=== PATIENT | male | born 1950 | race Caucasian/White ===

== ENCOUNTER 2022-07-02 04:36 | Inpatient (IN) | payer BC, MEDICARE ==
--- NOTE | 2022-07-02 04:51 | ED ---
General Adult HPI <Case Mathur - Last Filed: 07/02/22 06:41> <Jalen Rust - Last Filed: 07/02/22 16:05> - General Stated complaint: Shortness of Breath Time Seen by Provider: 07/02/22 04:38 - History of Present Illness Initial comments: Dictation was produced using [email or web address] dictation software. please excuse any grammatical, word or spelling errors. Chief Complaint: 71-year-old male presents emergency department for shortness of breath History of Present Illness: Is 71-year-old male has multiple comorbidities. Patient has not seen a physician and several years due to patient not wanting to see a doctor. He finally came today because he was complaining of shortness of breath. asked him if he wanted to go to the hospital he finally said yes. Patient is a poor historian. He is not able to provide detailed history of present illness. HPI obtained from EMS states that the house he was living is very disheveled. Appears that patient does not have a good social situation at home. 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 Patient was stated his name. He is able to not know when asked if he has any pain. EMS suspects that patient was found down at home. Unable to obtain secondary to mental status. PHYSICAL EXAM: General Impression: Alert and oriented x1/4, lethargic HEENT: Normocephalic atraumatic, extra-ocular movements intact, pupils equal and reactive to light bilaterally, dry mucous membranes Cardiovascular: Heart regular rate and rhythm Chest: no retractions, no tachypnea Abdomen: abdomen soft, non-tender, non-distended, no organomegaly Musculoskeletal: Pulses present and equal in all extremities, no peripheral edema Motor: no focal deficits noted Neurological: CN II-XII grossly intact, no focal motor or sensory deficits noted Skin: Pressure sores to the bilateral knees Psych: Normal affect and mood ED course: 71-year-old male presents emergency department for shortness of breath. EMS describes a poor social living situation. It is unclear what joaquin epps's baseline mental status is. it is unclear when patient was last normal. Nursing notes and chart review was performed My EKG interpretation: Ventricular rate 137, sinus tachycardia, MO interval of 85, QRS 84, QTC 41. No MO prolongation, no QTC prolongation, no ST or T-wave changes noted. EKG compared to febrile 06/08/2015 showing no changes. Overall, this EKG is unremarkable Patient care signed over to Dr. Rust at 7 AM (Case Mathur) - Related Data Home Medications Medication Instructions Recorded Confirmed No Known Home Medications 07/02/22 07/02/22 Allergies Allergy/AdvReac Type Severity Reaction Status Date / Time No Known Allergies Allergy Verified 07/02/22 10:54 Review of Systems ROS Other: All systems not noted in ROS Statement are negative. <Case Mathur - Last Filed: 07/02/22 06:41> ROS Other: All systems not noted in ROS Statement are negative. <Jalen Rust - Last Filed: 07/02/22 16:05> ROS Statement: Those systems with pertinent positive or pertinent negative responses have been documented in the HPI. Past Medical History Past Medical History: Diabetes Mellitus, Hyperlipidemia Additional Past Medical History / Comment(s): WORK ACCIDENT LEFT INDEX FINGER AMPUTATED History of Any Multi-Drug Resistant Organisms: None Reported Past Surgical History: No Surgical Hx Reported Past Anesthesia/Blood Transfusion Reactions: No Reported Reaction Past Psychological History: No Psychological Hx Reported Past Alcohol Use History: Occasional Past Drug Use History: None Reported - Past Family History Mother Family Medical History: No Reported History <Case Mathur - Last Filed: 07/02/22 06:41> Course Vital Signs 07/02/22 07/02/22 07/02/22 05:12 08:13 10:17 Temperature 98.9 F Pulse Rate 74 134 H 133 H Respiratory 15 18 24 Rate Blood Pressure 136/73 136/75 132/82 O2 Sat by Pulse 99 97 96 Oximetry 07/02/22 07/02/22 07/02/22 11:22 14:15 15:18 Temperature Pulse Rate 132 H 137 H 113 H Respiratory 28 H 21 13 Rate Blood Pressure 136/73 102/59 110/67 O2 Sat by Pulse 96 97 98 Oximetry Medical Decision Making - Lab Data Result diagrams: 07/02/22 06:02 <Case Mathur - Last Filed: 07/02/22 06:41> - Lab Data Result diagrams: 07/02/22 14:47 07/02/22 12:32 <Jalen Rust - Last Filed: 07/02/22 16:05> - Medical Decision Making Patient is a 71-year-old male that was signed out to me pending further workup. He originally presents with shortness of breath. Has not been seen by a physician in many years. Has a history of uncontrolled diabetes. Unknown compliance with medications. Per family, they have been attempting to get him to the hospital for multiple weeks but he refuses. Over the last week or so he has been more short of breath. Has normally just been sitting watching TV which is his baseline. His exercises "ambulating to the mailbox and back." However he has not moved from the couch recently. Was covered in his own urine. 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 Does have a prior history of stroke with some residual right-sided deficits. Presents for further evaluation at this time. Workup initially was remarkable for sinus tachycardia, dehydration, and leukocytosis of 16.8, elevated d-dimer of 20, a high anion gap metabolic acidosis, AK eye, hyperglycemia, lactic acidosis. Patient elevated troponin of 0.287. Acetone and VBG were still pending. Flu, Covid, RSV negative. Urinalysis is still pending. CT brain had been obtained as well as C-spine, and were interpreted by myself as showing no acute intracranial hemorrhage or mass effect. No midline shift. Cervical spine shows no acute fracture or subluxation. Chest x-ray as interpreted by myself shows diffuse right lung edema versus infiltrates. Radiology was concerned for possible underlying mass. Recommended CT. Pelvis x-ray as interpreted by myself shows no acute traumatic process. Patient was administered a 1 L fluid bolus. He was started on Zosyn and vancomycin by the prior physician as well to cover for sepsis. He met criteria at 7 AM. Fluids will be administered judiciously as he is hypernatremic. We will obtain bilateral lower extremity venous duplexes. Cannot obtain a CT with contrast and it therefore we will obtain CT chest and pelvis without contrast. I did order a VQ scan. We'll likely start the patient on empiric heparin at this time to cover for possible clot, as VQ scan would not be done immediately. I did discuss with the patient's who was in agreement this plan. Patient was also in agreement with this plan. Patient is tachycardic at this time and appears extremity dehydrated which I will continue fluids. Vital signs otherwise within acceptable limits. We will obtain an additional IV. CT chest, abdomen, pelvis without contrast was obtained and revealed a right- sided pleural effusion as well as findings suggestive of a mass in the right hilar region. Radiology concurs with this finding. I did discuss the case with the ICU team, who will evaluate the patient. Con sult was placed. Consult to cardiology was also placed. Echo will be obtained as well. I spoke with the admitting physician, Dr. Jean was in agreement this plan. I did speak with the at bedside and updated her. We discussed at this time CODE STATUS for the patient. She states that the patient previously stated he wishes to be no code. No CPR, no intubation. They're in agreement with other therapies, and may be in agreement with possible central line or pressors use but like to discuss it prior if he does require. They were in agreement this plan. I spoke with Dr. Fajardo at bedside reevaluated the patient was in agreement with accepting the patient ICU. We'll continue DVT prophylaxis heparin at this time. We'll continue treating the DKA at this time. He was in agreement with the plan. VQ scan returned, however was a comfort kit study as they did not obtain ventilation imaging, however did show some perfusion deficits in the right lung. I did convey this with the ICU team, we'll continue management as is for now. (Jalen Rust) - Lab Data Lab Results 07/02/22 07/02/22 07/02/22 Range/Units 05:55 06:02 06:02 WBC 16.8 H (3.8-10.6) k/uL RBC 4.78 (4.30-5.90) m/uL Hgb 15.8 (13.0-17.5) gm/dL Hct 50.1 (39.0-53.0) % MCV 104.8 H (80.0-100.0) fL MCH 33.0 (25.0-35.0) pg MCHC 31.5 (31.0-37.0) g/dL RDW 12.6 (11.5-15.5) % Plt Count 345 (150-450) k/uL MPV 8.6 Neutrophils % 90 % Lymphocytes % 5 % Monocytes % 4 % Eosinophils % 0 % Basophils % 0 % Neutrophils # 15.1 H (1.3-7.7) k/uL Lymphocytes # 0.8 L (1.0-4.8) k/uL Monocytes # 0.7 (0-1.0) k/uL Eosinophils # 0.0 (0-0.7) k/uL Basophils # 0.1 (0-0.2) k/uL Hypochromasia Marked Macrocytosis Slight PT (9.0-12.0) sec INR (<1.2) APTT (22.0-30.0) sec D-Dimer (<0.60) mg/L FEU VBG pH (7.31-7.41) VBG pCO2 (37-51) mmHg VBG HCO3 (24-28) mmol/L Sodium 159 H (137-145) mmol/L Potassium 4.9 (3.5-5.1) mmol/L Chloride 119 H (98-107) mmol/L Carbon Dioxide 6 L* (22-30) mmol/L Anion Gap 34 mmol/L BUN 46 H (9-20) mg/dL Creatinine 1.84 H (0.66-1.25) mg/dL Est GFR (CKD-EPI)AfAm 41 (>60 ml/min/1.73 sqM) Est GFR (CKD-EPI)NonAf 36 (>60 ml/min/1.73 sqM) Glucose 567 H* (74-99) mg/dL POC Glucose (mg/dL) 495 H (70-110) mg/dL POC Glu Bone Density Technician ID Mack Escudero Lactic Ac Sepsis Rflx Plasma Lactic Acid Alfonzo (0.7-2.0) mmol/L Calcium 9.7 (8.4-10.2) mg/dL Magnesium 2.8 H (1.6-2.3) mg/dL Total Bilirubin 0.8 (0.2-1.3) mg/dL AST 16 L (17-59) U/L ALT 16 (4-49) U/L Alkaline Phosphatase 145 H (38-126) U/L Ammonia (<30) umol/L Creatine Kinase 91 (55-170) U/L Troponin I (0.000-0.034) ng/mL NT-Pro-B Natriuret Pep pg/mL Total Protein 9.0 H (6.3-8.2) g/dL Albumin 3.8 (3.5-5.0) g/dL TSH 0.821 (0.465-4.680) mIU/L Urine Color Urine Appearance (Clear) Urine pH (5.0-8.0) Ur Specific Spring (1.001-1.035) Urine Protein (Negative) Urine Glucose (UA) (Negative) Urine Ketones (Negative) Urine Blood (Negative) Urine Nitrite (Negative) Urine Bilirubin (Negative) Urine Urobilinogen (<2.0) mg/dL Ur Leukocyte Esterase (Negative) Urine RBC (0-5) /hpf Urine WBC (0-5) /hpf Ur Squamous Epith Cells (0-4) /hpf Urine Mucus (None) /hpf Acetone, Qual (Negative) Influenza Type A (PCR) (Not Detectd) Influenza Type B (PCR) (Not Detectd) RSV (PCR) (Not Detectd) SARS-CoV-2 (PCR) (Not Detectd) 07/02/22 07/02/22 07/02/22 Range/Units 06:02 06:02 06:02 WBC (3.8-10.6) k/uL RBC (4.30-5.90) m/uL Hgb (13.0-17.5) gm/dL Hct (39.0-53.0) % MCV (80.0-100.0) fL MCH (25.0-35.0) pg MCHC (31.0-37.0) g/dL RDW (11.5-15.5) % Plt Count (150-450) k/uL MPV Neutrophils % % Lymphocytes % % Monocytes % % Eosinophils % % Basophils % % Neutrophils # (1.3-7.7) k/uL Lymphocytes # (1.0-4.8) k/uL Monocytes # (0-1.0) k/uL Eosinophils # (0-0.7) k/uL Basophils # (0-0.2) k/uL Hypochromasia Macrocytosis PT 12.9 H (9.0-12.0) sec INR 1.3 H (<1.2) APTT 23.4 (22.0-30.0) sec D-Dimer 20.08 H (<0.60) mg/L FEU VBG pH (7.31-7.41) VBG pCO2 (37-51) mmHg VBG HCO3 (24-28) mmol/L Sodium (137-145) mmol/L Potassium (3.5-5.1) mmol/L Chloride (98-107) mmol/L Carbon Dioxide (22-30) mmol/L Anion Gap mmol/L BUN (9-20) mg/dL Creatinine (0.66-1.25) mg/dL Est GFR (CKD-EPI)AfAm (>60 ml/min/1.73 sqM) Est GFR (CKD-EPI)NonAf (>60 ml/min/1.73 sqM) Glucose (74-99) mg/dL POC Glucose (mg/dL) (70-110) mg/dL POC Glu Bone Density Technician ID Lactic Ac Sepsis Rflx Plasma Lactic Acid Alfonzo 3.8 H* (0.7-2.0) mmol/L Calcium (8.4-10.2) mg/dL Magnesium (1.6-2.3) mg/dL Total Bilirubin (0.2-1.3) mg/dL AST (17-59) U/L ALT (4-49) U/L Alkaline Phosphatase (38-126) U/L Ammonia 13 (<30) umol/L Creatine Kinase (55-170) U/L Troponin I (0.000-0.034) ng/mL NT-Pro-B Natriuret Pep 2660 pg/mL Total Protein (6.3-8.2) g/dL Albumin (3.5-5.0) g/dL TSH (0.465-4.680) mIU/L Urine Color Urine Appearance (Clear) Urine pH (5.0-8.0) Ur Specific Spring (1.001-1.035) Urine Protein (Negative) Urine Glucose (UA) (Negative) Urine Ketones (Negative) Urine Blood (Negative) Urine Nitrite (Negative) Urine Bilirubin (Negative) Urine Urobilinogen (<2.0) mg/dL Ur Leukocyte Esterase (Negative) Urine RBC (0-5) /hpf Urine WBC (0-5) /hpf Ur Squamous Epith Cells (0-4) /hpf Urine Mucus (None) /hpf Acetone, Qual (Negative) Influenza Type A (PCR) (Not Detectd) Influenza Type B (PCR) (Not Detectd) RSV (PCR) (Not Detectd) SARS-CoV-2 (PCR) (Not Detectd) 07/02/22 07/02/22 07/02/22 Range/Units 06:02 06:48 07:03 WBC (3.8-10.6) k/uL RBC (4.30-5.90) m/uL Hgb (13.0-17.5) gm/dL Hct (39.0-53.0) % MCV (80.0-100.0) fL MCH (25.0-35.0) pg MCHC (31.0-37.0) g/dL RDW (11.5-15.5) % Plt Count (150-450) k/uL MPV Neutrophils % % Lymphocytes % % Monocytes % % Eosinophils % % Basophils % % Neutrophils # (1.3-7.7) k/uL Lymphocytes # (1.0-4.8) k/uL Monocytes # (0-1.0) k/uL Eosinophils # (0-0.7) k/uL Basophils # (0-0.2) k/uL Hypochromasia Macrocytosis PT (9.0-12.0) sec INR (<1.2) APTT (22.0-30.0) sec D-Dimer (<0.60) mg/L FEU VBG pH (7.31-7.41) VBG pCO2 (37-51) mmHg VBG HCO3 (24-28) mmol/L Sodium (137-145) mmol/L Potassium (3.5-5.1) mmol/L Chloride (98-107) mmol/L Carbon Dioxide (22-30) mmol/L Anion Gap mmol/L BUN (9-20) mg/dL Creatinine (0.66-1.25) mg/dL Est GFR (CKD-EPI)AfAm (>60 ml/min/1.73 sqM) Est GFR (CKD-EPI)NonAf (>60 ml/min/1.73 sqM) Glucose (74-99) mg/dL POC Glucose (mg/dL) (70-110) mg/dL POC Glu Bone Density Technician ID Lactic Ac Sepsis Rflx Y Plasma Lactic Acid Alfonzo (0.7-2.0) mmol/L Calcium (8.4-10.2) mg/dL Magnesium (1.6-2.3) mg/dL Total Bilirubin (0.2-1.3) mg/dL AST (17-59) U/L ALT (4-49) U/L Alkaline Phosphatase (38-126) U/L Ammonia (<30) umol/L Creatine Kinase (55-170) U/L Troponin I 0.287 H* (0.000-0.034) ng/mL NT-Pro-B Natriuret Pep pg/mL Total Protein (6.3-8.2) g/dL Albumin (3.5-5.0) g/dL TSH (0.465-4.680) mIU/L Urine Color Urine Appearance (Clear) Urine pH (5.0-8.0) Ur Specific Spring (1.001-1.035) Urine Protein (Negative) Urine Glucose (UA) (Negative) Urine Ketones (Negative) Urine Blood (Negative) Urine Nitrite (Negative) Urine Bilirubin (Negative) Urine Urobilinogen (<2.0) mg/dL Ur Leukocyte Esterase (Negative) Urine RBC (0-5) /hpf Urine WBC (0-5) /hpf Ur Squamous Epith Cells (0-4) /hpf Urine Mucus (None) /hpf Acetone, Qual (Negative) Influenza Type A (PCR) Not Detected (Not Detectd) Influenza Type B (PCR) Not Detected (Not Detectd) RSV (PCR) Not Detected (Not Detectd) SARS-CoV-2 (PCR) Not Detected (Not Detectd) 07/02/22 07/02/22 07/02/22 Range/Units 08:31 08:31 08:31 WBC (3.8-10.6) k/uL RBC (4.30-5.90) m/uL Hgb (13.0-17.5) gm/dL Hct (39.0-53.0) % MCV (80.0-100.0) fL MCH (25.0-35.0) pg MCHC (31.0-37.0) g/dL RDW (11.5-15.5) % Plt Count (150-450) k/uL MPV Neutrophils % % Lymphocytes % % Monocytes % % Eosinophils % % Basophils % % Neutrophils # (1.3-7.7) k/uL Lymphocytes # (1.0-4.8) k/uL Monocytes # (0-1.0) k/uL Eosinophils # (0-0.7) k/uL Basophils # (0-0.2) k/uL Hypochromasia Macrocytosis PT (9.0-12.0) sec INR (<1.2) APTT (22.0-30.0) sec D-Dimer (<0.60) mg/L FEU VBG pH 7.24 L (7.31-7.41) VBG pCO2 20 L (37-51) mmHg VBG HCO3 8 L* (24-28) mmol/L Sodium (137-145) mmol/L Potassium (3.5-5.1) mmol/L Chloride (98-107) mmol/L Carbon Dioxide (22-30) mmol/L Anion Gap mmol/L BUN (9-20) mg/dL Creatinine (0.66-1.25) mg/dL Est GFR (CKD-EPI)AfAm (>60 ml/min/1.73 sqM) Est GFR (CKD-EPI)NonAf (>60 ml/min/1.73 sqM) Glucose (74-99) mg/dL POC Glucose (mg/dL) (70-110) mg/dL POC Glu Bone Density Technician ID Lactic Ac Sepsis Rflx Plasma Lactic Acid Alfonzo (0.7-2.0) mmol/L Calcium (8.4-10.2) mg/dL Magnesium (1.6-2.3) mg/dL Total Bilirubin (0.2-1.3) mg/dL AST (17-59) U/L ALT (4-49) U/L Alkaline Phosphatase (38-126) U/L Ammonia (<30) umol/L Creatine Kinase (55-170) U/L Troponin I (0.000-0.034) ng/mL NT-Pro-B Natriuret Pep pg/mL Total Protein (6.3-8.2) g/dL Albumin (3.5-5.0) g/dL TSH (0.465-4.680) mIU/L Urine Color Yellow Urine Appearance Clear (Clear) Urine pH 5.5 (5.0-8.0) Ur Specific Spring 1.028 (1.001-1.035) Urine Protein 1+ H (Negative) Urine Glucose (UA) 4+ H (Negative) Urine Ketones 4+ H (Negative) Urine Blood Moderate H (Negative) Urine Nitrite Negative (Negative) Urine Bilirubin 1+ H (Negative) Urine Urobilinogen <2.0 (<2.0) mg/dL Ur Leukocyte Esterase Negative (Negative) Urine RBC 39 H (0-5) /hpf Urine WBC 2 (0-5) /hpf Ur Squamous Epith Cells <1 (0-4) /hpf Urine Mucus Rare H (None) /hpf Acetone, Qual Positive (Negative) Influenza Type A (PCR) (Not Detectd) Influenza Type B (PCR) (Not Detectd) RSV (PCR) (Not Detectd) SARS-CoV-2 (PCR) (Not Detectd) 07/02/22 Range/Units 10:11 WBC (3.8-10.6) k/uL RBC (4.30-5.90) m/uL Hgb (13.0-17.5) gm/dL Hct (39.0-53.0) % MCV (80.0-100.0) fL MCH (25.0-35.0) pg MCHC (31.0-37.0) g/dL RDW (11.5-15.5) % Plt Count (150-450) k/uL MPV Neutrophils % % Lymphocytes % % Monocytes % % Eosinophils % % Basophils % % Neutrophils # (1.3-7.7) k/uL Lymphocytes # (1.0-4.8) k/uL Monocytes # (0-1.0) k/uL Eosinophils # (0-0.7) k/uL Basophils # (0-0.2) k/uL Hypochromasia Macrocytosis PT (9.0-12.0) sec INR (<1.2) APTT (22.0-30.0) sec D-Dimer (<0.60) mg/L FEU VBG pH (7.31-7.41) VBG pCO2 (37-51) mmHg VBG HCO3 (24-28) mmol/L Sodium (137-145) mmol/L Potassium (3.5-5.1) mmol/L Chloride (98-107) mmol/L Carbon Dioxide (22-30) mmol/L Anion Gap mmol/L BUN (9-20) mg/dL Creatinine (0.66-1.25) mg/dL Est GFR (CKD-EPI)AfAm (>60 ml/min/1.73 sqM) Est GFR (CKD-EPI)NonAf (>60 ml/min/1.73 sqM) Glucose (74-99) mg/dL POC Glucose (mg/dL) 412 H (70-110) mg/dL POC Glu Bone Density Technician ID OrwellLinden Ac Sepsis Rflx Plasma Lactic Acid Alfonzo (0.7-2.0) mmol/L Calcium (8.4-10.2) mg/dL Magnesium (1.6-2.3) mg/dL Total Bilirubin (0.2-1.3) mg/dL AST (17-59) U/L ALT (4-49) U/L Alkaline Phosphatase (38-126) U/L Ammonia (<30) umol/L Creatine Kinase (55-170) U/L Troponin I (0.000-0.034) ng/mL NT-Pro-B Natriuret Pep pg/mL Total Protein (6.3-8.2) g/dL Albumin (3.5-5.0) g/dL TSH (0.465-4.680) mIU/L Urine Color Urine Appearance (Clear) Urine pH (5.0-8.0) Ur Specific Spring (1.001-1.035) Urine Protein (Negative) Urine Glucose (UA) (Negative) Urine Ketones (Negative) Urine Blood (Negative) Urine Nitrite (Negative) Urine Bilirubin (Negative) Urine Urobilinogen (<2.0) mg/dL Ur Leukocyte Esterase (Negative) Urine RBC (0-5) /hpf Urine WBC (0-5) /hpf Ur Squamous Epith Cells (0-4) /hpf Urine Mucus (None) /hpf Acetone, Qual (Negative) Influenza Type A (PCR) (Not Detectd) Influenza Type B (PCR) (Not Detectd) RSV (PCR) (Not Detectd) SARS-CoV-2 (PCR) (Not Detectd) Critical Care Time Critical Care Time: Yes Total Critical Care Time: 35 <Jalen Rust - Last Filed: 07/02/22 16:05> Critical Care Time: Upon my evaluation, this patient had a high probability of imminent or life- threatening deterioration due to DKA, sepsis, hypernatremia, which required my direct attention, intervention, and personal management. I have personally provided 35 minutes of critical care time exclusive of time spent on separately billable procedures. Time includes review of laboratory data, radiology results, discussion with consultants, and monitoring for potential decompensation. Interventions were performed as documented in my note. (Jalen Rust) Disposition <Case Mathur - Last Filed: 07/02/22 06:41> Time of Disposition: 08:45 <Jalen Rust - Last Filed: 07/02/22 16:05> Clinical Impression: Elevated troponin, DKA (diabetic ketoacidosis), AMS (altered mental status), Hypernatremia, Elevated d-dimer, Debility, Dehydration, Sepsis Disposition: ADMITTED IP TO THIS [facility] Condition: Serious
[2022-07-02 05:56] LABS: Glucose,Whole Blood 495 mg/dL (70-110)
[2022-07-02] MEDS ORDERED: SODIUM CHLORIDE 0.9% 1,000 ML IV STA ×2 (06:01→07:19)
[2022-07-02 06:14] LABS: Basophils # (A) 0.1 k/uL (0-0.2); Basophils % (A) 0 %; Eosinophils % (A) 0 %; HCT 50.1 % (39.0-53.0); HGB 15.8 gm/dL (13.0-17.5); Hypochromasia Marked; Lymphocytes # (A) 0.8 k/uL (1.0-4.8); Lymphocytes % (A) 5 %; MCHC 31.5 g/dL (31.0-37.0); MCV 104.8 fL (80.0-100.0); Macrocytosis Slight; Mean Platelet Volume 8.6; Monocytes # (A) 0.7 k/uL (0-1.0); Monocytes % (A) 4 %; Neutrophils # (A) 15.1 k/uL (1.3-7.7); Neutrophils % (A) 90 %; Platelet Count 345 k/uL (150-450); RBC 4.78 m/uL (4.30-5.90); RDW 12.6 % (11.5-15.5); WBC 16.8 k/uL (3.8-10.6)
[2022-07-02 06:26] LABS: Albumin 3.8 g/dL (3.5-5.0); Calcium 9.7 mg/dL (8.4-10.2); Magnesium 2.8 mg/dL (1.6-2.3); Potassium 4.9 mmol/L (3.5-5.1); Total Bilirubin 0.8 mg/dL (0.2-1.3)
[2022-07-02 06:38] LABS: INR 1.3 (<1.2); Partial Thromboplastin Time 23.4 sec (22.0-30.0); Prothrombin Time 12.9 sec (9.0-12.0)
[2022-07-02] MEDS ORDERED: PIPERACILLIN-TAZOBACTAM 3.375 GM in SODIUM CHLORIDE 0.9% 100 ML IVPB STA (06:49)
--- NOTE | 2022-07-02 06:52 | XR ---
EXAMINATION TYPE: XR chest 1V portable DATE OF EXAM: 07/02/2022 COMPARISON: Chest x-ray August 31, 2014 HISTORY: Shortness of breath. TECHNIQUE: Single frontal supine view of the chest is obtained. FINDINGS: Diffuse right lung opacity current study. Right hilar fullness is noted. Background chroni c parenchymal change. Low lung volumes redemonstrated. The cardiac silhouette size is stable and wit hin normal limits. The osseous structures are intact. IMPRESSION: New diffuse right lung edema and/or infiltrates. Right hilar fullness possible underlyin g mass and/or adenopathy. Consider CT follow-up.
--- NOTE | 2022-07-02 06:53 | XR ---
EXAMINATION TYPE: XR pelvis AP view DATE OF EXAM: 07/02/2022 CLINICAL HISTORY: Pain. TECHNIQUE: A single AP view of the pelvis is obtained. COMPARISON: None. FINDINGS: There is no acute fracture/dislocation evident in the pelvis. The hip joints appear symme tric and unremarkable. Some narrowing and sclerosis of the bilateral sacroiliac joints is seen. Pubi c symphysis is intact. A few scattered tiny pelvic phleboliths are noted. IMPRESSION: As above.
--- NOTE | 2022-07-02 06:56 | CT ---
EXAMINATION TYPE: CT brain cspine wo con DATE OF EXAM: 07/02/2022 COMPARISON: CT brain September 01, 2014 HISTORY: Fall injury with headache and neck pain. CT DLP: 1394.9 mGycm. Automated Exposure Control for Dose Reduction was Utilized. TECHNIQUE: CT scan of the head and cervical spine are performed without contrast. FINDINGS: There is no acute intracranial hemorrhage or midline shift identified. There is mild to m oderate ventricular and sulcal prominence. There is mild low attenuation in the periventricular white matter. There is old infarct or focal encephalomalacia involving the left frontal lobe more prominen t from prior. The calvarium is intact. The globes are intact and the visualized sinuses are clear. Cervical spine is visualized in its entirety from C1 through upper thoracic levels and demonstrates s light levoconvex scoliotic curvature centered upper thoracic spine without evidence of acute fracture or dislocation. Prevertebral soft tissue appears within normal limits. The C1-C2 articulation is w ithin normal limits on the coronal images. Vertebral body heights and disc space heights are maintai dhiraj. Spinal canal is preserved. Review of axial images shows normal-appearing thyroid gland. There is no apical pneumothorax noted. There is partial visualization of at least small right pleural effusio n. IMPRESSION: 1. There is no acute fracture or dislocation evident in the cervical spine. 2. No acute intracranial hemorrhage or midline shift is seen.
[2022-07-02 07:03] LABS: Lactic Acid, Venous 3.8 mmol/L (0.7-2.0)
[2022-07-02] MEDS ORDERED: VANCOMYCIN IV PER PHARMACY 1 EACH MISC MISCELLANE PRN (07:07)
[2022-07-02] MEDS ORDERED: VANCOMYCIN 1,750 MG in SODIUM CHLORIDE 0.9% 500 ML 500 ML IVPB STA (07:11)
[2022-07-02] MEDS ORDERED: SODIUM CHLORIDE 0.9% 500 ML 500 ML IV STA (07:31)
[2022-07-02 08:52] LABS: VBG PH 7.24 (7.31-7.41)
[2022-07-02] MEDS ORDERED: Potassium Replacement Protocol 1 EACH MISC MISCELLANE PRN (09:01)
[2022-07-02] MEDS ORDERED: INSULIN REGULAR BOLUS (FROM DRIP BAG) IV ONE (09:01)
[2022-07-02] MEDS ORDERED: Magnesium Replacement Protocol 1 EACH MISC MISCELLANE PRN (09:01)
[2022-07-02 09:02] LABS: Appearance,Urine Clear (Clear); Bilirubin,Urine 1+ (Negative); Blood,Urine Moderate (Negative); Color,Urine Yellow; Glucose,Urine (UA) 4+ (Negative); Leukocyte Esterase,Urine Negative (Negative); Mucus,Urine Rare /hpf; Nitrite,Urine Negative (Negative); PH, Urine 5.5 (5.0-8.0); Protein,Urine 1+ (Negative); RBC,Urine 39 /hpf (0-5); Specific Gravity,Urine 1.028 (1.001-1.035); Squamous Epithelial Cell,Urine <1 /hpf (0-4); Urobilinogen,Urine <2.0 mg/dL (<2.0); WBC,Urine 2 /hpf (0-5)
--- NOTE | 2022-07-02 09:18 | CT ---
EXAMINATION TYPE: CT ChestAbdPelvis wo con DATE OF EXAM: 07/02/2022 COMPARISON: NONE HISTORY: Sepsis, shortness of breath CT DLP: 1025.8 mGycm. Automated Exposure Control for Dose Reduction was Utilized. TECHNIQUE: CT scan of the thorax, abdomen and pelvis is performed without IV contrast. FINDINGS: LUNGS: There is small right pleural effusion. There is associated compressive atelectasis. There is m ild bibasilar linear scarring and/or atelectasis. Respiratory motion artifact is noted limiting evalu ation for subcentimeter nodules. Right hilar masslike consolidation more suspicious posterior infrahi lar region or axial image 33 is noted. Left lung is clear. MEDIASTINUM: There are calcified subcarinal lymph nodes. Prominent but subcentimeter paratracheal and right tracheobronchial and AP window lymph nodes are seen. No cardiomegaly or pericardial effusion is seen. Coronary artery calcification is present which is noted marker for underlying coronary art ny disease. OTHER: Small degree of right-sided gynecomastia axial image 32 is noted. LIVER/GB: Gallbladder is distended margins without surrounding fluid or fat stranding. PANCREAS: Moderate to severe fat replaced atrophy. SPLEEN: Occasional calcification scattered throughout the spleen consistent with product of old granu lomatous disease. ADRENALS: No significant abnormality is seen. KIDNEYS: No renal stones or hydronephrosis seen bilaterally. There is 2.3 cm exophytic thin-walled cy st anteriorly upper pole left kidney. The Juarez catheter decompresses bladder. BOWEL: No suspicious small or large bowel dilatation. GENITAL ORGANS: No gross abnormality seen. LYMPH NODES: No greater than 1cm abdominal or pelvic lymph nodes are appreciated. OSSEOUS STRUCTURES: [id number] multilevel spurring in the thoracolumbar spine. Facet arthropath y lower lumbar spine. Probable old fracture deformity left proximal humerus. OTHER: [id number] calcified plaque of the aorta extends into branch vessels. IMPRESSION: 1. Suboptimal study with respiratory motion compromise. Small right pleural effusion or fluid collec tion with associated compressive atelectasis. Right hilar consolidation slightly more masslike elementary librarian ior infrahilar region. Follow-up advised to rule out underlying mass or neoplasm. No well-formed flui d collection or abscess.
[2022-07-02 09:22] LABS: Ketones,Urine 4+ (Negative)
[2022-07-02] MEDS ORDERED: ACETAMINOPHEN TAB 325 MG TAB PO PRN (10:07)
[2022-07-02] MEDS ORDERED: NALOXONE 0.4 MG/ML 1 ML VIAL IV PRN (10:07)
[2022-07-02] MEDS ORDERED: ASPIRIN 81 MG PO STA (10:09)
--- NOTE | 2022-07-02 10:11 | US ---
EXAMINATION TYPE: US venous doppler duplex LE DATE OF EXAM: 07/02/2022 9:43 AM COMPARISON: NONE CLINICAL HISTORY: elevated dimer, concern for PE. Elevated d dimer. Bilateral leg swelling. SIDE PERFORMED: Bilateral TECHNIQUE: The lower extremity deep venous system is examined utilizing real time linear array sonog hakan with graded compression, doppler sonography and color-flow sonography. VESSELS IMAGED: Common Femoral Vein Deep Femoral Vein Greater Saphenous Vein * Femoral Vein Popliteal Vein Small Saphenous Vein * Proximal Calf Veins (* superficial vessels) Right Leg: Negative for DVT Left Leg: Vessels imagined wnl Popliteal Vein area is not well visualized. Grayscale, color doppler, spectral doppler imaging performed of the deep veins of the bilateral lower extremities. There is normal flow, compressibility, vascular waveforms. IMPRESSION: Suboptimal study without convincing evidence of acute DVT in either lower extremity.
[2022-07-02 10:12] LABS: Glucose,Whole Blood 412 mg/dL (70-110)
[2022-07-02] MEDS: INSULIN REGULAR 100 UNIT in SODIUM CHLORIDE 0.9% 100 ML IV SCH ×2 (10:14→21:03)
[2022-07-02] MEDS: SODIUM CHLORIDE 0.9% 1,000 ML IV SCH ×3 (10:21→21:04)
[2022-07-02 11:20] LABS: Glucose,Whole Blood 266 mg/dL (70-110)
[2022-07-02 12:36] LABS: Glucose,Whole Blood 158 mg/dL (70-110)
--- NOTE | 2022-07-02 12:43 | NM ---
EXAMINATION TYPE: NM pul perfusion DATE OF EXAM: 07/02/2022 COMPARISON: 07/02/2022 chest x-ray and CT chest HISTORY: Elevated d-dimer Following administration of 5.3 mCi Tc 99m MAA. Images obtained post injection. FINDINGS: Ventilation images are not submitted and therefore assessment for probability for pulmonary embolism is nondiagnostic. There is a large peripheral wedge-shaped defect involving the right mid and upper lung. There is a co rresponding CT and chest x-ray abnormality.. IMPRESSION: Large perfusion defect right upper lobe. In the appropriate clinical setting pulmonary embolism in th e differential diagnosis.
[2022-07-02 13:20] LABS: Phosphorus 3.4 mg/dL (2.5-4.5); Potassium 3.5 mmol/L (3.5-5.1)
[2022-07-02 13:48] LABS: Glucose,Whole Blood 81 mg/dL (70-110)
--- NOTE | 2022-07-02 14:09 | P.CRDCN ---
History of Present Illness Consult date: 07/02/22 History of present illness: History of Present Illness: The patient is a 71-year-old male who presented to the emergency room after the insistence of his because of progressive fatigue, lack of energy and shortness of breath. In the emergency room he was noted to have diabetic ketoacidosis and mild elevation of the troponin. The history is obtained from the . 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 He has stopped taking all his medications. He is to smoke up to one year ago. He is limited in his physical activity. His left ventricle systolic function in 2015 was normal. He has no prior history of myocardial infarction or heart failure. His duplex scan of the lower extremities was unremarkable but his ventilation/perfusion scan raised the possibility of pulmonary embolism on the right side. His renal function are abnormal on presentation. His baseline is not available. The patient is awake, answering a few questions. In the emergency room he was noted to be in atrial fibrillation with rapid ventricle response of unknown duration. He does not consume alcohol or significant amount of caffeine. Medications: None Review of Systems: Respiratory: He has dyspnea on exertion but no formally diagnosed COPD GI: No nausea or vomiting . No history of peptic ulcer disease. No recent GI bleed. : No hematuria or dysuria. Nervous System: He has a prior history of stroke Physical Examination: 71-year-old male, alert answering a few questions,Blood pressure 136/70, Heart rate 132 Head: Normocephalic. Eyes: Sclerae nonicteric. Neck: Good carotid upstroke, no bruit, no jugular venous distention. Lungs: Decrease air exchange Heart: Irregular rate and rhythm, S1-S2, no S3, no rub. Systolic ejection murmur. Abdomen: Soft nontender, positive bowel sounds no organomegaly. Extremities: No edema, decrease distal pulses. Chronic discoloration Labs: Blood 16.8, D-DIMER 20, ACETONE POSITIVE, SODIUM 159. BICARB 6, BUN 46, CREATININE 1.84. GLUCOSE 567. TROPONIN 0.287. EKG: Atrial fibrillation with rapid ventricle response and nonspecific ST-T wave changes Impression: 1. Diabetic ketoacidosis 2. Renal failure probably acute 3. Troponin elevation representing type II event secondary to the DKA 4. Atrial fibrillation of unknown duration, patient was in sinus mechanism in 2014 5. Abnormal ventilation perfusion scan 6. History of stroke 7. Occluded left carotid internal artery 8. Prior history of smoking Plan: 1. Obtain an echocardiogram with Doppler 2. Start heparin 3. Add beta aleisha 4. Follow renal functions 5. Depending on the results of the testing further recommendations will be made. Prognosis is guarded. Thank you for this consult we will follow with amanda morin. Past Medical History Past Medical History: Diabetes Mellitus, Hyperlipidemia Additional Past Medical History / Comment(s): WORK ACCIDENT LEFT INDEX FINGER AMPUTATED History of Any Multi-Drug Resistant Organisms: None Reported Past Surgical History: No Surgical Hx Reported Past Anesthesia/Blood Transfusion Reactions: No Reported Reaction Past Psychological History: No Psychological Hx Reported Past Alcohol Use History: Occasional Past Drug Use History: None Reported - Past Family History Mother Family Medical History: No Reported History Medications and Allergies Home Medications Medication Instructions Recorded Confirmed Type No Known Home Medications 07/02/22 07/02/22 History Allergies Allergy/AdvReac Type Severity Reaction Status Date / Time No Known Allergies Allergy Verified 07/02/22 10:54 Physical Exam Vitals: Vital Signs Temp Pulse Resp BP Pulse Ox 07/02/22 11:22 132 H 28 H 136/73 96 07/02/22 10:17 133 H 24 132/82 96 07/02/22 08:13 134 H 18 136/75 97 07/02/22 05:12 98.9 F 74 15 136/73 99 Intake and Output 07/01/22 07/02/22 07/02/22 22:59 06:59 14:59 Output Total 600 Balance -600 Output: Urine 600 Uretheral (Juarez) 600 Other: Weight 117.934 kg Results 07/02/22 06:02 07/02/22 12:32 Cardiac Enzymes 07/02/22 07/02/22 Range/Units 06:02 06:02 AST 16 L (17-59) U/L Troponin I 0.287 H* (0.000-0.034) ng/mL Coagulation 07/02/22 Range/Units 06:02 PT 12.9 H (9.0-12.0) sec APTT 23.4 (22.0-30.0) sec CBC 07/02/22 Range/Units 06:02 WBC 16.8 H (3.8-10.6) k/uL RBC 4.78 (4.30-5.90) m/uL Hgb 15.8 (13.0-17.5) gm/dL Hct 50.1 (39.0-53.0) % Plt Count 345 (150-450) k/uL Comprehensive Metabolic Panel 07/02/22 07/02/22 Range/Units 06:02 12:32 Sodium 159 H 167 H* (137-145) mmol/L Potassium 4.9 3.5 (3.5-5.1) mmol/L Chloride 119 H 135 H* (98-107) mmol/L Carbon Dioxide 6 L* 10 L (22-30) mmol/L BUN 46 H 43 H (9-20) mg/dL Creatinine 1.84 H 1.40 H (0.66-1.25) mg/dL Glucose 567 H* 151 H (74-99) mg/dL Calcium 9.7 (8.4-10.2) mg/dL AST 16 L (17-59) U/L ALT 16 (4-49) U/L Alkaline Phosphatase 145 H (38-126) U/L Total Protein 9.0 H (6.3-8.2) g/dL Albumin 3.8 (3.5-5.0) g/dL Current Medications Generic Name Dose Route Start Last Admin Trade Name Freq PRN Reason Stop Dose Admin Acetaminophen 650 mg 07/02/22 10:07 Acetaminophen Tab 325 Mg Tab PO Q6HR PRN Mild Pain or Fever > 100.5 Heparin Sodium (Porcine) 0 unit 07/02/22 13:40 Heparin Sodium 1,000 Un/Ml (10ml Vl) IV PER PROTOCOL PRN Low PTT Protocol Insulin Human Regular 100 unit 101 mls @ 11.911 mls/hr 07/02/22 09:15 07/02/22 10:14 / Sodium Chloride IV 0.1 units/kg/hr .Q8H29M TOSIN 11.911 mls/hr Administration Protocol 0.1 UNITS/KG/HR Sodium Chloride 1,000 mls @ 200 mls/hr 07/02/22 09:15 07/02/22 10:21 Saline 0.9% IV 200 mls/hr .Q5H TOSIN Administration Piperacillin Sod/Tazobactam 100 mls @ 25 mls/hr 07/02/22 14:00 Sod 3.375 gm/ Sodium Chloride IVPB Q8H TOSIN Protocol Heparin Sodium/Sodium Chloride 250 mls @ 10 mls/hr 07/02/22 13:45 25,000 unit/ Sodium Chloride IV .Q24H [facility] Protocol 8.479 UNITS/KG/HR Metoprolol Tartrate 25 mg 07/02/22 14:00 Metoprolol Tartrate 25 Mg Tab PO BID [facility] Miscellaneous Information 1 each 07/02/22 09:01 Magnesium Replacement Protocol 1 Each Misc MISCELLANE DAILY PRN Per Protocol Protocol Miscellaneous Information 1 each 07/02/22 09:01 Potassium Replacement Protocol 1 Each Misc MISCELLANE DAILY PRN Per Protocol Naloxone HCl 0.2 mg 07/02/22 10:07 Naloxone 0.4 Mg/Ml 1 Ml Vial IV Q2M PRN Opioid Reversal Intake and Output 07/01/22 07/02/22 07/02/22 22:59 06:59 14:59 Output Total 600 Balance -600 Output: Urine 600 Uretheral (Juarez) 600 Other: Weight 117.934 kg 07/02/22 06:02 07/02/22 12:32
[2022-07-02] MEDS: D5-0.45% NACL WITH KCL 20MEQ/L 1,000 ML IV SCH ×2 (14:30→23:49)
[2022-07-02] MEDS: HEPARIN SOD,PORK IN 0.45% NACL 25,000 UNIT in 0.45% NACL 1 250ML.BAG IV SCH (14:43)
[2022-07-02 15:20] LABS: Basophils # (A) 0.1 k/uL (0-0.2); Basophils % (A) 1 %; Eosinophils % (A) 0 %; HCT 44.5 % (39.0-53.0); HGB 14.1 gm/dL (13.0-17.5); Hypochromasia Marked; Lymphocytes # (A) 1.5 k/uL (1.0-4.8); Lymphocytes % (A) 8 %; MCH 33.3 pg (25.0-35.0); MCHC 31.6 g/dL (31.0-37.0); MCV 105.1 fL (80.0-100.0); Macrocytosis Slight; Mean Platelet Volume 8.8; Monocytes # (A) 0.8 k/uL (0-1.0); Monocytes % (A) 4 %; Neutrophils # (A) 15.9 k/uL (1.3-7.7); Neutrophils % (A) 86 %; Platelet Count 246 k/uL (150-450); RBC 4.23 m/uL (4.30-5.90); RDW 13.1 % (11.5-15.5); WBC 18.6 k/uL (3.8-10.6)
[2022-07-02 15:20] LABS: Glucose,Whole Blood 131 mg/dL (70-110)
--- NOTE | 2022-07-02 15:51 | P.CNPUL ---
History of Present Illness Consult date: 07/02/22 Chief complaint: weakness History of present illness: 71-year-old male patient, diabetic, who has not seen a physician for many years and he has stopped taking his medication and he seems to have given up f from life, comes into the emergency department because of progressive weakness, lethargy, lack of energy and worsening shortness of breath. The patient is a very poor historian. is at the bedside. The patient is known to have diab etes, and history of atrial fibrillation and history of stroke with occlusion or complete occlusion of the left carotid artery and previous history of smoking. The patient has not been taking his diabetic medications at all. He also has history of peripheral vascular disease. The patient came into the emergency room initial blood work showed diabetic ketoacidosis. He had positive ketones. He had anion gap metabolic acidosis. Initial blood work showed a white cell count of 18.6 with a hemoglobin of 14, also, the patient had a sodium of 156, potassium of 4.9, chloride is 119, serum bicarb was at 6, BUN is at 46 with a creatinine of 1.8, glucose was 567, lactic acid level was at 3.8, urinalysis was positive for protein and glucose and ketones. Serum acetone was positive. ProBNP level was 2660, TSH was 0.8, troponin was 0.287 and 0.329 respectively. LFTs were normal. Chest x-ray showed a right-sided pleural effusion. CAT scan of the chest confirmed the presence of a small right-sided pleural effusion. Right lower lobe atelectatic changes were also present. No evidence of any masses. This was a noncontrast CAT scan. The patient was given IV Zosyn. The patient was also given a VQ scan based on an elevated d-dimer of 20 and the patient was found to have a large perfusion defect in the right upper lobe. Doppler of the lower extremity was suboptimal and there was no convincing evidence of DVT. For now, the patient was given IV fluids and he has received a total of 3 L of normal saline. Subsequently, the patient was started on normal saline and transitioned to D5 half-normal saline based on the DKA protocol. He is on IV Zosyn as an empiric antibiotic coverage. Insulin drip is running at 11 units an hour. Electrodes are being monitored. He gradually waking up and is becoming more communicative. No focal neurological deficits. Denies having any chest pain. The EKG showing sinus tachycardia. No acute ischemic changes. There are some Q waves on the septal leads. Review of Systems ROS unobtainable: due to mental status 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, internal carotid artery) Additional Past Medical History / Comment(s): WORK ACCIDENT LEFT INDEX FINGER AMPUTATED History of Any Multi-Drug Resistant Organisms: None Reported Past Surgical History: No Surgical Hx Reported Past Anesthesia/Blood Transfusion Reactions: No Reported Reaction Past Psychological History: No Psychological Hx Reported Smoking Status: Former smoker Past Alcohol Use History: Occasional Past Drug Use History: None Reported - Past Family History Mother Family Medical History: No Reported History Medications and Allergies Home Medications Medication Instructions Recorded Confirmed Type No Known Home Medications 07/02/22 07/02/22 History Allergies Allergy/AdvReac Type Severity Reaction Status Date / Time No Known Allergies Allergy Verified 07/02/22 10:54 Physical Exam Vitals: Vital Signs Temp Pulse Resp BP Pulse Ox 07/02/22 15:18 113 H 13 110/67 98 07/02/22 14:15 137 H 21 102/59 97 07/02/22 11:22 132 H 28 H 136/73 96 07/02/22 10:17 133 H 24 132/82 96 07/02/22 08:13 134 H 18 136/75 97 07/02/22 05:12 98.9 F 74 15 136/73 99 Intake and Output 07/02/22 07/02/22 07/02/22 06:59 14:59 22:59 Intake Total 35.429 Output Total 600 Balance -564.571 Intake: Intake, IV Titration 35.429 Amount Insulin Regular 100 unit 35.429 In Sodium Chloride 0.9% 100 ml @ 0.1 UNITS/KG/HR 11.911 mls/hr IV .Q8H29M [facility] Rx#:[id number] Output: Urine 600 Uretheral (Juarez) 600 Other: Weight 117.934 kg Gen. appearance, the patient is not agitated, lethargic, somewhat obtunded him a follow simple commands and the patient is currently on 2 L nasal cannula. He is tachypneic secondary to his underlying metabolic acidosis. Head exam was generally normal. There was no scleral icterus or corneal arcus. Mucous membranes were moist. Neck was supple and without jugular venous distension, thyromegaly, or carotid bruits. Carotids were easily palpable bilaterally. There was no adenopathy. Lungs were clear to auscultation and percussion, and with normal diaphragmatic excursion. No wheezes or rales were noted. Breath sounds are diminished in the right lung base and there is also some bullous to percussion. Heart sounds are tachycardic,Cardiac exam revealed the PMI to be normally situated and sized. The rhythm was regular and no extrasystoles were noted during several minutes of auscultation. The first and second heart sounds were normal and physiologic splitting of the second heart sound was noted. There were no murmurs, rubs, clicks, or gallops. Abdominal exam revealed normal bowel sounds. The abdomen was soft, non-tender, and without masses, organomegaly, or appreciable enlargement of the abdominal ao rta. Extremities revealed diminished pulses bilaterally and areas of superficial wounds that are dry related to previous fall. No cyanosis or clubbing. Examination of the skin revealed no evidence of significant rashes, suspicious appearing nevi or other concerning lesions. Positive dry wounds of various sizes Neurologically, the patient is lethargic, moving all 4 extremities without limitation. Pupils are equal and reactive to light. Results - Laboratory Findings CBC and BMP: 07/02/22 14:47 07/02/22 12:32 PT/INR, D-dimer PT 12.9 sec (9.0-12.0) H 07/02/22 06:02 INR 1.3 (<1.2) H 07/02/22 06:02 D-Dimer 20.08 mg/L FEU (<0.60) H 07/02/22 06:02 Abnormal lab findings: Abnormal Labs 07/02/22 07/02/22 07/02/22 05:55 06:02 06:02 WBC 16.8 H RBC MCV 104.8 H Neutrophils # 15.1 H Lymphocytes # 0.8 L PT INR D-Dimer VBG pH VBG pCO2 VBG HCO3 Sodium 159 H Chloride 119 H Carbon Dioxide 6 L* BUN 46 H Creatinine 1.84 H Glucose 567 H* POC Glucose (mg/dL) 495 H Plasma Lactic Acid Alfonzo Magnesium 2.8 H AST 16 L Alkaline Phosphatase 145 H Troponin I Total Protein 9.0 H Urine Protein Urine Glucose (UA) Urine Ketones Urine Blood Urine Bilirubin Urine RBC Urine Mucus 07/02/22 07/02/22 07/02/22 06:02 06:02 06:02 WBC RBC MCV Neutrophils # Lymphocytes # PT 12.9 H INR 1.3 H D-Dimer 20.08 H VBG pH VBG pCO2 VBG HCO3 Sodium Chloride Carbon Dioxide BUN Creatinine Glucose POC Glucose (mg/dL) Plasma Lactic Acid Alfonzo 3.8 H* Magnesium AST Alkaline Phosphatase Troponin I 0.287 H* Total Protein Urine Protein Urine Glucose (UA) Urine Ketones Urine Blood Urine Bilirubin Urine RBC Urine Mucus 07/02/22 07/02/22 07/02/22 08:31 08:31 10:11 WBC RBC MCV Neutrophils # Lymphocytes # PT INR D-Dimer VBG pH 7.24 L VBG pCO2 20 L VBG HCO3 8 L* Sodium Chloride Carbon Dioxide BUN Creatinine Glucose POC Glucose (mg/dL) 412 H Plasma Lactic Acid Alfonzo Magnesium AST Alkaline Phosphatase Troponin I Total Protein Urine Protein 1+ H Urine Glucose (UA) 4+ H Urine Ketones 4+ H Urine Blood Moderate H Urine Bilirubin 1+ H Urine RBC 39 H Urine Mucus Rare H 07/02/22 07/02/22 07/02/22 11:17 12:25 12:32 WBC RBC MCV Neutrophils # Lymphocytes # PT INR D-Dimer VBG pH VBG pCO2 VBG HCO3 Sodium 167 H* Chloride 135 H* Carbon Dioxide 10 L BUN 43 H Creatinine 1.40 H Glucose 151 H POC Glucose (mg/dL) 266 H 158 H Plasma Lactic Acid Alfonzo Magnesium AST Alkaline Phosphatase Troponin I Total Protein Urine Protein Urine Glucose (UA) Urine Ketones Urine Blood Urine Bilirubin Urine RBC Urine Mucus 07/02/22 07/02/22 07/02/22 12:32 14:47 14:47 WBC 18.6 H RBC 4.23 L MCV 105.1 H Neutrophils # 15.9 H Lymphocytes # PT INR D-Dimer VBG pH VBG pCO2 VBG HCO3 Sodium Chloride Carbon Dioxide BUN Creatinine Glucose POC Glucose (mg/dL) Plasma Lactic Acid Alfonzo Magnesium AST Alkaline Phosphatase Troponin I 0.271 H* 0.329 H* Total Protein Urine Protein Urine Glucose (UA) Urine Ketones Urine Blood Urine Bilirubin Urine RBC Urine Mucus 07/02/22 15:15 WBC RBC MCV Neutrophils # Lymphocytes # PT INR D-Dimer VBG pH VBG pCO2 VBG HCO3 Sodium Chloride Carbon Dioxide BUN Creatinine Glucose POC Glucose (mg/dL) 131 H Plasma Lactic Acid Alfonzo Magnesium AST Alkaline Phosphatase Troponin I Total Protein Urine Protein Urine Glucose (UA) Urine Ketones Urine Blood Urine Bilirubin Urine RBC Urine Mucus - Diagnostic Findings Chest x-ray: image reviewed CT scan - chest: image reviewed Assessment and Plan Plan: Acute diabetic ketoacidosis in a patient with type 2 diabetes mellitus and the patient has not taken any of his diabetic medication for many years. Patient presented with anion gap metabolic acidosis and positive acetones consistent with diabetic ketoacidosis. Acute hyperglycemia secondary to above Acute hypernatremia, likely hypovolemic in nature Acute kidney injury Small right-sided pleural effusion Possible right lung consolidation versus atelectasis. High probability VQ scan with an elevated d-dimer and negative Doppler of lower extremity. Clinically, pulmonary embolism is felt to be less likely. 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 Diabetes mellitus 2 Previous history of active fibrillation and current cardiac rhythm is sinus Septal Q waves indicative of a previous anterior wall myocardial infarction Hyperlipidemia Peripheral vascular disease History of smoking Plan Continue treatment recently Undergone the patient is currently on D5 half-normal saline and insulin drip Monitor electrolytes and anion gap Monitor blood sugar control Cover this patient with IV Zosyn as an empiric antibiotic coverage and constipation for aspiration IV heparin CT angiogram of the chest once the patient's creatinine normalizes Aspiration precautions Keep nothing by mouth for now Monitor electrolytes May need an echocardiogram We'll continue to follow Admit this patient to the intensive care unit
[2022-07-02 15:55] LABS: Glucose,Whole Blood 140 mg/dL (70-110)
[2022-07-02] MEDS ORDERED: HEPARIN SODIUM,PORCINE/PF 5,000 UNIT/0.5 ML SYRINGE SQ SCH (16:00)
[2022-07-02 16:08] LABS: Phosphorus 3.3 mg/dL (2.5-4.5); Potassium 4.2 mmol/L (3.5-5.1)
[2022-07-02 17:42] LABS: Glucose,Whole Blood 194 mg/dL (70-110)
[2022-07-02 18:11] LABS: Glucose,Whole Blood 224 mg/dL (70-110)
[2022-07-02 20:38] LABS: Glucose,Whole Blood 159 mg/dL (70-110)
[2022-07-02] MEDS: METOPROLOL TARTRATE 25 MG TAB PO SCH ×2 (21:01→22:40)
[2022-07-02] MEDS: PIPERACILLIN-TAZOBACTAM 3.375 GM in SODIUM CHLORIDE 0.9% 100 ML IVPB SCH ×2 (21:02→22:40)
[2022-07-02] MEDS: SODIUM CHLORIDE 0.45% 1,000 ML IV SCH (21:04)
--- NOTE | 2022-07-02 21:10 | P.HPIM ---
History of Present Illness H&P Date: 07/02/22 Chief Complaint: Decreased responsiveness This is a 71-year-old patient, has not follows Dr. Walden for years. Per the EMS report. When they arrived they found the patient getting only a Urine soaked underwear. Bed is also soaked for dry urine and that is under the mattress. Patient stated that he has not been getting out of bed for last 2 days. Has not been eating. He has not seen a doctor since 2014 when he had a stroke and is noncompliant with his medications. She is the imaging services director. Patient finally is agreed to go to the hospital. She also felt that patient's breathing is also change in the last 3 days. 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 She is able to converse with him. She is normally alert to place person and time but currently she is less responsive. No trauma. He does not feel like eating. In the ER found to have a blood glucose in the 500s. Positive for serum acetone. Patient himself is unable to give much of history. Attempted to speak some words. Does move his limbs. Lethargic. On insulin drip. Also on heparin drip. Review of systems: Patient cannot tell Past medical history to include: Diabetes, stroke, hyperlipidemia, left index finger amputated. Social history: Former smoker. Alcohol occasionally. Lives his . Family history: Patient cannot tell Physical examination: VITAL SIGNS: 98.9, 134, 24, 132 bradycardia 2, 97% on room air GENERAL: BMI 39.5, laying in bed, lethargic. EYES: Pupils equal. Conjunctiva normal. HEENT: [External appearance of nose and ears normal, oral cavity dry mucous membranes NECK: JVD not raised; masses not palpable. HEART: First and second heart sounds are normal; no edema. LUNGS: Respiratory rate increased; decreased but so. ABDOMEN: Soft, nontender, liver spleen not palpable, no masses palpable. PSYCH: [Patient is able to answer questions l. MUSCULOSKELETAL:No Clubbing/cyanosis;muscles-grossly intact NEUROLOGICAL: [Cranial nerves grossly intact; no facial asymmetry, moving all 4 limbs LYMPHATICS: No lymph nodes palpable in the axilla and neck INVESTIGATIONS, reviewed in the clinical context: White count 16.8 hemoglobin 15.8 platelets 345 sodium 159 chloride 119 bicarbonate 6 BUN 46 creatinine 1.84 blood glucose 567 lactic acid 3.8 Troponin I 0.287 proBNP 2660 Serum acetone: Positive Influenza type A/diabetes/RSV/COVID-19: Not detected EKG tracing personally reviewed by me-sinus tachycardia. Nonspecific T-wave changes. Rate 137 Chest x-ray film personally reviewed by [id number] infiltrate CT brain C-spine: Unremarkable Chest abdomen pelvis without contrast: Gallbladder is distended margins, moderate to severe factor placed atrophic pancreas spleen occasional calcifications scattered throughout. Right hilar consolidation slightly more masslike posterior inferolateral region. Venous Doppler: Negative for DVT VQ scan: Large perfusion defect right upper lobe. Assessment and plan: -Acute diabetic ketoacidosis in a patient has not been taking his medications. IV fluids. Insulin drip. -Severe hypernatremia, with hyperchloremia from free water deficit from poor oral intake Change IV fluids to half saline 1 50 mL an hour -Possible right lung consolidation/pneumonia suspect gram-negative organism IV Zosyn -Elevated d-dimer, which last consolidation process on the right lung with the perfusion defect of VQ scan. VQ scan at this point is still questionable. -Troponin I likely type II hemodynamic mismatch Telemetry. Consult cardiology. 2-D echo -Acute metabolic encephalopathy/delirium, multifactorial -Diabetes mellitus type 2, chronically noncompliant Follow Accu-Cheks -DO NOT RESUSCITATE IV fluids. IV heparin. Telemetry. Half saline 1 50 mL an hour. No family at the bedside. Consultation to pulmonary and cardiology. 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, internal carotid artery) Additional Past Medical History / Comment(s): WORK ACCIDENT LEFT INDEX FINGER AMPUTATED History of Any Multi-Drug Resistant Organisms: None Reported Past Surgical History: No Surgical Hx Reported Past Anesthesia/Blood Transfusion Reactions: No Reported Reaction Past Psychological History: No Psychological Hx Reported Smoking Status: Former smoker Past Alcohol Use History: Occasional Past Drug Use History: None Reported - Past Family History Mother Family Medical History: No Reported History Medications and Allergies Home Medications Medication Instructions Recorded Confirmed Type No Known Home Medications 07/02/22 07/02/22 History Allergies Allergy/AdvReac Type Severity Reaction Status Date / Time No Known Allergies Allergy Verified 07/02/22 10:54 Physical Exam Vitals: Vital Signs Temp Pulse Resp BP Pulse Ox 07/02/22 20:39 98.2 F 129 H 21 138/75 94 L 07/02/22 19:11 126 H 24 123/66 98 07/02/22 16:56 137 H 28 H 118/66 98 07/02/22 15:18 113 H 13 110/67 98 07/02/22 14:15 137 H 21 102/59 97 07/02/22 11:22 132 H 28 H 136/73 96 07/02/22 10:17 133 H 24 132/82 96 07/02/22 08:13 134 H 18 136/75 97 07/02/22 05:12 98.9 F 74 15 136/73 99 Intake and Output 07/02/22 07/02/22 07/02/22 06:59 14:59 22:59 Intake Total 35.429 17.354 Output Total 600 750 Balance -564.571 -732.646 Intake: Intake, IV Titration 35.429 17.354 Amount Insulin Regular 100 unit 35.429 17.354 In Sodium Chloride 0.9% 100 ml @ 0.1 UNITS/KG/HR 11.911 mls/hr IV .[id number] [facility] Rx#:[id number] Output: Urine 600 750 Uretheral (Juarez) 600 Other: Weight 117.934 kg Results CBC & Chem 7: 07/02/22 14:47 07/02/22 14:47 Labs: Abnormal Lab Results - Last 24 Hours (Table) 07/02/22 07/02/22 07/02/22 Range/Units 05:55 06:02 06:02 WBC 16.8 H (3.8-10.6) k/uL RBC (4.30-5.90) m/uL MCV 104.8 H (80.0-100.0) fL Neutrophils # 15.1 H (1.3-7.7) k/uL Lymphocytes # 0.8 L (1.0-4.8) k/uL PT (9.0-12.0) sec INR (<1.2) D-Dimer (<0.60) mg/L FEU VBG pH (7.31-7.41) VBG pCO2 (37-51) mmHg VBG HCO3 (24-28) mmol/L Sodium 159 H (137-145) mmol/L Chloride 119 H (98-107) mmol/L Carbon Dioxide 6 L* (22-30) mmol/L BUN 46 H (9-20) mg/dL Creatinine 1.84 H (0.66-1.25) mg/dL Glucose 567 H* (74-99) mg/dL POC Glucose (mg/dL) 495 H (70-110) mg/dL Plasma Lactic Acid Alfonzo (0.7-2.0) mmol/L Magnesium 2.8 H (1.6-2.3) mg/dL AST 16 L (17-59) U/L Alkaline Phosphatase 145 H (38-126) U/L Troponin I (0.000-0.034) ng/mL Total Protein 9.0 H (6.3-8.2) g/dL Urine Protein (Negative) Urine Glucose (UA) (Negative) Urine Ketones (Negative) Urine Blood (Negative) Urine Bilirubin (Negative) Urine RBC (0-5) /hpf Urine Mucus (None) /hpf 07/02/22 07/02/22 07/02/22 Range/Units 06:02 06:02 06:02 WBC (3.8-10.6) k/uL RBC (4.30-5.90) m/uL MCV (80.0-100.0) fL Neutrophils # (1.3-7.7) k/uL Lymphocytes # (1.0-4.8) k/uL PT 12.9 H (9.0-12.0) sec INR 1.3 H (<1.2) D-Dimer 20.08 H (<0.60) mg/L FEU VBG pH (7.31-7.41) VBG pCO2 (37-51) mmHg VBG HCO3 (24-28) mmol/L Sodium (137-145) mmol/L Chloride (98-107) mmol/L Carbon Dioxide (22-30) mmol/L BUN (9-20) mg/dL Creatinine (0.66-1.25) mg/dL Glucose (74-99) mg/dL POC Glucose (mg/dL) (70-110) mg/dL Plasma Lactic Acid Alfonzo 3.8 H* (0.7-2.0) mmol/L Magnesium (1.6-2.3) mg/dL AST (17-59) U/L Alkaline Phosphatase (38-126) U/L Troponin I 0.287 H* (0.000-0.034) ng/mL Total Protein (6.3-8.2) g/dL Urine Protein (Negative) Urine Glucose (UA) (Negative) Urine Ketones (Negative) Urine Blood (Negative) Urine Bilirubin (Negative) Urine RBC (0-5) /hpf Urine Mucus (None) /hpf 07/02/22 07/02/22 07/02/22 Range/Units 08:31 08:31 10:11 WBC (3.8-10.6) k/uL RBC (4.30-5.90) m/uL MCV (80.0-100.0) fL Neutrophils # (1.3-7.7) k/uL Lymphocytes # (1.0-4.8) k/uL PT (9.0-12.0) sec INR (<1.2) D-Dimer (<0.60) mg/L FEU VBG pH 7.24 L (7.31-7.41) VBG pCO2 20 L (37-51) mmHg VBG HCO3 8 L* (24-28) mmol/L Sodium (137-145) mmol/L Chloride (98-107) mmol/L Carbon Dioxide (22-30) mmol/L BUN (9-20) mg/dL Creatinine (0.66-1.25) mg/dL Glucose (74-99) mg/dL POC Glucose (mg/dL) 412 H (70-110) mg/dL Plasma Lactic Acid Alfonzo (0.7-2.0) mmol/L Magnesium (1.6-2.3) mg/dL AST (17-59) U/L Alkaline Phosphatase (38-126) U/L Troponin I (0.000-0.034) ng/mL Total Protein (6.3-8.2) g/dL Urine Protein 1+ H (Negative) Urine Glucose (UA) 4+ H (Negative) Urine Ketones 4+ H (Negative) Urine Blood Moderate H (Negative) Urine Bilirubin 1+ H (Negative) Urine RBC 39 H (0-5) /hpf Urine Mucus Rare H (None) /hpf 07/02/22 07/02/22 07/02/22 Range/Units 11:17 12:25 12:32 WBC (3.8-10.6) k/uL RBC (4.30-5.90) m/uL MCV (80.0-100.0) fL Neutrophils # (1.3-7.7) k/uL Lymphocytes # (1.0-4.8) k/uL PT (9.0-12.0) sec INR (<1.2) D-Dimer (<0.60) mg/L FEU VBG pH (7.31-7.41) VBG pCO2 (37-51) mmHg VBG HCO3 (24-28) mmol/L Sodium 167 H* (137-145) mmol/L Chloride 135 H* (98-107) mmol/L Carbon Dioxide 10 L (22-30) mmol/L BUN 43 H (9-20) mg/dL Creatinine 1.40 H (0.66-1.25) mg/dL Glucose 151 H (74-99) mg/dL POC Glucose (mg/dL) 266 H 158 H (70-110) mg/dL Plasma Lactic Acid Alfonzo (0.7-2.0) mmol/L Magnesium (1.6-2.3) mg/dL AST (17-59) U/L Alkaline Phosphatase (38-126) U/L Troponin I (0.000-0.034) ng/mL Total Protein (6.3-8.2) g/dL Urine Protein (Negative) Urine Glucose (UA) (Negative) Urine Ketones (Negative) Urine Blood (Negative) Urine Bilirubin (Negative) Urine RBC (0-5) /hpf Urine Mucus (None) /hpf 07/02/22 07/02/22 07/02/22 Range/Units 12:32 14:47 14:47 WBC (3.8-10.6) k/uL RBC (4.30-5.90) m/uL MCV (80.0-100.0) fL Neutrophils # (1.3-7.7) k/uL Lymphocytes # (1.0-4.8) k/uL PT (9.0-12.0) sec INR (<1.2) D-Dimer (<0.60) mg/L FEU VBG pH (7.31-7.41) VBG pCO2 (37-51) mmHg VBG HCO3 (24-28) mmol/L Sodium 171 H* (137-145) mmol/L Chloride 140 H* (98-107) mmol/L Carbon Dioxide 13 L (22-30) mmol/L BUN 44 H (9-20) mg/dL Creatinine (0.66-1.25) mg/dL Glucose (74-99) mg/dL POC Glucose (mg/dL) (70-110) mg/dL Plasma Lactic Acid Alfonzo (0.7-2.0) mmol/L Magnesium (1.6-2.3) mg/dL AST (17-59) U/L Alkaline Phosphatase (38-126) U/L Troponin I 0.271 H* 0.329 H* (0.000-0.034) ng/mL Total Protein (6.3-8.2) g/dL Urine Protein (Negative) Urine Glucose (UA) (Negative) Urine Ketones (Negative) Urine Blood (Negative) Urine Bilirubin (Negative) Urine RBC (0-5) /hpf Urine Mucus (None) /hpf 07/02/22 07/02/22 07/02/22 Range/Units 14:47 15:15 15:43 WBC 18.6 H (3.8-10.6) k/uL RBC 4.23 L (4.30-5.90) m/uL MCV 105.1 H (80.0-100.0) fL Neutrophils # 15.9 H (1.3-7.7) k/uL Lymphocytes # (1.0-4.8) k/uL PT (9.0-12.0) sec INR (<1.2) D-Dimer (<0.60) mg/L FEU VBG pH (7.31-7.41) VBG pCO2 (37-51) mmHg VBG HCO3 (24-28) mmol/L Sodium (137-145) mmol/L Chloride (98-107) mmol/L Carbon Dioxide (22-30) mmol/L BUN (9-20) mg/dL Creatinine (0.66-1.25) mg/dL Glucose (74-99) mg/dL POC Glucose (mg/dL) 131 H (70-110) mg/dL Plasma Lactic Acid Alfonzo 3.8 H* (0.7-2.0) mmol/L Magnesium (1.6-2.3) mg/dL AST (17-59) U/L Alkaline Phosphatase (38-126) U/L Troponin I (0.000-0.034) ng/mL Total Protein (6.3-8.2) g/dL Urine Protein (Negative) Urine Glucose (UA) (Negative) Urine Ketones (Negative) Urine Blood (Negative) Urine Bilirubin (Negative) Urine RBC (0-5) /hpf Urine Mucus (None) /hpf 07/02/22 07/02/22 07/02/22 Range/Units 15:50 17:41 18:10 WBC (3.8-10.6) k/uL RBC (4.30-5.90) m/uL MCV (80.0-100.0) fL Neutrophils # (1.3-7.7) k/uL Lymphocytes # (1.0-4.8) k/uL PT (9.0-12.0) sec INR (<1.2) D-Dimer (<0.60) mg/L FEU VBG pH (7.31-7.41) VBG pCO2 (37-51) mmHg VBG HCO3 (24-28) mmol/L Sodium (137-145) mmol/L Chloride (98-107) mmol/L Carbon Dioxide (22-30) mmol/L BUN (9-20) mg/dL Creatinine (0.66-1.25) mg/dL Glucose (74-99) mg/dL POC Glucose (mg/dL) 140 H 194 H 224 H (70-110) mg/dL Plasma Lactic Acid Alfonzo (0.7-2.0) mmol/L Magnesium (1.6-2.3) mg/dL AST (17-59) U/L Alkaline Phosphatase (38-126) U/L Troponin I (0.000-0.034) ng/mL Total Protein (6.3-8.2) g/dL Urine Protein (Negative) Urine Glucose (UA) (Negative) Urine Ketones (Negative) Urine Blood (Negative) Urine Bilirubin (Negative) Urine RBC (0-5) /hpf Urine Mucus (None) /hpf 07/02/22 07/02/22 Range/Units 18:24 20:36 WBC (3.8-10.6) k/uL RBC (4.30-5.90) m/uL MCV (80.0-100.0) fL Neutrophils # (1.3-7.7) k/uL Lymphocytes # (1.0-4.8) k/uL PT (9.0-12.0) sec INR (<1.2) D-Dimer (<0.60) mg/L FEU VBG pH (7.31-7.41) VBG pCO2 (37-51) mmHg VBG HCO3 (24-28) mmol/L Sodium (137-145) mmol/L Chloride (98-107) mmol/L Carbon Dioxide (22-30) mmol/L BUN (9-20) mg/dL Creatinine (0.66-1.25) mg/dL Glucose (74-99) mg/dL POC Glucose (mg/dL) 159 H (70-110) mg/dL Plasma Lactic Acid Alfonzo 2.1 H* (0.7-2.0) mmol/L Magnesium (1.6-2.3) mg/dL AST (17-59) U/L Alkaline Phosphatase (38-126) U/L Troponin I (0.000-0.034) ng/mL Total Protein (6.3-8.2) g/dL Urine Protein (Negative) Urine Glucose (UA) (Negative) Urine Ketones (Negative) Urine Blood (Negative) Urine Bilirubin (Negative) Urine RBC (0-5) /hpf Urine Mucus (None) /hpf
[2022-07-02 22:31] LABS: Glucose,Whole Blood 118 mg/dL (70-110)
[2022-07-02 23:07] LABS: Glucose,Whole Blood 129 mg/dL (70-110)
[2022-07-02] MEDS: HEPARIN SODIUM 1,000 UN/ML (10ML VL) IV PRN (23:30)
[2022-07-03 00:04] LABS: Glucose,Whole Blood 123 mg/dL (70-110)
[2022-07-03 01:11] LABS: Glucose,Whole Blood 199 mg/dL (70-110)
[2022-07-03 02:05] LABS: Glucose,Whole Blood 220 mg/dL (70-110)
[2022-07-03] MEDS: SODIUM CHLORIDE 0.45% 1,000 ML IV SCH (02:40)
[2022-07-03 03:05] LABS: Glucose,Whole Blood 215 mg/dL (70-110)
[2022-07-03 03:34] LABS: Basophils % (A) 0 %; Eosinophils # (A) 0.1 k/uL (0-0.7); Eosinophils % (A) 1 %; HCT 41.8 % (39.0-53.0); HGB 13.6 gm/dL (13.0-17.5); Hypochromasia Moderate; Lymphocytes # (A) 1.3 k/uL (1.0-4.8); Lymphocytes % (A) 9 %; MCH 33.3 pg (25.0-35.0); MCHC 32.6 g/dL (31.0-37.0); MCV 102.1 fL (80.0-100.0); Macrocytosis Slight; Mean Platelet Volume 8.4; Monocytes # (A) 0.7 k/uL (0-1.0); Monocytes % (A) 5 %; Neutrophils # (A) 11.5 k/uL (1.3-7.7); Neutrophils % (A) 84 %; Platelet Count 238 k/uL (150-450); RDW 12.9 % (11.5-15.5); WBC 13.6 k/uL (3.8-10.6)
[2022-07-03 04:02] LABS: Glucose,Whole Blood 271 mg/dL (70-110)
[2022-07-03 04:06] LABS: Albumin 2.4 g/dL (3.5-5.0); Calcium 8.1 mg/dL (8.4-10.2); Magnesium 2.4 mg/dL (1.6-2.3); Phosphorus 2.3 mg/dL (2.5-4.5); Potassium 3.9 mmol/L (3.5-5.1); Total Bilirubin 0.4 mg/dL (0.2-1.3); Total Protein 6.3 g/dL (6.3-8.2)
[2022-07-03] MEDS ORDERED: POTASSIUM BICARBONATE/CIT AC 20 MEQ TABLET.EFF NG-TUBE SCH (05:00)
[2022-07-03 05:15] LABS: Glucose,Whole Blood 281 mg/dL (70-110)
[2022-07-03] MEDS ORDERED: VANCOMYCIN IV PER PHARMACY 1 EACH MISC MISCELLANE PRN (05:26)
[2022-07-03] MEDS ORDERED: Phosphorus Replacement Protoco 1 EACH MISC MISCELLANE PRN (05:46)
[2022-07-03] MEDS ORDERED: SODIUM PHOSPHATE 10 MMOL in SODIUM CHLORIDE 0.9% 250 ML IVPB SCH (06:00)
[2022-07-03] MEDS ORDERED: VANCOMYCIN 1,500 MG in SODIUM CHLORIDE 0.9% 500 ML 500 ML IVPB SCH ×2 (06:00→10:00)
[2022-07-03] MEDS: D5-0.45% NACL WITH KCL 20MEQ/L 1,000 ML IV SCH (06:03)
[2022-07-03 06:09] LABS: Glucose,Whole Blood 271 mg/dL (70-110)
[2022-07-03] MEDS: PIPERACILLIN-TAZOBACTAM 3.375 GM in SODIUM CHLORIDE 0.9% 100 ML IVPB SCH ×3 (06:42→22:18)
[2022-07-03 06:44] LABS: Basophils # (A) 0.1 k/uL (0-0.2); Basophils % (A) 1 %; Eosinophils % (A) 0 %; HCT 41.1 % (39.0-53.0); Hypochromasia Marked; Lymphocytes # (A) 1.2 k/uL (1.0-4.8); Lymphocytes % (A) 10 %; MCH 32.9 pg (25.0-35.0); MCHC 31.6 g/dL (31.0-37.0); MCV 104.1 fL (80.0-100.0); Macrocytosis Slight; Mean Platelet Volume 8.7; Monocytes # (A) 0.4 k/uL (0-1.0); Monocytes % (A) 3 %; Neutrophils # (A) 10.2 k/uL (1.3-7.7); Neutrophils % (A) 85 %; Platelet Count 211 k/uL (150-450); RBC 3.95 m/uL (4.30-5.90); RDW 13.2 % (11.5-15.5); WBC 11.9 k/uL (3.8-10.6)
[2022-07-03 07:00] LABS: Glucose,Whole Blood 208 mg/dL (70-110)
[2022-07-03 07:21] LABS: INR 1.3 (<1.2); Prothrombin Time 13.3 sec (9.0-12.0)
--- NOTE | 2022-07-03 07:26 | ED ---
Medical Decision Making - Lab Data Result diagrams: 07/03/22 06:11 07/03/22 03:15 Lab Results 07/02/22 07/02/22 07/02/22 Range/Units 05:55 06:02 06:02 WBC 16.8 H (3.8-10.6) k/uL RBC 4.78 (4.30-5.90) m/uL Hgb 15.8 (13.0-17.5) gm/dL Hct 50.1 (39.0-53.0) % MCV 104.8 H (80.0-100.0) fL MCH 33.0 (25.0-35.0) pg MCHC 31.5 (31.0-37.0) g/dL RDW 12.6 (11.5-15.5) % Plt Count 345 (150-450) k/uL MPV 8.6 Neutrophils % 90 % Lymphocytes % 5 % Monocytes % 4 % Eosinophils % 0 % Basophils % 0 % Neutrophils # 15.1 H (1.3-7.7) k/uL Lymphocytes # 0.8 L (1.0-4.8) k/uL Monocytes # 0.7 (0-1.0) k/uL Eosinophils # 0.0 (0-0.7) k/uL Basophils # 0.1 (0-0.2) k/uL Hypochromasia Marked Macrocytosis Slight PT (9.0-12.0) sec INR (<1.2) APTT (22.0-30.0) sec D-Dimer (<0.60) mg/L FEU VBG pH (7.31-7.41) VBG pCO2 (37-51) mmHg VBG HCO3 (24-28) mmol/L Sodium 159 H (137-145) mmol/L Potassium 4.9 (3.5-5.1) mmol/L Chloride 119 H (98-107) mmol/L Carbon Dioxide 6 L* (22-30) mmol/L Anion Gap 34 mmol/L BUN 46 H (9-20) mg/dL Creatinine 1.84 H (0.66-1.25) mg/dL Est GFR (CKD-EPI)AfAm 41 (>60 ml/min/1.73 sqM) Est GFR (CKD-EPI)NonAf 36 (>60 ml/min/1.73 sqM) Glucose 567 H* (74-99) mg/dL POC Glucose (mg/dL) 495 H (70-110) mg/dL POC [employer] Team Leader ID Mack Escudero Lactic Ac Sepsis Rflx Plasma Lactic Acid Alfonzo (0.7-2.0) mmol/L Calcium 9.7 (8.4-10.2) mg/dL Magnesium 2.8 H (1.6-2.3) mg/dL Total Bilirubin 0.8 (0.2-1.3) mg/dL AST 16 L (17-59) U/L ALT 16 (4-49) U/L Alkaline Phosphatase 145 H (38-126) U/L Ammonia (<30) umol/L Creatine Kinase 91 (55-170) U/L Troponin I (0.000-0.034) ng/mL NT-Pro-B Natriuret Pep pg/mL Total Protein 9.0 H (6.3-8.2) g/dL Albumin 3.8 (3.5-5.0) g/dL TSH 0.821 (0.465-4.680) mIU/L Urine Color Urine Appearance (Clear) Urine pH (5.0-8.0) Ur Specific [place] (1.001-1.035) Urine Protein (Negative) Urine Glucose (UA) (Negative) Urine Ketones (Negative) Urine Blood (Negative) Urine Nitrite (Negative) Urine Bilirubin (Negative) Urine Urobilinogen (<2.0) mg/dL Ur Leukocyte Esterase (Negative) Urine RBC (0-5) /hpf Urine WBC (0-5) /hpf Ur Squamous Epith Cells (0-4) /hpf Urine Mucus (None) /hpf Acetone, Qual (Negative) Influenza Type A (PCR) (Not Detectd) Influenza Type B (PCR) (Not Detectd) RSV (PCR) (Not Detectd) SARS-CoV-2 (PCR) (Not Detectd) 07/02/22 07/02/22 07/02/22 Range/Units 06:02 06:02 06:02 WBC (3.8-10.6) k/uL RBC (4.30-5.90) m/uL Hgb (13.0-17.5) gm/dL Hct (39.0-53.0) % MCV (80.0-100.0) fL MCH (25.0-35.0) pg MCHC (31.0-37.0) g/dL RDW (11.5-15.5) % Plt Count (150-450) k/uL MPV Neutrophils % % Lymphocytes % % Monocytes % % Eosinophils % % Basophils % % Neutrophils # (1.3-7.7) k/uL Lymphocytes # (1.0-4.8) k/uL Monocytes # (0-1.0) k/uL Eosinophils # (0-0.7) k/uL Basophils # (0-0.2) k/uL Hypochromasia Macrocytosis PT 12.9 H (9.0-12.0) sec INR 1.3 H (<1.2) APTT 23.4 (22.0-30.0) sec D-Dimer 20.08 H (<0.60) mg/L FEU VBG pH (7.31-7.41) VBG pCO2 (37-51) mmHg VBG HCO3 (24-28) mmol/L Sodium (137-145) mmol/L Potassium (3.5-5.1) mmol/L Chloride (98-107) mmol/L Carbon Dioxide (22-30) mmol/L Anion Gap mmol/L BUN (9-20) mg/dL Creatinine (0.66-1.25) mg/dL Est GFR (CKD-EPI)AfAm (>60 ml/min/1.73 sqM) Est GFR (CKD-EPI)NonAf (>60 ml/min/1.73 sqM) Glucose (74-99) mg/dL POC Glucose (mg/dL) (70-110) mg/dL POC Glu [employer] Team Leader ID Lactic Ac Sepsis Rflx Plasma Lactic Acid Alfonzo 3.8 H* (0.7-2.0) mmol/L Calcium (8.4-10.2) mg/dL Magnesium (1.6-2.3) mg/dL Total Bilirubin (0.2-1.3) mg/dL AST (17-59) U/L ALT (4-49) U/L Alkaline Phosphatase (38-126) U/L Ammonia 13 (<30) umol/L Creatine Kinase (55-170) U/L Troponin I (0.000-0.034) ng/mL NT-Pro-B Natriuret Pep 2660 pg/mL Total Protein (6.3-8.2) g/dL Albumin (3.5-5.0) g/dL TSH (0.465-4.680) mIU/L Urine Color Urine Appearance (Clear) Urine pH (5.0-8.0) Ur Specific [place] (1.001-1.035) Urine Protein (Negative) Urine Glucose (UA) (Negative) Urine Ketones (Negative) Urine Blood (Negative) Urine Nitrite (Negative) Urine Bilirubin (Negative) Urine Urobilinogen (<2.0) mg/dL Ur Leukocyte Esterase (Negative) Urine RBC (0-5) /hpf Urine WBC (0-5) /hpf Ur Squamous Epith Cells (0-4) /hpf Urine Mucus (None) /hpf Acetone, Qual (Negative) Influenza Type A (PCR) (Not Detectd) Influenza Type B (PCR) (Not Detectd) RSV (PCR) (Not Detectd) SARS-CoV-2 (PCR) (Not Detectd) 07/02/22 07/02/22 07/02/22 Range/Units 06:02 06:48 07:03 WBC (3.8-10.6) k/uL RBC (4.30-5.90) m/uL Hgb (13.0-17.5) gm/dL Hct (39.0-53.0) % MCV (80.0-100.0) fL MCH (25.0-35.0) pg MCHC (31.0-37.0) g/dL RDW (11.5-15.5) % Plt Count (150-450) k/uL MPV Neutrophils % % Lymphocytes % % Monocytes % % Eosinophils % % Basophils % % Neutrophils # (1.3-7.7) k/uL Lymphocytes # (1.0-4.8) k/uL Monocytes # (0-1.0) k/uL Eosinophils # (0-0.7) k/uL Basophils # (0-0.2) k/uL Hypochromasia Macrocytosis PT (9.0-12.0) sec INR (<1.2) APTT (22.0-30.0) sec D-Dimer (<0.60) mg/L FEU VBG pH (7.31-7.41) VBG pCO2 (37-51) mmHg VBG HCO3 (24-28) mmol/L Sodium (137-145) mmol/L Potassium (3.5-5.1) mmol/L Chloride (98-107) mmol/L Carbon Dioxide (22-30) mmol/L Anion Gap mmol/L BUN (9-20) mg/dL Creatinine (0.66-1.25) mg/dL Est GFR (CKD-EPI)AfAm (>60 ml/min/1.73 sqM) Est GFR (CKD-EPI)NonAf (>60 ml/min/1.73 sqM) Glucose (74-99) mg/dL POC Glucose (mg/dL) (70-110) mg/dL POC Glu [employer] Team Leader ID Lactic Ac Sepsis Rflx Y Plasma Lactic Acid [place]fonzo (0.7-2.0) mmol/L Calcium (8.4-10.2) mg/dL Magnesium (1.6-2.3) mg/dL Total Bilirubin (0.2-1.3) mg/dL AST (17-59) U/L ALT (4-49) U/L Alkaline Phosphatase (38-126) U/L Ammonia (<30) umol/L Creatine Kinase (55-170) U/L Troponin I 0.287 H* (0.000-0.034) ng/mL NT-Pro-B Natriuret Pep pg/mL Total Protein (6.3-8.2) g/dL Albumin (3.5-5.0) g/dL TSH (0.465-4.680) mIU/L Urine Color Urine Appearance (Clear) Urine pH (5.0-8.0) Ur Specific [place] (1.001-1.035) Urine Protein (Negative) Urine Glucose (UA) (Negative) Urine Ketones (Negative) Urine Blood (Negative) Urine Nitrite (Negative) Urine Bilirubin (Negative) Urine Urobilinogen (<2.0) mg/dL Ur Leukocyte Esterase (Negative) Urine RBC (0-5) /hpf Urine WBC (0-5) /hpf Ur Squamous Epith Cells (0-4) /hpf Urine Mucus (None) /hpf Acetone, Qual (Negative) Influenza Type A (PCR) Not Detected (Not Detectd) Influenza Type B (PCR) Not Detected (Not Detectd) RSV (PCR) Not Detected (Not Detectd) SARS-CoV-2 (PCR) Not Detected (Not Detectd) 07/02/22 07/02/22 07/02/22 Range/Units 08:31 08:31 08:31 WBC (3.8-10.6) k/uL RBC (4.30-5.90) m/uL Hgb (13.0-17.5) gm/dL Hct (39.0-53.0) % MCV (80.0-100.0) fL MCH (25.0-35.0) pg MCHC (31.0-37.0) g/dL RDW (11.5-15.5) % Plt Count (150-450) k/uL MPV Neutrophils % % Lymphocytes % % Monocytes % % Eosinophils % % Basophils % % Neutrophils # (1.3-7.7) k/uL Lymphocytes # (1.0-4.8) k/uL Monocytes # (0-1.0) k/uL Eosinophils # (0-0.7) k/uL Basophils # (0-0.2) k/uL Hypochromasia Macrocytosis PT (9.0-12.0) sec INR (<1.2) APTT (22.0-30.0) sec D-Dimer (<0.60) mg/L FEU VBG pH 7.24 L (7.31-7.41) VBG pCO2 20 L (37-51) mmHg VBG HCO3 8 L* (24-28) mmol/L Sodium (137-145) mmol/L Potassium (3.5-5.1) mmol/L Chloride (98-107) mmol/L Carbon Dioxide (22-30) mmol/L Anion Gap mmol/L BUN (9-20) mg/dL Creatinine (0.66-1.25) mg/dL Est GFR (CKD-EPI)AfAm (>60 ml/min/1.73 sqM) Est GFR (CKD-EPI)NonAf (>60 ml/min/1.73 sqM) Glucose (74-99) mg/dL POC Glucose (mg/dL) (70-110) mg/dL POC Glu [employer] Team Leader ID Lactic Ac Sepsis Rflx Plasma Lactic Acid [place] (0.7-2.0) mmol/L Calcium (8.4-10.2) mg/dL Magnesium (1.6-2.3) mg/dL Total Bilirubin (0.2-1.3) mg/dL AST (17-59) U/L ALT (4-49) U/L Alkaline Phosphatase (38-126) U/L Ammonia (<30) umol/L Creatine Kinase (55-170) U/L Troponin I (0.000-0.034) ng/mL NT-Pro-B Natriuret Pep pg/mL Total Protein (6.3-8.2) g/dL Albumin (3.5-5.0) g/dL TSH (0.465-4.680) mIU/L Urine Color Yellow Urine Appearance Clear (Clear) Urine pH 5.5 (5.0-8.0) Ur Specific [place] 1.028 (1.001-1.035) Urine Protein 1+ H (Negative) Urine Glucose (UA) 4+ H (Negative) Urine Ketones 4+ H (Negative) Urine Blood Moderate H (Negative) Urine Nitrite Negative (Negative) Urine Bilirubin 1+ H (Negative) Urine Urobilinogen <2.0 (<2.0) mg/dL Ur Leukocyte Esterase Negative (Negative) Urine RBC 39 H (0-5) /hpf Urine WBC 2 (0-5) /hpf Ur Squamous Epith Cells <1 (0-4) /hpf Urine Mucus Rare H (None) /hpf Acetone, Qual Positive (Negative) Influenza Type A (PCR) (Not Detectd) Influenza Type B (PCR) (Not Detectd) RSV (PCR) (Not Detectd) SARS-CoV-2 (PCR) (Not Detectd) 07/02/22 Range/Units 10:11 WBC (3.8-10.6) k/uL RBC (4.30-5.90) m/uL Hgb (13.0-17.5) gm/dL Hct (39.0-53.0) % MCV (80.0-100.0) fL MCH (25.0-35.0) pg MCHC (31.0-37.0) g/dL RDW (11.5-15.5) % Plt Count (150-450) k/uL MPV Neutrophils % % Lymphocytes % % Monocytes % % Eosinophils % % Basophils % % Neutrophils # (1.3-7.7) k/uL Lymphocytes # (1.0-4.8) k/uL Monocytes # (0-1.0) k/uL Eosinophils # (0-0.7) k/uL Basophils # (0-0.2) k/uL Hypochromasia Macrocytosis PT (9.0-12.0) sec INR (<1.2) APTT (22.0-30.0) sec D-Dimer (<0.60) mg/L FEU VBG pH (7.31-7.41) VBG pCO2 (37-51) mmHg VBG HCO3 (24-28) mmol/L Sodium (137-145) mmol/L Potassium (3.5-5.1) mmol/L Chloride (98-107) mmol/L Carbon Dioxide (22-30) mmol/L Anion Gap mmol/L BUN (9-20) mg/dL Creatinine (0.66-1.25) mg/dL Est GFR (CKD-EPI)AfAm (>60 ml/min/1.73 sqM) Est GFR (CKD-EPI)NonAf (>60 ml/min/1.73 sqM) Glucose (74-99) mg/dL POC Glucose (mg/dL) 412 H (70-110) mg/dL POC Glu [employer] Team Leader ID [place] Lactic Ac Sepsis Rflx Plasma Lactic Acid [place] (0.7-2.0) mmol/L Calcium (8.4-10.2) mg/dL Magnesium (1.6-2.3) mg/dL Total Bilirubin (0.2-1.3) mg/dL AST (17-59) U/L ALT (4-49) U/L Alkaline Phosphatase (38-126) U/L Ammonia (<30) umol/L Creatine Kinase (55-170) U/L Troponin I (0.000-0.034) ng/mL NT-Pro-B Natriuret Pep pg/mL Total Protein (6.3-8.2) g/dL Albumin (3.5-5.0) g/dL TSH (0.465-4.680) mIU/L Urine Color Urine Appearance (Clear) Urine pH (5.0-8.0) Ur Specific [place] (1.001-1.035) Urine Protein (Negative) Urine Glucose (UA) (Negative) Urine Ketones (Negative) Urine Blood (Negative) Urine Nitrite (Negative) Urine Bilirubin (Negative) Urine Urobilinogen (<2.0) mg/dL Ur Leukocyte Esterase (Negative) Urine RBC (0-5) /hpf Urine WBC (0-5) /hpf Ur Squamous Epith Cells (0-4) /hpf Urine Mucus (None) /hpf Acetone, Qual (Negative) Influenza Type A (PCR) (Not Detectd) Influenza Type B (PCR) (Not Detectd) RSV (PCR) (Not Detectd) SARS-CoV-2 (PCR) (Not Detectd) Disposition Clinical Impression: Elevated troponin, DKA (diabetic ketoacidosis), AMS (altered mental status), Hypernatremia, Elevated d-dimer, Debility, Dehydration, Sepsis Disposition: ADMITTED IP TO THIS HOSP Condition: Serious Procedures - [place] Protocol (Time Out) Nurse: Saul Reynaga - Restraint - Face to Face Restraint Occurrence 1 Patient's Immediate Situation: Endangers self safety Patient's Immediate Situation - Comment: pulling at IV/lines and oxygen. Not verbally redirectable Patient's Reaction to the Intervention: Appropriate Patient's Medical & Behavioral Condition: Awake, Alert, Confused Need to Continue or Terminate Restraint or Seclusion: Continue Face to Face Eval of Restraint Date: 07/02/22 Face to Face Eval of Restraint Time: 09:05 - Sepsis Sepsis Focused Exam #1 Time Sepsis Criteria Met: 07:00 (on 07/02/22) Sepsis Focused Exam Date: 07/02/22 Sepsis Focused Exam Time: 09:30 Sepsis Focused Exam Complete: Yes Vital Signs & RN Notes Reviewed: Yes Capillary Refill: < 2 Seconds: Fingers, Toes Peripheral Pulses: Normal: Radial (R), Radial (L) Skin Color: Normal for Patient Respiratory Exam: normal lung sounds Cardiovascular Exam: tachycardia
[2022-07-03 07:27] LABS: Albumin 2.4 g/dL (3.5-5.0); Calcium 7.7 mg/dL (8.4-10.2); Total Bilirubin 0.6 mg/dL (0.2-1.3); Total Protein 6.4 g/dL (6.3-8.2)
[2022-07-03 07:34] LABS: Magnesium 2.2 mg/dL (1.6-2.3); Phosphorus 1.8 mg/dL (2.5-4.5)
--- NOTE | 2022-07-03 07:38 | P.PN ---
Subjective Progress Note Date: 07/03/22 71-year-old male patient, diabetic, who has not seen a physician for many years and he has stopped taking his medication and he seems to have given up f from life, comes into the emergency department because of progressive weakness, lethargy, lack of energy and worsening shortness of breath. The patient is a very poor historian. is at the bedside. The patient is known to have diabetes, and history of atrial fibrillation and history of stroke with occlusion or complete occlusion of the left carotid artery and previous history of smoking. The patient has not been taking his diabetic medications at all. He also has history of peripheral vascular disease. The patient came into the emergency room initial blood work showed diabetic ketoacidosis. He had positive ketones. He had anion gap metabolic acidosis. Initial blood work showed a white cell count of 18.6 with a hemoglobin of 14, also, the patient had a sodium of 156, potassium of 4.9, chloride is 119, serum bicarb was at 6, BUN is at 46 with a creatinine of 1.8, glucose was 567, lactic acid level was at 3.8, urinalysis was positive for protein and glucose and ketones. Serum acetone was positive. ProBNP level was 2660, TSH was 0.8, troponin was 0.287 and 0.329 respectively. LFTs were normal. Chest x-ray showed a right-sided pleural effusion. CAT scan of the chest confirmed the presence of a small right-sided pleural effusion. Right lower lobe atelectatic changes were also present. No evidence of any masses. This was a noncontrast CAT scan. The patient was given IV Zosyn. The patient was also given a VQ scan based on an elevated d-dimer of 20 and the patient was found to have a large perfusion defect in the right upper lobe. Doppler of the lower extremity was suboptimal and there was no convincing evidence of DVT. For now, the patient was given IV fluids and he has received a total of 3 L of normal saline. Subsequently, the patient was started on normal saline and transitioned to D5 half-normal saline based on the DKA protocol. He is on IV Zosyn as an empiric antibiotic coverage. Insulin drip is running at 11 units an hour. Electrodes are being monitored. He gradually waking up and is becoming more communicative. No focal neurological deficits. Denies having any chest pain. The EKG showing sinus tachycardia. No acute ischemic changes. There are some Q waves on the septal leads. On today's evaluation of 07/03/2022, the patient is still lethargic and obtunded. He is currently in intensive care unit. His sodium level remains elevated. Serum bicarb is up to 19 and anion gap has essentially closed. Most recent sodium level is up to 164. Chloride level is 136. Creatinine is improved and is currently down to 1 with a BUN of 39. Lactic acid level is down to 2.4. The patient is on D5 half-normal saline at the rate of 150 mL an hour. Insulin drip is running at 40 units an hour. I'm going to switch his IV fluids to D5 water and keep the insulin drip for now. He remains on IV heparin. His cardiac rhythm is a atrial fibrillation and a cardiology opted to Maintain IV heparin for now. He does have a right-sided pleural effusion. There is no clear convincing evidence of poor embolism. This will be worked up at the later stage with a CT angiogram. Doppler of the lower extremities were negative. Chest x-ray from today is still pending. Objective - Vital Signs Vital signs: Vital Signs Temp 97.7 F 07/03/22 04:00 Pulse 115 H 07/03/22 07:00 Resp 20 07/03/22 07:00 BP 122/56 07/03/22 07:00 Pulse Ox 97 07/03/22 07:00 FiO2 Intake & Output 07/02/22 07/03/22 07/03/22 18:59 06:59 18:59 Intake Total 35.429 1918.723 104.694 Output Total 600 1450 Balance -564.571 468.723 104.694 Weight 117.934 kg 82.7 kg Intake: IV 1800 D5-0.45% NaCl with KCl 1650 20Meq/l 1,000 ml @ 150 mls/hr IV .Q6H40M TOSIN Rx# :[id number] Piperacillin-Tazobactam 3 150 .375 gm In Sodium Chloride 0.9% 100 ml @ 25 mls/hr IVPB Q8H TOSIN Rx#: [id number] Intake, IV Titration 35.429 118.723 104.694 Amount Heparin Sod,Pork in 0.45% 87 104.694 NaCl 25,000 unit In 0.45 % NaCl 1 250ml.bag @ 8. 479 UNITS/KG/HR 10 mls/hr IV .Q24H TOSIN Rx#: [id number] Insulin Regular 100 unit 35.429 31.723 In Sodium Chloride 0.9% 100 ml @ 0.1 UNITS/KG/HR 11.911 mls/hr IV .Q8H29M TOSIN Rx#:[id number] Output: Urine 600 1450 Uretheral (Juarez) 600 Other: Voiding Method Indwelling Catheter - Exam Gen. appearance, the patient is not agitated, lethargic, somewhat obtunded him a follow simple commands and the patient is currently on 2 L nasal cannula. He is tachypneic secondary to his underlying metabolic acidosis. Head exam was generally normal. There was no scleral icterus or corneal arcus. Mucous membranes were moist. Neck was supple and without jugular venous distension, thyromegaly, or carotid bruits. Carotids were easily palpable bilaterally. There was no adenopathy. Lungs were clear to auscultation and percussion, and with normal diaphragmatic excursion. No wheezes or rales were noted. Breath sounds are diminished in the right lung base and there is also some bullous to percussion. Heart sounds are tachycardic,Cardiac exam revealed the PMI to be normally situated and sized. The rhythm was regular and no extrasystoles were noted during several minutes of auscultation. The first and second heart sounds were normal and physiologic splitting of the second heart sound was noted. There were no murmurs, rubs, clicks, or gallops. Abdominal exam revealed normal bowel sounds. The abdomen was soft, non-tender, and without masses, organomegaly, or appreciable enlargement of the abdominal aorta. Extremities revealed diminished pulses bilaterally and areas of superficial wounds that are dry related to previous fall. No cyanosis or clubbing. Examination of the skin revealed no evidence of significant rashes, suspicious appearing nevi or other concerning lesions. Positive dry wounds of various sizes Neurologically, the patient is lethargic, moving all 4 extremities without limitation. Pupils are equal and reactive to light. - Labs CBC & Chem 7: 07/03/22 06:11 07/03/22 06:11 Labs: Abnormal Lab Results - Last 24 Hours (Table) 07/02/22 07/02/22 07/02/22 Range/Units 06:02 08:31 08:31 WBC (3.8-10.6) k/uL RBC (4.30-5.90) m/uL MCV (80.0-100.0) fL Neutrophils # (1.3-7.7) k/uL PT (9.0-12.0) sec INR (<1.2) APTT (22.0-30.0) sec VBG pH 7.24 L (7.31-7.41) VBG pCO2 20 L (37-51) mmHg VBG HCO3 8 L* (24-28) mmol/L Sodium (137-145) mmol/L Chloride (98-107) mmol/L Carbon Dioxide (22-30) mmol/L BUN (9-20) mg/dL Creatinine (0.66-1.25) mg/dL Glucose (74-99) mg/dL POC Glucose (mg/dL) (70-110) mg/dL Plasma Lactic Acid Alfonzo (0.7-2.0) mmol/L Calcium (8.4-10.2) mg/dL Phosphorus (2.5-4.5) mg/dL Magnesium (1.6-2.3) mg/dL Troponin I 0.287 H* (0.000-0.034) ng/mL Albumin (3.5-5.0) g/dL Procalcitonin (0.02-0.09) ng/mL Urine Protein 1+ H (Negative) Urine Glucose (UA) 4+ H (Negative) Urine Ketones 4+ H (Negative) Urine Blood Moderate H (Negative) Urine Bilirubin 1+ H (Negative) Urine RBC 39 H (0-5) /hpf Urine Mucus Rare H (None) /hpf 07/02/22 07/02/22 07/02/22 Range/Units 10:11 11:17 12:25 WBC (3.8-10.6) k/uL RBC (4.30-5.90) m/uL MCV (80.0-100.0) fL Neutrophils # (1.3-7.7) k/uL PT (9.0-12.0) sec INR (<1.2) APTT (22.0-30.0) sec VBG pH (7.31-7.41) VBG pCO2 (37-51) mmHg VBG HCO3 (24-28) mmol/L Sodium (137-145) mmol/L Chloride (98-107) mmol/L Carbon Dioxide (22-30) mmol/L BUN (9-20) mg/dL Creatinine (0.66-1.25) mg/dL Glucose (74-99) mg/dL POC Glucose (mg/dL) 412 H 266 H 158 H (70-110) mg/dL Plasma Lactic Acid Alfonzo (0.7-2.0) mmol/L Calcium (8.4-10.2) mg/dL Phosphorus (2.5-4.5) mg/dL Magnesium (1.6-2.3) mg/dL Troponin I (0.000-0.034) ng/mL Albumin (3.5-5.0) g/dL Procalcitonin (0.02-0.09) ng/mL Urine Protein (Negative) Urine Glucose (UA) (Negative) Urine Ketones (Negative) Urine Blood (Negative) Urine Bilirubin (Negative) Urine RBC (0-5) /hpf Urine Mucus (None) /hpf 07/02/22 07/02/22 07/02/22 Range/Units 12:32 12:32 14:47 WBC (3.8-10.6) k/uL RBC (4.30-5.90) m/uL MCV (80.0-100.0) fL Neutrophils # (1.3-7.7) k/uL PT (9.0-12.0) sec INR (<1.2) APTT (22.0-30.0) sec VBG pH (7.31-7.41) VBG pCO2 (37-51) mmHg VBG HCO3 (24-28) mmol/L Sodium 167 H* 171 H* (137-145) mmol/L Chloride 135 H* 140 H* (98-107) mmol/L Carbon Dioxide 10 L 13 L (22-30) mmol/L BUN 43 H 44 H (9-20) mg/dL Creatinine 1.40 H (0.66-1.25) mg/dL Glucose 151 H (74-99) mg/dL POC Glucose (mg/dL) (70-110) mg/dL Plasma Lactic Acid Alfonzo (0.7-2.0) mmol/L Calcium (8.4-10.2) mg/dL Phosphorus (2.5-4.5) mg/dL Magnesium (1.6-2.3) mg/dL Troponin I 0.271 H* (0.000-0.034) ng/mL Albumin (3.5-5.0) g/dL Procalcitonin (0.02-0.09) ng/mL Urine Protein (Negative) Urine Glucose (UA) (Negative) Urine Ketones (Negative) Urine Blood (Negative) Urine Bilirubin (Negative) Urine RBC (0-5) /hpf Urine Mucus (None) /hpf 07/02/22 07/02/22 07/02/22 Range/Units 14:47 14:47 14:59 WBC 18.6 H (3.8-10.6) k/uL RBC 4.23 L (4.30-5.90) m/uL MCV 105.1 H (80.0-100.0) fL Neutrophils # 15.9 H (1.3-7.7) k/uL PT (9.0-12.0) sec INR (<1.2) APTT (22.0-30.0) sec VBG pH (7.31-7.41) VBG pCO2 (37-51) mmHg VBG HCO3 (24-28) mmol/L Sodium (137-145) mmol/L Chloride (98-107) mmol/L Carbon Dioxide (22-30) mmol/L BUN (9-20) mg/dL Creatinine (0.66-1.25) mg/dL Glucose (74-99) mg/dL POC Glucose (mg/dL) (70-110) mg/dL Plasma Lactic Acid Alfonzo (0.7-2.0) mmol/L Calcium (8.4-10.2) mg/dL Phosphorus (2.5-4.5) mg/dL Magnesium (1.6-2.3) mg/dL Troponin I 0.329 H* (0.000-0.034) ng/mL Albumin (3.5-5.0) g/dL Procalcitonin 0.34 H (0.02-0.09) ng/mL Urine Protein (Negative) Urine Glucose (UA) (Negative) Urine Ketones (Negative) Urine Blood (Negative) Urine Bilirubin (Negative) Urine RBC (0-5) /hpf Urine Mucus (None) /hpf 07/02/22 07/02/22 07/02/22 Range/Units 15:15 15:43 15:50 WBC (3.8-10.6) k/uL RBC (4.30-5.90) m/uL MCV (80.0-100.0) fL Neutrophils # (1.3-7.7) k/uL PT (9.0-12.0) sec INR (<1.2) APTT (22.0-30.0) sec VBG pH (7.31-7.41) VBG pCO2 (37-51) mmHg VBG HCO3 (24-28) mmol/L Sodium (137-145) mmol/L Chloride (98-107) mmol/L Carbon Dioxide (22-30) mmol/L BUN (9-20) mg/dL Creatinine (0.66-1.25) mg/dL Glucose (74-99) mg/dL POC Glucose (mg/dL) 131 H 140 H (70-110) mg/dL Plasma Lactic Acid Alfonzo 3.8 H* (0.7-2.0) mmol/L Calcium (8.4-10.2) mg/dL Phosphorus (2.5-4.5) mg/dL Magnesium (1.6-2.3) mg/dL Troponin I (0.000-0.034) ng/mL Albumin (3.5-5.0) g/dL Procalcitonin (0.02-0.09) ng/mL Urine Protein (Negative) Urine Glucose (UA) (Negative) Urine Ketones (Negative) Urine Blood (Negative) Urine Bilirubin (Negative) Urine RBC (0-5) /hpf Urine Mucus (None) /hpf 07/02/22 07/02/22 07/02/22 Range/Units 17:41 18:10 18:24 WBC (3.8-10.6) k/uL RBC (4.30-5.90) m/uL MCV (80.0-100.0) fL Neutrophils # (1.3-7.7) k/uL PT (9.0-12.0) sec INR (<1.2) APTT (22.0-30.0) sec VBG pH (7.31-7.41) VBG pCO2 (37-51) mmHg VBG HCO3 (24-28) mmol/L Sodium (137-145) mmol/L Chloride (98-107) mmol/L Carbon Dioxide (22-30) mmol/L BUN (9-20) mg/dL Creatinine (0.66-1.25) mg/dL Glucose (74-99) mg/dL POC Glucose (mg/dL) 194 H 224 H (70-110) mg/dL Plasma Lactic Acid Alfonzo 2.1 H* (0.7-2.0) mmol/L Calcium (8.4-10.2) mg/dL Phosphorus (2.5-4.5) mg/dL Magnesium (1.6-2.3) mg/dL Troponin I (0.000-0.034) ng/mL Albumin (3.5-5.0) g/dL Procalcitonin (0.02-0.09) ng/mL Urine Protein (Negative) Urine Glucose (UA) (Negative) Urine Ketones (Negative) Urine Blood (Negative) Urine Bilirubin (Negative) Urine RBC (0-5) /hpf Urine Mucus (None) /hpf 07/02/22 07/02/22 07/02/22 Range/Units 20:36 22:13 22:29 WBC (3.8-10.6) k/uL RBC (4.30-5.90) m/uL MCV (80.0-100.0) fL Neutrophils # (1.3-7.7) k/uL PT (9.0-12.0) sec INR (<1.2) APTT (22.0-30.0) sec VBG pH (7.31-7.41) VBG pCO2 (37-51) mmHg VBG HCO3 (24-28) mmol/L Sodium (137-145) mmol/L Chloride (98-107) mmol/L Carbon Dioxide (22-30) mmol/L BUN (9-20) mg/dL Creatinine (0.66-1.25) mg/dL Glucose (74-99) mg/dL POC Glucose (mg/dL) 159 H 118 H (70-110) mg/dL Plasma Lactic Acid Alfonzo 2.5 H* (0.7-2.0) mmol/L Calcium (8.4-10.2) mg/dL Phosphorus (2.5-4.5) mg/dL Magnesium (1.6-2.3) mg/dL Troponin I (0.000-0.034) ng/mL Albumin (3.5-5.0) g/dL Procalcitonin (0.02-0.09) ng/mL Urine Protein (Negative) Urine Glucose (UA) (Negative) Urine Ketones (Negative) Urine Blood (Negative) Urine Bilirubin (Negative) Urine RBC (0-5) /hpf Urine Mucus (None) /hpf 07/02/22 07/03/22 07/03/22 Range/Units 23:06 00:02 01:09 WBC (3.8-10.6) k/uL RBC (4.30-5.90) m/uL MCV (80.0-100.0) fL Neutrophils # (1.3-7.7) k/uL PT (9.0-12.0) sec INR (<1.2) APTT (22.0-30.0) sec VBG pH (7.31-7.41) VBG pCO2 (37-51) mmHg VBG HCO3 (24-28) mmol/L Sodium (137-145) mmol/L Chloride (98-107) mmol/L Carbon Dioxide (22-30) mmol/L BUN (9-20) mg/dL Creatinine (0.66-1.25) mg/dL Glucose (74-99) mg/dL POC Glucose (mg/dL) 129 H 123 H 199 H (70-110) mg/dL Plasma Lactic Acid Alfonzo (0.7-2.0) mmol/L Calcium (8.4-10.2) mg/dL Phosphorus (2.5-4.5) mg/dL Magnesium (1.6-2.3) mg/dL Troponin I (0.000-0.034) ng/mL Albumin (3.5-5.0) g/dL Procalcitonin (0.02-0.09) ng/mL Urine Protein (Negative) Urine Glucose (UA) (Negative) Urine Ketones (Negative) Urine Blood (Negative) Urine Bilirubin (Negative) Urine RBC (0-5) /hpf Urine Mucus (None) /hpf 07/03/22 07/03/22 07/03/22 Range/Units 02:03 03:04 03:15 WBC (3.8-10.6) k/uL RBC (4.30-5.90) m/uL MCV (80.0-100.0) fL Neutrophils # (1.3-7.7) k/uL PT (9.0-12.0) sec INR (<1.2) APTT (22.0-30.0) sec VBG pH (7.31-7.41) VBG pCO2 (37-51) mmHg VBG HCO3 (24-28) mmol/L Sodium 164 H* (137-145) mmol/L Chloride 136 H* (98-107) mmol/L Carbon Dioxide 19 L (22-30) mmol/L BUN 39 H (9-20) mg/dL Creatinine (0.66-1.25) mg/dL Glucose 244 H (74-99) mg/dL POC Glucose (mg/dL) 220 H 215 H (70-110) mg/dL Plasma Lactic Acid Alfonzo (0.7-2.0) mmol/L Calcium 8.1 L (8.4-10.2) mg/dL Phosphorus 2.3 L (2.5-4.5) mg/dL Magnesium 2.4 H (1.6-2.3) mg/dL Troponin I (0.000-0.034) ng/mL Albumin 2.4 L (3.5-5.0) g/dL Procalcitonin (0.02-0.09) ng/mL Urine Protein (Negative) Urine Glucose (UA) (Negative) Urine Ketones (Negative) Urine Blood (Negative) Urine Bilirubin (Negative) Urine RBC (0-5) /hpf Urine Mucus (None) /hpf 07/03/22 07/03/22 07/03/22 Range/Units 03:23 03:23 04:01 WBC 13.6 H (3.8-10.6) k/uL RBC 4.10 L (4.30-5.90) m/uL MCV 102.1 H (80.0-100.0) fL Neutrophils # 11.5 H (1.3-7.7) k/uL PT (9.0-12.0) sec INR (<1.2) APTT 65.3 H (22.0-30.0) sec VBG pH (7.31-7.41) VBG pCO2 (37-51) mmHg VBG HCO3 (24-28) mmol/L Sodium (137-145) mmol/L Chloride (98-107) mmol/L Carbon Dioxide (22-30) mmol/L BUN (9-20) mg/dL Creatinine (0.66-1.25) mg/dL Glucose (74-99) mg/dL POC Glucose (mg/dL) 271 H (70-110) mg/dL Plasma Lactic Acid Alfonzo (0.7-2.0) mmol/L Calcium (8.4-10.2) mg/dL Phosphorus (2.5-4.5) mg/dL Magnesium (1.6-2.3) mg/dL Troponin I (0.000-0.034) ng/mL Albumin (3.5-5.0) g/dL Procalcitonin (0.02-0.09) ng/mL Urine Protein (Negative) Urine Glucose (UA) (Negative) Urine Ketones (Negative) Urine Blood (Negative) Urine Bilirubin (Negative) Urine RBC (0-5) /hpf Urine Mucus (None) /hpf 07/03/22 07/03/22 07/03/22 Range/Units 05:12 06:07 06:11 WBC 11.9 H (3.8-10.6) k/uL RBC 3.95 L (4.30-5.90) m/uL MCV 104.1 H (80.0-100.0) fL Neutrophils # 10.2 H (1.3-7.7) k/uL PT (9.0-12.0) sec INR (<1.2) APTT (22.0-30.0) sec VBG pH (7.31-7.41) VBG pCO2 (37-51) mmHg VBG HCO3 (24-28) mmol/L Sodium (137-145) mmol/L Chloride (98-107) mmol/L Carbon Dioxide (22-30) mmol/L BUN (9-20) mg/dL Creatinine (0.66-1.25) mg/dL Glucose (74-99) mg/dL POC Glucose (mg/dL) 281 H 271 H (70-110) mg/dL Plasma Lactic Acid Alfonzo (0.7-2.0) mmol/L Calcium (8.4-10.2) mg/dL Phosphorus (2.5-4.5) mg/dL Magnesium (1.6-2.3) mg/dL Troponin I (0.000-0.034) ng/mL Albumin (3.5-5.0) g/dL Procalcitonin (0.02-0.09) ng/mL Urine Protein (Negative) Urine Glucose (UA) (Negative) Urine Ketones (Negative) Urine Blood (Negative) Urine Bilirubin (Negative) Urine RBC (0-5) /hpf Urine Mucus (None) /hpf 07/03/22 07/03/22 07/03/22 Range/Units 06:11 06:11 06:58 WBC (3.8-10.6) k/uL RBC (4.30-5.90) m/uL MCV (80.0-100.0) fL Neutrophils # (1.3-7.7) k/uL PT 13.3 H (9.0-12.0) sec INR 1.3 H (<1.2) APTT (22.0-30.0) sec VBG pH (7.31-7.41) VBG pCO2 (37-51) mmHg VBG HCO3 (24-28) mmol/L Sodium (137-145) mmol/L Chloride (98-107) mmol/L Carbon Dioxide (22-30) mmol/L BUN (9-20) mg/dL Creatinine (0.66-1.25) mg/dL Glucose (74-99) mg/dL POC Glucose (mg/dL) 208 H (70-110) mg/dL Plasma Lactic Acid Alfonzo 2.4 H* (0.7-2.0) mmol/L Calcium (8.4-10.2) mg/dL Phosphorus (2.5-4.5) mg/dL Magnesium (1.6-2.3) mg/dL Troponin I (0.000-0.034) ng/mL Albumin (3.5-5.0) g/dL Procalcitonin (0.02-0.09) ng/mL Urine Protein (Negative) Urine Glucose (UA) (Negative) Urine Ketones (Negative) Urine Blood (Negative) Urine Bilirubin (Negative) Urine RBC (0-5) /hpf Urine Mucus (None) /hpf Microbiology - Last 24 Hours (Table) 07/02/22 08:31 Blood Culture - Final Blood 07/02/22 08:31 Blood Culture - Final Blood Assessment and Plan Plan: Acute diabetic ketoacidosis in a patient with type 2 diabetes mellitus and the patient has not taken any of his diabetic medication for many years. Patient presented with anion gap metabolic acidosis and positive acetones consistent with diabetic ketoacidosis. The patient remains on insulin drip. The gap is closed and a serum bicarb is up to 19 Acute hyperglycemia secondary to above, blood sugars under better control Acute hypernatremia, likely hypovolemic in nature, sodium level remains elevated and the patient has hyperchloremic hypernatremia Acute kidney injury, improved Small right-sided pleural effusion, awaiting a follow-up chest x-ray from today Atrial fibrillation with a controlled rate currently on IV heparin Possible right lung consolidation versus atelectasis. High probability VQ scan with an elevated d-dimer and negative Doppler of lower extremity. Clinically, pulmonary embolism is felt to be less likely. 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 Diabetes mellitus 2 Previous history of active fibrillation and current cardiac rhythm is sinus Septal Q waves indicative of a previous anterior wall myocardial infarction Hyperlipidemia Peripheral vascular disease History of smoking Plan Change this patient to D5 water at the rate of 150 mL an hour Monitor mental status Keep nothing by mouth Insulin drip for blood sugar control and use distended ICU protocol Continue IV heparin Continue IV Zosyn CT angiogram probably within next 24-48 hours. If there is sizable effusion, we will going to drain the effusion on the right and later on to a CT angiogram. Keep the patient ICU We'll follow
[2022-07-03 08:00] LABS: Glucose,Whole Blood 138 mg/dL (70-110)
[2022-07-03] MEDS ORDERED: VANCOMYCIN 1,750 MG in SODIUM CHLORIDE 0.9% 500 ML 500 ML IVPB SCH (08:00)
--- NOTE | 2022-07-03 08:11 | XR ---
EXAMINATION TYPE: XR chest 1V portable DATE OF EXAM: 07/03/2022 COMPARISON: 07/02/2022 INDICATION: Pleural effusion TECHNIQUE: Single frontal view of the chest is obtained. FINDINGS: The heart size is normal. The pulmonary vasculature is normal. Mild increased lung markings at the right lung greater in the right lower lung field. Finding is nons pecific. Correlate for pneumonia and atelectasis. Small right pleural effusion may be present. IMPRESSION: 1. Slight improvement of a right lung infiltrate. Correlate for atelectasis and pneumonia. Follow-up is recommended. 2. Suggestion of a small right pleural effusion
--- NOTE | 2022-07-03 08:31 | P.PN ---
Subjective Progress Note Date: 07/03/22 PROGRESS NOTE The patient is a 71-year-old male who presented to the emergency room after the insistence of his because of progressive fatigue, lack of energy and shortness of breath. In the emergency room he was noted to have diabetic ketoacidosis and mild elevation of the troponin. The history is obtained from the . 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 He has stopped taking all his medications. He is to smoke up to one year ago. He is limited in his physical activity. His left ventricle systolic function in 2014 was normal. He has no prior history of myocardial infarction or heart failure. His duplex scan of the lower extremities was unremarkable but his ventilation/perfusion scan raised the possibility of pulmonary embolism on the right side. His renal function are abnormal on presentation. His baseline is not available. The patient is awake, answering a few questions. In the emergency room he was noted to be in atrial fibrillation with rapid ventricle response of unknown duration. He does not consume alcohol or significant amount of caffeine. July 03: The patient is awake but not answering questions. He remains lethargic and obtunded. He continues to be in atrial fibrillation with controlled ventricular response, he is on IV heparin. His blood pressure is stable. His urinary output has been good. His blood sugar is better and his renal function had normalized. His chest x-ray shows right-sided pleural effusion. The patient has an abnormal ventilation/perfusion scan and further evaluation will be needed. Medications: IV heparin, metoprolol 25 mg twice a day PHYSICAL EXAMINATION: Blood pressure 122/56 heart rate 102 LUNGS: Clear to auscultation anteriorly HEART: Irregular rate and rhythm, S1, S2. No S3. systolic ejection murmur ABDOMEN: Soft, nontender, no organomegaly EXTREMETIES: No edema LAB: Sodium 162, bicarb 16, BUN 76, creatinine 1.0. Hemoglobin 13 IMPRESSION: 1. Diabetic ketoacidosis, improving 2. Atrial fibrillation, of unknown duration 3. History of stroke 4. Possible lung mass with pleural effusion 5. History of occluded left carotid artery 6. History of chronic tobacco use 7. Acute renal injury, resolved 8. Troponin elevation secondary to type II myocardial infarction PLAN: 1. Obtain an echocardiogram with Doppler 2. Increase beta aleisha 3. Probable CT scan of the chest tomorrow 4. Depending on the plan regarding the pleural effusion change to oral anticoagulation Objective - Vital Signs Vital signs: Vital Signs Temp 97.7 F 07/03/22 04:00 Pulse 115 H 07/03/22 07:00 Resp 20 07/03/22 07:00 BP 122/56 07/03/22 07:00 Pulse Ox 97 07/03/22 07:00 FiO2 Intake & Output 07/02/22 07/03/22 07/03/22 18:59 06:59 18:59 Intake Total 35.429 1918.723 104.694 Output Total 600 1450 Balance -564.571 468.723 104.694 Weight 117.934 kg 82.7 kg Intake: IV 1800 D5-0.45% NaCl with KCl 1650 20Meq/l 1,000 ml @ 150 mls/hr IV .Q6H40M [facility] Rx# :[id number] Piperacillin-Tazobactam 3 150 .375 gm In Sodium Chloride 0.9% 100 ml @ 25 mls/hr IVPB Q8H [facility] Rx#: [id number] Intake, IV Titration 35.429 118.723 104.694 Amount Heparin Sod,Pork in 0.45% 87 104.694 NaCl 25,000 unit In 0.45 % NaCl 1 250ml.bag @ 8. 479 UNITS/KG/HR 10 mls/hr IV .Q24H [facility] Rx#: [id number] Insulin Regular 100 unit 35.429 31.723 In Sodium Chloride 0.9% 100 ml @ 0.1 UNITS/KG/HR 11.911 mls/hr IV .Q8H29M [facility] Rx#:[id number] Output: Urine 600 1450 Uretheral (Juarez) 600 Other: Voiding Method Indwelling Catheter - Labs CBC & Chem 7: 07/03/22 06:11 07/03/22 06:11 Labs: Abnormal Lab Results - Last 24 Hours (Table) 07/02/22 07/02/22 07/02/22 Range/Units 06:02 08:31 08:31 WBC (3.8-10.6) k/uL RBC (4.30-5.90) m/uL MCV (80.0-100.0) fL Neutrophils # (1.3-7.7) k/uL PT (9.0-12.0) sec INR (<1.2) APTT (22.0-30.0) sec VBG pH 7.24 L (7.31-7.41) VBG pCO2 20 L (37-51) mmHg VBG HCO3 8 L* (24-28) mmol/L Sodium (137-145) mmol/L Chloride (98-107) mmol/L Carbon Dioxide (22-30) mmol/L BUN (9-20) mg/dL Creatinine (0.66-1.25) mg/dL Glucose (74-99) mg/dL POC Glucose (mg/dL) (70-110) mg/dL Plasma Lactic Acid Alfonzo (0.7-2.0) mmol/L Calcium (8.4-10.2) mg/dL Phosphorus (2.5-4.5) mg/dL Magnesium (1.6-2.3) mg/dL Troponin I 0.287 H* (0.000-0.034) ng/mL Albumin (3.5-5.0) g/dL Procalcitonin (0.02-0.09) ng/mL Urine Protein 1+ H (Negative) Urine Glucose (UA) 4+ H (Negative) Urine Ketones 4+ H (Negative) Urine Blood Moderate H (Negative) Urine Bilirubin 1+ H (Negative) Urine RBC 39 H (0-5) /hpf Urine Mucus Rare H (None) /hpf 07/02/22 07/02/22 07/02/22 Range/Units 10:11 11:17 12:25 WBC (3.8-10.6) k/uL RBC (4.30-5.90) m/uL MCV (80.0-100.0) fL Neutrophils # (1.3-7.7) k/uL PT (9.0-12.0) sec INR (<1.2) APTT (22.0-30.0) sec VBG pH (7.31-7.41) VBG pCO2 (37-51) mmHg VBG HCO3 (24-28) mmol/L Sodium (137-145) mmol/L Chloride (98-107) mmol/L Carbon Dioxide (22-30) mmol/L BUN (9-20) mg/dL Creatinine (0.66-1.25) mg/dL Glucose (74-99) mg/dL POC Glucose (mg/dL) 412 H 266 H 158 H (70-110) mg/dL Plasma Lactic Acid Alfonzo (0.7-2.0) mmol/L Calcium (8.4-10.2) mg/dL Phosphorus (2.5-4.5) mg/dL Magnesium (1.6-2.3) mg/dL Troponin I (0.000-0.034) ng/mL Albumin (3.5-5.0) g/dL Procalcitonin (0.02-0.09) ng/mL Urine Protein (Negative) Urine Glucose (UA) (Negative) Urine Ketones (Negative) Urine Blood (Negative) Urine Bilirubin (Negative) Urine RBC (0-5) /hpf Urine Mucus (None) /hpf 07/02/22 07/02/22 07/02/22 Range/Units 12:32 12:32 14:47 WBC (3.8-10.6) k/uL RBC (4.30-5.90) m/uL MCV (80.0-100.0) fL Neutrophils # (1.3-7.7) k/uL PT (9.0-12.0) sec INR (<1.2) APTT (22.0-30.0) sec VBG pH (7.31-7.41) VBG pCO2 (37-51) mmHg VBG HCO3 (24-28) mmol/L Sodium 167 H* 171 H* (137-145) mmol/L Chloride 135 H* 140 H* (98-107) mmol/L Carbon Dioxide 10 L 13 L (22-30) mmol/L BUN 43 H 44 H (9-20) mg/dL Creatinine 1.40 H (0.66-1.25) mg/dL Glucose 151 H (74-99) mg/dL POC Glucose (mg/dL) (70-110) mg/dL Plasma Lactic Acid Alfonzo (0.7-2.0) mmol/L Calcium (8.4-10.2) mg/dL Phosphorus (2.5-4.5) mg/dL Magnesium (1.6-2.3) mg/dL Troponin I 0.271 H* (0.000-0.034) ng/mL Albumin (3.5-5.0) g/dL Procalcitonin (0.02-0.09) ng/mL Urine Protein (Negative) Urine Glucose (UA) (Negative) Urine Ketones (Negative) Urine Blood (Negative) Urine Bilirubin (Negative) Urine RBC (0-5) /hpf Urine Mucus (None) /hpf 07/02/22 07/02/22 07/02/22 Range/Units 14:47 14:47 14:59 WBC 18.6 H (3.8-10.6) k/uL RBC 4.23 L (4.30-5.90) m/uL MCV 105.1 H (80.0-100.0) fL Neutrophils # 15.9 H (1.3-7.7) k/uL PT (9.0-12.0) sec INR (<1.2) APTT (22.0-30.0) sec VBG pH (7.31-7.41) VBG pCO2 (37-51) mmHg VBG HCO3 (24-28) mmol/L Sodium (137-145) mmol/L Chloride (98-107) mmol/L Carbon Dioxide (22-30) mmol/L BUN (9-20) mg/dL Creatinine (0.66-1.25) mg/dL Glucose (74-99) mg/dL POC Glucose (mg/dL) (70-110) mg/dL Plasma Lactic Acid Alfonzo (0.7-2.0) mmol/L Calcium (8.4-10.2) mg/dL Phosphorus (2.5-4.5) mg/dL Magnesium (1.6-2.3) mg/dL Troponin I 0.329 H* (0.000-0.034) ng/mL Albumin (3.5-5.0) g/dL Procalcitonin 0.34 H (0.02-0.09) ng/mL Urine Protein (Negative) Urine Glucose (UA) (Negative) Urine Ketones (Negative) Urine Blood (Negative) Urine Bilirubin (Negative) Urine RBC (0-5) /hpf Urine Mucus (None) /hpf 07/02/22 07/02/22 07/02/22 Range/Units 15:15 15:43 15:50 WBC (3.8-10.6) k/uL RBC (4.30-5.90) m/uL MCV (80.0-100.0) fL Neutrophils # (1.3-7.7) k/uL PT (9.0-12.0) sec INR (<1.2) APTT (22.0-30.0) sec VBG pH (7.31-7.41) VBG pCO2 (37-51) mmHg VBG HCO3 (24-28) mmol/L Sodium (137-145) mmol/L Chloride (98-107) mmol/L Carbon Dioxide (22-30) mmol/L BUN (9-20) mg/dL Creatinine (0.66-1.25) mg/dL Glucose (74-99) mg/dL POC Glucose (mg/dL) 131 H 140 H (70-110) mg/dL Plasma Lactic Acid Alfonzo 3.8 H* (0.7-2.0) mmol/L Calcium (8.4-10.2) mg/dL Phosphorus (2.5-4.5) mg/dL Magnesium (1.6-2.3) mg/dL Troponin I (0.000-0.034) ng/mL Albumin (3.5-5.0) g/dL Procalcitonin (0.02-0.09) ng/mL Urine Protein (Negative) Urine Glucose (UA) (Negative) Urine Ketones (Negative) Urine Blood (Negative) Urine Bilirubin (Negative) Urine RBC (0-5) /hpf Urine Mucus (None) /hpf 07/02/22 07/02/22 07/02/22 Range/Units 17:41 18:10 18:24 WBC (3.8-10.6) k/uL RBC (4.30-5.90) m/uL MCV (80.0-100.0) fL Neutrophils # (1.3-7.7) k/uL PT (9.0-12.0) sec INR (<1.2) APTT (22.0-30.0) sec VBG pH (7.31-7.41) VBG pCO2 (37-51) mmHg VBG HCO3 (24-28) mmol/L Sodium (137-145) mmol/L Chloride (98-107) mmol/L Carbon Dioxide (22-30) mmol/L BUN (9-20) mg/dL Creatinine (0.66-1.25) mg/dL Glucose (74-99) mg/dL POC Glucose (mg/dL) 194 H 224 H (70-110) mg/dL Plasma Lactic Acid Alfonzo 2.1 H* (0.7-2.0) mmol/L Calcium (8.4-10.2) mg/dL Phosphorus (2.5-4.5) mg/dL Magnesium (1.6-2.3) mg/dL Troponin I (0.000-0.034) ng/mL Albumin (3.5-5.0) g/dL Procalcitonin (0.02-0.09) ng/mL Urine Protein (Negative) Urine Glucose (UA) (Negative) Urine Ketones (Negative) Urine Blood (Negative) Urine Bilirubin (Negative) Urine RBC (0-5) /hpf Urine Mucus (None) /hpf 07/02/22 07/02/22 07/02/22 Range/Units 20:36 22:13 22:29 WBC (3.8-10.6) k/uL RBC (4.30-5.90) m/uL MCV (80.0-100.0) fL Neutrophils # (1.3-7.7) k/uL PT (9.0-12.0) sec INR (<1.2) APTT (22.0-30.0) sec VBG pH (7.31-7.41) VBG pCO2 (37-51) mmHg VBG HCO3 (24-28) mmol/L Sodium (137-145) mmol/L Chloride (98-107) mmol/L Carbon Dioxide (22-30) mmol/L BUN (9-20) mg/dL Creatinine (0.66-1.25) mg/dL Glucose (74-99) mg/dL POC Glucose (mg/dL) 159 H 118 H (70-110) mg/dL Plasma Lactic Acid Alfonzo 2.5 H* (0.7-2.0) mmol/L Calcium (8.4-10.2) mg/dL Phosphorus (2.5-4.5) mg/dL Magnesium (1.6-2.3) mg/dL Troponin I (0.000-0.034) ng/mL Albumin (3.5-5.0) g/dL Procalcitonin (0.02-0.09) ng/mL Urine Protein (Negative) Urine Glucose (UA) (Negative) Urine Ketones (Negative) Urine Blood (Negative) Urine Bilirubin (Negative) Urine RBC (0-5) /hpf Urine Mucus (None) /hpf 07/02/22 07/03/22 07/03/22 Range/Units 23:06 00:02 01:09 WBC (3.8-10.6) k/uL RBC (4.30-5.90) m/uL MCV (80.0-100.0) fL Neutrophils # (1.3-7.7) k/uL PT (9.0-12.0) sec INR (<1.2) APTT (22.0-30.0) sec VBG pH (7.31-7.41) VBG pCO2 (37-51) mmHg VBG HCO3 (24-28) mmol/L Sodium (137-145) mmol/L Chloride (98-107) mmol/L Carbon Dioxide (22-30) mmol/L BUN (9-20) mg/dL Creatinine (0.66-1.25) mg/dL Glucose (74-99) mg/dL POC Glucose (mg/dL) 129 H 123 H 199 H (70-110) mg/dL Plasma Lactic Acid Alfonzo (0.7-2.0) mmol/L Calcium (8.4-10.2) mg/dL Phosphorus (2.5-4.5) mg/dL Magnesium (1.6-2.3) mg/dL Troponin I (0.000-0.034) ng/mL Albumin (3.5-5.0) g/dL Procalcitonin (0.02-0.09) ng/mL Urine Protein (Negative) Urine Glucose (UA) (Negative) Urine Ketones (Negative) Urine Blood (Negative) Urine Bilirubin (Negative) Urine RBC (0-5) /hpf Urine Mucus (None) /hpf 07/03/22 07/03/22 07/03/22 Range/Units 02:03 03:04 03:15 WBC (3.8-10.6) k/uL RBC (4.30-5.90) m/uL MCV (80.0-100.0) fL Neutrophils # (1.3-7.7) k/uL PT (9.0-12.0) sec INR (<1.2) APTT (22.0-30.0) sec VBG pH (7.31-7.41) VBG pCO2 (37-51) mmHg VBG HCO3 (24-28) mmol/L Sodium 164 H* (137-145) mmol/L Chloride 136 H* (98-107) mmol/L Carbon Dioxide 19 L (22-30) mmol/L BUN 39 H (9-20) mg/dL Creatinine (0.66-1.25) mg/dL Glucose 244 H (74-99) mg/dL POC Glucose (mg/dL) 220 H 215 H (70-110) mg/dL Plasma Lactic Acid Alfonzo (0.7-2.0) mmol/L Calcium 8.1 L (8.4-10.2) mg/dL Phosphorus 2.3 L (2.5-4.5) mg/dL Magnesium 2.4 H (1.6-2.3) mg/dL Troponin I (0.000-0.034) ng/mL Albumin 2.4 L (3.5-5.0) g/dL Procalcitonin (0.02-0.09) ng/mL Urine Protein (Negative) Urine Glucose (UA) (Negative) Urine Ketones (Negative) Urine Blood (Negative) Urine Bilirubin (Negative) Urine RBC (0-5) /hpf Urine Mucus (None) /hpf 07/03/22 07/03/22 07/03/22 Range/Units 03:23 03:23 04:01 WBC 13.6 H (3.8-10.6) k/uL RBC 4.10 L (4.30-5.90) m/uL MCV 102.1 H (80.0-100.0) fL Neutrophils # 11.5 H (1.3-7.7) k/uL PT (9.0-12.0) sec INR (<1.2) APTT 65.3 H (22.0-30.0) sec VBG pH (7.31-7.41) VBG pCO2 (37-51) mmHg VBG HCO3 (24-28) mmol/L Sodium (137-145) mmol/L Chloride (98-107) mmol/L Carbon Dioxide (22-30) mmol/L BUN (9-20) mg/dL Creatinine (0.66-1.25) mg/dL Glucose (74-99) mg/dL POC Glucose (mg/dL) 271 H (70-110) mg/dL Plasma Lactic Acid Alfonzo (0.7-2.0) mmol/L Calcium (8.4-10.2) mg/dL Phosphorus (2.5-4.5) mg/dL Magnesium (1.6-2.3) mg/dL Troponin I (0.000-0.034) ng/mL Albumin (3.5-5.0) g/dL Procalcitonin (0.02-0.09) ng/mL Urine Protein (Negative) Urine Glucose (UA) (Negative) Urine Ketones (Negative) Urine Blood (Negative) Urine Bilirubin (Negative) Urine RBC (0-5) /hpf Urine Mucus (None) /hpf 07/03/22 07/03/22 07/03/22 Range/Units 05:12 06:07 06:11 WBC 11.9 H (3.8-10.6) k/uL RBC 3.95 L (4.30-5.90) m/uL MCV 104.1 H (80.0-100.0) fL Neutrophils # 10.2 H (1.3-7.7) k/uL PT (9.0-12.0) sec INR (<1.2) APTT (22.0-30.0) sec VBG pH (7.31-7.41) VBG pCO2 (37-51) mmHg VBG HCO3 (24-28) mmol/L Sodium (137-145) mmol/L Chloride (98-107) mmol/L Carbon Dioxide (22-30) mmol/L BUN (9-20) mg/dL Creatinine (0.66-1.25) mg/dL Glucose (74-99) mg/dL POC Glucose (mg/dL) 281 H 271 H (70-110) mg/dL Plasma Lactic Acid Alfonzo (0.7-2.0) mmol/L Calcium (8.4-10.2) mg/dL Phosphorus (2.5-4.5) mg/dL Magnesium (1.6-2.3) mg/dL Troponin I (0.000-0.034) ng/mL Albumin (3.5-5.0) g/dL Procalcitonin (0.02-0.09) ng/mL Urine Protein (Negative) Urine Glucose (UA) (Negative) Urine Ketones (Negative) Urine Blood (Negative) Urine Bilirubin (Negative) Urine RBC (0-5) /hpf Urine Mucus (None) /hpf 07/03/22 07/03/22 07/03/22 Range/Units 06:11 06:11 06:11 WBC (3.8-10.6) k/uL RBC (4.30-5.90) m/uL MCV (80.0-100.0) fL Neutrophils # (1.3-7.7) k/uL PT 13.3 H (9.0-12.0) sec INR 1.3 H (<1.2) APTT (22.0-30.0) sec VBG pH (7.31-7.41) VBG pCO2 (37-51) mmHg VBG HCO3 (24-28) mmol/L Sodium 162 H* (137-145) mmol/L Chloride 136 H* (98-107) mmol/L Carbon Dioxide 16 L (22-30) mmol/L BUN 36 H (9-20) mg/dL Creatinine (0.66-1.25) mg/dL Glucose 261 H (74-99) mg/dL POC Glucose (mg/dL) (70-110) mg/dL Plasma Lactic Acid Alfonzo 2.4 H* (0.7-2.0) mmol/L Calcium 7.7 L (8.4-10.2) mg/dL Phosphorus 1.8 L (2.5-4.5) mg/dL Magnesium (1.6-2.3) mg/dL Troponin I (0.000-0.034) ng/mL Albumin 2.4 L (3.5-5.0) g/dL Procalcitonin (0.02-0.09) ng/mL Urine Protein (Negative) Urine Glucose (UA) (Negative) Urine Ketones (Negative) Urine Blood (Negative) Urine Bilirubin (Negative) Urine RBC (0-5) /hpf Urine Mucus (None) /hpf 07/03/22 07/03/22 Range/Units 06:58 08:00 WBC (3.8-10.6) k/uL RBC (4.30-5.90) m/uL MCV (80.0-100.0) fL Neutrophils # (1.3-7.7) k/uL PT (9.0-12.0) sec INR (<1.2) APTT (22.0-30.0) sec VBG pH (7.31-7.41) VBG pCO2 (37-51) mmHg VBG HCO3 (24-28) mmol/L Sodium (137-145) mmol/L Chloride (98-107) mmol/L Carbon Dioxide (22-30) mmol/L BUN (9-20) mg/dL Creatinine (0.66-1.25) mg/dL Glucose (74-99) mg/dL POC Glucose (mg/dL) 208 H 138 H (70-110) mg/dL Plasma Lactic Acid Alfonzo (0.7-2.0) mmol/L Calcium (8.4-10.2) mg/dL Phosphorus (2.5-4.5) mg/dL Magnesium (1.6-2.3) mg/dL Troponin I (0.000-0.034) ng/mL Albumin (3.5-5.0) g/dL Procalcitonin (0.02-0.09) ng/mL Urine Protein (Negative) Urine Glucose (UA) (Negative) Urine Ketones (Negative) Urine Blood (Negative) Urine Bilirubin (Negative) Urine RBC (0-5) /hpf Urine Mucus (None) /hpf Microbiology - Last 24 Hours (Table) 07/02/22 08:31 Blood Culture - Final Blood 07/02/22 08:31 Blood Culture - Final Blood
[2022-07-03] MEDS: DEXTROSE 5% IN WATER 1,000 ML IV SCH ×3 (08:57→20:05)
[2022-07-03] MEDS: METOPROLOL TARTRATE 25 MG TAB PO SCH ×2 (08:57→20:00)
[2022-07-03 09:11] LABS: Glucose,Whole Blood 132 mg/dL (70-110)
[2022-07-03 10:52] LABS: Glucose,Whole Blood 206 mg/dL (70-110)
[2022-07-03] MEDS: HEPARIN SOD,PORK IN 0.45% NACL 25,000 UNIT in 0.45% NACL 1 250ML.BAG IV SCH (11:12)
[2022-07-03 11:30] LABS: Glucose,Whole Blood 261 mg/dL (70-110)
--- NOTE | 2022-07-03 11:46 | CA ---
Transthoracic Echo Report Name: Antoni Moise Age: 71 Gender: M : 1950 Exam Date: 07/03/2022 09:04 Exam Location: [place] [facility] Ht (in): 68 Wt (lb): 182 Ordering Physician: Nikolai Stevens MD [id number]) Attending/Referring Phys: Senior Benefits Analyst Jackie Fortune RDCS Procedure CPT: Indications: afib Cardiac Hx: Technical Quality: Technically difficult study Contrast 1: Lumason Total Dose (mL): 5 Contrast 2: Total Dose (mL): MEASUREMENTS (Male / Female) Normal Values 2D ECHO LV Diastolic Diameter PLAX 3.9 cm 4.2 - 5.9 / 3.9 - 5.3 cm LV Systolic Diameter PLAX 3.6 cm IVS Diastolic Thickness 1.1 cm 0.6 - 1.0 / 0.6 - 0.9 cm LVPW Diastolic Thickness 1.1 cm 0.6 - 1.0 / 0.6 - 0.9 cm LV Relative Wall Thickness 0.6 RV Internal Dim ED PLAX 2.1 cm LA Volume 43.6 cm??? 18 - 58 / 22 - 52 cm??? M-MODE Aortic Root Diameter MM 3.0 cm LA Systolic Diameter MM 3.6 cm LA Ao Ratio MM 1.2 AV Cusp Separation MM 1.8 cm DOPPLER AV Peak Velocity 149.2 cm/s AV Peak Gradient 8.9 mmHg LVOT Peak Velocity 102.7 cm/s LVOT Peak Gradient 4.2 mmHg TR Peak Velocity 320.2 cm/s TR Peak Gradient 41.0 mmHg Right Ventricular Systolic Press 45.1 mmHg FINDINGS Left Ventricle Mildly increased left ventricular wall thickness. Moderately reduced global left ventricular systolic function. Left ventricular ejection fraction is estimated at 25-30 %. Right Ventricle Normal right ventricular size and function. Right Atrium Right atrium not well visualized. Left Atrium Normal left atrial size. Mitral Valve Mitral valve not well visualized. No mitral stenosis. No mitral regurgitation. Aortic Valve Aortic valve not well visualized. No aortic valve stenosis or regurgitation. Tricuspid Valve Structurally normal tricuspid valve. Mild tricuspid regurgitation. Pulmonic Valve Trace pulmonic regurgitation. Pericardium No pericardial effusion. Aorta Normal size aortic root and proximal ascending aorta. CONCLUSIONS Severe LV systolic dysfunction Mild tricuspid regurgitation Previewed by: Dr. Brock Jimenez MD (Electronically Signed) Final Date: 03 July 2022 11:45
[2022-07-03 11:56] LABS: Glucose,Whole Blood 280 mg/dL (70-110)
[2022-07-03 13:02] LABS: HCT 39.5 % (39.0-53.0); HGB 12.3 gm/dL (13.0-17.5); Hypochromasia Marked; MCH 32.5 pg (25.0-35.0); MCHC 31.1 g/dL (31.0-37.0); MCV 104.4 fL (80.0-100.0); Macrocytosis Slight; Platelet Count 218 k/uL (150-450); RBC 3.78 m/uL (4.30-5.90); RDW 13.2 % (11.5-15.5); WBC 11.5 k/uL (3.8-10.6)
[2022-07-03 13:10] LABS: Glucose,Whole Blood 185 mg/dL (70-110)
[2022-07-03 13:18] LABS: Calcium 7.5 mg/dL (8.4-10.2); Potassium 3.5 mmol/L (3.5-5.1)
[2022-07-03] MEDS: INSULIN REGULAR 100 UNIT in SODIUM CHLORIDE 0.9% 100 ML IV SCH ×2 (14:12→22:15)
--- NOTE | 2022-07-03 14:12 | CDI ---
Documentation Clarification Form Date: 07/03/2022 02:00:51 PM From: Jerrica Drew CCS, CCDS Admit Date: 07/02/2022 11:00:00 AM Patient Name: Antoni Moise Visit Number: [id number] Discharge Date: ATTENTION: The Clinical Documentation Specialists (CDI) and [facility] Coding Staff appreciate your assistance in clarifying documentation. Please respond to the clarification below the line at the bottom and electronically sign. The CDI & [facility] Coding staff will review the response and follow-up if needed. Please note: Queries are made part of the Legal Health Record. If you have any questions, please contact the author of this message via ITS. Dr. Shilo Jean: Sepsis is documented in the 07/02 ED Note but not documented in subsequent documentation. Additional clarification is requested. History/Risk Factors per the 07/02 H/P: DM II, chronically noncompliant, CVA with right side deficits, Hyperlipidemia, former smoker. Clinical Indicators: Presented to the ED on 07/02 via EMS from home with SOB. Per EMS, the patient may have been found own at home. Lethargic. Pressure sores bilateral knees. Admit with Elevated troponin, DKA, Altered mental status, Hypernatremia, Elevated D Dimer, Debility, Dehydration and Sepsis. 07/02 VS: T 98.9, P 74 - 134; R 15 - 28; BP 136/73, PO 99 RA - 96 5Lnc, BMI: 27.7 07/02 LAB: WBC 16.8, Neutrophils 15.1, Lymphocytes 0.8; PT 12.9, INR 1.3, D Dimer 20.08; Na 159, Chl 119, CO2 6.1, BUN 46, Creatinine 1.84, Glucose 567, Lactic Acid 3.8, 3.8, 2.1, 2.5; Mag 2.8, AST 16, Alk Phos 145, Troponin 0.287, 0.329; Total Protein 9.0, Procalcitonin 0.34. VBG: pH 7.24, pCO2 20, HCO3 8 07/02 CXR: New diffuse right lung edema and/or infiltrates. Treatment 07/02: Admit to ICU, Telemetry, Blood Glucose monitoring, Heparin drip, Restraints, Juarez Cath, Occult Blood culture, IV Zosyn 100 mls @ 200 mls/hr x1, IV Vancomycin 500 mls @ 167 mls/hr x1, IV Na Chl 1,000 mls @ 999 mls/hr q1 & q31M, IV Insulin, IV Kcl 1,000 mls @ 150 mls/hr q6H. Please clarify if Sepsis is a valid diagnosis? [ ] Yes, Sepsis is present as evidence by (additional clinical support): [ ] No, Sepsis is ruled out [ ] Other (please specify diagnosis) [ ] Unable to determine (Template Last Revised: September 2020) Sepsis, POA. Can be to Pneumonia along with elevated white count, elevated heart rate, procalcitonin. MTDD
[2022-07-03 14:17] LABS: Glucose,Whole Blood 133 mg/dL (70-110)
[2022-07-03] MEDS: HEPARIN SODIUM 1,000 UN/ML (10ML VL) IV PRN (14:29)
--- NOTE | 2022-07-03 14:49 | P.PN ---
Progress Note - Text Progress Note Date: 07/03/22 This is a 71-year-old patient, has not follows Dr. Walden for years. Per the EMS report. When they arrived they found the patient getting only a Urine soaked underwear. Bed is also soaked for dry urine and that is under the mattress. Patient stated that he has not been getting out of bed for last 2 days. Has not been eating. He has not seen a doctor since 2014 when he had a stroke and is noncompliant with his medications. She is the manager math. Patient finally is agreed to go to the hospital. She also felt that patient's breathing is also change in the last 3 days. 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 She is able to converse with him. She is normally alert to place person and time but currently she is less responsive. No trauma. He does not feel like eating. In the ER found to have a blood glucose in the 500s. Positive for serum acetone. Patient himself is unable to give much of history. Attempted to speak some words. Does move his limbs. Lethargic. On insulin drip. Also on heparin drip. Admitted with acute diabetic ketoacidosis/severe hypernatremia/acute metabolic encephalopathy/delirium/pneumonia/. Started on IV heparin, IV fluids, IV Zosyn, insulin drip. 07/03/2022: ICU: Encephalopathic. Delirious. Moves it about sometimes. Does open eyes. Not really answering questions. On D5W IV fluids, IV heparin, insulin drip, IV Zosyn,. Blood cultures positive for what appears to be Staphylococcus epidermidis. Was started on vancomycin earlier. A. fib rate controlled Active Medications Acetaminophen (Acetaminophen Tab 325 Mg Tab) 650 mg PO Q6HR PRN PRN Reason: Mild Pain or Fever > 100.5 Heparin Sodium (Porcine) (Heparin Sodium 1,000 Un/Ml (10ml Vl)) 0 unit IV PER PROTOCOL PRN; Protocol PRN Reason: Low PTT Last Admin: 07/03/22 14:29 Dose: 2,075 unit Insulin Human Regular 100 unit (/ Sodium Chloride) 101 mls @ 11.911 mls/hr IV .Q8H29M [facility]; Protocol Last Admin: 07/03/22 14:12 Dose: 0.03 units/kg/hr, 3.5 mls/hr Piperacillin Sod/Tazobactam (Sod 3.375 gm/ Sodium Chloride) 100 mls @ 25 mls/hr IVPB Q8H [facility]; Protocol Last Admin: 07/03/22 14:30 Dose: 25 mls/hr Heparin Sodium/Sodium Chloride (25,000 unit/ Sodium Chloride) 250 mls @ 10 mls/hr IV .Q24H [facility]IN; Protocol Last Titration: 07/03/22 14:19 Dose: 11.5 units/kg/hr, 13.562 mls/hr Dextrose/Water (Dextrose 5%-Water Iv Soln) 1,000 mls @ 150 mls/hr IV .Q6H40M [facility] Last Admin: 07/03/22 08:57 Dose: 150 mls/hr Vancomycin HCl 1,250 mg/ (Sodium Chloride) 250 mls @ 125 mls/hr IVPB Q12H [facility] Potassium Chloride 10 meq/ IV (Solution) 100 mls @ 100 mls/hr IVPB Q1HR [facility]; Protocol Stop: 07/03/22 18:59 Metoprolol Tartrate (Metoprolol Tartrate 25 Mg Tab) 25 mg PO BID [facility] Last Admin: 07/03/22 08:57 Dose: 25 mg Miscellaneous Information (Magnesium Replacement Protocol 1 Each Misc) 1 each MISCELLANE DAILY PRN; Protocol PRN Reason: Per Protocol Miscellaneous Information (Potassium Replacement Protocol 1 Each Misc) 1 each MISCELLANE DAILY PRN PRN Reason: Per Protocol Miscellaneous Information (Phosphorus Replacement Protoco 1 Each Misc) 1 each MISCELLANE DAILY PRN; Protocol PRN Reason: Per Protocol Naloxone HCl (Naloxone 0.4 Mg/Ml 1 Ml Vial) 0.2 mg IV Q2M PRN PRN Reason: Opioid Reversal Past medical history to include: Diabetes, stroke, hyperlipidemia, left index finger amputated. Social history: Former smoker. Alcohol occasionally. Lives his . Family history: Patient cannot tell Physical examination: VITAL SIGNS: 93, 105, 15, 122/61, 98% on 4 L GENERAL: laying in bed, lethargic. Occasionally opening eyes EYES: Pupils equal. Conjunctiva normal. HEENT: [External appearance of nose and ears normal, oral cavity dry mucous membranes NECK: JVD not raised; masses not palpable. HEART: Irregular heart beat; no edema. LUNGS: Respiratory rate increased; decreased breath sounds ABDOMEN: Soft, nontender, liver spleen not palpable, no masses palpable. PSYCH: Lethargic does open eyes MUSCULOSKELETAL:No Clubbing/cyanosis;muscles-grossly intact NEUROLOGICAL: [Cranial nerves grossly intact; no facial asymmetry, moving all 4 limbs INVESTIGATIONS, reviewed in the clinical context: 2-D echocardiogram: EF 25-30%. 07/03/2022: WBC 11.5 hemoglobin 12.3 sodium 162 chloride 133 BUN 35 creatinine 1.13 lactic acid 2.6 White count 16.8 hemoglobin 15.8 platelets 345 sodium 159 chloride 119 bicarbonate 6 BUN 46 creatinine 1.84 blood glucose 567 lactic acid 3.8 Troponin I 0.287 proBNP 2660 Serum acetone: Positive Influenza type A/diabetes/RSV/COVID-19: Not detected EKG tracing personally reviewed by me-sinus tachycardia. Nonspecific T-wave changes. Rate 137 Chest x-ray film personally reviewed by [id number] infiltrate CT brain C-spine: Unremarkable Chest abdomen pelvis without contrast: Gallbladder is distended margins, moderate to severe factor placed atrophic pancreas spleen occasional calcifications scattered throughout. Right hilar consolidation slightly more masslike posterior inferolateral region. Venous Doppler: Negative for DVT VQ scan: Large perfusion defect right upper lobe. Assessment and plan: -Acute diabetic ketoacidosis in a patient has not been taking his medications. IV fluids. Insulin drip. -Acute kidney injury likely ATN multifactorial Follow renal function -Persistent atrial fibrillation, rate controlled IV heparin -Severe hypernatremia, with hyperchloremia from free water deficit from poor oral intake: Slow to respond D5W 150 mL an hour -Possible right lung consolidation/pneumonia suspect gram-negative organism IV Zosyn -Cardiomyopathy EF 25-30% Follow with cardiology -Elevated d-dimer, which last consolidation process on the right lung with the perfusion defect of VQ scan. VQ scan at this point is still questionable. Doubt PE -IV heparin monitoring Follow PTT -Troponin I likely type II hemodynamic mismatch Telemetry. -Acute metabolic encephalopathy/delirium, multifactorial: Not improving -Diabetes mellitus type 2, chronically noncompliant Follow Accu-Cheks -DO NOT RESUSCITATE D5W. IV heparin. D5 1 50 mL an hour. Still lethargic. Blood cultures positive likely contaminant. Currently in vancomycin. Continue current treatment plan.
[2022-07-03] MEDS: POTASSIUM CHLORIDE 10 MEQ in WATER FOR INJECTION 1 100ML.BAG IVPB SCH ×4 (14:53→18:34)
[2022-07-03 15:13] LABS: Glucose,Whole Blood 68 mg/dL (70-110)
[2022-07-03 16:13] LABS: Calcium 7.8 mg/dL (8.4-10.2)
[2022-07-03 16:17] LABS: Glucose,Whole Blood 94 mg/dL (70-110)
[2022-07-03 17:17] LABS: Glucose,Whole Blood 129 mg/dL (70-110)
[2022-07-03 18:08] LABS: Glucose,Whole Blood 198 mg/dL (70-110)
[2022-07-03] MEDS ORDERED: DEXTROSE 50% SYRINGE 50 ML IVP PRN ×2 (18:28)
[2022-07-03 19:00] LABS: Glucose,Whole Blood 229 mg/dL (70-110)
[2022-07-03 19:51] LABS: Glucose,Whole Blood 226 mg/dL (70-110)
[2022-07-03] MEDS: INSULIN ASPART (NovoLOG) 100 UNIT/ML VIAL SQ SCH (20:00)
[2022-07-03 20:59] LABS: Glucose,Whole Blood 209 mg/dL (70-110)
[2022-07-03 21:08] LABS: Calcium 7.5 mg/dL (8.4-10.2); Potassium 3.6 mmol/L (3.5-5.1)
[2022-07-03] MEDS ORDERED: VANCOMYCIN 1,250 MG in SODIUM CHLORIDE 0.9% 250 ML IVPB SCH (22:00)
[2022-07-04] MEDS ORDERED: POTASSIUM BICARBONATE/CIT AC 20 MEQ TABLET.EFF NG-TUBE SCH
[2022-07-04] MEDS: HEPARIN SODIUM 1,000 UN/ML (10ML VL) IV PRN (01:19)
[2022-07-04 01:54] LABS: Calcium 7.5 mg/dL (8.4-10.2); Potassium 4.1 mmol/L (3.5-5.1)
[2022-07-04 02:12] LABS: Glucose,Whole Blood 241 mg/dL (70-110)
[2022-07-04] MEDS: INSULIN ASPART (NovoLOG) 100 UNIT/ML VIAL SQ SCH ×6 (02:13→21:00)
[2022-07-04] MEDS: HEPARIN SOD,PORK IN 0.45% NACL 25,000 UNIT in 0.45% NACL 1 250ML.BAG IV SCH ×2 (04:01→19:13)
[2022-07-04] MEDS: DEXTROSE 5% IN WATER 1,000 ML IV SCH ×4 (04:14→23:19)
[2022-07-04] MEDS: PIPERACILLIN-TAZOBACTAM 3.375 GM in SODIUM CHLORIDE 0.9% 100 ML IVPB SCH ×3 (05:22→21:15)
[2022-07-04 06:54] LABS: Glucose,Whole Blood 258 mg/dL (70-110)
[2022-07-04 07:31] LABS: Albumin 2.2 g/dL (3.5-5.0); Calcium 7.2 mg/dL (8.4-10.2); Total Bilirubin 0.7 mg/dL (0.2-1.3); Total Protein 5.8 g/dL (6.3-8.2)
[2022-07-04 07:39] LABS: Phosphorus 1.8 mg/dL (2.5-4.5)
[2022-07-04 08:37] LABS: Basophils # (A) 0.1 k/uL (0-0.2); Basophils % (A) 1 %; Eosinophils # (A) 0.1 k/uL (0-0.7); Eosinophils % (A) 1 %; HCT 39.3 % (39.0-53.0); Hypochromasia Slight; Lymphocytes # (A) 1.3 k/uL (1.0-4.8); Lymphocytes % (A) 12 %; MCH 33.2 pg (25.0-35.0); MCV 100.7 fL (80.0-100.0); Mean Platelet Volume 9.9; Monocytes # (A) 0.4 k/uL (0-1.0); Monocytes % (A) 3 %; Neutrophils # (A) 9.1 k/uL (1.3-7.7); Neutrophils % (A) 83 %; Platelet Count 148 k/uL (150-450); RDW 13.4 % (11.5-15.5); WBC 10.9 k/uL (3.8-10.6)
[2022-07-04 08:49] LABS: Glucose,Whole Blood 254 mg/dL (70-110)
--- NOTE | 2022-07-04 08:52 | P.PN ---
Subjective Progress Note Date: 07/04/22 PROGRESS NOTE The patient is a 71-year-old male who presented to the emergency room after the insistence of his because of progressive fatigue, lack of energy and shortness of breath. In the emergency room he was noted to have diabetic ketoacidosis and mild elevation of the troponin. The history is obtained from the . 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 He has stopped taking all his medications. He is to smoke up to one year ago. He is limited in his physical activity. His left ventricle systolic function in 2014 was normal. He has no prior history of myocardial infarction or heart failure. His duplex scan of the lower extremities was unremarkable but his ventilation/perfusion scan raised the possibility of pulmonary embolism on the right side. His renal function are abnormal on presentation. His baseline is not available. The patient is awake, answering a few questions. In the emergency room he was noted to be in atrial fibrillation with rapid ventricle response of unknown duration. He does not consume alcohol or significant amount of caffeine. July 03: The patient is awake but not answering questions. He remains lethargic and obtunded. He continues to be in atrial fibrillation with controlled ventricular response, he is on IV heparin. His blood pressure is stable. His urinary output has been good. His blood sugar is better and his renal function had normalized. His chest x-ray shows right-sided pleural effusion. The patient has an abnormal ventilation/perfusion scan and further evaluation will be needed. July 04: He appears to be more awake and alert today. He continues to be in atrial f ibrillation with controlled ventricular response. He is tolerating by mouth. There is no evidence of ventricular ectopic activity. His urinary output is stable. There is no evidence of ventricular ectopic activity. His echocardiogram showed a severely impaired left ventricle systolic function with no significant valvular disease and mild pulmonary hypertension. His acidosis resolved and his blood sugar is under better control. Medications: IV heparin, metoprolol 25 mg twice a day, insulin PHYSICAL EXAMINATION: Blood pressure 116/60 heart rate 89, somnolent, opening his eyes to verbal st imulation. LUNGS: Clear to auscultation anteriorly HEART: Irregular rate and rhythm, S1, S2. No S3. systolic ejection murmur ABDOMEN: Soft, nontender, no organomegaly EXTREMETIES: No edema LAB: Sodium 148, bicarb 19, BUN 28, creatinine 0.99. Hemoglobin 13 IMPRESSION: 1. Diabetic ketoacidosis, resolved 2. Atrial fibrillation, of unknown duration 3. History of stroke 4. Possible lung mass with pleural effusion 5. History of occluded left carotid artery 6. History of chronic tobacco use 7. Acute renal injury, resolved 8. Troponin elevation secondary to type II myocardial infarction 9. Cardiomyopathy of unknown duration or etiology PLAN: 1. Add ENE inhibitor 2. Change to oral anticoagulation if no plan for thoracentesis by pulmonary service 3. Adjust beta aleisha as tolerated 4. Depending on his progress further recommendations will be made Objective - Vital Signs Vital signs: Vital Signs Temp 99.4 F 07/04/22 04:00 Pulse 87 07/04/22 07:00 Resp 25 H 07/04/22 07:00 BP 99/57 07/04/22 07:00 Pulse Ox 98 07/04/22 07:00 FiO2 Intake & Output 07/03/22 07/04/22 07/04/22 18:59 06:59 18:59 Intake Total 3115.776 2004.504 300 Output Total 500 490 70 Balance 2615.776 1514.504 230 Weight 88 kg Intake: IV 2900 1800 300 D5-0.45% NaCl with KCl 150 20Meq/l 1,000 ml @ 150 mls/hr IV .Q6H40M [facility] Rx# :[id number] Dextrose 5% in Water 1, 1500 1800 300 000 ml @ 150 mls/hr IV . Q6H40M [facility] Rx#:[id number] Piperacillin-Tazobactam 3 200 .375 gm In Sodium Chloride 0.9% 100 ml @ 25 mls/hr IVPB Q8H [facility] Rx#: [id number] Potassium Chloride 10 meq 300 In Water For Injection 1 100ml.bag @ 100 mls/hr IVPB Q1HR [facility] Rx#: [id number] Sodium Phosphate 10 mmol 250 In Sodium Chloride 0.9% 250 ml @ 125 mls/hr IVPB Q2H [facility] Rx#:[id number] Vancomycin 1,500 mg In 500 Sodium Chloride 0.9% 500 ml 500 ml @ 167 mls/hr IVPB Q16H [facility] Rx#: [id number] Intake, IV Titration 215.776 204.504 Amount Heparin Sod,Pork in 0.45% 184.810 192.129 NaCl 25,000 unit In 0.45 % NaCl 1 250ml.bag @ 8. 479 UNITS/KG/HR 10 mls/hr IV .Q24H [facility] Rx#: [id number] Insulin Regular 100 unit 30.966 12.375 In Sodium Chloride 0.9% 100 ml @ 0.1 UNITS/KG/HR 11.911 mls/hr IV .Q8H29M [facility]OS[facility] Rx#:[id number] Output: Urine 500 490 70 Other: Voiding Method Indwelling Catheter Indwelling Catheter - Labs CBC & Chem 7: 07/04/22 05:35 07/04/22 05:35 Labs: Abnormal Lab Results - Last 24 Hours (Table) 07/03/22 07/03/22 07/03/22 Range/Units 09:09 10:50 11:28 WBC (3.8-10.6) k/uL RBC (4.30-5.90) m/uL Hgb (13.0-17.5) gm/dL MCV (80.0-100.0) fL Plt Count (150-450) k/uL Neutrophils # (1.3-7.7) k/uL APTT (22.0-30.0) sec Sodium (137-145) mmol/L Chloride (98-107) mmol/L Carbon Dioxide (22-30) mmol/L BUN (9-20) mg/dL Glucose (74-99) mg/dL POC Glucose (mg/dL) 132 H 206 H 261 H (70-110) mg/dL Plasma Lactic Acid Alfonzo (0.7-2.0) mmol/L Calcium (8.4-10.2) mg/dL Phosphorus (2.5-4.5) mg/dL Total Protein (6.3-8.2) g/dL Albumin (3.5-5.0) g/dL 07/03/22 07/03/22 07/03/22 Range/Units 11:54 12:41 12:41 WBC 11.5 H (3.8-10.6) k/uL RBC 3.78 L (4.30-5.90) m/uL Hgb 12.3 L (13.0-17.5) gm/dL MCV 104.4 H (80.0-100.0) fL Plt Count (150-450) k/uL Neutrophils # (1.3-7.7) k/uL APTT 36.4 H (22.0-30.0) sec Sodium (137-145) mmol/L Chloride (98-107) mmol/L Carbon Dioxide (22-30) mmol/L BUN (9-20) mg/dL Glucose (74-99) mg/dL POC Glucose (mg/dL) 280 H (70-110) mg/dL Plasma Lactic Acid Alfonzo (0.7-2.0) mmol/L Calcium (8.4-10.2) mg/dL Phosphorus (2.5-4.5) mg/dL Total Protein (6.3-8.2) g/dL Albumin (3.5-5.0) g/dL 07/03/22 07/03/22 07/03/22 Range/Units 12:41 12:41 13:09 WBC (3.8-10.6) k/uL RBC (4.30-5.90) m/uL Hgb (13.0-17.5) gm/dL MCV (80.0-100.0) fL Plt Count (150-450) k/uL Neutrophils # (1.3-7.7) k/uL APTT (22.0-30.0) sec Sodium 162 H* (137-145) mmol/L Chloride 133 H* (98-107) mmol/L Carbon Dioxide 18 L (22-30) mmol/L BUN 35 H (9-20) mg/dL Glucose 211 H (74-99) mg/dL POC Glucose (mg/dL) 185 H (70-110) mg/dL Plasma Lactic Acid Alfonzo 2.6 H* (0.7-2.0) mmol/L Calcium 7.5 L (8.4-10.2) mg/dL Phosphorus (2.5-4.5) mg/dL Total Protein (6.3-8.2) g/dL Albumin (3.5-5.0) g/dL 07/03/22 07/03/22 07/03/22 Range/Units 14:14 15:12 15:29 WBC (3.8-10.6) k/uL RBC (4.30-5.90) m/uL Hgb (13.0-17.5) gm/dL MCV (80.0-100.0) fL Plt Count (150-450) k/uL Neutrophils # (1.3-7.7) k/uL APTT (22.0-30.0) sec Sodium 161 H* (137-145) mmol/L Chloride 135 H* (98-107) mmol/L Carbon Dioxide 16 L (22-30) mmol/L BUN 33 H (9-20) mg/dL Glucose 64 L (74-99) mg/dL POC Glucose (mg/dL) 133 H 68 L (70-110) mg/dL Plasma Lactic Acid Alfonzo (0.7-2.0) mmol/L Calcium 7.8 L (8.4-10.2) mg/dL Phosphorus (2.5-4.5) mg/dL Total Protein (6.3-8.2) g/dL Albumin (3.5-5.0) g/dL 07/03/22 07/03/22 07/03/22 Range/Units 15:29 17:16 18:07 WBC (3.8-10.6) k/uL RBC (4.30-5.90) m/uL Hgb (13.0-17.5) gm/dL MCV (80.0-100.0) fL Plt Count (150-450) k/uL Neutrophils # (1.3-7.7) k/uL APTT (22.0-30.0) sec Sodium (137-145) mmol/L Chloride (98-107) mmol/L Carbon Dioxide (22-30) mmol/L BUN (9-20) mg/dL Glucose (74-99) mg/dL POC Glucose (mg/dL) 129 H 198 H (70-110) mg/dL Plasma Lactic Acid Alfonzo 3.0 H* (0.7-2.0) mmol/L Calcium (8.4-10.2) mg/dL Phosphorus (2.5-4.5) mg/dL Total Protein (6.3-8.2) g/dL Albumin (3.5-5.0) g/dL 07/03/22 07/03/22 07/03/22 Range/Units 18:58 19:49 20:10 WBC (3.8-10.6) k/uL RBC (4.30-5.90) m/uL Hgb (13.0-17.5) gm/dL MCV (80.0-100.0) fL Plt Count (150-450) k/uL Neutrophils # (1.3-7.7) k/uL APTT (22.0-30.0) sec Sodium 156 H (137-145) mmol/L Chloride 130 H (98-107) mmol/L Carbon Dioxide 17 L (22-30) mmol/L BUN 31 H (9-20) mg/dL Glucose 222 H (74-99) mg/dL POC Glucose (mg/dL) 229 H 226 H (70-110) mg/dL Plasma Lactic Acid Alfonzo (0.7-2.0) mmol/L Calcium 7.5 L (8.4-10.2) mg/dL Phosphorus (2.5-4.5) mg/dL Total Protein (6.3-8.2) g/dL Albumin (3.5-5.0) g/dL 07/03/22 07/04/22 07/04/22 Range/Units 20:57 00:50 00:50 WBC (3.8-10.6) k/uL RBC (4.30-5.90) m/uL Hgb (13.0-17.5) gm/dL MCV (80.0-100.0) fL Plt Count (150-450) k/uL Neutrophils # (1.3-7.7) k/uL APTT 41.8 H (22.0-30.0) sec Sodium 153 H (137-145) mmol/L Chloride 126 H (98-107) mmol/L Carbon Dioxide 18 L (22-30) mmol/L BUN 30 H (9-20) mg/dL Glucose 182 H (74-99) mg/dL POC Glucose (mg/dL) 209 H (70-110) mg/dL Plasma Lactic Acid Alfonzo (0.7-2.0) mmol/L Calcium 7.5 L (8.4-10.2) mg/dL Phosphorus (2.5-4.5) mg/dL Total Protein (6.3-8.2) g/dL Albumin (3.5-5.0) g/dL 07/04/22 07/04/22 07/04/22 Range/Units 02:10 05:35 05:35 WBC (3.8-10.6) k/uL RBC (4.30-5.90) m/uL Hgb (13.0-17.5) gm/dL MCV (80.0-100.0) fL Plt Count (150-450) k/uL Neutrophils # (1.3-7.7) k/uL APTT 62.4 H (22.0-30.0) sec Sodium 148 H (137-145) mmol/L Chloride 124 H (98-107) mmol/L Carbon Dioxide 19 L (22-30) mmol/L BUN 28 H (9-20) mg/dL Glucose 239 H (74-99) mg/dL POC Glucose (mg/dL) 241 H (70-110) mg/dL Plasma Lactic Acid Alfonzo (0.7-2.0) mmol/L Calcium 7.2 L (8.4-10.2) mg/dL Phosphorus 1.8 L (2.5-4.5) mg/dL Total Protein 5.8 L (6.3-8.2) g/dL Albumin 2.2 L (3.5-5.0) g/dL 07/04/22 07/04/22 Range/Units 05:35 06:53 WBC 10.9 H (3.8-10.6) k/uL RBC 3.90 L (4.30-5.90) m/uL Hgb (13.0-17.5) gm/dL MCV 100.7 H (80.0-100.0) fL Plt Count 148 L (150-450) k/uL Neutrophils # 9.1 H (1.3-7.7) k/uL APTT (22.0-30.0) sec Sodium (137-145) mmol/L Chloride (98-107) mmol/L Carbon Dioxide (22-30) mmol/L BUN (9-20) mg/dL Glucose (74-99) mg/dL POC Glucose (mg/dL) 258 H (70-110) mg/dL Plasma Lactic Acid Alfonzo (0.7-2.0) mmol/L Calcium (8.4-10.2) mg/dL Phosphorus (2.5-4.5) mg/dL Total Protein (6.3-8.2) g/dL Albumin (3.5-5.0) g/dL Microbiology - Last 24 Hours (Table) 12/14/22 08:31 Blood Culture Gram Stain - Preliminary Blood Blood Culture - Preliminary Staphylococcus epidermidis 07/02/22 08:31 Blood Culture Gram Stain - Preliminary Blood 07/02/22 08:31 Blood Culture - Final Blood
[2022-07-04] MEDS: INSULIN DETEMIR (LEVEMIR) 100 UNIT/ML SYR SQ SCH (08:56)
[2022-07-04] MEDS: METOPROLOL TARTRATE 25 MG TAB PO SCH ×2 (09:26→21:00)
[2022-07-04 12:16] LABS: Glucose,Whole Blood 76 mg/dL (70-110)
--- NOTE | 2022-07-04 13:07 | P.PN ---
Subjective Progress Note Date: 07/04/22 71-year-old male patient, diabetic, who has not seen a physician for many years and he has stopped taking his medication and he seems to have given up f from life, comes into the emergency department because of progressive weakness, lethargy, lack of energy and worsening shortness of breath. The patient is a very poor historian. is at the bedside. The patient is known to have diabetes, and history of atrial fibrillation and history of stroke with occlusion or complete occlusion of the left carotid artery and previous history of smoking. The patient has not been taking his diabetic medications at all. He also has history of peripheral vascular disease. The patient came into the emergency room initial blood work showed diabetic ketoacidosis. He had positive ketones. He had anion gap metabolic acidosis. Initial blood work showed a white cell count of 18.6 with a hemoglobin of 14, also, the patient had a sodium of 156, potassium of 4.9, chloride is 119, serum bicarb was at 6, BUN is at 46 with a creatinine of 1.8, glucose was 567, lactic acid level was at 3.8, urinalysis was positive for protein and glucose and ketones. Serum acetone was positive. ProBNP level was 2660, TSH was 0.8, troponin was 0.287 and 0.329 respectively. LFTs were normal. Chest x-ray showed a right-sided pleural effusion. CAT scan of the chest confirmed the presence of a small right-sided pleural effusion. Right lower lobe atelectatic changes were also present. No evidence of any masses. This was a noncontrast CAT scan. The patient was given IV Zosyn. The patient was also given a VQ scan based on an elevated d-dimer of 20 and the patient was found to have a large perfusion defect in the right upper lobe. Doppler of the lower extremity was suboptimal and there was no convincing evidence of DVT. For now, the patient was given IV fluids and he has received a total of 3 L of normal saline. Subsequently, the patient was started on normal saline and transitioned to D5 half-normal saline based on the DKA protocol. He is on IV Zosyn as an empiric antibiotic coverage. Insulin drip is running at 11 units an hour. Electrodes are being monitored. He gradually waking up and is becoming more communicative. No focal neurological deficits. Denies having any chest pain. The EKG showing sinus tachycardia. No acute ischemic changes. There are some Q waves on the septal leads. On today's evaluation of 07/03/2022, the patient is still lethargic and obtunded. He is currently in intensive care unit. His sodium level remains elevated. Serum bicarb is up to 19 and anion gap has essentially closed. Most recent sodium level is up to 164. Chloride level is 136. Creatinine is improved and is currently down to 1 with a BUN of 39. Lactic acid level is down to 2.4. The patient is on D5 half-normal saline at the rate of 150 mL an hour. Insulin drip is running at 40 units an hour. I'm going to switch his IV fluids to D5 water and keep the insulin drip for now. He remains on IV heparin. His cardiac rhythm is a atrial fibrillation and a cardiology opted to Maintain IV heparin for now. He does have a right-sided pleural effusion. There is no clear convincing evidence of poor embolism. This will be worked up at the later stage with a CT angiogram. Doppler of the lower extremities were negative. Chest x-ray from today is still pending. On 07/04/2022, I'm seeing the patient for a follow-up. The patient seems to be slightly more awake compared to yesterday. The patient had a massive water deficit and the patient remains on D5 water which is running at a rate of 1 50 mL an hour. He cc more interactive. He is lethargic. However when stimulated, he would answer questions. He was getting upset easily and he does not seem to be cooperative. He is aware that she is in the hospital. He isn't a very poor health condition. His troponins were abnormal. He was given an echocardiogram and the patient was found to have an ejection fraction of 25% consistent with systolic heart failure. The chronicity of his CHF is not known. The patient was also found to have a right-sided pleural effusion and some atelectatic changes in the right lung. We are contemplating to do a thoracentesis of the later stage. Although, this pleural fluid could be related to CHF. Meanwhile, the patient remains on D5 water. The patient has improvement in his electroly carmencita. Anion gap metabolic acidosis is recovered. Serum bicarb is up to 19. BUN is at 28 with a creatinine of 0.9. Sodium is at 148 with a chloride level of 124. The WBC count is at 10.8 with a hemoglobin of 12. The patient remains on IV heparin regarding his underlying chronic a chair fibrillation. His swallow evaluation is to be done today. His mucous membranes in his oral condition is improved with hydration. He was started on Levemir insulin by the medical team 20 units daily along with that he is receiving a sliding scale coverage. Objective - Vital Signs Vital signs: Vital Signs Temp 99.4 F 07/04/22 04:00 Pulse 87 07/04/22 07:00 Resp 25 H 07/04/22 07:00 BP 99/57 07/04/22 07:00 Pulse Ox 98 07/04/22 07:00 FiO2 Intake & Output 07/03/22 07/04/22 07/04/22 18:59 06:59 18:59 Intake Total 3115.776 2004.504 300 Output Total 500 490 70 Balance 2615.776 1514.504 230 Weight 88 kg 88 kg Intake: IV 2900 1800 300 D5-0.45% NaCl with KCl 150 20Meq/l 1,000 ml @ 150 mls/hr IV .Q6H40M [facility] Rx# :[id number] Dextrose 5% in Water 1, 1500 1800 300 000 ml @ 150 mls/hr IV . Q6H40M [facility] Rx#:[id number] Piperacillin-Tazobactam 3 200 .375 gm In Sodium Chloride 0.9% 100 ml @ 25 mls/hr IVPB Q8H [facility] Rx#: [id number] Potassium Chloride 10 meq 300 In Water For Injection 1 100ml.bag @ 100 mls/hr IVPB Q1HR [facility] Rx#: [id number] Sodium Phosphate 10 mmol 250 In Sodium Chloride 0.9% 250 ml @ 125 mls/hr IVPB Q2H [facility] Rx#:[id number] Vancomycin 1,500 mg In 500 Sodium Chloride 0.9% 500 ml 500 ml @ 167 mls/hr IVPB Q16H [facility] Rx#: [id number] Intake, IV Titration 215.776 204.504 Amount Heparin Sod,Pork in 0.45% 184.810 192.129 NaCl 25,000 unit In 0.45 % NaCl 1 250ml.bag @ 8. 479 UNITS/KG/HR 10 mls/hr IV .Q24H [facility] Rx#: [id number] Insulin Regular 100 unit 30.966 12.375 In Sodium Chloride 0.9% 100 ml @ 0.1 UNITS/KG/HR 11.911 mls/hr IV .Q8H29M [facility] Rx#:[id number] Output: Urine 500 490 70 Other: Voiding Method Indwelling Catheter Indwelling Catheter - Exam Gen. appearance, the patient is not agitated, lethargic, somewhat obtunded him a follow simple commands and the patient is currently on 2 L nasal cannula. He is tachypneic secondary to his underlying metabolic acidosis. Head exam was generally normal. There was no scleral icterus or corneal arcus. Mucous membranes were moist. Neck was supple and without jugular venous distension, thyromegaly, or carotid bruits. Carotids were easily palpable bilaterally. There was no adenopathy. Lungs were clear to auscultation and percussion, and with normal diaphragmatic excursion. No wheezes or rales were noted. Breath sounds are diminished in the right lung base and there is also some bullous to percussion. Heart sounds are tachycardic,Cardiac exam revealed the PMI to be normally situa kaylie and sized. The rhythm was regular and no extrasystoles were noted during several minutes of auscultation. The first and second heart sounds were normal and physiologic splitting of the second heart sound was noted. There were no murmurs, rubs, clicks, or gallops. Abdominal exam revealed normal bowel sounds. The abdomen was soft, non-tender, and without masses, organomegaly, or appreciable enlargement of the abdominal aorta. Extremities revealed diminished pulses bilaterally and areas of superficial wounds that are dry related to previous fall. No cyanosis or clubbing. Examination of the skin revealed no evidence of significant rashes, suspicious appearing nevi or other concerning lesions. Positive dry wounds of various sizes Neurologically, the patient is lethargic, moving all 4 extremities without limitation. Pupils are equal and reactive to light. - Labs CBC & Chem 7: 07/04/22 05:35 07/04/22 05:35 Labs: Abnormal Lab Results - Last 24 Hours (Table) 07/03/22 07/03/22 07/03/22 Range/Units 12:41 12:41 12:41 WBC (3.8-10.6) k/uL RBC (4.30-5.90) m/uL MCV (80.0-100.0) fL Plt Count (150-450) k/uL Neutrophils # (1.3-7.7) k/uL APTT 36.4 H (22.0-30.0) sec Sodium 162 H* (137-145) mmol/L Chloride 133 H* (98-107) mmol/L Carbon Dioxide 18 L (22-30) mmol/L BUN 35 H (9-20) mg/dL Glucose 211 H (74-99) mg/dL POC Glucose (mg/dL) (70-110) mg/dL Plasma Lactic Acid Alfonzo 2.6 H* (0.7-2.0) mmol/L Calcium 7.5 L (8.4-10.2) mg/dL Phosphorus (2.5-4.5) mg/dL Total Protein (6.3-8.2) g/dL Albumin (3.5-5.0) g/dL 07/03/22 07/03/22 07/03/22 Range/Units 13:09 14:14 15:12 WBC (3.8-10.6) k/uL RBC (4.30-5.90) m/uL MCV (80.0-100.0) fL Plt Count (150-450) k/uL Neutrophils # (1.3-7.7) k/uL APTT (22.0-30.0) sec Sodium (137-145) mmol/L Chloride (98-107) mmol/L Carbon Dioxide (22-30) mmol/L BUN (9-20) mg/dL Glucose (74-99) mg/dL POC Glucose (mg/dL) 185 H 133 H 68 L (70-110) mg/dL Plasma Lactic Acid Alfonzo (0.7-2.0) mmol/L Calcium (8.4-10.2) mg/dL Phosphorus (2.5-4.5) mg/dL Total Protein (6.3-8.2) g/dL Albumin (3.5-5.0) g/dL 07/03/22 07/03/22 07/03/22 Range/Units 15:29 15:29 17:16 WBC (3.8-10.6) k/uL RBC (4.30-5.90) m/uL MCV (80.0-100.0) fL Plt Count (150-450) k/uL Neutrophils # (1.3-7.7) k/uL APTT (22.0-30.0) sec Sodium 161 H* (137-145) mmol/L Chloride 135 H* (98-107) mmol/L Carbon Dioxide 16 L (22-30) mmol/L BUN 33 H (9-20) mg/dL Glucose 64 L (74-99) mg/dL POC Glucose (mg/dL) 129 H (70-110) mg/dL Plasma Lactic Acid Alfonzo 3.0 H* (0.7-2.0) mmol/L Calcium 7.8 L (8.4-10.2) mg/dL Phosphorus (2.5-4.5) mg/dL Total Protein (6.3-8.2) g/dL Albumin (3.5-5.0) g/dL 07/03/22 07/03/22 07/03/22 Range/Units 18:07 18:58 19:49 WBC (3.8-10.6) k/uL RBC (4.30-5.90) m/uL MCV (80.0-100.0) fL Plt Count (150-450) k/uL Neutrophils # (1.3-7.7) k/uL APTT (22.0-30.0) sec Sodium (137-145) mmol/L Chloride (98-107) mmol/L Carbon Dioxide (22-30) mmol/L BUN (9-20) mg/dL Glucose (74-99) mg/dL POC Glucose (mg/dL) 198 H 229 H 226 H (70-110) mg/dL Plasma Lactic Acid Alfonzo (0.7-2.0) mmol/L Calcium (8.4-10.2) mg/dL Phosphorus (2.5-4.5) mg/dL Total Protein (6.3-8.2) g/dL Albumin (3.5-5.0) g/dL 07/03/22 07/03/22 07/04/22 Range/Units 20:10 20:57 00:50 WBC (3.8-10.6) k/uL RBC (4.30-5.90) m/uL MCV (80.0-100.0) fL Plt Count (150-450) k/uL Neutrophils # (1.3-7.7) k/uL APTT 41.8 H (22.0-30.0) sec Sodium 156 H (137-145) mmol/L Chloride 130 H (98-107) mmol/L Carbon Dioxide 17 L (22-30) mmol/L BUN 31 H (9-20) mg/dL Glucose 222 H (74-99) mg/dL POC Glucose (mg/dL) 209 H (70-110) mg/dL Plasma Lactic Acid Alfonzo (0.7-2.0) mmol/L Calcium 7.5 L (8.4-10.2) mg/dL Phosphorus (2.5-4.5) mg/dL Total Protein (6.3-8.2) g/dL Albumin (3.5-5.0) g/dL 07/04/22 07/04/22 07/04/22 Range/Units 00:50 02:10 05:35 WBC (3.8-10.6) k/uL RBC (4.30-5.90) m/uL MCV (80.0-100.0) fL Plt Count (150-450) k/uL Neutrophils # (1.3-7.7) k/uL APTT (22.0-30.0) sec Sodium 153 H 148 H (137-145) mmol/L Chloride 126 H 124 H (98-107) mmol/L Carbon Dioxide 18 L 19 L (22-30) mmol/L BUN 30 H 28 H (9-20) mg/dL Glucose 182 H 239 H (74-99) mg/dL POC Glucose (mg/dL) 241 H (70-110) mg/dL Plasma Lactic Acid Alfonzo (0.7-2.0) mmol/L Calcium 7.5 L 7.2 L (8.4-10.2) mg/dL Phosphorus 1.8 L (2.5-4.5) mg/dL Total Protein 5.8 L (6.3-8.2) g/dL Albumin 2.2 L (3.5-5.0) g/dL 07/04/22 07/04/22 07/04/22 Range/Units 05:35 05:35 06:53 WBC 10.9 H (3.8-10.6) k/uL RBC 3.90 L (4.30-5.90) m/uL MCV 100.7 H (80.0-100.0) fL Plt Count 148 L (150-450) k/uL Neutrophils # 9.1 H (1.3-7.7) k/uL APTT 62.4 H (22.0-30.0) sec Sodium (137-145) mmol/L Chloride (98-107) mmol/L Carbon Dioxide (22-30) mmol/L BUN (9-20) mg/dL Glucose (74-99) mg/dL POC Glucose (mg/dL) 258 H (70-110) mg/dL Plasma Lactic Acid Alfonzo (0.7-2.0) mmol/L Calcium (8.4-10.2) mg/dL Phosphorus (2.5-4.5) mg/dL Total Protein (6.3-8.2) g/dL Albumin (3.5-5.0) g/dL 07/04/22 Range/Units 08:48 WBC (3.8-10.6) k/uL RBC (4.30-5.90) m/uL MCV (80.0-100.0) fL Plt Count (150-450) k/uL Neutrophils # (1.3-7.7) k/uL APTT (22.0-30.0) sec Sodium (137-145) mmol/L Chloride (98-107) mmol/L Carbon Dioxide (22-30) mmol/L BUN (9-20) mg/dL Glucose (74-99) mg/dL POC Glucose (mg/dL) 254 H (70-110) mg/dL Plasma Lactic Acid Alfonzo (0.7-2.0) mmol/L Calcium (8.4-10.2) mg/dL Phosphorus (2.5-4.5) mg/dL Total Protein (6.3-8.2) g/dL Albumin (3.5-5.0) g/dL Microbiology - Last 24 Hours (Table) 07/02/22 08:31 Blood Culture Gram Stain - Preliminary Blood Blood Culture - Preliminary Staphylococcus epidermidis 07/02/22 08:31 Blood Culture Gram Stain - Preliminary Blood Assessment and Plan Plan: Acute diabetic ketoacidosis in a patient with type 2 diabetes mellitus, improved and the patient had closure of his anion gap and the blood sugars under better control Severe dehydration with hypernatremia, hyperchloremic and the patient's free water deficit is being corrected. Acute hyperglycemia secondary to above, blood sugars under better control, currently on Levemir insulin and a slight scale coverage Acute hypernatremia, likely hypovolemic in nature, sodium level remains elevated and the patient has hyperchloremic hypernatremia, improving Acute kidney injury, improved Severe cardiomyopathy with an ejection fraction of 25% Small right-sided pleural effusion, awaiting a follow-up chest x-ray from today, likely related to CHF Atrial fibrillation with a controlled rate currently on IV heparin, rate is controlled Possible right lung consolidation versus atelectasis. High probability VQ scan with an elevated d-dimer and negative Doppler of lower extremity. Clinically, pulmonary embolism is felt to be less likely. 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 Diabetes mellitus 2 Previous history of active fibrillation and current cardiac rhythm is sinus Septal Q waves indicative of a previous anterior wall myocardial infarction Hyperlipidemia Peripheral vascular disease History of smoking Plan Change this patient to D5 water at the rate of 150 mL an hour Monitor electrolytes Continue Levemir insulin Anion gap is closed Monitor mental status, in general his mental status is improving and has not completely normalized Keep nothing by mouth, pending his swallow evaluation Continue IV heparin Continue IV Zosyn CT angiogram probably within next 24-48 hours. If there is sizable effusion, we will going to drain the effusion on the right and later on to a CT angiogram. Keep the patient ICU We'll follow
--- NOTE | 2022-07-04 13:50 | P.PN ---
Progress Note - Text Progress Note Date: 07/04/22 This is a 71-year-old patient, has not follows Dr. Walden for years. Per the EMS report. When they arrived they found the patient getting only a Urine soaked underwear. Bed is also soaked for dry urine and that is under the mattress. Patient stated that he has not been getting out of bed for last 2 days. Has not been eating. He has not seen a doctor since 2014 when he had a stroke and is noncompliant with his medications. She is the train station agent. Patient finally is agreed to go to the hospital. She also felt that patient's breathing is also change in the last 3 days. 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 She is able to converse with him. She is normally alert to place person and time but currently she is less responsive. No trauma. He does not feel like eating. In the ER found to have a blood glucose in the 500s. Positive for serum acetone. Patient himself is unable to give much of history. Attempted to speak some words. Does move his limbs. Lethargic. On insulin drip. Also on heparin drip. Admitted with acute diabetic ketoacidosis/severe hypernatremia/acute metabolic encephalopathy/delirium/pneumonia/. Started on IV heparin, IV fluids, IV Zosyn, insulin drip. 07/03/2022: ICU: Encephalopathic. Delirious. Moves it about sometimes. Does open eyes. Not really answering questions. On D5W IV fluids, IV heparin, insulin drip, IV Zosyn,. Blood cultures positive for what appears to be Staphylococcus epidermidis. Was started on vancomycin earlier. A. fib rate controlled. 07/04/2022: ICU. With more awake today.. Taken off insulin drip this morning. Started on Levemir 20 units. at the bedside. IV Zosyn. D5 W. Remains in A. fib, rate controlled. Patient is out of DKA. Active Medications Acetaminophen (Acetaminophen Tab 325 Mg Tab) 650 mg PO Q6HR PRN PRN Reason: Mild Pain or Fever > 100.5 Dextrose/Water (Dextrose 50% Syringe 50 Ml) 25 ml IVP PER PROTOCOL PRN; Protocol PRN Reason: Hypoglycemia Dextrose/Water (Dextrose 50% Syringe 50 Ml) 50 ml IVP PER PROTOCOL PRN; Protocol PRN Reason: Hypoglycemia Heparin Sodium (Porcine) (Heparin Sodium 1,000 Un/Ml (10ml Vl)) 0 unit IV PER PROTOCOL PRN; Protocol PRN Reason: Low PTT Last Admin: 07/04/22 01:19 Dose: 2,068 unit Piperacillin Sod/Tazobactam (Sod 3.375 gm/ Sodium Chloride) 100 mls @ 25 mls/hr IVPB Q8H [facility]; Protocol Last Admin: 07/04/22 05:22 Dose: 25 mls/hr Heparin Sodium/Sodium Chloride (25,000 unit/ Sodium Chloride) 250 mls @ 10 mls/hr IV .Q24H [facility]; Protocol Last Admin: 07/04/22 04:01 Dose: 13.5 units/kg/hr, 15.921 mls/hr Dextrose/Water (Dextrose 5%-Water Iv Soln) 1,000 mls @ 150 mls/hr IV .Q6H40M [facility] Last Admin: 07/04/22 04:14 Dose: 150 mls/hr Insulin Aspart (Insulin Aspart (Novolog) 100 Unit/Ml Vial) 0 unit SQ [id number] [facility]; Protocol Last Admin: 07/04/22 08:56 Dose: 9 unit Insulin Detemir (Insulin Detemir (Levemir) 100 Unit/Ml Syr) 20 unit SQ DAILY@0700 [facility] Last Admin: 07/04/22 08:56 Dose: Not Given Lisinopril (Lisinopril 2.5 Mg Tab) 2.5 mg PO BID [facility] Last Admin: 07/04/22 09:26 Dose: 2.5 mg Metoprolol Tartrate (Metoprolol Tartrate 25 Mg Tab) 25 mg PO BID [facility] Last Admin: 07/04/22 09:26 Dose: 25 mg Miscellaneous Information (Magnesium Replacement Protocol 1 Each Misc) 1 each MISCELLANE DAILY PRN; Protocol PRN Reason: Per Protocol Miscellaneous Information (Potassium Replacement Protocol 1 Each Misc) 1 each MISCELLANE DAILY PRN PRN Reason: Per Protocol Miscellaneous Information (Phosphorus Replacement Protoco 1 Each Misc) 1 each MISCELLANE DAILY PRN; Protocol PRN Reason: Per Protocol Naloxone HCl (Naloxone 0.4 Mg/Ml 1 Ml Vial) 0.2 mg IV Q2M PRN PRN Reason: Opioid Reversal Past medical history to include: Diabetes, stroke, hyperlipidemia, left index finger amputated. Social history: Former smoker. Alcohol occasionally. Lives his . Family history: Patient cannot tell Physical examination: VITAL SIGNS: 99.4, 96, 23, 127/87, 97% on 4 L GENERAL: laying in bed, tired. A bit more awake. EYES: Pupils equal. Conjunctiva normal. HEENT: [External appearance of nose and ears normal, oral cavity dry mucous membranes NECK: JVD not raised; masses not palpable. HEART: Irregular heart beat; no edema. LUNGS: Respiratory rate increased; decreased breath sounds ABDOMEN: Soft, nontender, liver spleen not palpable, no masses palpable. PSYCH: Bit more awake today. Currently not also questions MUSCULOSKELETAL:No Clubbing/cyanosis;muscles-grossly intact NEUROLOGICAL: [Cranial nerves grossly intact; no facial asymmetry, moving all 4 limbs INVESTIGATIONS, reviewed in the clinical context: 07/04/2022: White count 10.9 hemoglobin 13 platelets 148 sodium 148 chloride 124 BUN 28 creatinine 0.99 2-D echocardiogram: EF 25-30%. 07/03/2022: WBC 11.5 hemoglobin 12.3 sodium 162 chloride 133 BUN 35 creatinine 1.13 lactic acid 2.6 White count 16.8 hemoglobin 15.8 platelets 345 sodium 159 chloride 119 bicarbonate 6 BUN 46 creatinine 1.84 blood glucose 567 lactic acid 3.8 Troponin I 0.287 proBNP 2660 Serum acetone: Positive Influenza type A/diabetes/RSV/COVID-19: Not detected EKG tracing personally reviewed by me-sinus tachycardia. Nonspecific T-wave changes. Rate 137 Chest x-ray film personally reviewed by [id number] infiltrate CT brain C-spine: Unremarkable Chest abdomen pelvis without contrast: Gallbladder is distended margins, moderate to severe factor placed atrophic pancreas spleen occasional calcifications scattered throughout. Right hilar consolidation slightly more masslike posterior inferolateral region. Venous Doppler: Negative for DVT VQ scan: Large perfusion defect right upper lobe. Assessment and plan: -Acute diabetic ketoacidosis in a patient has not been taking his medications.: Resolved -Acute kidney injury likely ATN multifactorial: Better F -Persistent atrial fibrillation, rate controlled IV heparin -Severe hypernatremia, with hyperchloremia from free water deficit from poor oral intake: Better D5W 150 mL an hour -Possible right lung consolidation/pneumonia suspect gram-negative organism IV Zosyn -Cardiomyopathy EF 25-30% Follow with cardiology -Elevated d-dimer, which last consolidation process on the right lung with the perfusion defect of VQ scan. VQ scan at this point is still questionable. Doubt PE -IV heparin monitoring Follow PTT -Troponin I likely type II hemodynamic mismatch Telemetry. -Acute metabolic encephalopathy/delirium, multifactorial: Slow improvement -Diabetes mellitus type 2, chronically noncompliant Started Levemir 20 units today. -DO NOT RESUSCITATE D5W drip. IV heparin. IV Zosyn. Bit more awake. Zestril added.
[2022-07-04 14:04] LABS: Glucose,Whole Blood 115 mg/dL (70-110)
[2022-07-04 15:08] LABS: Glucose,Whole Blood 122 mg/dL (70-110)
[2022-07-04 16:45] LABS: Glucose,Whole Blood 137 mg/dL (70-110)
[2022-07-04 20:51] LABS: Glucose,Whole Blood 194 mg/dL (70-110)
[2022-07-05 02:13] LABS: Glucose,Whole Blood 208 mg/dL (70-110)
[2022-07-05] MEDS: INSULIN ASPART (NovoLOG) 100 UNIT/ML VIAL SQ SCH ×5 (02:17→20:06)
[2022-07-05] MEDS: DEXTROSE 5% IN WATER 1,000 ML IV SCH ×2 (05:38→14:44)
[2022-07-05] MEDS: PIPERACILLIN-TAZOBACTAM 3.375 GM in SODIUM CHLORIDE 0.9% 100 ML IVPB SCH ×3 (05:38→21:31)
[2022-07-05 06:38] LABS: HCT 33.6 % (39.0-53.0); HGB 11.3 gm/dL (13.0-17.5); Hypochromasia Slight; MCH 33.7 pg (25.0-35.0); MCHC 33.6 g/dL (31.0-37.0); MCV 100.5 fL (80.0-100.0); Mean Platelet Volume 8.4; Platelet Count 153 k/uL (150-450); RBC 3.34 m/uL (4.30-5.90); RDW 12.8 % (11.5-15.5); WBC 9.5 k/uL (3.8-10.6)
[2022-07-05 06:38] LABS: Glucose,Whole Blood 201 mg/dL (70-110)
[2022-07-05] MEDS: INSULIN DETEMIR (LEVEMIR) 100 UNIT/ML SYR SQ SCH (06:40)
[2022-07-05 06:52] LABS: African American GFR (CKD) >90 (>60 ml/min/1.73 sqM); Anion Gap 6 mmol/L; Blood Urea Nitrogen 17 mg/dL (9-20); Calcium 6.9 mg/dL (8.4-10.2); Carbon Dioxide 18 mmol/L (22-30); Chloride 116 mmol/L (98-107); Glucose 187 mg/dL (74-99); Non-African American GFR(CKD) 87 (>60 ml/min/1.73 sqM); Potassium 3.2 mmol/L (3.5-5.1); Sodium 140 mmol/L (137-145)
[2022-07-05] MEDS: POTASSIUM CHLORIDE 10 MEQ in WATER FOR INJECTION 1 100ML.BAG IVPB SCH ×4 (07:15→13:00)
--- NOTE | 2022-07-05 08:04 | XR ---
EXAMINATION TYPE: XR chest 1V portable DATE OF EXAM: 07/05/2022 5:52 AM COMPARISON: Chest radiograph from two days prior. TECHNIQUE: XR chest 1V portable Frontal view of the chest. CLINICAL INDICATION:Male, 71 years old with history of Shortness of breath; FINDINGS: Lungs/Pleura: Similar multifocal right airspace opacities. No evidence of pneumothorax or pleural eff usion. Pulmonary vascularity: Unremarkable. Heart/mediastinum: Cardiomediastinal silhouette is unremarkable. Musculoskeletal: No acute osseous pathology. IMPRESSION: Similar multifocal right airspace opacities.
[2022-07-05] MEDS: METOPROLOL TARTRATE 25 MG TAB PO SCH ×2 (08:50→20:06)
[2022-07-05] MEDS: HEPARIN SOD,PORK IN 0.45% NACL 25,000 UNIT in 0.45% NACL 1 250ML.BAG IV SCH (08:52)
--- NOTE | 2022-07-05 09:43 | P.PN ---
Subjective Progress Note Date: 07/05/22 PROGRESS NOTE The patient is a 71-year-old male who presented to the emergency room after the insistence of his because of progressive fatigue, lack of energy and shortness of breath. In the emergency room he was noted to have diabetic ketoacidosis and mild elevation of the troponin. The history is obtained from the . 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 He has stopped taking all his medications. He is to smoke up to one year ago. He is limited in his physical activity. His left ventricle systolic function in 2014 was normal. He has no prior history of myocardial infarction or heart failure. His duplex scan of the lower extremities was unremarkable but his ventilation/perfusion scan raised the possibility of pulmonary embolism on the right side. His renal function are abnormal on presentation. His baseline is not available. The patient is awake, answering a few questions. In the emergency room he was noted to be in atrial fibrillation with rapid ventricle response of unknown duration. He does not consume alcohol or significant amount of caffeine. July 03: The patient is awake but not answering questions. He remains lethargic and obtunded. He continues to be in atrial fibrillation with controlled ventricular response, he is on IV heparin. His blood pressure is stable. His urinary output has been good. His blood sugar is better and his renal function had normalized. His chest x-ray shows right-sided pleural effusion. The patient has an abnormal ventilation/perfusion scan and further evaluation will be needed. July 04: He appears to be more awake and alert today. He continues to be in atrial f ibrillation with controlled ventricular response. He is tolerating by mouth. There is no evidence of ventricular ectopic activity. His urinary output is stable. There is no evidence of ventricular ectopic activity. His echocardiogram showed a severely impaired left ventricle systolic function with no significant valvular disease and mild pulmonary hypertension. His acidosis resolved and his blood sugar is under better control. July 05: The patient is more awake and alert today. He continues to be in atrial fibrillation with controlled ventricular response. His blood pressure is on the low side. He has no nausea or vomiting. He continues to be on IV heparin pending the decision regarding thoracentesis. He has no evidence of ventricular ectopic activity. His urinary output is stable. Medications: IV heparin, metoprolol 25 mg twice a day, insulin, lisinopril 2.5 milligrams twice a day PHYSICAL EXAMINATION: Blood pressure 90-100 heart rate 89, more awake and oriented LUNGS: Clear to auscultation anteriorly HEART: Irregular rate and rhythm, S1, S2. No S3. systolic ejection murmur ABDOMEN: Soft, nontender, no organomegaly EXTREMETIES: No edema LAB: Sodium 140, bicarb 18, BUN 17, creatinine 0.84 IMPRESSION: 1. Diabetic ketoacidosis, resolved 2. Atrial fibrillation, of unknown duration 3. History of stroke 4. Possible lung mass with pleural effusion 5. History of occluded left carotid artery 6. History of chronic tobacco use 7. Acute renal injury, resolved 8. Troponin elevation secondary to type II myocardial infarction 9. Cardiomyopathy of unknown duration or etiology PLAN: 1. Add Aldactone and ENE inhibitor 2. Continue IV heparin until the decision is made regarding thoracentesis then change to oral 3. Increase activity and physical therapy 4. Follow renal functions Objective - Vital Signs Vital signs: Vital Signs Temp 98.2 F 07/05/22 08:00 Pulse 85 07/05/22 09:00 Resp 20 07/05/22 09:00 BP 97/52 07/05/22 09:00 Pulse Ox 93 L 07/05/22 09:00 FiO2 97 07/04/22 20:00 Intake & Output 07/04/22 07/05/22 07/05/22 18:59 06:59 18:59 Intake Total 1800 2141.999 767.322 Output Total 455 1000 475 Balance 1345 1141.999 292.322 Weight 88 kg 88.9 kg Intake: IV 1800 1900 550 Dextrose 5% in Water 1, 1800 1800 450 000 ml @ 150 mls/hr IV . Q6H40M [facility] Rx#:[id number] Piperacillin-Tazobactam 3 100 100 .375 gm In Sodium Chloride 0.9% 100 ml @ 25 mls/hr IVPB Q8H [facility] Rx#: [id number] Intake, IV Titration 241.999 217.322 Amount Heparin Sod,Pork in 0.45% 241.999 217.322 NaCl 25,000 unit In 0.45 % NaCl 1 250ml.bag @ 8. 479 UNITS/KG/HR 10 mls/hr IV .Q24H [facility] Rx#: [id number] Output: Urine 455 1000 475 Other: Voiding Method Indwelling Catheter Indwelling Catheter Indwelling Catheter # Bowel Movements 1 - Labs CBC & Chem 7: 07/05/22 05:42 07/05/22 05:42 Labs: Abnormal Lab Results - Last 24 Hours (Table) 07/04/22 07/04/22 07/04/22 Range/Units 13:52 15:06 16:43 RBC (4.30-5.90) m/uL Hgb (13.0-17.5) gm/dL Hct (39.0-53.0) % MCV (80.0-100.0) fL APTT (22.0-30.0) sec Potassium (3.5-5.1) mmol/L Chloride (98-107) mmol/L Carbon Dioxide (22-30) mmol/L Glucose (74-99) mg/dL POC Glucose (mg/dL) 115 H 122 H 137 H (70-110) mg/dL Calcium (8.4-10.2) mg/dL 07/04/22 07/05/22 07/05/22 Range/Units 20:49 02:11 05:42 RBC (4.30-5.90) m/uL Hgb (13.0-17.5) gm/dL Hct (39.0-53.0) % MCV (80.0-100.0) fL APTT (22.0-30.0) sec Potassium 3.2 L (3.5-5.1) mmol/L Chloride 116 H (98-107) mmol/L Carbon Dioxide 18 L (22-30) mmol/L Glucose 187 H (74-99) mg/dL POC Glucose (mg/dL) 194 H 208 H (70-110) mg/dL Calcium 6.9 L (8.4-10.2) mg/dL 07/05/22 07/05/22 07/05/22 Range/Units 05:42 05:42 06:36 RBC 3.34 L (4.30-5.90) m/uL Hgb 11.3 L (13.0-17.5) gm/dL Hct 33.6 L (39.0-53.0) % MCV 100.5 H (80.0-100.0) fL APTT 58.7 H (22.0-30.0) sec Potassium (3.5-5.1) mmol/L Chloride (98-107) mmol/L Carbon Dioxide (22-30) mmol/L Glucose (74-99) mg/dL POC Glucose (mg/dL) 201 H (70-110) mg/dL Calcium (8.4-10.2) mg/dL Microbiology - Last 24 Hours (Table) 07/02/22 08:31 Blood Culture Gram Stain - Final Blood Blood Culture - Final Coagulase Negative Staph 07/02/22 08:31 Blood Culture Gram Stain - Final Blood Blood Culture - Final Staphylococcus epidermidis Coagulase Negative Staph
[2022-07-05 11:20] LABS: Glucose,Whole Blood 196 mg/dL (70-110)
--- NOTE | 2022-07-05 15:30 | XR ---
EXAMINATION TYPE: XR chest 1V portable DATE OF EXAM: 07/05/2022 3:09 PM COMPARISON: Chest radiographs from same date TECHNIQUE: XR chest 1V portable Portable AP radiograph of the chest. CLINICAL INDICATION:Male, 71 years old with history of post thoracentesis, r/o pneumothorax; FINDINGS: Lungs/Pleura: Improved aeration of the right lung compared to immediate prior. Blunting of the right costophrenic angle with trace right pleural effusion. The left lung is basically clear. Pulmonary vascularity: Unremarkable. Heart/mediastinum: Cardiomediastinal silhouette is prominent in size. Musculoskeletal: No acute osseous pathology. IMPRESSION: 1. Decrease in right pleural effusion with persistent airspace opacities throughout the right lung. No pneumothorax. 2. Improved aeration from immediate prior which may be secondary to phase of inspiration. Suspected small right pleural effusion.
--- NOTE | 2022-07-05 16:51 | P.PN ---
Subjective Progress Note Date: 07/05/22 71-year-old male patient, diabetic, who has not seen a physician for many years and he has stopped taking his medication and he seems to have given up f from life, comes into the emergency department because of progressive weakness, lethargy, lack of energy and worsening shortness of breath. The patient is a very poor historian. is at the bedside. The patient is known to have diabetes, and history of atrial fibrillation and history of stroke with occlusion or complete occlusion of the left carotid artery and previous history of smoking. The patient has not been taking his diabetic medications at all. He also has history of peripheral vascular disease. The patient came into the emergency room initial blood work showed diabetic ketoacidosis. He had positive ketones. He had anion gap metabolic acidosis. Initial blood work showed a white cell count of 18.6 with a hemoglobin of 14, also, the patient had a sodium of 156, potassium of 4.9, chloride is 119, serum bicarb was at 6, BUN is at 46 with a creatinine of 1.8, glucose was 567, lactic acid level was at 3.8, urinalysis was positive for protein and glucose and ketones. Serum acetone was positive. ProBNP level was 2660, TSH was 0.8, troponin was 0.287 and 0.329 respectively. LFTs were normal. Chest x-ray showed a right-sided pleural effusion. CAT scan of the chest confirmed the presence of a small right-sided pleural effusion. Right lower lobe atelectatic changes were also present. No evidence of any masses. This was a noncontrast CAT scan. The patient was given IV Zosyn. The patient was also given a VQ scan based on an elevated d-dimer of 20 and the patient was found to have a large perfusion defect in the right upper lobe. Doppler of the lower extremity was suboptimal and there was no convincing evidence of DVT. For now, the patient was given IV fluids and he has received a total of 3 L of normal saline. Subsequently, the patient was started on normal saline and transitioned to D5 half-normal saline based on the DKA protocol. He is on IV Zosyn as an empiric antibiotic coverage. Insulin drip is running at 11 units an hour. Electrodes are being monitored. He gradually waking up and is becoming more communicative. No focal neurological deficits. Denies having any chest pain. The EKG showing sinus tachycardia. No acute ischemic changes. There are some Q waves on the septal leads. On today's evaluation of 07/03/2022, the patient is still lethargic and obtunded. He is currently in intensive care unit. His sodium level remains elevated. Serum bicarb is up to 19 and anion gap has essentially closed. Most recent sodium level is up to 164. Chloride level is 136. Creatinine is improved and is currently down to 1 with a BUN of 39. Lactic acid level is down to 2.4. The patient is on D5 half-normal saline at the rate of 150 mL an hour. Insulin drip is running at 40 units an hour. I'm going to switch his IV fluids to D5 water and keep the insulin drip for now. He remains on IV heparin. His cardiac rhythm is a atrial fibrillation and a cardiology opted to Maintain IV heparin for now. He does have a right-sided pleural effusion. There is no clear convincing evidence of poor embolism. This will be worked up at the later stage with a CT angiogram. Doppler of the lower extremities were negative. Chest x-ray from today is still pending. On 07/04/2022, I'm seeing the patient for a follow-up. The patient seems to be slightly more awake compared to yesterday. The patient had a massive water deficit and the patient remains on D5 water which is running at a rate of 1 50 mL an hour. He cc more interactive. He is lethargic. However when stimulated, he would answer questions. He was getting upset easily and he does not seem to be cooperative. He is aware that she is in the hospital. He isn't a very poor health condition. His troponins were abnormal. He was given an echocardiogram and the patient was found to have an ejection fraction of 25% consistent with systolic heart failure. The chronicity of his CHF is not known. The patient was also found to have a right-sided pleural effusion and some atelectatic changes in the right lung. We are contemplating to do a thoracentesis of the later stage. Although, this pleural fluid could be related to CHF. Meanwhile, the patient remains on D5 water. The patient has improvement in his electroly carmencita. Anion gap metabolic acidosis is recovered. Serum bicarb is up to 19. BUN is at 28 with a creatinine of 0.9. Sodium is at 148 with a chloride level of 124. The WBC count is at 10.8 with a hemoglobin of 12. The patient remains on IV heparin regarding his underlying chronic a chair fibrillation. His swallow evaluation is to be done today. His mucous membranes in his oral condition is improved with hydration. He was started on Levemir insulin by the medical team 20 units daily along with that he is receiving a sliding scale coverage. 07/05/2022, the patient is much more awake. The patient remains on D5 water.The patient has developed improvement electrolytes. Sodium level is down to 140 and the patient's serum bicarbonate of 18 with a BUN of 17 and a creatinine of 0.8. The white cell count of 9.5 with a hemoglobin of 11.3. Remains on IV heparin. Cardiac rhythm is atrial fibrillation. Propofol level is at 0.25. Remains on IV Zosyn. Chest x-ray shows consolidation possibly right-sided pleural effusion. Attempted a bedside thoracentesis. Minimal amount of fluid came from the right lung. I'm going to order a CAT scan of the chest for this patient for tomorrow. He has no specific complaints. He remains on Levemir insulin. He is also on a sliding scale coverage. IV fluids are in the form of D5 water at the rate of 150 mL an hour and this was introduced down to 50 mL. Objective - Vital Signs Vital signs: Vital Signs Temp 98.2 F 07/05/22 08:00 Pulse 85 07/05/22 09:00 Resp 20 07/05/22 09:00 BP 97/52 07/05/22 09:00 Pulse Ox 93 L 07/05/22 09:00 FiO2 97 07/04/22 20:00 Intake & Output 07/04/22 07/05/22 07/05/22 18:59 06:59 18:59 Intake Total 1800 2141.999 825.964 Output Total 455 1000 475 Balance 1345 1141.999 350.964 Weight 88 kg 88.9 kg Intake: IV 1800 1900 550 Dextrose 5% in Water 1, 1800 1800 450 000 ml @ 150 mls/hr IV . Q6H40M [facility] Rx#:[id number] Piperacillin-Tazobactam 3 100 100 .375 gm In Sodium Chloride 0.9% 100 ml @ 25 mls/hr IVPB Q8H [facility] Rx#: [id number] Intake, IV Titration 241.999 275.964 Amount Heparin Sod,Pork in 0.45% 241.999 275.964 NaCl 25,000 unit In 0.45 % NaCl 1 250ml.bag @ 8. 479 UNITS/KG/HR 10 mls/hr IV .Q24H [facility] Rx#: [id number] Output: Urine 455 1000 475 Other: Voiding Method Indwelling Catheter Indwelling Catheter Indwelling Catheter # Bowel Movements 1 - Exam Gen. appearance, the patient is in general debilitated, much more awake and communicative on today's evaluation. Head exam was generally normal. There was no scleral icterus or corneal arcus. Mucous membranes were moist. Neck was supple and without jugular venous distension, thyromegaly, or carotid bruits. Carotids were easily palpable bilaterally. There was no adenopathy. Lungs were clear to auscultation and percussion, and with normal diaphragmatic excursion. No wheezes or rales were noted. Breath sounds are diminished in the right lung base and there is also some bullous to percussion. Heart sounds are tachycardic,Cardiac exam revealed the PMI to be normally situated and sized. The rhythm was regular and no extrasystoles were noted during several minutes of auscultation. The first and second heart sounds were normal and physiologic splitting of the second heart sound was noted. There were no murmurs, rubs, clicks, or gallops. Abdominal exam revealed normal bowel sounds. The abdomen was soft, non-tender, and without masses, organomegaly, or appreciable enlargement of the abdominal aorta. Extremities revealed diminished pulses bilaterally and areas of superficial wounds that are dry related to previous fall. No cyanosis or clubbing. Examination of the skin revealed no evidence of significant rashes, suspicious appearing nevi or other concerning lesions. Positive dry wounds of various sizes Neurologically, the patient profoundly weak, alert and oriented times two, communicating. - Labs CBC & Chem 7: 07/05/22 05:42 07/05/22 05:42 Labs: Abnormal Lab Results - Last 24 Hours (Table) 07/04/22 07/05/22 07/05/22 Range/Units 20:49 02:11 05:42 RBC (4.30-5.90) m/uL Hgb (13.0-17.5) gm/dL Hct (39.0-53.0) % MCV (80.0-100.0) fL APTT (22.0-30.0) sec Potassium (3.5-5.1) mmol/L Chloride (98-107) mmol/L Carbon Dioxide (22-30) mmol/L Glucose (74-99) mg/dL POC Glucose (mg/dL) 194 H 208 H (70-110) mg/dL Calcium (8.4-10.2) mg/dL Procalcitonin 0.25 H (0.02-0.09) ng/mL 07/05/22 07/05/22 07/05/22 Range/Units 05:42 05:42 05:42 RBC 3.34 L (4.30-5.90) m/uL Hgb 11.3 L (13.0-17.5) gm/dL Hct 33.6 L (39.0-53.0) % MCV 100.5 H (80.0-100.0) fL APTT 58.7 H (22.0-30.0) sec Potassium 3.2 L (3.5-5.1) mmol/L Chloride 116 H (98-107) mmol/L Carbon Dioxide 18 L (22-30) mmol/L Glucose 187 H (74-99) mg/dL POC Glucose (mg/dL) (70-110) mg/dL Calcium 6.9 L (8.4-10.2) mg/dL Procalcitonin (0.02-0.09) ng/mL 07/05/22 07/05/22 Range/Units 06:36 11:19 RBC (4.30-5.90) m/uL Hgb (13.0-17.5) gm/dL Hct (39.0-53.0) % MCV (80.0-100.0) fL APTT (22.0-30.0) sec Potassium (3.5-5.1) mmol/L Chloride (98-107) mmol/L Carbon Dioxide (22-30) mmol/L Glucose (74-99) mg/dL POC Glucose (mg/dL) 201 H 196 H (70-110) mg/dL Calcium (8.4-10.2) mg/dL Procalcitonin (0.02-0.09) ng/mL Microbiology - Last 24 Hours (Table) 07/02/22 08:31 Blood Culture Gram Stain - Final Blood Blood Culture - Final Coagulase Negative Staph 07/02/22 08:31 Blood Culture Gram Stain - Final Blood Blood Culture - Final Staphylococcus epidermidis Coagulase Negative Staph Assessment and Plan Plan: Acute diabetic ketoacidosis in a patient with type 2 diabetes mellitus, improved and the patient had closure of his anion gap and the blood sugars under better control, currently on long-acting Levemir insulin Severe dehydration with hypernatremia, hyperchloremic and the patient's free water deficit is was corrected Acute hyperglycemia secondary to above, blood sugars under better control, currently on Levemir insulin and a slight scale coverage Acute hypernatremia, likely hypovolemic in nature, sodium level remains elevated and the patient has hyperchloremic hypernatremia, improving Acute kidney injury, improved Severe cardiomyopathy with an ejection fraction of 25% Small right-sided pleural effusion, awaiting a follow-up chest x-ray from today, likely related to CHF Atrial fibrillation with a controlled rate currently on IV heparin, rate is controlled Possible right lung consolidation versus atelectasis. High probability VQ scan with an elevated d-dimer and negative Doppler of lower extremity. Clinically, pulmonary embolism is felt to be less likely. 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 Diabetes mellitus 2 Previous history of active fibrillation and current cardiac rhythm is sinus Septal Q waves indicative of a previous anterior wall myocardial infarction Hyperlipidemia Peripheral vascular disease History of smoking Plan Change this patient to D5 water at the rate of 50 mL an hour Monitor electrolytes Continue Levemir insulin Anion gap is closed Monitor mental status, in general his mental status is improving and has not completely normalized proceed with a CAT scan of the chest with contrast in a.m. perform a swallow evaluation Attempted the bedside thoracentesis a minimum OF fluid came out from the patient's lungs on the right side Continue IV heparin Continue IV Zosyn Keep the patient ICU We'll follow
[2022-07-05 16:56] LABS: Glucose,Whole Blood 153 mg/dL (70-110)
[2022-07-05] MEDS: ATORVASTATIN 40 MG TAB PO SCH (17:20)
[2022-07-05] MEDS: SPIRONOLACTONE 25 MG TAB PO SCH (17:20)
[2022-07-05 18:42] LABS: Magnesium 1.7 mg/dL (1.6-2.3); Potassium 4.8 mmol/L (3.5-5.1)
--- NOTE | 2022-07-05 19:59 | P.PN ---
Subjective From records This is a 71-year-old patient, has not follows Dr. Walden for years. Per the EMS report. When they arrived they found the patient getting only a Urine soaked underwear. Bed is also soaked for dry urine and that is under the mattress. Patient stated that he has not been getting out of bed for last 2 days. Has not been eating. He has not seen a doctor since 2014 when he had a stroke and is noncompliant with his medications. She is the casework manager. Patient finally is agreed to go to the hospital. She also felt that patient's breathing is also change in the last 3 days. 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 She is able to converse with him. She is normally alert to place person and time but currently she is less responsive. No trauma. He does not feel like eating. In the ER found to have a blood glucose in the 500s. Positive for serum acetone. Patient himself is unable to give much of history. Attempted to speak some words. Does move his limbs. Lethargic. On insulin drip. Also on heparin drip. Admitted with acute diabetic ketoacidosis/severe hypernatremia/acute metabolic encephalopathy/delirium/pneumonia/. Started on IV heparin, IV fluids, IV Zosyn, insulin drip. 07/03/2022: ICU: Encephalopathic. Delirious. Moves it about sometimes. Does open eyes. Not really answering questions. On D5W IV fluids, IV heparin, insulin drip, IV Zosyn,. Blood cultures positive for what appears to be Staphylococcus epidermidis. Was started on vancomycin earlier. A. fib rate controlled. 07/04/2022: ICU. With more awake today.. Taken off insulin drip this morning. Started on Levemir 20 units. at the bedside. IV Zosyn. D5 W. Remains in A. fib, rate controlled. Patient is out of DKA. 07/05/2022 this is a pleasant 71 years old female who was initially admitted with diabetic ketoacidosis found to have possible pneumonia with atrial fibrillation. Also showing severe cardiomyopathy with ejection fraction 25%, hypernatremia with fluid deficit. Patient with no chest pain or dyspnea Patient has been monitored closely in the ICU with pulmonary/critical care team and cardiology following her closely Vitas looks stable, she is saturating 95% and 2 L, blood pressure 96/41, she is tachypneic 26 Showing high pro calcitonin and 0.25 and chest x-ray showing opacity throughout her life flank with right pleural effusion and atelectasis. She has severe cardiomyopathy with ejection fraction of 25-30%. Ultrasound of the leg is negative, VQ scan shows some probability for PE and patient also already on IV heparin for cardiac disease. CT of the abdomen and pelvis and chest showing right hilar masslike opacity with distended gallbladder CT of the brain and neck is negative for acute process. Objective - Vital Signs Vital signs: Vital Signs Temp 98.2 F 07/05/22 08:00 Pulse 85 07/05/22 09:00 Resp 20 07/05/22 09:00 BP 97/52 07/05/22 09:00 Pulse Ox 93 L 07/05/22 09:00 FiO2 97 07/04/22 20:00 Intake & Output 07/04/22 07/05/22 07/05/22 18:59 06:59 18:59 Intake Total 1800 2141.999 767.322 Output Total 455 1000 475 Balance 1345 1141.999 292.322 Weight 88 kg 88.9 kg Intake: IV 1800 1900 550 Dextrose 5% in Water 1, 1800 1800 450 000 ml @ 150 mls/hr IV . Q6H40M [facility] Rx#:[id number] Piperacillin-Tazobactam 3 100 100 .375 gm In Sodium Chloride 0.9% 100 ml @ 25 mls/hr IVPB Q8H [facility] Rx#: [id number] Intake, IV Titration 241.999 217.322 Amount Heparin Sod,Pork in 0.45% 241.999 217.322 NaCl 25,000 unit In 0.45 % NaCl 1 250ml.bag @ 8. 479 UNITS/KG/HR 10 mls/hr IV .Q24H [facility] Rx#: [id number] Output: Urine 455 1000 475 Other: Voiding Method Indwelling Catheter Indwelling Catheter Indwelling Catheter # Bowel Movements 1 - Exam GENERAL: The patient is alert and oriented x3, not in any acute distress. Well developed, well nourished. HEENT: Pupils are round and equally reacting to light. EOMI. No scleral icterus. No conjunctival pallor. Normocephalic, atraumatic. No pharyngeal erythema. No thyromegaly. CARDIOVASCULAR: S1 and S2 present. No murmurs, rubs, or gallops. PULMONARY: Chest is clear to auscultation, no wheezing or crackles. ABDOMEN: Soft, nontender, nondistended, normoactive bowel sounds. No palpable organomegaly. MUSCULOSKELETAL: No joint swelling or deformity. EXTREMITIES: No cyanosis, clubbing, or pedal edema. NEUROLOGICAL: Gross neurological examination did not reveal any focal deficits. SKIN: No rashes. no petechiae. - Labs CBC & Chem 7: 07/05/22 05:42 07/05/22 18:01 Labs: Abnormal Lab Results - Last 24 Hours (Table) 07/04/22 07/04/22 07/04/22 Range/Units 13:52 15:06 16:43 RBC (4.30-5.90) m/uL Hgb (13.0-17.5) gm/dL Hct (39.0-53.0) % MCV (80.0-100.0) fL APTT (22.0-30.0) sec Potassium (3.5-5.1) mmol/L Chloride (98-107) mmol/L Carbon Dioxide (22-30) mmol/L Glucose (74-99) mg/dL POC Glucose (mg/dL) 115 H 122 H 137 H (70-110) mg/dL Calcium (8.4-10.2) mg/dL 07/04/22 07/05/22 07/05/22 Range/Units 20:49 02:11 05:42 RBC (4.30-5.90) m/uL Hgb (13.0-17.5) gm/dL Hct (39.0-53.0) % MCV (80.0-100.0) fL APTT (22.0-30.0) sec Potassium 3.2 L (3.5-5.1) mmol/L Chloride 116 H (98-107) mmol/L Carbon Dioxide 18 L (22-30) mmol/L Glucose 187 H (74-99) mg/dL POC Glucose (mg/dL) 194 H 208 H (70-110) mg/dL Calcium 6.9 L (8.4-10.2) mg/dL 07/05/22 07/05/22 07/05/22 Range/Units 05:42 05:42 06:36 RBC 3.34 L (4.30-5.90) m/uL Hgb 11.3 L (13.0-17.5) gm/dL Hct 33.6 L (39.0-53.0) % MCV 100.5 H (80.0-100.0) fL APTT 58.7 H (22.0-30.0) sec Potassium (3.5-5.1) mmol/L Chloride (98-107) mmol/L Carbon Dioxide (22-30) mmol/L Glucose (74-99) mg/dL POC Glucose (mg/dL) 201 H (70-110) mg/dL Calcium (8.4-10.2) mg/dL Microbiology - Last 24 Hours (Table) 07/02/22 08:31 Blood Culture Gram Stain - Final Blood Blood Culture - Final Coagulase Negative Staph 07/02/22 08:31 Blood Culture Gram Stain - Final Blood Blood Culture - Final Staphylococcus epidermidis Coagulase Negative Staph Assessment and Plan Assessment: Right lung atelectasis versus consolidation with Right hilar masslike consolidation Severe cardiomyopathy with ejection fraction 25% new Onset atrial fibrillation on IV heparin Elevated troponin, most likely demand/supply mismatch Hypernatremia Positive blood culture with coagulase-negative staph and staph epidermidis, most likely contamination and patient is asymptomatic regarding this Plan: Opinion with IV heparin, anticoagulation Continue D5W Continue Zosyn Monitor hemoglobin Several consultants on the case including critical care team and cardiology consult Labs and medication were reviewed.. Continue same treatment. Continue with symptomatic treatment. Resume home medication. Monitor lytes and vitals. DVT and GI prophylaxis. Further recommendations as per clinical course of the patient DVT prophylaxis: heparin GI Prophylaxis: Protonix PT/OT: Pending Prognosis is guarded
[2022-07-05 20:00] LABS: Glucose,Whole Blood 155 mg/dL (70-110)
[2022-07-06 01:21] LABS: Magnesium 1.8 mg/dL (1.6-2.3); Potassium 3.3 mmol/L (3.5-5.1)
[2022-07-06] MEDS: POTASSIUM CHLORIDE 10 MEQ in WATER FOR INJECTION 1 100ML.BAG IVPB SCH ×10 (01:34→23:22)
[2022-07-06 01:37] LABS: Glucose,Whole Blood 108 mg/dL (70-110)
[2022-07-06] MEDS: INSULIN ASPART (NovoLOG) 100 UNIT/ML VIAL SQ SCH ×5 (02:04→20:15)
[2022-07-06] MEDS: PIPERACILLIN-TAZOBACTAM 3.375 GM in SODIUM CHLORIDE 0.9% 100 ML IVPB SCH ×3 (06:17→22:02)
[2022-07-06 06:36] LABS: Glucose,Whole Blood 149 mg/dL (70-110)
--- NOTE | 2022-07-06 07:13 | XR ---
EXAMINATION TYPE: XR chest 1V portable DATE OF EXAM: 07/06/2022 5:52 AM COMPARISON: Chest radiograph from one day prior. TECHNIQUE: XR chest 1V portable Portable AP radiograph of the chest. CLINICAL INDICATION:Male, 71 years old with history of Shortness of breath; FINDINGS: Lungs/Pleura: Similar right multifocal airspace opacities. No evidence of pneumothorax or pleural eff usion. Pulmonary vascularity: Unremarkable. Heart/mediastinum: Cardiomediastinal silhouette is unremarkable. Musculoskeletal: No acute osseous pathology. IMPRESSION: Similar right multifocal airspace opacities.
[2022-07-06 07:35] LABS: HCT 35.9 % (39.0-53.0); HGB 11.9 gm/dL (13.0-17.5); Hypochromasia Slight; MCHC 33.1 g/dL (31.0-37.0); MCV 99.7 fL (80.0-100.0); Mean Platelet Volume 8.7; Platelet Count 143 k/uL (150-450); RDW 13.2 % (11.5-15.5); WBC 10.4 k/uL (3.8-10.6)
[2022-07-06 07:49] LABS: African American GFR (CKD) >90 (>60 ml/min/1.73 sqM); Anion Gap 5 mmol/L; Blood Urea Nitrogen 12 mg/dL (9-20); Calcium 7.1 mg/dL (8.4-10.2); Carbon Dioxide 18 mmol/L (22-30); Chloride 116 mmol/L (98-107); Glucose 148 mg/dL (74-99); Non-African American GFR(CKD) 86 (>60 ml/min/1.73 sqM); Potassium 3.7 mmol/L (3.5-5.1); Sodium 139 mmol/L (137-145)
--- NOTE | 2022-07-06 07:52 | US ---
EXAMINATION TYPE: US chest DATE OF EXAM: 07/06/2022 COMPARISON: NONE CLINICAL HISTORY: Taj right side for possible thoracentesis. TECHNIQUE: Targeted ultrasound of the posterior lower right hemithorax EXAM MEASUREMENTS: Right Pleural Effusion pocket size: 3.9 cm Right skin surface to fluid distance: 7.5 cm [place] shaped loculated fluid pocket on right side marked for possible thoracentesis outside the de pt. Pulmonologists are able to review the images in the patient?s EMR. IMPRESSIONS: Loculated pleural effusion.
[2022-07-06] MEDS: ATORVASTATIN 40 MG TAB PO SCH (08:47)
[2022-07-06] MEDS: SPIRONOLACTONE 25 MG TAB PO SCH (08:47)
[2022-07-06] MEDS: HEPARIN SOD,PORK IN 0.45% NACL 25,000 UNIT in 0.45% NACL 1 250ML.BAG IV SCH (08:48)
[2022-07-06] MEDS: DEXTROSE 5% IN WATER 1,000 ML IV SCH (09:25)
[2022-07-06] MEDS: MAGNESIUM SULFATE-D5W PMX 1 GM in DEXTROSE/WATER 1 100ML.BAG IVPB SCH ×2 (09:27→11:00)
[2022-07-06] MEDS: METOPROLOL TARTRATE 25 MG TAB PO SCH ×2 (09:27→20:15)
--- NOTE | 2022-07-06 09:40 | P.PN ---
Subjective Progress Note Date: 07/06/22 PROGRESS NOTE The patient is a 71-year-old male who presented to the emergency room after the insistence of his because of progressive fatigue, lack of energy and shortness of breath. In the emergency room he was noted to have diabetic ketoacidosis and mild elevation of the troponin. The history is obtained from the . 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 He has stopped taking all his medications. He is to smoke up to one year ago. He is limited in his physical activity. His left ventricle systolic function in 2014 was normal. He has no prior history of myocardial infarction or heart failure. His duplex scan of the lower extremities was unremarkable but his ventilation/perfusion scan raised the possibility of pulmonary embolism on the right side. His renal function are abnormal on presentation. His baseline is not available. The patient is awake, answering a few questions. In the emergency room he was noted to be in atrial fibrillation with rapid ventricle response of unknown duration. He does not consume alcohol or significant amount of caffeine. July 03: The patient is awake but not answering questions. He remains lethargic and obtunded. He continues to be in atrial fibrillation with controlled ventricular response, he is on IV heparin. His blood pressure is stable. His urinary output has been good. His blood sugar is better and his renal function had normalized. His chest x-ray shows right-sided pleural effusion. The patient has an abnormal ventilation/perfusion scan and further evaluation will be needed. July 04: He appears to be more awake and alert today. He continues to be in atrial f ibrillation with controlled ventricular response. He is tolerating by mouth. There is no evidence of ventricular ectopic activity. His urinary output is stable. There is no evidence of ventricular ectopic activity. His echocardiogram showed a severely impaired left ventricle systolic function with no significant valvular disease and mild pulmonary hypertension. His acidosis resolved and his blood sugar is under better control. July 05: The patient is more awake and alert today. He continues to be in atrial fibrillation with controlled ventricular response. His blood pressure is on the low side. He has no nausea or vomiting. He continues to be on IV heparin pending the decision regarding thoracentesis. He has no evidence of ventricular ectopic activity. His urinary output is stable. July 06: He is feeling well today, he denies any chest discomfort, dizziness or palpita tions. He continues to be in atrial fibrillation with controlled ventricular response. He's scheduled to undergo ultrasound of the chest. His urinary output has been stable. He has no nausea or vomiting. He had an episode of pause during the night. His blood pressure has been on the lower side. Medications: IV heparin, metoprolol 25 mg twice a day, insulin, lisinopril 2.5 milligrams twice a day, Aldactone 25 mg daily PHYSICAL EXAMINATION: Blood pressure 127/60 heart rate 90, LUNGS: Clear to auscultation anteriorly with decreased breath sounds at the base posteriorly HEART: Irregular rate and rhythm, S1, S2. No S3. systolic ejection murmur ABDOMEN: Soft, nontender, no organomegaly EXTREMETIES: No edema LAB: Sodium 139, bicarb 18, BUN 12, creatinine 0.86 IMPRESSION: 1. Diabetic ketoacidosis, resolved 2. Atrial fibrillation, of unknown duration, on IV heparin pending possible tho racentesis 3. History of stroke 4. Possible lung mass with pleural effusion 5. History of occluded left carotid artery 6. History of chronic tobacco use 7. Acute renal injury, resolved 8. Troponin elevation secondary to type II myocardial infarction 9. Cardiomyopathy of unknown duration or etiology PLAN: 1. Decrease lisinopril because of hypotension 2. Continue IV heparin until the decision is made regarding thoracentesis then change to oral 3. Increase activity and physical therapy 4. Follow renal functions Objective - Vital Signs Vital signs: Vital Signs Temp 97.9 F 07/06/22 08:00 Pulse 95 07/06/22 09:00 Resp 26 H 07/06/22 09:00 BP 127/58 07/06/22 09:00 Pulse Ox 94 L 07/06/22 09:05 FiO2 97 07/04/22 20:00 Intake & Output 07/05/22 07/06/22 07/06/22 18:59 06:59 18:59 Intake Total 5400.967 0788.358 225 Output Total 2500 620 240 Balance -774.036 756.358 -15 Weight 89.2 kg Intake: IV 1150 725 225 Dextrose 5% in Water 1, 800 600 150 000 ml @ 50 mls/hr IV . Q20H [facility] Rx#:[id number] Piperacillin-Tazobactam 3 350 125 75 .375 gm In Sodium Chloride 0.9% 100 ml @ 25 mls/hr IVPB Q8H [facility] Rx#: [id number] Intake, IV Titration 575.964 591.358 Amount Heparin Sod,Pork in 0.45% 275.964 191.358 NaCl 25,000 unit In 0.45 % NaCl 1 250ml.bag @ 8. 479 UNITS/KG/HR 10 mls/hr IV .Q24H [facility] Rx#: [id number] Potassium Chloride 10 meq 300 In Water For Injection 1 100ml.bag @ 100 mls/hr IVPB Q1HR [facility] Rx#: [id number] Potassium Chloride 10 meq 400 In Water For Injection 1 100ml.bag @ 100 mls/hr IVPB Q1HR [facility] Rx#: [id number] Oral 60 Output: Urine 2500 620 240 Other: Voiding Method Indwelling Catheter Indwelling Catheter Indwelling Catheter # Bowel Movements 1 - Labs CBC & Chem 7: 07/06/22 07:01 07/06/22 07:01 Labs: Abnormal Lab Results - Last 24 Hours (Table) 07/05/22 07/05/22 07/05/22 Range/Units 05:42 11:19 16:54 RBC (4.30-5.90) m/uL Hgb (13.0-17.5) gm/dL Hct (39.0-53.0) % Plt Count (150-450) k/uL APTT (22.0-30.0) sec Potassium (3.5-5.1) mmol/L Chloride (98-107) mmol/L Carbon Dioxide (22-30) mmol/L Glucose (74-99) mg/dL POC Glucose (mg/dL) 196 H 153 H (70-110) mg/dL Calcium (8.4-10.2) mg/dL Procalcitonin 0.25 H (0.02-0.09) ng/mL 07/05/22 07/06/22 07/06/22 Range/Units 19:59 00:47 00:57 RBC (4.30-5.90) m/uL Hgb (13.0-17.5) gm/dL Hct (39.0-53.0) % Plt Count (150-450) k/uL APTT 44.4 H (22.0-30.0) sec Potassium 3.3 L (3.5-5.1) mmol/L Chloride (98-107) mmol/L Carbon Dioxide (22-30) mmol/L Glucose (74-99) mg/dL POC Glucose (mg/dL) 155 H (70-110) mg/dL Calcium (8.4-10.2) mg/dL Procalcitonin (0.02-0.09) ng/mL 07/06/22 07/06/22 07/06/22 Range/Units 06:34 07:01 07:01 RBC 3.60 L (4.30-5.90) m/uL Hgb 11.9 L (13.0-17.5) gm/dL Hct 35.9 L (39.0-53.0) % Plt Count 143 L (150-450) k/uL APTT (22.0-30.0) sec Potassium (3.5-5.1) mmol/L Chloride 116 H (98-107) mmol/L Carbon Dioxide 18 L (22-30) mmol/L Glucose 148 H (74-99) mg/dL POC Glucose (mg/dL) 149 H (70-110) mg/dL Calcium 7.1 L (8.4-10.2) mg/dL Procalcitonin (0.02-0.09) ng/mL 07/06/22 Range/Units 07:01 RBC (4.30-5.90) m/uL Hgb (13.0-17.5) gm/dL Hct (39.0-53.0) % Plt Count (150-450) k/uL APTT 54.5 H (22.0-30.0) sec Potassium (3.5-5.1) mmol/L Chloride (98-107) mmol/L Carbon Dioxide (22-30) mmol/L Glucose (74-99) mg/dL POC Glucose (mg/dL) (70-110) mg/dL Calcium (8.4-10.2) mg/dL Procalcitonin (0.02-0.09) ng/mL
[2022-07-06] MEDS: INSULIN DETEMIR (LEVEMIR) 100 UNIT/ML SYR SQ SCH (10:00)
[2022-07-06 11:19] LABS: Glucose,Whole Blood 236 mg/dL (70-110)
--- NOTE | 2022-07-06 12:45 | CT ---
EXAMINATION TYPE: CT angio chest CT DLP: 862 mGycm, Automated exposure control for dose reduction was used. DATE OF EXAM: 07/06/2022 11:58 AM COMPARISON: 07/02/2022 CLINICAL INDICATION:Male, 71 years old with history of PE, loculated effusion; pe TECHNIQUE/CONTRAST: CTA scan of the thorax is performed with IV Contrast, patient injected with 80 mL of Isovue 370, pulm onary embolism protocol. MIP images are created and reviewed. FINDINGS: Pulmonary Artery: Filling defect within the left pulmonary artery extending into left upper lobe pulm onary vasculature. Additional filling defects are seen in the left lower lobe lobar and segmental bra nches. No evidence of right-sided pulmonary embolus. The pulmonary artery is of normal size. Lungs/Pleura: Moderate right pleural effusion with associated atelectasis. No evidence of airspace co nsolidation. Motion limits evaluation of lung parenchyma. Airway: Large airways are patent. Heart: Heart is within normal limits for size.. Vasculature: No evidence of aortic aneurysm. Mediastinum: Enlarged mediastinal lymph nodes right low paratracheal lymph node measuring up to 14 mm in short axis subcarinal partially calcified lymph node. AP window lymph node measuring up to 15 mm. Musculoskeletal: No acute osseous abnormalities Soft Tissues: Unremarkable. Lower neck: Right supraclavicular lymph node measuring up to 9 mm in short axis series 401 image 12 Upper Abdomen: Left renal cyst. Decompressed gallbladder. Fatty atrophy of the pancreas. Findings communicated to Dr. Isabel Fajardo on 07/06/2022 12:[address] Miguel Garduno. IMPRESSION: 1. Left pulmonary artery and left upper and lower lobe lobar and subsegmental acute pulmonary embolu s. No evidence of right heart strain. 2. Moderate right pleural effusion associated atelectasis. 3. Mediastinal lymphadenopathy right supraclavicular which is indeterminate but suspicious for under lying malignancy. Consider PET/CT.
--- NOTE | 2022-07-06 13:28 | P.PN ---
Subjective Progress Note Date: 07/06/22 71-year-old male patient, diabetic, who has not seen a physician for many years and he has stopped taking his medication and he seems to have given up f from life, comes into the emergency department because of progressive weakness, lethargy, lack of energy and worsening shortness of breath. The patient is a very poor historian. is at the bedside. The patient is known to have diabetes, and history of atrial fibrillation and history of stroke with occlusion or complete occlusion of the left carotid artery and previous history of smoking. The patient has not been taking his diabetic medications at all. He also has history of peripheral vascular disease. The patient came into the emergency room initial blood work showed diabetic ketoacidosis. He had positive ketones. He had anion gap metabolic acidosis. Initial blood work showed a white cell count of 18.6 with a hemoglobin of 14, also, the patient had a sodium of 156, potassium of 4.9, chloride is 119, serum bicarb was at 6, BUN is at 46 with a creatinine of 1.8, glucose was 567, lactic acid level was at 3.8, urinalysis was positive for protein and glucose and ketones. Serum acetone was positive. ProBNP level was 2660, TSH was 0.8, troponin was 0.287 and 0.329 respectively. LFTs were normal. Chest x-ray showed a right-sided pleural effusion. CAT scan of the chest confirmed the presence of a small right-sided pleural effusion. Right lower lobe atelectatic changes were also present. No evidence of any masses. This was a noncontrast CAT scan. The patient was given IV Zosyn. The patient was also given a VQ scan based on an elevated d-dimer of 20 and the patient was found to have a large perfusion defect in the right upper lobe. Doppler of the lower extremity was suboptimal and there was no convincing evidence of DVT. For now, the patient was given IV fluids and he has received a total of 3 L of normal saline. Subsequently, the patient was started on normal saline and transitioned to D5 half-normal saline based on the DKA protocol. He is on IV Zosyn as an empiric antibiotic coverage. Insulin drip is running at 11 units an hour. Electrodes are being monitored. He gradually waking up and is becoming more communicative. No focal neurological deficits. Denies having any chest pain. The EKG showing sinus tachycardia. No acute ischemic changes. There are some Q waves on the septal leads. On today's evaluation of 07/03/2022, the patient is still lethargic and obtunded. He is currently in intensive care unit. His sodium level remains elevated. Serum bicarb is up to 19 and anion gap has essentially closed. Most recent sodium level is up to 164. Chloride level is 136. Creatinine is improved and is currently down to 1 with a BUN of 39. Lactic acid level is down to 2.4. The patient is on D5 half-normal saline at the rate of 150 mL an hour. Insulin drip is running at 40 units an hour. I'm going to switch his IV fluids to D5 water and keep the insulin drip for now. He remains on IV heparin. His cardiac rhythm is a atrial fibrillation and a cardiology opted to Maintain IV heparin for now. He does have a right-sided pleural effusion. There is no clear convincing evidence of poor embolism. This will be worked up at the later stage with a CT angiogram. Doppler of the lower extremities were negative. Chest x-ray from today is still pending. On 07/04/2022, I'm seeing the patient for a follow-up. The patient seems to be slightly more awake compared to yesterday. The patient had a massive water deficit and the patient remains on D5 water which is running at a rate of 1 50 mL an hour. He cc more interactive. He is lethargic. However when stimulated, he would answer questions. He was getting upset easily and he does not seem to be cooperative. He is aware that she is in the hospital. He isn't a very poor health condition. His troponins were abnormal. He was given an echocardiogram and the patient was found to have an ejection fraction of 25% consistent with systolic heart failure. The chronicity of his CHF is not known. The patient was also found to have a right-sided pleural effusion and some atelectatic changes in the right lung. We are contemplating to do a thoracentesis of the later stage. Although, this pleural fluid could be related to CHF. Meanwhile, the patient remains on D5 water. The patient has improvement in his electroly carmencita. Anion gap metabolic acidosis is recovered. Serum bicarb is up to 19. BUN is at 28 with a creatinine of 0.9. Sodium is at 148 with a chloride level of 124. The WBC count is at 10.8 with a hemoglobin of 12. The patient remains on IV heparin regarding his underlying chronic a chair fibrillation. His swallow evaluation is to be done today. His mucous membranes in his oral condition is improved with hydration. He was started on Levemir insulin by the medical team 20 units daily along with that he is receiving a sliding scale coverage. 07/05/2022, the patient is much more awake. The patient remains on D5 water.The patient has developed improvement electrolytes. Sodium level is down to 140 and the patient's serum bicarbonate of 18 with a BUN of 17 and a creatinine of 0.8. The white cell count of 9.5 with a hemoglobin of 11.3. Remains on IV heparin. Cardiac rhythm is atrial fibrillation. Propofol level is at 0.25. Remains on IV Zosyn. Chest x-ray shows consolidation possibly right-sided pleural effusion. Attempted a bedside thoracentesis. Minimal amount of fluid came from the right lung. I'm going to order a CAT scan of the chest for this patient for tomorrow. He has no specific complaints. He remains on Levemir insulin. He is also on a sliding scale coverage. IV fluids are in the form of D5 water at the rate of 150 mL an hour and this was introduced down to 50 mL. On today's evaluation of 07/06/2022, the patient is on room air oxygen. The patient is communicating and the patient is alert. I attempted a thoracentesis on this patient and I failed to evacuate any significant pleural fluid from today right. The ultrasound the chest showed a small right-sided pocket in the order of 3 cm. Based on that, I ordered a CAT scan of the chest today to i nvestigate the situation further. There may be a concern for malignancy in this patient. Otherwise, the patient is doing well. Blood sugars have been fluctuating. The patient had a episode of hypoglycemia and I recommended switching and dropping his dose of Levemir. On today's blood work, his sodium is at 139, bicarb is at 18 with a BUN of 12 and a creatinine of 0.8. The lites echoes at 10.4 with a hemoglobin of 11.9. The patient's stool for C. diff has been negative. Occult stool for about has been positive. No signs of any respiratory distress. Remains on IV Zosyn. Objective - Vital Signs Vital signs: Vital Signs Temp 98.0 F 07/06/22 12:00 Pulse 82 07/06/22 12:00 Resp 23 07/06/22 12:00 BP 96/46 07/06/22 12:00 Pulse Ox 97 07/06/22 12:00 FiO2 97 07/04/22 20:00 Intake & Output 07/05/22 07/06/22 07/06/22 18:59 06:59 18:59 Intake Total 1347.240 5591.358 775 Output Total 2500 620 385 Balance -774.036 756.358 390 Weight 89.2 kg Intake: IV 1150 725 775 Dextrose 5% in Water 1, 800 600 300 000 ml @ 50 mls/hr IV . Q20H TOSIN Rx#:[id number] Magnesium Sulfate-D5w Pmx 200 1 gm In Dextrose/Water 1 100ml.bag @ 100 mls/hr IVPB Q1H TOSIN Rx#: [id number] Piperacillin-Tazobactam 3 350 125 75 .375 gm In Sodium Chloride 0.9% 100 ml @ 25 mls/hr IVPB Q8H TOSIN Rx#: [id number] Potassium Chloride 10 meq 200 In Water For Injection 1 100ml.bag @ 100 mls/hr IVPB Q1H TOSIN Rx#: [id number] Intake, IV Titration 575.964 591.358 Amount Heparin Sod,Pork in 0.45% 275.964 191.358 NaCl 25,000 unit In 0.45 % NaCl 1 250ml.bag @ 8. 479 UNITS/KG/HR 10 mls/hr IV .Q24H TOSIN Rx#: [id number] Potassium Chloride 10 meq 300 In Water For Injection 1 100ml.bag @ 100 mls/hr IVPB Q1HR TOSIN Rx#: [id number] Potassium Chloride 10 meq 400 In Water For Injection 1 100ml.bag @ 100 mls/hr IVPB Q1HR TOSIN Rx#: [id number] Oral 60 Output: Urine 2500 620 385 Other: Voiding Method Indwelling Catheter Indwelling Catheter Indwelling Catheter # Bowel Movements 1 1 - Exam Gen. appearance, the patient is in general debilitated, much more awake and communicative on today's evaluation. Head exam was generally normal. There was no scleral icterus or corneal arcus. Mucous membranes were moist. Neck was supple and without jugular venous distension, thyromegaly, or carotid bruits. Carotids were easily palpable bilaterally. There was no adenopathy. Lungs were clear to auscultation and percussion, and with normal diaphragmatic excursion. No wheezes or rales were noted. Breath sounds are diminished in the right lung base and there is also some bullous to percussion. Heart sounds are tachycardic,Cardiac exam revealed the PMI to be normally situated and sized. The rhythm was regular and no extrasystoles were noted during several minutes of auscultation. The first and second heart sounds were normal and physiologic splitting of the second heart sound was noted. There were no murmurs, rubs, clicks, or gallops. Abdominal exam revealed normal bowel sounds. The abdomen was soft, non-tender, and without masses, organomegaly, or appreciable enlargement of the abdominal ao rta. Extremities revealed diminished pulses bilaterally and areas of superficial wounds that are dry related to previous fall. No cyanosis or clubbing. Examination of the skin revealed no evidence of significant rashes, suspicious appearing nevi or other concerning lesions. Positive dry wounds of various sizes Neurologically, the patient profoundly weak, alert and oriented times two, communicating. - Labs CBC & Chem 7: 07/06/22 07:01 07/06/22 07:01 Labs: Abnormal Lab Results - Last 24 Hours (Table) 07/05/22 07/05/22 07/06/22 Range/Units 16:54 19:59 00:47 RBC (4.30-5.90) m/uL Hgb (13.0-17.5) gm/dL Hct (39.0-53.0) % Plt Count (150-450) k/uL APTT (22.0-30.0) sec Potassium 3.3 L (3.5-5.1) mmol/L Chloride (98-107) mmol/L Carbon Dioxide (22-30) mmol/L Glucose (74-99) mg/dL POC Glucose (mg/dL) 153 H 155 H (70-110) mg/dL Calcium (8.4-10.2) mg/dL 07/06/22 07/06/22 07/06/22 Range/Units 00:57 06:34 07:01 RBC 3.60 L (4.30-5.90) m/uL Hgb 11.9 L (13.0-17.5) gm/dL Hct 35.9 L (39.0-53.0) % Plt Count 143 L (150-450) k/uL APTT 44.4 H (22.0-30.0) sec Potassium (3.5-5.1) mmol/L Chloride (98-107) mmol/L Carbon Dioxide (22-30) mmol/L Glucose (74-99) mg/dL POC Glucose (mg/dL) 149 H (70-110) mg/dL Calcium (8.4-10.2) mg/dL 07/06/22 07/06/22 07/06/22 Range/Units 07:01 07:01 11:17 RBC (4.30-5.90) m/uL Hgb (13.0-17.5) gm/dL Hct (39.0-53.0) % Plt Count (150-450) k/uL APTT 54.5 H (22.0-30.0) sec Potassium (3.5-5.1) mmol/L Chloride 116 H (98-107) mmol/L Carbon Dioxide 18 L (22-30) mmol/L Glucose 148 H (74-99) mg/dL POC Glucose (mg/dL) 236 H (70-110) mg/dL Calcium 7.1 L (8.4-10.2) mg/dL Assessment and Plan Plan: Acute diabetic ketoacidosis in a patient with type 2 diabetes mellitus, improved and the patient had closure of his anion gap and the blood sugars under better control, currently on long-acting Levemir insulin Severe dehydration with hypernatremia, hyperchloremic and the patient's free water deficit is was corrected Acute hyperglycemia secondary to above, blood sugars under better control, currently on Levemir insulin and a slight scale coverage Acute hypernatremia, likely hypovolemic in nature, sodium level remains elevated and the patient has hyperchloremic hypernatremia, improving Acute kidney injury, improved Severe cardiomyopathy with an ejection fraction of 25% Small right-sided pleural effusion, awaiting a follow-up chest x-ray from today, likely related to CHF, attempted thoracentesis, failed to evacuate the pleural effusion. CAT scan of the chest is to follow Atrial fibrillation with a controlled rate currently on IV heparin, rate is controlled Possible right lung consolidation versus atelectasis. High probability VQ scan with an elevated d-dimer and negative Doppler of lower extremity. Clinically, pulmonary embolism is felt to be less likely. 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 Diabetes mellitus 2 Previous history of active fibrillation and current cardiac rhythm is sinus Septal Q waves indicative of a previous anterior wall myocardial infarction Hyperlipidemia Peripheral vascular disease History of smoking Plan Change this patient to D5 water at the rate of 50 mL an hour Monitor electrolytes Continue Levemir insulin, drop the dose down to 10 units a day Anion gap is closed Monitor mental status, in general his mental status is improving and has not completely normalized CAT scan of the chest with contrast and would prefer to do a CT angiogram 9 and there was also a concern for pulmonary embolism. Is also consent for malignancy and right-sided pleural effusion. Based on the results of the CAT scan, we'll make further recommendations. perform a swallow evaluation Attempted the bedside thoracentesis a minimum OF fluid came out from the patient's lungs on the right side, sizable pleural effusion is present on the CAT scan, we will proceed with another attempt with thoracentesis. Possibilities of malignancy versus loculated right-sided pleural effusion/parapneumonic/postextubation. Keep IV heparin for now and the CAT scan of the chest Continue IV Zosyn Keep the patient ICU We'll follow
[2022-07-06] MEDS: LOPERAMIDE 2 MG CAP PO PRN (13:36)
[2022-07-06 15:05] LABS: Magnesium 2.4 mg/dL (1.6-2.3); Potassium 3.6 mmol/L (3.5-5.1)
[2022-07-06] MEDS ORDERED: Potassium Replacement Protocol 1 EACH MISC MISCELLANE PRN (15:29)
[2022-07-06 16:32] LABS: Glucose,Whole Blood 225 mg/dL (70-110)
--- NOTE | 2022-07-06 19:17 | P.PN ---
Subjective From records This is a 71-year-old patient, has not follows Dr. Walden for years. Per the EMS report. When they arrived they found the patient getting only a Urine soaked underwear. Bed is also soaked for dry urine and that is under the mattress. Patient stated that he has not been getting out of bed for last 2 days. Has not been eating. He has not seen a doctor since 2014 when he had a stroke and is noncompliant with his medications. She is the rental boats caretaker. Patient finally is agreed to go to the hospital. She also felt that patient's breathing is also change in the last 3 days. 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 She is able to converse with him. She is normally alert to place person and time but currently she is less responsive. No trauma. He does not feel like eating. In the ER found to have a blood glucose in the 500s. Positive for serum acetone. Patient himself is unable to give much of history. Attempted to speak some words. Does move his limbs. Lethargic. On insulin drip. Also on heparin drip. Admitted with acute diabetic ketoacidosis/severe hypernatremia/acute metabolic encephalopathy/delirium/pneumonia/. Started on IV heparin, IV fluids, IV Zosyn, insulin drip. 07/03/2022: ICU: Encephalopathic. Delirious. Moves it about sometimes. Does open eyes. Not really answering questions. On D5W IV fluids, IV heparin, insulin drip, IV Zosyn,. Blood cultures positive for what appears to be Staphylococcus epidermidis. Was started on vancomycin earlier. A. fib rate controlled. 07/04/2022: ICU. With more awake today.. Taken off insulin drip this morning. Started on Levemir 20 units. at the bedside. IV Zosyn. D5 W. Remains in A. fib, rate controlled. Patient is out of DKA. 07/05/2022 this is a pleasant 71 years old female who was initially admitted with diabetic ketoacidosis found to have possible pneumonia with atrial fibrillation. Also showing severe cardiomyopathy with ejection fraction 25%, hypernatremia with fluid deficit. Patient with no chest pain or dyspnea Patient has been monitored closely in the ICU with pulmonary/critical care team and cardiology following her closely Vitas looks stable, she is saturating 95% and 2 L, blood pressure 96/41, she is tachypneic 26 Showing high pro calcitonin and 0.25 and chest x-ray showing opacity throughout her life flank with right pleural effusion and atelectasis. She has severe cardiomyopathy with ejection fraction of 25-30%. Ultrasound of the leg is negative, VQ scan shows some probability for PE and patient also already on IV heparin for cardiac disease. CT of the abdomen and pelvis and chest showing right hilar masslike opacity with distended gallbladder CT of the brain and neck is negative for acute process. 07/06/2022 pt remains in the icu requring close monitoring , today patient felt thoracocentesis, therefore CAT scan of the chest is ordered with IV contrast showing left-sided pulmonary embolism, multiple with moderate right pleural effusion and mediastinal lymphadenopathy suspicious for cancer. Also patient with some evidence of hypoglycemia and hypotension. For lower the dose of Levemir 20 units down to 10 units and lisinopril down to 2.5 mg. patient is still on heparin drip and Zosyn and D5W at 50 mL per hour Objective - Vital Signs Vital signs: Vital Signs Temp 97.9 F 07/06/22 08:00 Pulse 80 07/06/22 10:00 Resp 27 H 07/06/22 10:00 BP 106/56 07/06/22 10:00 Pulse Ox 94 L 07/06/22 10:00 FiO2 97 07/04/22 20:00 Intake & Output 07/05/22 07/06/22 07/06/22 18:59 06:59 18:59 Intake Total 7896.710 8153.358 275 Output Total 2500 620 290 Balance -774.036 756.358 -15 Weight 89.2 kg Intake: IV 1150 725 275 Dextrose 5% in Water 1, 800 600 200 000 ml @ 50 mls/hr IV . Q20H TOSIN Rx#:[id number] Piperacillin-Tazobactam 3 350 125 75 .375 gm In Sodium Chloride 0.9% 100 ml @ 25 mls/hr IVPB Q8H TOSIN Rx#: [id number] Intake, IV Titration 575.964 591.358 Amount Heparin Sod,Pork in 0.45% 275.964 191.358 NaCl 25,000 unit In 0.45 % NaCl 1 250ml.bag @ 8. 479 UNITS/KG/HR 10 mls/hr IV .Q24H TOSIN Rx#: [id number] Potassium Chloride 10 meq 300 In Water For Injection 1 100ml.bag @ 100 mls/hr IVPB Q1HR TOSIN Rx#: [id number] Potassium Chloride 10 meq 400 In Water For Injection 1 100ml.bag @ 100 mls/hr IVPB Q1HR TOSIN Rx#: [id number] Oral 60 Output: Urine 2500 620 290 Other: Voiding Method Indwelling Catheter Indwelling Catheter Indwelling Catheter # Bowel Movements 1 1 - Exam GENERAL: The patient is alert and oriented x3, not in any acute distress. Well developed, well nourished. HEENT: Pupils are round and equally reacting to light. EOMI. No scleral icterus. No conjunctival pallor. Normocephalic, atraumatic. No pharyngeal erythema. No thyromegaly. CARDIOVASCULAR: S1 and S2 present. No murmurs, rubs, or gallops. PULMONARY: Chest is clear to auscultation, no wheezing or crackles. ABDOMEN: Soft, nontender, nondistended, normoactive bowel sounds. No palpable organomegaly. MUSCULOSKELETAL: No joint swelling or deformity. EXTREMITIES: No cyanosis, clubbing, or pedal edema. NEUROLOGICAL: Gross neurological examination did not reveal any focal deficits. SKIN: No rashes. no petechiae. - Labs CBC & Chem 7: 07/06/22 07:01 07/06/22 14:03 Labs: Abnormal Lab Results - Last 24 Hours (Table) 07/05/22 07/05/22 07/05/22 Range/Units 05:42 11:19 16:54 RBC (4.30-5.90) m/uL Hgb (13.0-17.5) gm/dL Hct (39.0-53.0) % Plt Count (150-450) k/uL APTT (22.0-30.0) sec Potassium (3.5-5.1) mmol/L Chloride (98-107) mmol/L Carbon Dioxide (22-30) mmol/L Glucose (74-99) mg/dL POC Glucose (mg/dL) 196 H 153 H (70-110) mg/dL Calcium (8.4-10.2) mg/dL Procalcitonin 0.25 H (0.02-0.09) ng/mL 07/05/22 07/06/22 07/06/22 Range/Units 19:59 00:47 00:57 RBC (4.30-5.90) m/uL Hgb (13.0-17.5) gm/dL Hct (39.0-53.0) % Plt Count (150-450) k/uL APTT 44.4 H (22.0-30.0) sec Potassium 3.3 L (3.5-5.1) mmol/L Chloride (98-107) mmol/L Carbon Dioxide (22-30) mmol/L Glucose (74-99) mg/dL POC Glucose (mg/dL) 155 H (70-110) mg/dL Calcium (8.4-10.2) mg/dL Procalcitonin (0.02-0.09) ng/mL 07/06/22 07/06/22 07/06/22 Range/Units 06:34 07:01 07:01 RBC 3.60 L (4.30-5.90) m/uL Hgb 11.9 L (13.0-17.5) gm/dL Hct 35.9 L (39.0-53.0) % Plt Count 143 L (150-450) k/uL APTT (22.0-30.0) sec Potassium (3.5-5.1) mmol/L Chloride 116 H (98-107) mmol/L Carbon Dioxide 18 L (22-30) mmol/L Glucose 148 H (74-99) mg/dL POC Glucose (mg/dL) 149 H (70-110) mg/dL Calcium 7.1 L (8.4-10.2) mg/dL Procalcitonin (0.02-0.09) ng/mL 07/06/22 Range/Units 07:01 RBC (4.30-5.90) m/uL Hgb (13.0-17.5) gm/dL Hct (39.0-53.0) % Plt Count (150-450) k/uL APTT 54.5 H (22.0-30.0) sec Potassium (3.5-5.1) mmol/L Chloride (98-107) mmol/L Carbon Dioxide (22-30) mmol/L Glucose (74-99) mg/dL POC Glucose (mg/dL) (70-110) mg/dL Calcium (8.4-10.2) mg/dL Procalcitonin (0.02-0.09) ng/mL Assessment and Plan Assessment: Right lung atelectasis versus consolidation with Right hilar mass-like consolidation Severe cardiomyopathy with ejection fraction 25% new Onset atrial fibrillation on IV heparin mediastinal lymphadenopathy rule out malignancy Moderate right pleural effusion Elevated troponin, most likely demand/supply mismatch Hypernatremia Positive blood culture with coagulase-negative staph and staph epidermidis, most likely contamination and patient is asymptomatic regarding this left sideFrom pulmonary emboli Plan: continue with IV heparin, anticoagulation Continue D5W Continue Zosyn Monitor hemoglobin Several consultants on the case including critical care team and cardiology consult Labs and medication were reviewed.. Continue same treatment. Continue with symptomatic treatment. Resume home medication. Monitor lytes and vitals. DVT and GI prophylaxis. Further recommendations as per clinical course of the patient DVT prophylaxis: heparin GI Prophylaxis: Protonix PT/OT: Pending Prognosis is guarded
[2022-07-06 20:09] LABS: Glucose,Whole Blood 212 mg/dL (70-110)
[2022-07-07] MEDS: HEPARIN SOD,PORK IN 0.45% NACL 25,000 UNIT in 0.45% NACL 1 250ML.BAG IV SCH ×2 (01:00→13:37)
[2022-07-07 01:49] LABS: Glucose,Whole Blood 226 mg/dL (70-110)
[2022-07-07] MEDS: INSULIN ASPART (NovoLOG) 100 UNIT/ML VIAL SQ SCH ×5 (01:51→21:13)
[2022-07-07 03:55] LABS: Basophils % (A) 0 %; Eosinophils # (A) 0.1 k/uL (0-0.7); Eosinophils % (A) 1 %; HCT 31.8 % (39.0-53.0); HGB 10.8 gm/dL (13.0-17.5); Lymphocytes # (A) 0.9 k/uL (1.0-4.8); Lymphocytes % (A) 9 %; MCH 33.1 pg (25.0-35.0); MCHC 33.9 g/dL (31.0-37.0); MCV 97.8 fL (80.0-100.0); Mean Platelet Volume 8.5; Monocytes # (A) 0.6 k/uL (0-1.0); Monocytes % (A) 6 %; Neutrophils # (A) 8.1 k/uL (1.3-7.7); Neutrophils % (A) 83 %; Platelet Count 144 k/uL (150-450); RBC 3.26 m/uL (4.30-5.90); RDW 12.8 % (11.5-15.5); WBC 9.8 k/uL (3.8-10.6)
[2022-07-07 04:12] LABS: African American GFR (CKD) >90 (>60 ml/min/1.73 sqM); Anion Gap 6 mmol/L; Blood Urea Nitrogen 9 mg/dL (9-20); Calcium 7.1 mg/dL (8.4-10.2); Carbon Dioxide 18 mmol/L (22-30); Chloride 113 mmol/L (98-107); Glucose 189 mg/dL (74-99); Non-African American GFR(CKD) 86 (>60 ml/min/1.73 sqM); Potassium 3.9 mmol/L (3.5-5.1); Sodium 137 mmol/L (137-145)
[2022-07-07] MEDS: POTASSIUM CHLORIDE 10 MEQ in WATER FOR INJECTION 1 100ML.BAG IVPB SCH ×2 (04:35→05:35)
[2022-07-07] MEDS: DEXTROSE 5% IN WATER 1,000 ML IV SCH ×2 (04:36→17:59)
[2022-07-07] MEDS: PIPERACILLIN-TAZOBACTAM 3.375 GM in SODIUM CHLORIDE 0.9% 100 ML IVPB SCH ×3 (05:26→21:13)
[2022-07-07 06:43] LABS: Glucose,Whole Blood 205 mg/dL (70-110)
[2022-07-07] MEDS: INSULIN DETEMIR (LEVEMIR) 100 UNIT/ML SYR SQ SCH (06:44)
--- NOTE | 2022-07-07 08:45 | P.PN ---
Subjective PROGRESS NOTE The patient is a 71-year-old male who presented to the emergency room after the insistence of his because of progressive fatigue, lack of energy and shortness of breath. In the emergency room he was noted to have diabetic ketoac idosis and mild elevation of the troponin. The history is obtained from the . 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 He has stopped taking all his medications. He is to smoke up to one year ago. He is limited in his physical activity. His left ventricle systolic function in 2014 was normal. He has no prior history of myocardial infarction or heart failure. His duplex scan of the lower extremities was unremarkable but his ventilation/perfusion scan raised the possibility of pulmonary embolism on the right side. His renal function are abnormal on presentation. His baseline is not available. The patient is awake, answering a few questions. In the emergency room he was noted to be in atrial fibrillation with rapid ventricle response of unknown duration. He does not consume alcohol or significant amount of caffeine. July 03: The patient is awake but not answering questions. He remains lethargic and obtunded. He continues to be in atrial fibrillation with controlled ventricular response, he is on IV heparin. His blood pressure is stable. His urinary output has been good. His blood sugar is better and his renal function had normalized. His chest x-ray shows right-sided pleural effusion. The patient has an abnormal ventilation/perfusion scan and further evaluation will be needed. July 04: He appears to be more awake and alert today. He continues to be in atrial fibrillation with controlled ventricular response. He is tolerating by mouth. There is no evidence of ventricular ectopic activity. His urinary output is stable. There is no evidence of ventricular ectopic activity. His echocardiogram showed a severely impaired left ventricle systolic function with no significant valvular disease and mild pulmonary hypertension. His acidosis resolved and his blood sugar is under better control. July 05: The patient is more awake and alert today. He continues to be in atrial fibrillation with controlled ventricular response. His blood pressure is on the low side. He has no nausea or vomiting. He continues to be on IV heparin pending the decision regarding thoracentesis. He has no evidence of ventricular ectopic activity. His urinary output is stable. July 06: He is feeling well today, he denies any chest discomfort, dizziness or palpitations. He continues to be in atrial fibrillation with controlled ventricular response. He's scheduled to undergo ultrasound of the chest. His urinary output has been stable. He has no nausea or vomiting. He had an episode of pause during the night. His blood pressure has been on the lower side. 07/07 Patient seen and examined. Patient somewhat confused and cannot recall events of when he came in. Denies any chest pain or pressure. Lisinopril was started this morning at 2.5 however blood pressures somewhat soft and has not been given yet. Remains on heparin drip. PHYSICAL EXAMINATION: Vitals reviewed LUNGS: Clear to auscultation anteriorly with decreased breath sounds at the base posteriorly HEART: Irregular rate and rhythm, S1, S2. No S3. systolic ejection murmur ABDOMEN: Soft, nontender, no organomegaly EXTREMETIES: No edema IMPRESSION: 1. Diabetic ketoacidosis, resolved 2. Atrial fibrillation, of unknown duration, on IV heparin pending possible thoracentesis 3. History of stroke 4. Possible lung mass with pleural effusion 5. History of occluded left carotid artery 6. History of chronic tobacco use 7. Acute renal injury, resolved 8. Troponin elevation secondary to type II myocardial infarction 9. Cardiomyopathy of unknown duration or etiology 10. Noncompliance 11. PE PLAN: 1. Heart failure regimen as able. Montitor response of Lisinopril 2.5mg daily. 2. Continue IV heparin until the decision is made regarding thoracentesis then change to oral, DVT/PE dosing 3. Increase activity and physical therapy 4. Follow renal functions Objective - Vital Signs Vital signs: Vital Signs Temp 99.1 F 07/07/22 08:00 Pulse 83 07/07/22 08:00 Resp 18 07/07/22 08:00 BP 107/54 07/07/22 08:00 Pulse Ox 93 L 07/07/22 08:00 FiO2 97 07/04/22 20:00 Intake & Output 07/06/22 07/07/22 07/07/22 18:59 06:59 18:59 Intake Total 1291 1020 Output Total 560 1050 300 Balance 731 -30 -300 Weight 88.5 kg Intake: IV 975 550 Dextrose 5% in Water 1, 400 450 000 ml @ 50 mls/hr IV . Q20H TOSIN Rx#:[id number] Magnesium Sulfate-D5w Pmx 200 1 gm In Dextrose/Water 1 100ml.bag @ 100 mls/hr IVPB Q1H TOSIN Rx#: [id number] Piperacillin-Tazobactam 3 175 100 .375 gm In Sodium Chloride 0.9% 100 ml @ 25 mls/hr IVPB Q8H TOSIN Rx#: [id number] Potassium Chloride 10 meq 200 In Water For Injection 1 100ml.bag @ 100 mls/hr IVPB Q1H TOSIN Rx#: [id number] Intake, IV Titration 450 Amount Heparin Sod,Pork in 0.45% 250 NaCl 25,000 unit In 0.45 % NaCl 1 250ml.bag @ 8. 479 UNITS/KG/HR 10 mls/hr IV .Q24H TOSIN Rx#: [id number] Potassium Chloride 10 meq 200 In Water For Injection 1 100ml.bag @ 100 mls/hr IVPB Q1H TOSIN Rx#: [id number] Oral 316 20 Output: Urine 560 1050 300 Other: Voiding Method Indwelling Catheter Indwelling Catheter # Bowel Movements 1 - Labs CBC & Chem 7: 07/07/22 03:06 07/07/22 03:06 Labs: Abnormal Lab Results - Last 24 Hours (Table) 07/06/22 07/06/22 07/06/22 Range/Units 11:17 14:03 16:31 RBC (4.30-5.90) m/uL Hgb (13.0-17.5) gm/dL Hct (39.0-53.0) % Plt Count (150-450) k/uL Neutrophils # (1.3-7.7) k/uL Lymphocytes # (1.0-4.8) k/uL APTT (22.0-30.0) sec Chloride (98-107) mmol/L Carbon Dioxide (22-30) mmol/L Glucose (74-99) mg/dL POC Glucose (mg/dL) 236 H 225 H (70-110) mg/dL Calcium (8.4-10.2) mg/dL Magnesium 2.4 H (1.6-2.3) mg/dL 07/06/22 07/07/22 07/07/22 Range/Units 20:07 01:46 03:06 RBC (4.30-5.90) m/uL Hgb (13.0-17.5) gm/dL Hct (39.0-53.0) % Plt Count (150-450) k/uL Neutrophils # (1.3-7.7) k/uL Lymphocytes # (1.0-4.8) k/uL APTT (22.0-30.0) sec Chloride 113 H (98-107) mmol/L Carbon Dioxide 18 L (22-30) mmol/L Glucose 189 H (74-99) mg/dL POC Glucose (mg/dL) 212 H 226 H (70-110) mg/dL Calcium 7.1 L (8.4-10.2) mg/dL Magnesium (1.6-2.3) mg/dL 07/07/22 07/07/22 07/07/22 Range/Units 03:06 06:40 07:10 RBC 3.26 L (4.30-5.90) m/uL Hgb 10.8 L (13.0-17.5) gm/dL Hct 31.8 L (39.0-53.0) % Plt Count 144 L (150-450) k/uL Neutrophils # 8.1 H (1.3-7.7) k/uL Lymphocytes # 0.9 L (1.0-4.8) k/uL APTT 47.1 H (22.0-30.0) sec Chloride (98-107) mmol/L Carbon Dioxide (22-30) mmol/L Glucose (74-99) mg/dL POC Glucose (mg/dL) 205 H (70-110) mg/dL Calcium (8.4-10.2) mg/dL Magnesium (1.6-2.3) mg/dL
[2022-07-07] MEDS ORDERED: APIXABAN 5 MG TAB PO SCH (09:00)
--- NOTE | 2022-07-07 09:07 | XR ---
EXAMINATION TYPE: XR chest 1V portable DATE OF EXAM: 07/07/2022 COMPARISON: 07/06/2022 HISTORY: Shortness of breath TECHNIQUE: Single frontal view of the chest is obtained. FINDINGS: Right-sided consolidation and pleural effusion is noted and there is a bilateral interstit ial pattern. Right hilar and suprahilar soft tissue prominence. Heart size stable. No pneumothorax. O sseous structures demonstrate hypertrophic degenerative changes of the spine. Arthropathy of the shou lders. Chronic deformity of the left humeral head. IMPRESSION: 1. Right-sided consolidation and pleural effusion stable correlate pneumonia. 2. Coarsened interstitial pattern is stable correlate for interstitial pneumonitis, chronic interstit ial lung disease or venous congestion. 3. Suspect right hilar mass or adenopathy.
[2022-07-07] MEDS: ATORVASTATIN 40 MG TAB PO SCH (09:25)
[2022-07-07] MEDS: SPIRONOLACTONE 25 MG TAB PO SCH (09:25)
[2022-07-07] MEDS: METOPROLOL TARTRATE 25 MG TAB PO SCH ×2 (09:25→21:12)
[2022-07-07 11:09] LABS: Glucose,Whole Blood 197 mg/dL (70-110)
[2022-07-07] MEDS ORDERED: HEPARIN SODIUM 1,000 UN/ML (10ML VL) IV PRN (13:23)
--- NOTE | 2022-07-07 13:53 | P.PN ---
Subjective Progress Note Date: 07/07/22 Principal diagnosis: Acute diabetic ketoacidosis On 07/04/2022, I'm seeing the patient for a follow-up. The patient seems to be slightly more awake compared to yesterday. The patient had a massive water deficit and the patient remains on D5 water which is running at a rate of 1 50 mL an hour. He cc more interactive. He is lethargic. However when stimulated, he would answer questions. He was getting upset easily and he does not seem to be cooperative. He is aware that she is in the hospital. He isn't a very poor health condition. His troponins were abnormal. He was given an echocardiogram and the patient was found to have an ejection fraction of 25% consistent with systolic heart failure. The chronicity of his CHF is not known. The patient was also found to have a right-sided pleural effusion and some atelectatic changes in the right lung. We are contemplating to do a thoracentesis of the later stage. Although, this pleural fluid could be related to CHF. Meanwhile, the patient remains on D5 water. The patient has improvement in his electrolytes. Anion gap metabolic acidosis is recovered. Serum bicarb is up to 19. BUN is at 28 with a creatinine of 0.9. Sodium is at 148 with a chloride level of 124. The WBC count is at 10.8 with a hemoglobin of 12. The patient remains on IV heparin regarding his underlying chronic a chair fibrillation. His swallow evaluation is to be done today. His mucous membranes in his oral condition is improved with hydration. He was started on Levemir insulin by the medical team 20 units daily along with that he is receiving a sliding scale coverage. 07/05/2022, the patient is much more awake. The patient remains on D5 water.The patient has developed improvement electrolytes. Sodium level is down to 140 and the patient's serum bicarbonate of 18 with a BUN of 17 and a creatinine of 0.8. The white cell count of 9.5 with a hemoglobin of 11.3. Remains on IV heparin. Cardiac rhythm is atrial fibrillation. Propofol level is at 0.25. Remains on IV Zosyn. Chest x-ray shows consolidation possibly right-sided pleural effusion. Attempted a bedside thoracentesis. Minimal amount of fluid came from the right lung. I'm going to order a CAT scan of the chest for this patient for tomorrow. He has no specific complaints. He remains on Levemir insulin. He is also on a sliding scale coverage. IV fluids are in the form of D5 water at the rate of 150 mL an hour and this was introduced down to 50 mL. On today's evaluation of 07/06/2022, the patient is on room air oxygen. The patient is communicating and the patient is alert. I attempted a thoracentesis on this patient and I failed to evacuate any significant pleural fluid from today right. The ultrasound the chest showed a small right-sided pocket in the order of 3 cm. Based on that, I ordered a CAT scan of the chest today to investigate the situation further. There may be a concern for malignancy in this patient. Otherwise, the patient is doing well. Blood sugars have been fluctuating. The patient had a episode of hypoglycemia and I recommended switching and dropping his dose of Levemir. On today's blood work, his sodium i s at 139, bicarb is at 18 with a BUN of 12 and a creatinine of 0.8. The lites echoes at 10.4 with a hemoglobin of 11.9. The patient's stool for C. diff has been negative. Occult stool for about has been positive. No signs of any respiratory distress. Remains on IV Zosyn. Reevaluated today on 07/07/22, patient remains in the ICU, seems to be doing fairly well, not in any distress, patient is on 2 L nasal cannula and his O2 sats is 95%. Chest x-ray continues to show a small tiny right-sided pleural effusion, not large enough to consider thoracentesis. Hence I have no plans to perform thoracentesis of this patient at present. Apparently this was attempted by Dr. Fajardo on 07/05, and no fluid could be drained. Patient does have mediastinal adenopathy which may have to be addressed on an outpatient basis. CT angiogram of the chest showed evidence of pulmonary embolism. Patient r emains on heparin, and I plan to transition the patient developed loose today. I reviewed the CT of the chest, there is evidence of mediastinal adenopathy and right supraclavicular adenopathy patient will need outpatient PET scan and possibly CT-guided needle biopsy of the supraclavicular lymph node this could all be done on outpatient basis Objective - Vital Signs Vital signs: Vital Signs Temp 99 F 07/07/22 12:00 Pulse 91 07/07/22 12:00 Resp 21 07/07/22 12:00 BP 114/55 07/07/22 12:00 Pulse Ox 95 07/07/22 12:00 FiO2 97 07/04/22 20:00 Intake & Output 07/06/22 07/07/22 07/07/22 18:59 06:59 18:59 Intake Total 1291 1020 Output Total 560 1050 550 Balance 731 -30 -550 Weight 88.5 kg Intake: IV 975 550 Dextrose 5% in Water 1, 400 450 000 ml @ 50 mls/hr IV . Q20H TOSIN Rx#:[id number] Magnesium Sulfate-D5w Pmx 200 1 gm In Dextrose/Water 1 100ml.bag @ 100 mls/hr IVPB Q1H TOSIN Rx#: [id number] Piperacillin-Tazobactam 3 175 100 .375 gm In Sodium Chloride 0.9% 100 ml @ 25 mls/hr IVPB Q8H TOSIN Rx#: [id number] Potassium Chloride 10 meq 200 In Water For Injection 1 100ml.bag @ 100 mls/hr IVPB Q1H TOSIN Rx#: [id number] Intake, IV Titration 450 Amount Heparin Sod,Pork in 0.45% 250 NaCl 25,000 unit In 0.45 % NaCl 1 250ml.bag @ 8. 479 UNITS/KG/HR 10 mls/hr IV .Q24H TOSIN Rx#: [id number] Potassium Chloride 10 meq 200 In Water For Injection 1 100ml.bag @ 100 mls/hr IVPB Q1H TOSIN Rx#: [id number] Oral 316 20 Output: Urine 560 1050 550 Other: Voiding Method Indwelling Catheter Indwelling Catheter Indwelling Catheter # Bowel Movements 1 - Exam Physical Exam: Revealed a 71-year-old white male in no distress, Head: Atraumatic normocephalic. HEENT:[Neck is supple.] [No neck masses.] [No thyromegaly.] [No JVD.] Chest: [Slightly diminished breath sounds and dullness at the right base. Cardiac Exam: [Normal S1 and S2, no S3 gallop, no murmur.] Abdomen: [Soft, nontender, no megaly, no rebound, no guarding, normal bowel sounds.] Extremities: [No clubbing, no edema, no cyanosis.] Neurological Exam: [No focal neurologic deficit.] Patient seems seems to be a bit confused. - Labs CBC & Chem 7: 07/07/22 03:06 07/07/22 03:06 Labs: Abnormal Lab Results - Last 24 Hours (Table) 07/06/22 07/06/22 07/06/22 Range/Units 14:03 16:31 20:07 RBC (4.30-5.90) m/uL Hgb (13.0-17.5) gm/dL Hct (39.0-53.0) % Plt Count (150-450) k/uL Neutrophils # (1.3-7.7) k/uL Lymphocytes # (1.0-4.8) k/uL APTT (22.0-30.0) sec Chloride (98-107) mmol/L Carbon Dioxide (22-30) mmol/L Glucose (74-99) mg/dL POC Glucose (mg/dL) 225 H 212 H (70-110) mg/dL Calcium (8.4-10.2) mg/dL Magnesium 2.4 H (1.6-2.3) mg/dL 07/07/22 07/07/22 07/07/22 Range/Units 01:46 03:06 03:06 RBC 3.26 L (4.30-5.90) m/uL Hgb 10.8 L (13.0-17.5) gm/dL Hct 31.8 L (39.0-53.0) % Plt Count 144 L (150-450) k/uL Neutrophils # 8.1 H (1.3-7.7) k/uL Lymphocytes # 0.9 L (1.0-4.8) k/uL APTT (22.0-30.0) sec Chloride 113 H (98-107) mmol/L Carbon Dioxide 18 L (22-30) mmol/L Glucose 189 H (74-99) mg/dL POC Glucose (mg/dL) 226 H (70-110) mg/dL Calcium 7.1 L (8.4-10.2) mg/dL Magnesium (1.6-2.3) mg/dL 07/07/22 07/07/22 07/07/22 Range/Units 06:40 07:10 11:07 RBC (4.30-5.90) m/uL Hgb (13.0-17.5) gm/dL Hct (39.0-53.0) % Plt Count (150-450) k/uL Neutrophils # (1.3-7.7) k/uL Lymphocytes # (1.0-4.8) k/uL APTT 47.1 H (22.0-30.0) sec Chloride (98-107) mmol/L Carbon Dioxide (22-30) mmol/L Glucose (74-99) mg/dL POC Glucose (mg/dL) 205 H 197 H (70-110) mg/dL Calcium (8.4-10.2) mg/dL Magnesium (1.6-2.3) mg/dL Assessment and Plan Assessment: Impression: Acute diabetic ketoacidosis, resolved. Acute pulmonary embolism Paroxysmal atrial fibrillation History of CVA Possible underlying pulmonary malignancy with abnormal mediastinal lymph nodes and right supraclavicular lymph nodes Small pleural effusion, not large enough to perform safe thoracentesis Acute kidney injury, resolved. Cardiomyopathy, unknown etiology, being addressed by cardiology on the case. Ejection fraction of 25%. Severe dehydration on presentation secondary to DKA. Possible right lower lobe consolidation. Underlying malignancy is not entirely ruled out. Peripheral vessel occlusive disease. History of smoking. Noncompliance Recommendation: Continue present supportive care measures Continue insulin Accu-Cheks and correct accordingly Could transfer the patient out of the ICU to a cardiac floor. Will eventually need outpatient follow-up on his mediastinal and right supraclavicular lymphadenopathy Will need a PET scan on outpatient basis Change heparin to quit. Continue Zosyn for now. We will continue to follow Time with Patient: Less than 30
[2022-07-07 14:51] LABS: Basophils % (A) 0 %; Eosinophils # (A) 0.1 k/uL (0-0.7); Eosinophils % (A) 1 %; HCT 33.4 % (39.0-53.0); Lymphocytes % (A) 10 %; MCH 32.6 pg (25.0-35.0); MCHC 33.1 g/dL (31.0-37.0); MCV 98.6 fL (80.0-100.0); Mean Platelet Volume 8.9; Monocytes # (A) 0.4 k/uL (0-1.0); Monocytes % (A) 3 %; Neutrophils # (A) 8.5 k/uL (1.3-7.7); Neutrophils % (A) 84 %; Platelet Count 153 k/uL (150-450); RBC 3.38 m/uL (4.30-5.90); RDW 13.3 % (11.5-15.5); WBC 10.1 k/uL (3.8-10.6)
[2022-07-07 15:24] LABS: INR 1.1 (<1.2); Partial Thromboplastin Time 35.6 sec (22.0-30.0); Prothrombin Time 11.9 sec (9.0-12.0)
[2022-07-07 16:42] LABS: Glucose,Whole Blood 127 mg/dL (70-110)
[2022-07-07 19:36] LABS: Glucose,Whole Blood 167 mg/dL (70-110)
--- NOTE | 2022-07-07 20:10 | P.PN ---
Subjective From records This is a 71-year-old patient, has not follows Dr. Walden for years. Per the EMS report. When they arrived they found the patient getting only a Urine soaked underwear. Bed is also soaked for dry urine and that is under the mattress. Patient stated that he has not been getting out of bed for last 2 days. Has not been eating. He has not seen a doctor since 2014 when he had a stroke and is noncompliant with his medications. She is the gum mixer. Patient finally is agreed to go to the hospital. She also felt that patient's breathing is also change in the last 3 days. 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 She is able to converse with him. She is normally alert to place person and time but currently she is less responsive. No trauma. He does not feel like eating. In the ER found to have a blood glucose in the 500s. Positive for serum acetone. Patient himself is unable to give much of history. Attempted to speak some words. Does move his limbs. Lethargic. On insulin drip. Also on heparin drip. Admitted with acute diabetic ketoacidosis/severe hypernatremia/acute metabolic encephalopathy/delirium/pneumonia/. Started on IV heparin, IV fluids, IV Zosyn, insulin drip. 07/03/2022: ICU: Encephalopathic. Delirious. Moves it about sometimes. Does open eyes. Not really answering questions. On D5W IV fluids, IV heparin, insulin drip, IV Zosyn,. Blood cultures positive for what appears to be Staphylococcus epidermidis. Was started on vancomycin earlier. A. fib rate controlled. 07/04/2022: ICU. With more awake today.. Taken off insulin drip this morning. Started on Levemir 20 units. at the bedside. IV Zosyn. D5 W. Remains in A. fib, rate controlled. Patient is out of DKA. 07/05/2022 this is a pleasant 71 years old female who was initially admitted with diabetic ketoacidosis found to have possible pneumonia with atrial fibrillation. Also showing severe cardiomyopathy with ejection fraction 25%, hypernatremia with fluid deficit. Patient with no chest pain or dyspnea Patient has been monitored closely in the ICU with pulmonary/critical care team and cardiology following her closely Vitas looks stable, she is saturating 95% and 2 L, blood pressure 96/41, she is tachypneic 26 Showing high pro calcitonin and 0.25 and chest x-ray showing opacity throughout her life flank with right pleural effusion and atelectasis. She has severe cardiomyopathy with ejection fraction of 25-30%. Ultrasound of the leg is negative, VQ scan shows some probability for PE and patient also already on IV heparin for cardiac disease. CT of the abdomen and pelvis and chest showing right hilar masslike opacity with distended gallbladder CT of the brain and neck is negative for acute process. 07/06/2022 pt remains in the icu requring close monitoring , today patient felt thoracocentesis, therefore CAT scan of the chest is ordered with IV contrast showing left-sided pulmonary embolism, multiple with moderate right pleural effusion and mediastinal lymphadenopathy suspicious for cancer. Also patient with some evidence of hypoglycemia and hypotension. For lower the dose of Levemir 20 units down to 10 units and lisinopril down to 2.5 mg. patient is still on heparin drip and Zosyn and D5W at 50 mL per hour 07/07/2022 Patient is awake but lethargic and confused, he was admitted with multiple medical problems including cardiomyopathy with ejection fraction 25%, possible right lung mass and lymphadenopathy that could require PET scan and close pulmonary outpatient follow-up. Also with gallbladder disease and distended gallbladder. Patient also was covered with antibiotic with Zosyn. Patient also with history of A. fib on anticoagulation, currently he is on IV heparin He looks more stable today and to be transferred to the general medical floor. Other than that his vitals are stable and labs are stable as well Also he is on D5 W. Monitor sodium level Objective - Vital Signs Vital signs: Vital Signs Temp 99.1 F 07/07/22 08:00 Pulse 83 07/07/22 08:00 Resp 18 07/07/22 08:00 BP 107/54 07/07/22 08:00 Pulse Ox 93 L 07/07/22 08:00 FiO2 97 07/04/22 20:00 Intake & Output 07/06/22 07/07/22 07/07/22 18:59 06:59 18:59 Intake Total 1291 1020 Output Total 560 1050 550 Balance 731 -30 -550 Weight 88.5 kg Intake: IV 975 550 Dextrose 5% in Water 1, 400 450 000 ml @ 50 mls/hr IV . Q20H [facility] Rx#:[id number] Magnesium Sulfate-D5w Pmx 200 1 gm In Dextrose/Water 1 100ml.bag @ 100 mls/hr IVPB Q1H [facility] Rx#: [id number] Piperacillin-Tazobactam 3 175 100 .375 gm In Sodium Chloride 0.9% 100 ml @ 25 mls/hr IVPB Q8H [facility] Rx#: [id number] Potassium Chloride 10 meq 200 In Water For Injection 1 100ml.bag @ 100 mls/hr IVPB Q1H [facility] Rx#: [id number] Intake, IV Titration 450 Amount Heparin Sod,Pork in 0.45% 250 NaCl 25,000 unit In 0.45 % NaCl 1 250ml.bag @ 8. 479 UNITS/KG/HR 10 mls/hr IV .Q24H [facility] Rx#: [id number] Potassium Chloride 10 meq 200 In Water For Injection 1 100ml.bag @ 100 mls/hr IVPB Q1H [facility] Rx#: [id number] Oral 316 20 Output: Urine 560 1050 550 Other: Voiding Method Indwelling Catheter Indwelling Catheter Indwelling Catheter # Bowel Movements 1 - Exam GENERAL: The patient is alert and oriented x3, not in any acute distress. Well developed, well nourished. HEENT: Pupils are round and equally reacting to light. EOMI. No scleral icterus. No conjunctival pallor. Normocephalic, atraumatic. No pharyngeal erythema. No thyromegaly. CARDIOVASCULAR: S1 and S2 present. No murmurs, rubs, or gallops. PULMONARY: Chest is clear to auscultation, no wheezing or crackles. ABDOMEN: Soft, nontender, nondistended, normoactive bowel sounds. No palpable organomegaly. MUSCULOSKELETAL: No joint swelling or deformity. EXTREMITIES: No cyanosis, clubbing, or pedal edema. NEUROLOGICAL: Gross neurological examination did not reveal any focal deficits. SKIN: No rashes. no petechiae. - Labs CBC & Chem 7: 07/07/22 14:04 07/07/22 03:06 Labs: Abnormal Lab Results - Last 24 Hours (Table) 07/06/22 07/06/22 07/06/22 Range/Units 11:17 14:03 16:31 RBC (4.30-5.90) m/uL Hgb (13.0-17.5) gm/dL Hct (39.0-53.0) % Plt Count (150-450) k/uL Neutrophils # (1.3-7.7) k/uL Lymphocytes # (1.0-4.8) k/uL APTT (22.0-30.0) sec Chloride (98-107) mmol/L Carbon Dioxide (22-30) mmol/L Glucose (74-99) mg/dL POC Glucose (mg/dL) 236 H 225 H (70-110) mg/dL Calcium (8.4-10.2) mg/dL Magnesium 2.4 H (1.6-2.3) mg/dL 07/06/22 07/07/22 07/07/22 Range/Units 20:07 01:46 03:06 RBC (4.30-5.90) m/uL Hgb (13.0-17.5) gm/dL Hct (39.0-53.0) % Plt Count (150-450) k/uL Neutrophils # (1.3-7.7) k/uL Lymphocytes # (1.0-4.8) k/uL APTT (22.0-30.0) sec Chloride 113 H (98-107) mmol/L Carbon Dioxide 18 L (22-30) mmol/L Glucose 189 H (74-99) mg/dL POC Glucose (mg/dL) 212 H 226 H (70-110) mg/dL Calcium 7.1 L (8.4-10.2) mg/dL Magnesium (1.6-2.3) mg/dL 07/07/22 07/07/22 07/07/22 Range/Units 03:06 06:40 07:10 RBC 3.26 L (4.30-5.90) m/uL Hgb 10.8 L (13.0-17.5) gm/dL Hct 31.8 L (39.0-53.0) % Plt Count 144 L (150-450) k/uL Neutrophils # 8.1 H (1.3-7.7) k/uL Lymphocytes # 0.9 L (1.0-4.8) k/uL APTT 47.1 H (22.0-30.0) sec Chloride (98-107) mmol/L Carbon Dioxide (22-30) mmol/L Glucose (74-99) mg/dL POC Glucose (mg/dL) 205 H (70-110) mg/dL Calcium (8.4-10.2) mg/dL Magnesium (1.6-2.3) mg/dL Assessment and Plan Assessment: Right lung atelectasis versus consolidation with Right hilar mass-like consolidation Severe cardiomyopathy with ejection fraction 25% new Onset atrial fibrillation on IV heparin mediastinal lymphadenopathy rule out malignancy Moderate right pleural effusion Elevated troponin, most likely demand/supply mismatch Hypernatremia Positive blood culture with coagulase-negative staph and staph epidermidis, most likely contamination and patient is asymptomatic regarding this left sideFrom pulmonary emboli Plan: continue with IV heparin, anticoagulation Continue D5W Continue Zosyn Monitor hemoglobin Several consultants on the case including critical care team and cardiology consult Labs and medication were reviewed.. Continue same treatment. Continue with symptomatic treatment. Resume home medication. Monitor lytes and vitals. DVT and GI prophylaxis. Further recommendations as per clinical course of the patient DVT prophylaxis: heparin GI Prophylaxis: Protonix PT/OT: Pending Prognosis is guarded
[2022-07-08] MEDS: INSULIN ASPART (NovoLOG) 100 UNIT/ML VIAL SQ SCH ×5 (02:00→20:54)
[2022-07-08 02:01] LABS: Glucose,Whole Blood 130 mg/dL (70-110)
[2022-07-08 05:51] LABS: Glucose,Whole Blood 177 mg/dL (70-110)
[2022-07-08] MEDS: PIPERACILLIN-TAZOBACTAM 3.375 GM in SODIUM CHLORIDE 0.9% 100 ML IVPB SCH ×3 (06:03→20:54)
[2022-07-08] MEDS: INSULIN DETEMIR (LEVEMIR) 100 UNIT/ML SYR SQ SCH (06:03)
[2022-07-08] MEDS: HEPARIN SOD,PORK IN 0.45% NACL 25,000 UNIT in 0.45% NACL 1 250ML.BAG IV SCH (06:07)
[2022-07-08] MEDS: METOPROLOL TARTRATE 25 MG TAB PO SCH ×2 (07:44→20:54)
[2022-07-08] MEDS: SPIRONOLACTONE 25 MG TAB PO SCH (07:44)
[2022-07-08] MEDS: ATORVASTATIN 40 MG TAB PO SCH (07:44)
[2022-07-08 07:49] LABS: Basophils # (A) 0.1 k/uL (0-0.2); Basophils % (A) 1 %; Eosinophils # (A) 0.1 k/uL (0-0.7); Eosinophils % (A) 1 %; HCT 31.9 % (39.0-53.0); HGB 10.8 gm/dL (13.0-17.5); Lymphocytes # (A) 0.9 k/uL (1.0-4.8); Lymphocytes % (A) 10 %; MCH 33.2 pg (25.0-35.0); MCHC 33.8 g/dL (31.0-37.0); MCV 98.2 fL (80.0-100.0); Mean Platelet Volume 8.6; Monocytes # (A) 0.4 k/uL (0-1.0); Monocytes % (A) 5 %; Neutrophils # (A) 7.8 k/uL (1.3-7.7); Neutrophils % (A) 83 %; Platelet Count 170 k/uL (150-450); RBC 3.24 m/uL (4.30-5.90); WBC 9.4 k/uL (3.8-10.6)
--- NOTE | 2022-07-08 09:52 | P.PN ---
Subjective PROGRESS NOTE The patient is a 71-year-old male who presented to the emergency room after the insistence of his because of progressive fatigue, lack of energy and shortness of breath. In the emergency room he was noted to have diabetic ketoac idosis and mild elevation of the troponin. The history is obtained from the . 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 He has stopped taking all his medications. He is to smoke up to one year ago. He is limited in his physical activity. His left ventricle systolic function in 2014 was normal. He has no prior history of myocardial infarction or heart failure. His duplex scan of the lower extremities was unremarkable but his ventilation/perfusion scan raised the possibility of pulmonary embolism on the right side. His renal function are abnormal on presentation. His baseline is not available. The patient is awake, answering a few questions. In the emergency room he was noted to be in atrial fibrillation with rapid ventricle response of unknown duration. He does not consume alcohol or significant amount of caffeine. July 03: The patient is awake but not answering questions. He remains lethargic and obtunded. He continues to be in atrial fibrillation with controlled ventricular response, he is on IV heparin. His blood pressure is stable. His urinary output has been good. His blood sugar is better and his renal function had normalized. His chest x-ray shows right-sided pleural effusion. The patient has an abnormal ventilation/perfusion scan and further evaluation will be needed. July 04: He appears to be more awake and alert today. He continues to be in atrial fibrillation with controlled ventricular response. He is tolerating by mouth. There is no evidence of ventricular ectopic activity. His urinary output is stable. There is no evidence of ventricular ectopic activity. His echocardiogram showed a severely impaired left ventricle systolic function with no significant valvular disease and mild pulmonary hypertension. His acidosis resolved and his blood sugar is under better control. July 05: The patient is more awake and alert today. He continues to be in atrial fibrillation with controlled ventricular response. His blood pressure is on the low side. He has no nausea or vomiting. He continues to be on IV heparin pending the decision regarding thoracentesis. He has no evidence of ventricular ectopic activity. His urinary output is stable. July 06: He is feeling well today, he denies any chest discomfort, dizziness or palpitations. He continues to be in atrial fibrillation with controlled ventricular response. He's scheduled to undergo ultrasound of the chest. His urinary output has been stable. He has no nausea or vomiting. He had an episode of pause during the night. His blood pressure has been on the lower side. 07/07 Patient seen and examined. Patient somewhat confused and cannot recall events of when he came in. Denies any chest pain or pressure. Lisinopril was started this morning at 2.5 however blood pressures somewhat soft and has not been given yet. Remains on heparin drip. 07/08 Patient seen and examined. Patient states he "just doesn't feel good" however no specific complaints. Admits to shortness breath is somewhat improved. Remains on heparin drip. No lightheadedness or dizziness. Remains in A. fib with heart rates in the 80s to 90s. PHYSICAL EXAMINATION: Vitals reviewed LUNGS: Clear to auscultation anteriorly with decreased breath sounds at the base posteriorly HEART: Irregular rate and rhythm, S1, S2. No S3. systolic ejection murmur ABDOMEN: Soft, nontender, no organomegaly EXTREMETIES: No edema IMPRESSION: 1. Diabetic ketoacidosis, resolved 2. Atrial fibrillation, of unknown duration, on IV heparin pending possible thoracentesis 3. History of stroke 4. Possible lung mass with pleural effusion 5. History of occluded left carotid artery 6. History of chronic tobacco use 7. Acute renal injury, resolved 8. Troponin elevation secondary to type II myocardial infarction 9. Cardiomyopathy of unknown duration or etiology 10. Noncompliance 11. PE PLAN: 1. Heart failure regimen as able. Montitor response of Lisinopril 2.5mg daily. 2. Possible change of heparin to novel oral anticoagulant however await pulmonary recommendations 3. He does have trace lower extremity edema and we will add 1 dose of Lasix today. 4. He will eventually need heart catheterization for his cardiomyopathy however can be performed outpatient. Objective - Vital Signs Vital signs: Vital Signs Temp 98.1 F 07/08/22 07:39 Pulse 93 07/08/22 07:39 Resp 22 07/08/22 07:39 BP 111/69 07/08/22 07:39 Pulse Ox 91 L 07/08/22 07:39 FiO2 21 07/07/22 19:19 Intake & Output 07/07/22 07/08/22 07/08/22 18:59 06:59 18:59 Intake Total 28.648 221.352 38.59 Output Total 1900 Balance -1871.352 221.352 38.59 Weight 93 kg Intake: Intake, IV Titration .648 221.352 38.59 Amount Heparin Sod,Pork in 0.45% .648 221.352 38.59 NaCl 25,000 unit In 0.45 % NaCl 1 250ml.bag @ 15. 92 UNITS/KG/HR 14.089 mls /hr IV .[id number] [facility] Rx#: [id number] Oral 0 Output: Urine 1900 Other: Voiding Method Indwelling Catheter Diaper Diaper Incontinent Incontinent # Voids 2 1 # Bowel Movements 1 - Labs CBC & Chem 7: 07/08/22 07:20 07/07/22 03:06 Labs: Abnormal Lab Results - Last 24 Hours (Table) 07/07/22 07/07/22 07/07/22 Range/Units 11:07 14:04 14:04 RBC 3.38 L (4.30-5.90) m/uL Hgb 11.0 L (13.0-17.5) gm/dL Hct 33.4 L (39.0-53.0) % Neutrophils # 8.5 H (1.3-7.7) k/uL Lymphocytes # (1.0-4.8) k/uL APTT 35.6 H (22.0-30.0) sec POC Glucose (mg/dL) 197 H (70-110) mg/dL 07/07/22 07/07/22 07/07/22 Range/Units 16:37 19:17 19:33 RBC (4.30-5.90) m/uL Hgb (13.0-17.5) gm/dL Hct (39.0-53.0) % Neutrophils # (1.3-7.7) k/uL Lymphocytes # (1.0-4.8) k/uL APTT 65.9 H (22.0-30.0) sec POC Glucose (mg/dL) 127 H 167 H (70-110) mg/dL 07/08/22 07/08/22 07/08/22 Range/Units 01:58 05:49 07:20 RBC (4.30-5.90) m/uL Hgb (13.0-17.5) gm/dL Hct (39.0-53.0) % Neutrophils # (1.3-7.7) k/uL Lymphocytes # (1.0-4.8) k/uL APTT 41.2 H (22.0-30.0) sec POC Glucose (mg/dL) 130 H 177 H (70-110) mg/dL 07/08/22 Range/Units 07:20 RBC 3.24 L (4.30-5.90) m/uL Hgb 10.8 L (13.0-17.5) gm/dL Hct 31.9 L (39.0-53.0) % Neutrophils # 7.8 H (1.3-7.7) k/uL Lymphocytes # 0.9 L (1.0-4.8) k/uL APTT (22.0-30.0) sec POC Glucose (mg/dL) (70-110) mg/dL
[2022-07-08] MEDS ORDERED: FUROSEMIDE 10 MG/ML 4 ML VIAL IV STA (09:54)
[2022-07-08] MEDS: APIXABAN 5 MG TAB PO SCH ×2 (10:05→20:54)
[2022-07-08] MEDS: DEXTROSE 5% IN WATER 1,000 ML IV SCH (10:11)
--- NOTE | 2022-07-08 10:12 | P.PN ---
Subjective From records This is a 71-year-old patient, has not follows Dr. Walden for years. Per the EMS report. When they arrived they found the patient getting only a Urine soaked underwear. Bed is also soaked for dry urine and that is under the mattress. Patient stated that he has not been getting out of bed for last 2 days. Has not been eating. He has not seen a doctor since 2014 when he had a stroke and is noncompliant with his medications. She is the marketing secretary. Patient finally is agreed to go to the hospital. She also felt that patient's breathing is also change in the last 3 days. 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 She is able to converse with him. She is normally alert to place person and time but currently she is less responsive. No trauma. He does not feel like eating. In the ER found to have a blood glucose in the 500s. Positive for serum acetone. Patient himself is unable to give much of history. Attempted to speak some words. Does move his limbs. Lethargic. On insulin drip. Also on heparin drip. Admitted with acute diabetic ketoacidosis/severe hypernatremia/acute metabolic encephalopathy/delirium/pneumonia/. Started on IV heparin, IV fluids, IV Zosyn, insulin drip. 07/03/2022: ICU: Encephalopathic. Delirious. Moves it about sometimes. Does open eyes. Not really answering questions. On D5W IV fluids, IV heparin, insulin drip, IV Zosyn,. Blood cultures positive for what appears to be Staphylococcus epidermidis. Was started on vancomycin earlier. A. fib rate controlled. 07/04/2022: ICU. With more awake today.. Taken off insulin drip this morning. Started on Levemir 20 units. at the bedside. IV Zosyn. D5 W. Remains in A. fib, rate controlled. Patient is out of DKA. 07/05/2022 this is a pleasant 71 years old female who was initially admitted with diabetic ketoacidosis found to have possible pneumonia with atrial fibrillation. Also showing severe cardiomyopathy with ejection fraction 25%, hypernatremia with fluid deficit. Patient with no chest pain or dyspnea Patient has been monitored closely in the ICU with pulmonary/critical care team and cardiology following her closely Vitas looks stable, she is saturating 95% and 2 L, blood pressure 96/41, she is tachypneic 26 Showing high pro calcitonin and 0.25 and chest x-ray showing opacity throughout her life flank with right pleural effusion and atelectasis. She has severe cardiomyopathy with ejection fraction of 25-30%. Ultrasound of the leg is negative, VQ scan shows some probability for PE and patient also already on IV heparin for cardiac disease. CT of the abdomen and pelvis and chest showing right hilar masslike opacity with distended gallbladder CT of the brain and neck is negative for acute process. 07/06/2022 pt remains in the icu requring close monitoring , today patient felt thoracocentesis, therefore CAT scan of the chest is ordered with IV contrast showing left-sided pulmonary embolism, multiple with moderate right pleural effusion and mediastinal lymphadenopathy suspicious for cancer. Also patient with some evidence of hypoglycemia and hypotension. For lower the dose of Levemir 20 units down to 10 units and lisinopril down to 2.5 mg. patient is still on heparin drip and Zosyn and D5W at 50 mL per hour 07/07/2022 Patient is awake but lethargic and confused, he was admitted with multiple medical problems including cardiomyopathy with ejection fraction 25%, possible right lung mass and lymphadenopathy that could require PET scan and close pulmonary outpatient follow-up. Also with gallbladder disease and distended gallbladder. Patient also was covered with antibiotic with Zosyn. Patient also with history of A. fib on anticoagulation, currently he is on IV heparin He looks more stable today and to be transferred to the general medical floor. Other than that his vitals are stable and labs are stable as well Also he is on D5 W. Monitor sodium level 07/08/2022 Patient was transferred to [facility], he is awake and alert looks somewha t tired, still mildly tachypneic with a breathing rate around 20-22. His blood pressure is is improved after lowering the dose of lisinopril. Hemoglobin 10.8. Today his heparin drip is going to be switched to Eliquis. Cardiology recommended cardiac cath which can be done as an outpatient for cardiomyopathy. I told the patient today about his lung mass and the need for close follow-up outpatient with the possibility of cancer and he verbalized understanding and acceptance. He continued on Zosyn Objective - Vital Signs Vital signs: Vital Signs Temp 98.1 F 07/08/22 07:39 Pulse 93 07/08/22 07:39 Resp 22 07/08/22 07:39 BP 111/69 07/08/22 07:39 Pulse Ox 91 L 07/08/22 07:39 FiO2 21 07/07/22 19:19 Intake & Output 07/07/22 07/08/22 07/08/22 18:59 06:59 18:59 Intake Total 28.648 221.352 38.59 Output Total 1900 Balance -1871.352 221.352 38.59 Weight 93 kg Intake: Intake, IV Titration 28.648 221.352 38.59 Amount Heparin Sod,Pork in 0.45% 28.648 221.352 38.59 NaCl 25,000 unit In 0.45 % NaCl 1 250ml.bag @ 15. 92 UNITS/KG/HR 14.089 mls /hr IV .[id number] [facility] Rx#: [id number] Oral 0 Output: Urine 1900 Other: Voiding Method Indwelling Catheter Diaper Diaper Incontinent Incontinent # Voids 2 1 # Bowel Movements 1 - Exam GENERAL: The patient is alert and oriented x3, not in any acute distress. Well developed, well nourished. HEENT: Pupils are round and equally reacting to light. EOMI. No scleral icterus. No conjunctival pallor. Normocephalic, atraumatic. No pharyngeal erythema. No thyromegaly. CARDIOVASCULAR: S1 and S2 present. No murmurs, rubs, or gallops. PULMONARY: Chest is clear to auscultation, no wheezing or crackles. ABDOMEN: Soft, nontender, nondistended, normoactive bowel sounds. No palpable organomegaly. MUSCULOSKELETAL: No joint swelling or deformity. EXTREMITIES: No cyanosis, clubbing, or pedal edema. NEUROLOGICAL: Gross neurological examination did not reveal any focal deficits. SKIN: No rashes. no petechiae. - Labs CBC & Chem 7: 07/08/22 07:20 07/07/22 03:06 Labs: Abnormal Lab Results - Last 24 Hours (Table) 07/07/22 07/07/22 07/07/22 Range/Units 11:07 14:04 14:04 RBC 3.38 L (4.30-5.90) m/uL Hgb 11.0 L (13.0-17.5) gm/dL Hct 33.4 L (39.0-53.0) % Neutrophils # 8.5 H (1.3-7.7) k/uL Lymphocytes # (1.0-4.8) k/uL APTT 35.6 H (22.0-30.0) sec POC Glucose (mg/dL) 197 H (70-110) mg/dL 07/07/22 07/07/22 07/07/22 Range/Units 16:37 19:17 19:33 RBC (4.30-5.90) m/uL Hgb (13.0-17.5) gm/dL Hct (39.0-53.0) % Neutrophils # (1.3-7.7) k/uL Lymphocytes # (1.0-4.8) k/uL APTT 65.9 H (22.0-30.0) sec POC Glucose (mg/dL) 127 H 167 H (70-110) mg/dL 07/08/22 07/08/22 07/08/22 Range/Units 01:58 05:49 07:20 RBC (4.30-5.90) m/uL Hgb (13.0-17.5) gm/dL Hct (39.0-53.0) % Neutrophils # (1.3-7.7) k/uL Lymphocytes # (1.0-4.8) k/uL APTT 41.2 H (22.0-30.0) sec POC Glucose (mg/dL) 130 H 177 H (70-110) mg/dL 07/08/22 Range/Units 07:20 RBC 3.24 L (4.30-5.90) m/uL Hgb 10.8 L (13.0-17.5) gm/dL Hct 31.9 L (39.0-53.0) % Neutrophils # 7.8 H (1.3-7.7) k/uL Lymphocytes # 0.9 L (1.0-4.8) k/uL APTT (22.0-30.0) sec POC Glucose (mg/dL) (70-110) mg/dL Assessment and Plan Assessment: Right lung atelectasis versus consolidation with Right hilar mass-like consolidation Severe cardiomyopathy with ejection fraction 25% new Onset atrial fibrillation on IV heparin mediastinal lymphadenopathy rule out malignancy Moderate right pleural effusion Elevated troponin, most likely demand/supply mismatch Hypernatremia Positive blood culture with coagulase-negative staph and staph epidermidis, most likely contamination and patient is asymptomatic regarding this left sideFrom pulmonary emboli Plan: continue with anticoagulation where IV heparin, is changed to Eliquis Continue D5W Continue Zosyn Monitor hemoglobin Several consultants on the case including critical care team and cardiology consult Labs and medication were reviewed.. Continue same treatment. Continue with symptomatic treatment. Resume home medication. Monitor lytes and vitals. DVT and GI prophylaxis. Further recommendations as per clinical course of the patient DVT prophylaxis: Eliquis GI Prophylaxis: Protonix PT/OT: Pending Prognosis is guarded
[2022-07-08 11:39] LABS: Glucose,Whole Blood 177 mg/dL (70-110)
[2022-07-08 12:32] VITALS: BMI 31.1
--- NOTE | 2022-07-08 12:37 | P.PN ---
Subjective Progress Note Date: 07/08/22 Principal diagnosis: Acute diabetic ketoacidosis On 07/04/2022, I'm seeing the patient for a follow-up. The patient seems to be slightly more awake compared to yesterday. The patient had a massive water deficit and the patient remains on D5 water which is running at a rate of 1 50 mL an hour. He cc more interactive. He is lethargic. However when stimulated, he would answer questions. He was getting upset easily and he does not seem to be cooperative. He is aware that she is in the hospital. He isn't a very poor health condition. His troponins were abnormal. He was given an echocardiogram and the patient was found to have an ejection fraction of 25% consistent with systolic heart failure. The chronicity of his CHF is not known. The patient was also found to have a right-sided pleural effusion and some atelectatic changes in the right lung. We are contemplating to do a thoracentesis of the later stage. Although, this pleural fluid could be related to CHF. Meanwhile, the patient remains on D5 water. The patient has improvement in his electrolytes. Anion gap metabolic acidosis is recovered. Serum bicarb is up to 19. BUN is at 28 with a creatinine of 0.9. Sodium is at 148 with a chloride level of 124. The WBC count is at 10.8 with a hemoglobin of 12. The patient remains on IV heparin regarding his underlying chronic a chair fibrillation. His swallow evaluation is to be done today. His mucous membranes in his oral condition is improved with hydration. He was started on Levemir insulin by the medical team 20 units daily along with that he is receiving a sliding scale coverage. 07/05/2022, the patient is much more awake. The patient remains on D5 water.The patient has developed improvement electrolytes. Sodium level is down to 140 and the patient's serum bicarbonate of 18 with a BUN of 17 and a creatinine of 0.8. The white cell count of 9.5 with a hemoglobin of 11.3. Remains on IV heparin. Cardiac rhythm is atrial fibrillation. Propofol level is at 0.25. Remains on IV Zosyn. Chest x-ray shows consolidation possibly right-sided pleural effusion. Attempted a bedside thoracentesis. Minimal amount of fluid came from the right lung. I'm going to order a CAT scan of the chest for this patient for tomorrow. He has no specific complaints. He remains on Levemir insulin. He is also on a sliding scale coverage. IV fluids are in the form of D5 water at the rate of 150 mL an hour and this was introduced down to 50 mL. On today's evaluation of 07/06/2022, the patient is on room air oxygen. The patient is communicating and the patient is alert. I attempted a thoracentesis on this patient and I failed to evacuate any significant pleural fluid from today right. The ultrasound the chest showed a small right-sided pocket in the order of 3 cm. Based on that, I ordered a CAT scan of the chest today to investigate the situation further. There may be a concern for malignancy in this patient. Otherwise, the patient is doing well. Blood sugars have been fluctuating. The patient had a episode of hypoglycemia and I recommended switching and dropping his dose of Levemir. On today's blood work, his sodium i s at 139, bicarb is at 18 with a BUN of 12 and a creatinine of 0.8. The lites echoes at 10.4 with a hemoglobin of 11.9. The patient's stool for C. diff has been negative. Occult stool for about has been positive. No signs of any respiratory distress. Remains on IV Zosyn. Reevaluated today on 07/07/22, patient remains in the ICU, seems to be doing fairly well, not in any distress, patient is on 2 L nasal cannula and his O2 sats is 95%. Chest x-ray continues to show a small tiny right-sided pleural effusion, not large enough to consider thoracentesis. Hence I have no plans to perform thoracentesis of this patient at present. Apparently this was attempted by Dr. Fajardo on 07/05, and no fluid could be drained. Patient does have mediastinal adenopathy which may have to be addressed on an outpatient basis. CT angiogram of the chest showed evidence of pulmonary embolism. Patient r emains on heparin, and I plan to transition the patient developed loose today. I reviewed the CT of the chest, there is evidence of mediastinal adenopathy and right supraclavicular adenopathy patient will need outpatient PET scan and possibly CT-guided needle biopsy of the supraclavicular lymph node this could all be done on outpatient basis Reevaluated today on 07/08/22, patient is refusing to take his oral medication for his pulmonary embolism, hence he remained on heparin for the last 24 hours, and we are still recommending that the patient should be switched to eliquis. Clinically the patient is improving, and I believe the patient should be considered for discharge planning however we have to make sure that the patient is going to be compliant with his medications and he will take his oral meds including his eliquis and his oral antibiotics. And he should have outpatient follow-up WBC count today is 9.4 hemoglobin is 10.8. PTT is 41.2 blood sugar is 177. His last chest x-ray from yesterday continues to show right sided consolidation and possibly a small pleural effusion. Also the chest x-ray is suggestive of right hilar adenopathy. This was noted on CT of the chest, pa tient will definitely need outpatient follow-up. Objective - Vital Signs Vital signs: Vital Signs Temp 98.1 F 07/08/22 07:39 Pulse 81 07/08/22 11:19 Resp 20 07/08/22 11:19 BP 120/54 07/08/22 11:19 Pulse Ox 94 L 07/08/22 11:19 FiO2 21 07/07/22 19:19 Intake & Output 07/07/22 07/08/22 07/08/22 18:59 06:59 18:59 Intake Total 28.648 221.352 69.147 Output Total 1900 Balance -1871.352 221.352 69.147 Weight 93 kg 93 kg Intake: Intake, IV Titration 28.648 221.352 69.147 Amount Heparin Sod,Pork in 0.45% 28.648 221.352 69.147 NaCl 25,000 unit In 0.45 % NaCl 1 250ml.bag @ 15. 92 UNITS/KG/HR 14.089 mls /hr IV .[id number] [facility] Rx#: [id number] Oral 0 Output: Urine 1900 Other: Voiding Method Indwelling Catheter Diaper Diaper Incontinent Incontinent # Voids 2 1 # Bowel Movements 1 - Exam Physical Exam: Revealed a 71-year-old white male in no distress, Patient is on room air Head: Atraumatic normocephalic. HEENT:[Neck is supple.] [No neck masses.] [No thyromegaly.] [No JVD.] Chest: [Slightly diminished breath sounds and dullness at the right base. Cardiac Exam: [Normal S1 and S2, no S3 gallop, no murmur.] Abdomen: [Soft, nontender, no megaly, no rebound, no guarding, normal bowel sounds.] Extremities: [No clubbing, no edema, no cyanosis.] Neurological Exam: [No focal neurologic deficit.] Patient seems seems to be a bit confused. - Labs CBC & Chem 7: 07/08/22 07:20 07/07/22 03:06 Labs: Abnormal Lab Results - Last 24 Hours (Table) 07/07/22 07/07/22 07/07/22 Range/Units 14:04 14:04 16:37 RBC 3.38 L (4.30-5.90) m/uL Hgb 11.0 L (13.0-17.5) gm/dL Hct 33.4 L (39.0-53.0) % Neutrophils # 8.5 H (1.3-7.7) k/uL Lymphocytes # (1.0-4.8) k/uL APTT 35.6 H (22.0-30.0) sec POC Glucose (mg/dL) 127 H (70-110) mg/dL 07/07/22 07/07/22 07/08/22 Range/Units 19:17 19:33 01:58 RBC (4.30-5.90) m/uL Hgb (13.0-17.5) gm/dL Hct (39.0-53.0) % Neutrophils # (1.3-7.7) k/uL Lymphocytes # (1.0-4.8) k/uL APTT 65.9 H (22.0-30.0) sec POC Glucose (mg/dL) 167 H 130 H (70-110) mg/dL 07/08/22 07/08/22 07/08/22 Range/Units 05:49 07:20 07:20 RBC 3.24 L (4.30-5.90) m/uL Hgb 10.8 L (13.0-17.5) gm/dL Hct 31.9 L (39.0-53.0) % Neutrophils # 7.8 H (1.3-7.7) k/uL Lymphocytes # 0.9 L (1.0-4.8) k/uL APTT 41.2 H (22.0-30.0) sec POC Glucose (mg/dL) 177 H (70-110) mg/dL 07/08/22 Range/Units 11:36 RBC (4.30-5.90) m/uL Hgb (13.0-17.5) gm/dL Hct (39.0-53.0) % Neutrophils # (1.3-7.7) k/uL Lymphocytes # (1.0-4.8) k/uL APTT (22.0-30.0) sec POC Glucose (mg/dL) 177 H (70-110) mg/dL Assessment and Plan Assessment: Impression: Acute diabetic ketoacidosis, resolved. Acute pulmonary embolism Paroxysmal atrial fibrillation History of CVA Possible underlying pulmonary malignancy with abnormal mediastinal lymph nodes and right supraclavicular lymph nodes Small pleural effusion, not large enough to perform safe thoracentesis Acute kidney injury, resolved. Cardiomyopathy, unknown etiology, being addressed by cardiology on the case. Ejection fraction of 25%. Severe dehydration on presentation secondary to DKA. Possible right lower lobe consolidation. Underlying malignancy is not entirely ruled out. Peripheral vessel occlusive disease. History of smoking. Noncompliance Recommendation: Continue present supportive care measures Continue insulin Accu-Cheks and correct accordingly Will eventually need outpatient follow-up on his mediastinal and right supraclavicular lymphadenopathy Will need a PET scan on outpatient basis still recommend changing heparin to eliquis. Consider changing Zosyn to Augmentin upon discharge. Considering the patient is going to be noncompliant, will follow as needed set up appointment on outpatient basis with Dr. Fajardo for possible EBUS. Bronchoscopy will follow as needed. Time with Patient: Less than 30
[2022-07-08 17:01] LABS: Glucose,Whole Blood 198 mg/dL (70-110)
[2022-07-08 20:01] LABS: Glucose,Whole Blood 250 mg/dL (70-110)
[2022-07-09 02:04] LABS: Glucose,Whole Blood 138 mg/dL (70-110)
[2022-07-09] MEDS: INSULIN ASPART (NovoLOG) 100 UNIT/ML VIAL SQ SCH ×6 (02:37→20:38)
[2022-07-09] MEDS: PIPERACILLIN-TAZOBACTAM 3.375 GM in SODIUM CHLORIDE 0.9% 100 ML IVPB SCH ×2 (05:11→16:54)
[2022-07-09 06:02] LABS: Glucose,Whole Blood 169 mg/dL (70-110)
[2022-07-09] MEDS: INSULIN DETEMIR (LEVEMIR) 100 UNIT/ML SYR SQ SCH (06:29)
[2022-07-09 08:32] LABS: African American GFR (CKD) >90 (>60 ml/min/1.73 sqM); Anion Gap 4 mmol/L; Blood Urea Nitrogen 6 mg/dL (9-20); Calcium 7.2 mg/dL (8.4-10.2); Carbon Dioxide 23 mmol/L (22-30); Chloride 111 mmol/L (98-107); Glucose 144 mg/dL (74-99); Magnesium 1.8 mg/dL (1.6-2.3); Non-African American GFR(CKD) 85 (>60 ml/min/1.73 sqM); Potassium 3.1 mmol/L (3.5-5.1); Sodium 138 mmol/L (137-145)
[2022-07-09 08:42] LABS: Basophils % (A) 0 %; Eosinophils # (A) 0.1 k/uL (0-0.7); Eosinophils % (A) 1 %; HCT 30.5 % (39.0-53.0); HGB 10.1 gm/dL (13.0-17.5); Lymphocytes # (A) 0.9 k/uL (1.0-4.8); Lymphocytes % (A) 12 %; MCHC 33.2 g/dL (31.0-37.0); MCV 96.3 fL (80.0-100.0); Mean Platelet Volume 8.6; Monocytes # (A) 0.3 k/uL (0-1.0); Monocytes % (A) 4 %; Neutrophils # (A) 6.1 k/uL (1.3-7.7); Neutrophils % (A) 81 %; Platelet Count 203 k/uL (150-450); RBC 3.17 m/uL (4.30-5.90); RDW 13.4 % (11.5-15.5); WBC 7.5 k/uL (3.8-10.6)
--- NOTE | 2022-07-09 09:03 | P.PN ---
Subjective PROGRESS NOTE The patient is a 71-year-old male who presented to the emergency room after the insistence of his because of progressive fatigue, lack of energy and shortness of breath. In the emergency room he was noted to have diabetic ketoac idosis and mild elevation of the troponin. The history is obtained from the . 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 He has stopped taking all his medications. He is to smoke up to one year ago. He is limited in his physical activity. His left ventricle systolic function in 2014 was normal. He has no prior history of myocardial infarction or heart failure. His duplex scan of the lower extremities was unremarkable but his ventilation/perfusion scan raised the possibility of pulmonary embolism on the right side. His renal function are abnormal on presentation. His baseline is not available. The patient is awake, answering a few questions. In the emergency room he was noted to be in atrial fibrillation with rapid ventricle response of unknown duration. He does not consume alcohol or significant amount of caffeine. July 03: The patient is awake but not answering questions. He remains lethargic and obtunded. He continues to be in atrial fibrillation with controlled ventricular response, he is on IV heparin. His blood pressure is stable. His urinary output has been good. His blood sugar is better and his renal function had normalized. His chest x-ray shows right-sided pleural effusion. The patient has an abnormal ventilation/perfusion scan and further evaluation will be needed. July 04: He appears to be more awake and alert today. He continues to be in atrial fibrillation with controlled ventricular response. He is tolerating by mouth. There is no evidence of ventricular ectopic activity. His urinary output is stable. There is no evidence of ventricular ectopic activity. His echocardiogram showed a severely impaired left ventricle systolic function with no significant valvular disease and mild pulmonary hypertension. His acidosis resolved and his blood sugar is under better control. July 05: The patient is more awake and alert today. He continues to be in atrial fibrillation with controlled ventricular response. His blood pressure is on the low side. He has no nausea or vomiting. He continues to be on IV heparin pending the decision regarding thoracentesis. He has no evidence of ventricular ectopic activity. His urinary output is stable. July 06: He is feeling well today, he denies any chest discomfort, dizziness or palpitations. He continues to be in atrial fibrillation with controlled ventricular response. He's scheduled to undergo ultrasound of the chest. His urinary output has been stable. He has no nausea or vomiting. He had an episode of pause during the night. His blood pressure has been on the lower side. 07/07 Patient seen and examined. Patient somewhat confused and cannot recall events of when he came in. Denies any chest pain or pressure. Lisinopril was started this morning at 2.5 however blood pressures somewhat soft and has not been given yet. Remains on heparin drip. 07/08 Patient seen and examined. Patient states he "just doesn't feel good" however no specific complaints. Admits to shortness breath is somewhat improved. Remains on heparin drip. No lightheadedness or dizziness. Remains in A. fib with heart rates in the 80s to 90s. 07/09 Patient seen and examined. He denies any chest pain or pressure. Admits to ortness breath is improved. PHYSICAL EXAMINATION: Vitals reviewed LUNGS: Clear to auscultation anteriorly with decreased breath sounds at the base posteriorly HEART: Irregular rate and rhythm, S1, S2. No S3. systolic ejection murmur ABDOMEN: Soft, nontender, no organomegaly EXTREMETIES: No edema IMPRESSION: 1. Diabetic ketoacidosis, resolved 2. Atrial fibrillation, of unknown duration, on IV heparin pending possible thoracentesis 3. History of stroke 4. Possible lung mass with pleural effusion 5. History of occluded left carotid artery 6. History of chronic tobacco use 7. Acute renal injury, resolved 8. Troponin elevation secondary to type II myocardial infarction 9. Cardiomyopathy of unknown duration or etiology 10. Noncompliance 11. PE PLAN: Continue current heart failure regimen and anticoagulation. Further workup of cardiomyopathy may be performed as an outpatient. No further recommendations from a cardiology standpoint. Please call with any questions. Objective - Vital Signs Vital signs: Vital Signs Temp 97.9 F 07/09/22 08:00 Pulse 89 07/09/22 08:00 Resp 20 07/09/22 08:00 BP 115/69 07/09/22 08:00 Pulse Ox 92 L 07/09/22 08:00 FiO2 21 07/07/22 19:19 Intake & Output 07/08/22 07/09/22 07/09/22 18:59 06:59 18:59 Intake Total 249.147 Output Total 600 400 Balance -350.853 -400 Weight 93 kg Intake: Intake, IV Titration 69.147 Amount Heparin Sod,Pork in 0.45% 69.147 NaCl 25,000 unit In 0.45 % NaCl 1 250ml.bag @ 15. 92 UNITS/KG/HR 14.089 mls /hr IV .[id number] [facility] Rx#: [id number] Oral 180 Output: Urine 600 400 Other: Voiding Method Diaper Diaper Diaper Incontinent Incontinent Incontinent External Catheter External Catheter External Catheter # Voids 1 1 # Bowel Movements 1 - Labs CBC & Chem 7: 07/09/22 07:40 07/09/22 07:40 Labs: Abnormal Lab Results - Last 24 Hours (Table) 07/08/22 07/08/22 07/08/22 Range/Units 11:36 16:59 19:59 RBC (4.30-5.90) m/uL Hgb (13.0-17.5) gm/dL Hct (39.0-53.0) % Lymphocytes # (1.0-4.8) k/uL Potassium (3.5-5.1) mmol/L Chloride (98-107) mmol/L BUN (9-20) mg/dL Glucose (74-99) mg/dL POC Glucose (mg/dL) 177 H 198 H 250 H (70-110) mg/dL Calcium (8.4-10.2) mg/dL 07/09/22 07/09/22 07/09/22 Range/Units 02:02 06:01 07:40 RBC 3.17 L (4.30-5.90) m/uL Hgb 10.1 L (13.0-17.5) gm/dL Hct 30.5 L (39.0-53.0) % Lymphocytes # 0.9 L (1.0-4.8) k/uL Potassium (3.5-5.1) mmol/L Chloride (98-107) mmol/L BUN (9-20) mg/dL Glucose (74-99) mg/dL POC Glucose (mg/dL) 138 H 169 H (70-110) mg/dL Calcium (8.4-10.2) mg/dL 07/09/22 Range/Units 07:40 RBC (4.30-5.90) m/uL Hgb (13.0-17.5) gm/dL Hct (39.0-53.0) % Lymphocytes # (1.0-4.8) k/uL Potassium 3.1 L (3.5-5.1) mmol/L Chloride 111 H (98-107) mmol/L BUN 6 L (9-20) mg/dL Glucose 144 H (74-99) mg/dL POC Glucose (mg/dL) (70-110) mg/dL Calcium 7.2 L (8.4-10.2) mg/dL
[2022-07-09 11:43] LABS: Glucose,Whole Blood 77 mg/dL (70-110)
[2022-07-09] MEDS ORDERED: Potassium Replacement Protocol 1 EACH MISC MISCELLANE PRN ×2 (12:56→17:12)
--- NOTE | 2022-07-09 13:01 | P.PN ---
Subjective From records This is a 71-year-old patient, has not follows Dr. Walden for years. Per the EMS report. When they arrived they found the patient getting only a Urine soaked underwear. Bed is also soaked for dry urine and that is under the mattress. Patient stated that he has not been getting out of bed for last 2 days. Has not been eating. He has not seen a doctor since 2014 when he had a stroke and is noncompliant with his medications. She is the cottonseed meat presser. Patient finally is agreed to go to the hospital. She also felt that patient's breathing is also change in the last 3 days. 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 She is able to converse with him. She is normally alert to place person and time but currently she is less responsive. No trauma. He does not feel like eating. In the ER found to have a blood glucose in the 500s. Positive for serum acetone. Patient himself is unable to give much of history. Attempted to speak some words. Does move his limbs. Lethargic. On insulin drip. Also on heparin drip. Admitted with acute diabetic ketoacidosis/severe hypernatremia/acute metabolic encephalopathy/delirium/pneumonia/. Started on IV heparin, IV fluids, IV Zosyn, insulin drip. 07/03/2022: ICU: Encephalopathic. Delirious. Moves it about sometimes. Does open eyes. Not really answering questions. On D5W IV fluids, IV heparin, insulin drip, IV Zosyn,. Blood cultures positive for what appears to be Staphylococcus epidermidis. Was started on vancomycin earlier. A. fib rate controlled. 07/04/2022: ICU. With more awake today.. Taken off insulin drip this morning. Started on Levemir 20 units. at the bedside. IV Zosyn. D5 W. Remains in A. fib, rate controlled. Patient is out of DKA. 07/05/2022 this is a pleasant 71 years old female who was initially admitted with diabetic ketoacidosis found to have possible pneumonia with atrial fibrillation. Also showing severe cardiomyopathy with ejection fraction 25%, hypernatremia with fluid deficit. Patient with no chest pain or dyspnea Patient has been monitored closely in the ICU with pulmonary/critical care team and cardiology following her closely Vitas looks stable, she is saturating 95% and 2 L, blood pressure 96/41, she is tachypneic 26 Showing high pro calcitonin and 0.25 and chest x-ray showing opacity throughout her life flank with right pleural effusion and atelectasis. She has severe cardiomyopathy with ejection fraction of 25-30%. Ultrasound of the leg is negative, VQ scan shows some probability for PE and patient also already on IV heparin for cardiac disease. CT of the abdomen and pelvis and chest showing right hilar masslike opacity with distended gallbladder CT of the brain and neck is negative for acute process. 07/06/2022 pt remains in the icu requring close monitoring , today patient felt thoracocentesis, therefore CAT scan of the chest is ordered with IV contrast showing left-sided pulmonary embolism, multiple with moderate right pleural effusion and mediastinal lymphadenopathy suspicious for cancer. Also patient with some evidence of hypoglycemia and hypotension. For lower the dose of Levemir 20 units down to 10 units and lisinopril down to 2.5 mg. patient is still on heparin drip and Zosyn and D5W at 50 mL per hour 07/07/2022 Patient is awake but lethargic and confused, he was admitted with multiple medical problems including cardiomyopathy with ejection fraction 25%, possible right lung mass and lymphadenopathy that could require PET scan and close pulmonary outpatient follow-up. Also with gallbladder disease and distended gallbladder. Patient also was covered with antibiotic with Zosyn. Patient also with history of A. fib on anticoagulation, currently he is on IV heparin He looks more stable today and to be transferred to the general medical floor. Other than that his vitals are stable and labs are stable as well Also he is on D5 W. Monitor sodium level 07/08/2022 Patient was [facility], he is awake and alert looks somewha t tired, still mildly tachypneic with a breathing rate around 20-22. His blood pressure is is improved after lowering the dose of lisinopril. Hemoglobin 10.8. Today his heparin drip is going to be switched to Eliquis. Cardiology recommended cardiac cath which can be done as an outpatient for cardiomyopathy. I told the patient today about his lung mass and the need for close follow-up outpatient with the possibility of cancer and he verbalized understanding and acceptance. He continued on Zosyn 07/09/2022 Patient was was slipped lethargic this morning, no chest pain or significant dyspnea at rest. Blood pressure 97/67 Saturation 94% on room air. Patient recommended to follow up for outpatient for possible right lung mass to rule out malignancy, patient informed. He will need to follow-up with Dr. Fajardo in 2 weeks. He is currently kept on Zosyn and D5W, also he is on therapeutic dose of Eliquis for left sided pulmonary embolism Objective - Vital Signs Vital signs: Vital Signs Temp 97.3 F L 07/09/22 11:37 Pulse 89 07/09/22 11:37 Resp 18 07/09/22 11:37 BP 97/63 07/09/22 11:37 Pulse Ox 92 L 07/09/22 11:37 FiO2 21 07/07/22 19:19 Intake & Output 07/08/22 07/09/22 07/09/22 18:59 06:59 18:59 Intake Total 249.147 Output Total 600 400 100 Balance -350.853 -400 -100 Weight 93 kg Intake: Intake, IV Titration 69.147 Amount Heparin Sod,Pork in 0.45% 69.147 NaCl 25,000 unit In 0.45 % NaCl 1 250ml.bag @ 15. 92 UNITS/KG/HR 14.089 mls /hr IV .[id number] [facility] Rx#: [id number] Oral 180 Output: Urine 600 400 100 Other: Voiding Method Diaper Diaper Diaper Incontinent Incontinent Incontinent External Catheter External Catheter External Catheter # Voids 1 1 # Bowel Movements 1 - Exam GENERAL: The patient is alert and oriented x3, not in any acute distress. Well developed, well nourished. HEENT: Pupils are round and equally reacting to light. EOMI. No scleral icterus. No conjunctival pallor. Normocephalic, atraumatic. No pharyngeal erythema. No thyromegaly. CARDIOVASCULAR: S1 and S2 present. No murmurs, rubs, or gallops. PULMONARY: Chest is clear to auscultation, no wheezing or crackles. ABDOMEN: Soft, nontender, nondistended, normoactive bowel sounds. No palpable organomegaly. MUSCULOSKELETAL: No joint swelling or deformity. EXTREMITIES: No cyanosis, clubbing, or pedal edema. NEUROLOGICAL: Gross neurological examination did not reveal any focal deficits. SKIN: No rashes. no petechiae. - Labs CBC & Chem 7: 07/09/22 07:40 07/09/22 07:40 Labs: Abnormal Lab Results - Last 24 Hours (Table) 07/08/22 07/08/22 07/09/22 Range/Units 16:59 19:59 02:02 RBC (4.30-5.90) m/uL Hgb (13.0-17.5) gm/dL Hct (39.0-53.0) % Lymphocytes # (1.0-4.8) k/uL Potassium (3.5-5.1) mmol/L Chloride (98-107) mmol/L BUN (9-20) mg/dL Glucose (74-99) mg/dL POC Glucose (mg/dL) 198 H 250 H 138 H (70-110) mg/dL Calcium (8.4-10.2) mg/dL 07/09/22 07/09/22 07/09/22 Range/Units 06:01 07:40 07:40 RBC 3.17 L (4.30-5.90) m/uL Hgb 10.1 L (13.0-17.5) gm/dL Hct 30.5 L (39.0-53.0) % Lymphocytes # 0.9 L (1.0-4.8) k/uL Potassium 3.1 L (3.5-5.1) mmol/L Chloride 111 H (98-107) mmol/L BUN 6 L (9-20) mg/dL Glucose 144 H (74-99) mg/dL POC Glucose (mg/dL) 169 H (70-110) mg/dL Calcium 7.2 L (8.4-10.2) mg/dL Assessment and Plan Assessment: Right lung atelectasis versus consolidation with Right hilar mass-like consolidation Severe cardiomyopathy with ejection fraction 25% new Onset atrial fibrillation on IV heparin mediastinal lymphadenopathy rule out malignancy Moderate right pleural effusion Elevated troponin, most likely demand/supply mismatch Hypernatremia Positive blood culture with coagulase-negative staph and staph epidermidis, most likely contamination and patient is asymptomatic regarding this left sideFrom pulmonary emboli Plan: continue with anticoagulation where IV heparin, is changed to Eliquis Continue D5W Continue Zosyn Monitor hemoglobin Several consultants on the case including critical care team and cardiology c onsult Labs and medication were reviewed.. Continue same treatment. Continue with symptomatic treatment. Resume home medication. Monitor lytes and vitals. DVT and GI prophylaxis. Further recommendations as per clinical course of the patient DVT prophylaxis: Eliquis GI Prophylaxis: Protonix PT/OT: Pending Prognosis is guarded
--- NOTE | 2022-07-09 13:15 | P.GSCN ---
History of Present Illness Consult date: 07/09/22 Reason for Consult: Sacral and bilateral heel decubiti Requesting physician: Shilo Jean History of present illness: This patient was admitted several days ago with progressive weakness and altered mental status. He has numerous serious medical problems including atherosclerotic heart disease and renal dysfunction. His mental status has somewhat waxed and waned during his hospitalization. 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, internal carotid artery) Additional Past Medical History / Comment(s): WORK ACCIDENT LEFT INDEX FINGER AMPUTATED History of Any Multi-Drug Resistant Organisms: None Reported Past Surgical History: No Surgical Hx Reported Past Anesthesia/Blood Transfusion Reactions: No Reported Reaction Past Psychological History: No Psychological Hx Reported Smoking Status: Former smoker Past Alcohol Use History: Occasional Past Drug Use History: None Reported - Past Family History Mother Family Medical History: No Reported History Medications and Allergies Home Medications Medication Instructions Recorded Confirmed Type No Known Home Medications 07/02/22 07/02/22 History Allergies Allergy/AdvReac Type Severity Reaction Status Date / Time No Known Allergies Allergy Verified 07/02/22 10:54 Surgical - Exam Osteopathic Statement: *. No significant issues noted on an osteopathic structural exam other than those noted in the History and Physical/Consult. Vital Signs Temp Pulse Resp BP Pulse Ox 98.9 F 74 15 136/73 99 07/02/22 05:12 07/02/22 05:12 07/02/22 05:12 07/02/22 05:12 07/02/22 05:12 the patient has a reddened area directly over the sacrum. There is no breakdown of the skin at this time. The areas about 6 x 3 cm. The left heel has a blackened area directly over the posterior aspect of the heel. On the right there is a blister looking area on the lateral aspect Results - Labs 07/09/22 07:40 07/09/22 07:40 Abnormal Lab Results - Last 24 Hours (Table) 07/08/22 07/08/22 07/09/22 Range/Units 16:59 19:59 02:02 RBC (4.30-5.90) m/uL Hgb (13.0-17.5) gm/dL Hct (39.0-53.0) % Lymphocytes # (1.0-4.8) k/uL Potassium (3.5-5.1) mmol/L Chloride (98-107) mmol/L BUN (9-20) mg/dL Glucose (74-99) mg/dL POC Glucose (mg/dL) 198 H 250 H 138 H (70-110) mg/dL Calcium (8.4-10.2) mg/dL 07/09/22 07/09/22 07/09/22 Range/Units 06:01 07:40 07:40 RBC 3.17 L (4.30-5.90) m/uL Hgb 10.1 L (13.0-17.5) gm/dL Hct 30.5 L (39.0-53.0) % Lymphocytes # 0.9 L (1.0-4.8) k/uL Potassium 3.1 L (3.5-5.1) mmol/L Chloride 111 H (98-107) mmol/L BUN 6 L (9-20) mg/dL Glucose 144 H (74-99) mg/dL POC Glucose (mg/dL) 169 H (70-110) mg/dL Calcium 7.2 L (8.4-10.2) mg/dL Diabetes panel 07/09/22 Range/Units 07:40 Sodium 138 (137-145) mmol/L Potassium 3.1 L (3.5-5.1) mmol/L Chloride 111 H (98-107) mmol/L Carbon Dioxide 23 (22-30) mmol/L BUN 6 L (9-20) mg/dL Creatinine 0.88 (0.66-1.25) mg/dL Glucose 144 H (74-99) mg/dL Calcium 7.2 L (8.4-10.2) mg/dL Calcium panel 07/09/22 Range/Units 07:40 Calcium 7.2 L (8.4-10.2) mg/dL Pituitary panel 07/09/22 Range/Units 07:40 Sodium 138 (137-145) mmol/L Potassium 3.1 L (3.5-5.1) mmol/L Chloride 111 H (98-107) mmol/L Carbon Dioxide 23 (22-30) mmol/L BUN 6 L (9-20) mg/dL Creatinine 0.88 (0.66-1.25) mg/dL Glucose 144 H (74-99) mg/dL Calcium 7.2 L (8.4-10.2) mg/dL Adrenal panel 07/09/22 Range/Units 07:40 Sodium 138 (137-145) mmol/L Potassium 3.1 L (3.5-5.1) mmol/L Chloride 111 H (98-107) mmol/L Carbon Dioxide 23 (22-30) mmol/L BUN 6 L (9-20) mg/dL Creatinine 0.88 (0.66-1.25) mg/dL Glucose 144 H (74-99) mg/dL Calcium 7.2 L (8.4-10.2) mg/dL Assessment and Plan Assessment: #1:sacral decubitus, stage I #2: Stage I to 2 bilateral heel ulcers. Plan: I discussed with nursing and the patient's . I will start with simple bordered foam for both heels as well as the use of the covering inflatable heel protecting boots. I recommended triad cream for the sacral area with close observation. Thank you for the operative procedure this gentleman scare. We will be happy to reassess if his wounds change.
--- NOTE | 2022-07-09 14:30 | P.PN ---
Subjective Progress Note Date: 07/09/22 Principal diagnosis: Acute diabetic ketoacidosis On 07/04/2022, I'm seeing the patient for a follow-up. The patient seems to be slightly more awake compared to yesterday. The patient had a massive water deficit and the patient remains on D5 water which is running at a rate of 1 50 mL an hour. He cc more interactive. He is lethargic. However when stimulated, he would answer questions. He was getting upset easily and he does not seem to be cooperative. He is aware that she is in the hospital. He isn't a very poor health condition. His troponins were abnormal. He was given an echocardiogram and the patient was found to have an ejection fraction of 25% consistent with systolic heart failure. The chronicity of his CHF is not known. The patient was also found to have a right-sided pleural effusion and some atelectatic changes in the right lung. We are contemplating to do a thoracentesis of the later stage. Although, this pleural fluid could be related to CHF. Meanwhile, the patient remains on D5 water. The patient has improvement in his electrolytes. Anion gap metabolic acidosis is recovered. Serum bicarb is up to 19. BUN is at 28 with a creatinine of 0.9. Sodium is at 148 with a chloride level of 124. The WBC count is at 10.8 with a hemoglobin of 12. The patient remains on IV heparin regarding his underlying chronic a chair fibrillation. His swallow evaluation is to be done today. His mucous membranes in his oral condition is improved with hydration. He was started on Levemir insulin by the medical team 20 units daily along with that he is receiving a sliding scale coverage. 07/05/2022, the patient is much more awake. The patient remains on D5 water.The patient has developed improvement electrolytes. Sodium level is down to 140 and the patient's serum bicarbonate of 18 with a BUN of 17 and a creatinine of 0.8. The white cell count of 9.5 with a hemoglobin of 11.3. Remains on IV heparin. Cardiac rhythm is atrial fibrillation. Propofol level is at 0.25. Remains on IV Zosyn. Chest x-ray shows consolidation possibly right-sided pleural effusion. Attempted a bedside thoracentesis. Minimal amount of fluid came from the right lung. I'm going to order a CAT scan of the chest for this patient for tomorrow. He has no specific complaints. He remains on Levemir insulin. He is also on a sliding scale coverage. IV fluids are in the form of D5 water at the rate of 150 mL an hour and this was introduced down to 50 mL. On today's evaluation of 07/06/2022, the patient is on room air oxygen. The patient is communicating and the patient is alert. I attempted a thoracentesis on this patient and I failed to evacuate any significant pleural fluid from today right. The ultrasound the chest showed a small right-sided pocket in the order of 3 cm. Based on that, I ordered a CAT scan of the chest today to investigate the situation further. There may be a concern for malignancy in this patient. Otherwise, the patient is doing well. Blood sugars have been fluctuating. The patient had a episode of hypoglycemia and I recommended switching and dropping his dose of Levemir. On today's blood work, his sodium i s at 139, bicarb is at 18 with a BUN of 12 and a creatinine of 0.8. The lites echoes at 10.4 with a hemoglobin of 11.9. The patient's stool for C. diff has been negative. Occult stool for about has been positive. No signs of any respiratory distress. Remains on IV Zosyn. Reevaluated today on 07/07/22, patient remains in the ICU, seems to be doing fairly well, not in any distress, patient is on 2 L nasal cannula and his O2 sats is 95%. Chest x-ray continues to show a small tiny right-sided pleural effusion, not large enough to consider thoracentesis. Hence I have no plans to perform thoracentesis of this patient at present. Apparently this was attempted by Dr. Fajardo on 07/05, and no fluid could be drained. Patient does have mediastinal adenopathy which may have to be addressed on an outpatient basis. CT angiogram of the chest showed evidence of pulmonary embolism. Patient r emains on heparin, and I plan to transition the patient developed loose today. I reviewed the CT of the chest, there is evidence of mediastinal adenopathy and right supraclavicular adenopathy patient will need outpatient PET scan and possibly CT-guided needle biopsy of the supraclavicular lymph node this could all be done on outpatient basis Reevaluated today on 07/08/22, patient is refusing to take his oral medication for his pulmonary embolism, hence he remained on heparin for the last 24 hours, and we are still recommending that the patient should be switched to eliquis. Clinically the patient is improving, and I believe the patient should be considered for discharge planning however we have to make sure that the patient is going to be compliant with his medications and he will take his oral meds including his eliquis and his oral antibiotics. And he should have outpatient follow-up WBC count today is 9.4 hemoglobin is 10.8. PTT is 41.2 blood sugar is 177. His last chest x-ray from yesterday continues to show right sided consolidation and possibly a small pleural effusion. Also the chest x-ray is suggestive of right hilar adenopathy. This was noted on CT of the chest, pa rgnt will definitely need outpatient follow-up. Reevaluated today on 07/09/22, patient is back taking his oral medications, he is back on eliquis, doing well, he was seen by the wound care team, for his sacral decubitus ulcer which is stage I, and he has stage I to 2 bilateral heel ulcers. Patient will eventually need placement, pulmonary-mari I believe the patient will be cleared from our perspective for discharge planning but I strongly recommend placement for this patient CBC is normal in elect lites are normal potassium is a bit low being corrected as per protocol, blood sugar is 144. Patient is on room air, denies any shortness of breath. Objective - Vital Signs Vital signs: Vital Signs Temp 97.3 F L 07/09/22 11:37 Pulse 89 07/09/22 11:37 Resp 18 07/09/22 11:37 BP 97/63 07/09/22 11:37 Pulse Ox 92 L 07/09/22 11:37 FiO2 21 07/07/22 19:19 Intake & Output 07/08/22 07/09/22 07/09/22 18:59 06:59 18:59 Intake Total 249.147 Output Total 600 400 100 Balance -350.853 -400 -100 Weight 93 kg Intake: Intake, IV Titration 69.147 Amount Heparin Sod,Pork in 0.45% 69.147 NaCl 25,000 unit In 0.45 % NaCl 1 250ml.bag @ 15. 92 UNITS/KG/HR 14.089 mls /hr IV .[id number] TOSIN Rx#: [id number] Oral 180 Output: Urine 600 400 100 Other: Voiding Method Diaper Diaper Diaper Incontinent Incontinent Incontinent External Catheter External Catheter External Catheter # Voids 1 1 # Bowel Movements 1 - Exam Physical Exam: Revealed a 71-year-old white male in no distress, Patient is on room air Head: Atraumatic normocephalic. HEENT:[Neck is supple.] [No neck masses.] [No thyromegaly.] [No JVD.] Chest: [Slightly diminished breath sounds and dullness at the right base. Cardiac Exam: [Normal S1 and S2, no S3 gallop, no murmur.] Abdomen: [Soft, nontender, no megaly, no rebound, no guarding, normal bowel sounds.] Extremities: [No clubbing, no edema, no cyanosis.] Neurological Exam: [No focal neurologic deficit.] Skin: Sacral decubitus ulcer stage I and bilateral heel ulcers stage I-2 - Labs CBC & Chem 7: 07/09/22 07:40 07/09/22 07:40 Labs: Abnormal Lab Results - Last 24 Hours (Table) 07/08/22 07/08/22 07/09/22 Range/Units 16:59 19:59 02:02 RBC (4.30-5.90) m/uL Hgb (13.0-17.5) gm/dL Hct (39.0-53.0) % Lymphocytes # (1.0-4.8) k/uL Potassium (3.5-5.1) mmol/L Chloride (98-107) mmol/L BUN (9-20) mg/dL Glucose (74-99) mg/dL POC Glucose (mg/dL) 198 H 250 H 138 H (70-110) mg/dL Calcium (8.4-10.2) mg/dL 07/09/22 07/09/22 07/09/22 Range/Units 06:01 07:40 07:40 RBC 3.17 L (4.30-5.90) m/uL Hgb 10.1 L (13.0-17.5) gm/dL Hct 30.5 L (39.0-53.0) % Lymphocytes # 0.9 L (1.0-4.8) k/uL Potassium 3.1 L (3.5-5.1) mmol/L Chloride 111 H (98-107) mmol/L BUN 6 L (9-20) mg/dL Glucose 144 H (74-99) mg/dL POC Glucose (mg/dL) 169 H (70-110) mg/dL Calcium 7.2 L (8.4-10.2) mg/dL Assessment and Plan Assessment: Impression: Acute diabetic ketoacidosis, resolved. Acute pulmonary embolism Paroxysmal atrial fibrillation History of CVA Possible underlying pulmonary malignancy with abnormal mediastinal lymph nodes and right supraclavicular lymph nodes Small pleural effusion, not large enough to perform safe thoracentesis Acute kidney injury, resolved. Cardiomyopathy, unknown etiology, being addressed by cardiology on the case. Ejection fraction of 25%. Severe dehydration on presentation secondary to DKA. Possible right lower lobe consolidation. Underlying malignancy is not entirely ruled out. Peripheral vessel occlusive disease. History of smoking. Noncompliance Recommendation: Continue eliquis. Discontinue antibiotics. Continue diuretics. director dental services to evaluate for placement. Follow-up on outpatient basis and PET scan on outpatient basis We will see the patient as needed for now Time with Patient: Less than 30
--- NOTE | 2022-07-09 15:05 | CDI ---
Documentation Clarification Form Date: 07/09/2022 02:50:04 PM From: Jerrica Drew [facility], CCDS Admit Date: 07/02/2022 11:00:00 AM Patient Name: Antoni Moise Visit Number: [id number] Discharge Date: ATTENTION: The Clinical Documentation Specialists (CDI) and [facility] Coding Staff appreciate your assistance in clarifying documentation. Please respond to the clarification below the line at the bottom and electronically sign. The CDI & [facility] Coding staff will review the response and follow-up if needed. Please note: Queries are made part of the Legal Health Record. If you have any questions, please contact the author of this message via ITS. Dr. Preston Yun: Stage 1 to 2 Bilateral Heel Ulcers is documented in the 07/09 Wound Care Consult without further specificity of the stage of each ulcer. Additional clarification regarding the stages of the pressure ulcers is requested. History/Risk Factors per he 07/02 H/P: Noncompliance with medications, CVA, DM, Hyperlipidemia, Former smoker. Clinical Indicators: Presented to the ED on 07/02 with SOB, disheveled, found down at home. Admit with Elevated Troponin, DKA, Altered mental status, Hypernatremia, Elevated D Dimer, Debility, Dehydration and Sepsis. Stage 1 to 2 bilateral heel ulcers (per the 07/09 Wound Care Consult), not further specified. Treatment 07/02: IV Zosyn 100 mls @ 200 mls/hr x1, IV Vanco 500 mls @ 167 mls/hr x1, IV Na Chl 1,000 mls @ 999 mls/hr q1H, 500 mls @ 999 mls/hr q31M; IV Insulin, IV Heparin. Wound Care Consulted on 07/04 for left heel pressure injury. Plan: Simple bordered foam both heels. Triad cream to sacral area. Please clarify the specific Stage of each Heel Ulcer, if known: [ ] Stage 1 Pressure Ulcer Left Heel Ulcer [ ] Stage 2 Pressure Ulcer Left Heel Ulcer [ ] Stage 1 Pressure Ulcer Right Heel Ulcer [ ] Stage 2 Pressure Ulcer Right Heel Ulcer [ ] Other, please specify: [ ] Unable to determine Clinical Definitions: Stage 1 Pressure Ulcer: intact skin, non-blanching redness of local area Stage 2 Pressure Ulcer: Partial thickness, loss of dermis, pink wound bed (Template Last Revised: September 2020) MTDD
[2022-07-09] MEDS: APIXABAN 5 MG TAB PO SCH ×2 (15:56→19:41)
[2022-07-09] MEDS: HYDROPHILIC CREAM 180 GM TUBE TOPICAL SCH ×2 (15:57→19:41)
[2022-07-09] MEDS: METOPROLOL TARTRATE 25 MG TAB PO SCH ×2 (16:06→19:42)
[2022-07-09 16:42] LABS: Glucose,Whole Blood 213 mg/dL (70-110)
[2022-07-09] MEDS: SPIRONOLACTONE 25 MG TAB PO SCH (17:13)
[2022-07-09] MEDS: ATORVASTATIN 40 MG TAB PO SCH (17:13)
[2022-07-09] MEDS: POTASSIUM CHLORIDE ER 20 MEQ TAB.ER PO SCH ×2 (17:13→17:15)
[2022-07-09] MEDS: POTASSIUM CHLORIDE 10 MEQ in WATER FOR INJECTION 1 100ML.BAG IVPB SCH ×4 (18:36→22:48)
[2022-07-09] MEDS: DEXTROSE 5% IN WATER 1,000 ML IV SCH ×2 (18:36→20:40)
--- NOTE | 2022-07-09 19:02 | FL ---
EXAMINATION TYPE: FL barium swallow w video DATE OF EXAM: 07/09/2022 COMPARISON: NONE HISTORY: Choking at bedside TECHNIQUE: Fluoroscopy. FINDINGS: Fluoroscopic guidance was provided for the procedure performed in conjunction with the hospital [facility] pathology department. Please see complete report forthcoming from the Speech Pathology departmen t. Various consistencies from thin liquid to solids were administered. Fluoroscopy time 2 minutes 56 seconds. Number of images: 0. Some transient penetration was within liquids. No significant pooling was observed in the vallecula. There is marked delay of bolus formation for swallowing. IMPRESSION: 1. Transient penetration with thin liquids. Remaining consistencies without penetration or aspiration . 2. Marked delay of bolus formation
[2022-07-09 20:01] LABS: Glucose,Whole Blood 185 mg/dL (70-110)
[2022-07-10] MEDS: INSULIN ASPART (NovoLOG) 100 UNIT/ML VIAL SQ SCH ×5 (01:57→20:09)
[2022-07-10 01:58] LABS: Glucose,Whole Blood 134 mg/dL (70-110)
[2022-07-10 05:56] LABS: Glucose,Whole Blood 177 mg/dL (70-110)
[2022-07-10] MEDS: INSULIN DETEMIR (LEVEMIR) 100 UNIT/ML SYR SQ SCH (06:11)
[2022-07-10] MEDS: SPIRONOLACTONE 25 MG TAB PO SCH (10:01)
[2022-07-10] MEDS: ATORVASTATIN 40 MG TAB PO SCH (10:01)
[2022-07-10] MEDS: METOPROLOL TARTRATE 25 MG TAB PO SCH ×2 (10:01→20:09)
[2022-07-10] MEDS: APIXABAN 5 MG TAB PO SCH ×2 (10:01→20:09)
[2022-07-10] MEDS: HYDROPHILIC CREAM 180 GM TUBE TOPICAL SCH ×2 (10:03→20:09)
[2022-07-10 11:42] LABS: Glucose,Whole Blood 207 mg/dL (70-110)
[2022-07-10 12:52] LABS: African American GFR (CKD) >90 (>60 ml/min/1.73 sqM); Anion Gap 6 mmol/L; Blood Urea Nitrogen 4 mg/dL (9-20); Calcium 7.5 mg/dL (8.4-10.2); Carbon Dioxide 20 mmol/L (22-30); Chloride 107 mmol/L (98-107); Glucose 195 mg/dL (74-99); Non-African American GFR(CKD) >90 (>60 ml/min/1.73 sqM); Sodium 133 mmol/L (137-145)
[2022-07-10 16:31] LABS: Glucose,Whole Blood 146 mg/dL (70-110)
[2022-07-10 19:58] LABS: Glucose,Whole Blood 192 mg/dL (70-110)
[2022-07-11 01:58] LABS: Glucose,Whole Blood 124 mg/dL (70-110)
[2022-07-11] MEDS: INSULIN ASPART (NovoLOG) 100 UNIT/ML VIAL SQ SCH ×5 (02:01→19:56)
[2022-07-11 05:59] LABS: Glucose,Whole Blood 151 mg/dL (70-110)
[2022-07-11] MEDS: INSULIN DETEMIR (LEVEMIR) 100 UNIT/ML SYR SQ SCH (06:29)
--- NOTE | 2022-07-11 08:38 | CDI ---
Documentation Clarification Form Date: 07/09/2022 02:50:00 PM From: Jerrica Drew Phone: Admit Date: 07/02/2022 11:00:00 AM Patient Name: Antoni Moise Visit Number: [id number] Discharge Date: ATTENTION: The Clinical Documentation Specialists (CDI) and [facility] Coding Staff appreciate your assistance in clarifying documentation. Please respond to the clarification below the line at the bottom and electronically sign. The CDI & [facility] Coding staff will review the response and follow-up if needed. Please note: Queries are made part of the Legal Health Record. If you have any questions, please contact the author of this message via ITS. Dr. Preston Yun Stage 1 to 2 Bilateral Heel Ulcers is documented in the 07/09 Wound Care Consult without further specificity of the stage of each ulcer. Additional clarification regarding the stages of the pressure ulcers is requested. History/Risk Factors per he 07/02 H/P: Noncompliance with medications, CVA, DM, Hyperlipidemia, Former smoker. Clinical Indicators: Presented to the ED on 07/02 with SOB, disheveled, found down at home. Admit with Elevated Troponin, DKA, Altered mental status, Hypernatremia, Elevated D Dimer, Debility, Dehydration and Sepsis. Stage 1 to 2 bilateral heel ulcers (per the 07/09 Wound Care Consult), not further specified. Treatment 07/02: IV Zosyn 100 mls @ 200 mls/hr x1, IV Vanco 500 mls @ 167 mls/hr x1, IV Na Chl 1,000 mls @ 999 mls/hr q1H, 500 mls @ 999 mls/hr q31M; IV Insulin, IV Heparin. Wound Care Consulted on 07/04 for left heel pressure injury. Plan: Simple bordered foam both heels. Triad cream to sacral area. Please clarify the specific Stage of each Heel Ulcer, if known: [ ] Stage 1 Pressure Ulcer Left Heel Ulcer [ ] Stage 2 Pressure Ulcer Left Heel Ulcer [ ] Stage 1 Pressure Ulcer Right Heel Ulcer [ ] Stage 2 Pressure Ulcer Right Heel Ulcer [ ] Other, please specify: [ ] Unable to determine Clinical Definitions: Stage 1 Pressure Ulcer: intact skin, non-blanching redness of local area Stage 2 Pressure Ulcer: Partial thickness, loss of dermis, pink wound bed (Template Last Revised: September 2020) MTDD
[2022-07-11] MEDS: HYDROPHILIC CREAM 180 GM TUBE TOPICAL SCH ×2 (08:57→19:59)
[2022-07-11] MEDS: METOPROLOL TARTRATE 25 MG TAB PO SCH ×2 (08:57→19:59)
[2022-07-11] MEDS: SPIRONOLACTONE 25 MG TAB PO SCH (08:57)
[2022-07-11] MEDS: APIXABAN 5 MG TAB PO SCH ×2 (08:57→19:58)
[2022-07-11] MEDS: ATORVASTATIN 40 MG TAB PO SCH (08:57)
[2022-07-11] MEDS: DEXTROSE 5% IN WATER 1,000 ML IV SCH (08:58)
[2022-07-11 11:27] LABS: Glucose,Whole Blood 153 mg/dL (70-110)
[2022-07-11 16:28] LABS: Glucose,Whole Blood 246 mg/dL (70-110)
[2022-07-11 19:55] LABS: Glucose,Whole Blood 138 mg/dL (70-110)
[2022-07-12 01:53] LABS: Glucose,Whole Blood 150 mg/dL (70-110)
[2022-07-12] MEDS: INSULIN ASPART (NovoLOG) 100 UNIT/ML VIAL SQ SCH ×5 (01:57→20:28)
[2022-07-12] MEDS: DEXTROSE 5% IN WATER 1,000 ML IV SCH ×2 (05:13→20:50)
[2022-07-12 05:56] LABS: Glucose,Whole Blood 152 mg/dL (70-110)
[2022-07-12] MEDS: INSULIN DETEMIR (LEVEMIR) 100 UNIT/ML SYR SQ SCH (06:21)
[2022-07-12 08:14] LABS: Basophils # (A) 0.1 k/uL (0-0.2); Basophils % (A) 1 %; Eosinophils # (A) 0.1 k/uL (0-0.7); Eosinophils % (A) 1 %; HCT 32.2 % (39.0-53.0); HGB 10.9 gm/dL (13.0-17.5); Lymphocytes # (A) 0.8 k/uL (1.0-4.8); Lymphocytes % (A) 13 %; MCH 33.1 pg (25.0-35.0); MCV 97.5 fL (80.0-100.0); Mean Platelet Volume 9.3; Monocytes # (A) 0.2 k/uL (0-1.0); Monocytes % (A) 4 %; Neutrophils % (A) 79 %; Platelet Count 232 k/uL (150-450); RDW 13.9 % (11.5-15.5); WBC 6.3 k/uL (3.8-10.6)
[2022-07-12] MEDS: SPIRONOLACTONE 25 MG TAB PO SCH (08:26)
[2022-07-12] MEDS: APIXABAN 5 MG TAB PO SCH ×2 (08:26→20:28)
[2022-07-12] MEDS: HYDROPHILIC CREAM 180 GM TUBE TOPICAL SCH ×2 (08:26→20:29)
[2022-07-12] MEDS: METOPROLOL TARTRATE 25 MG TAB PO SCH ×2 (08:26→20:28)
[2022-07-12] MEDS: ATORVASTATIN 40 MG TAB PO SCH (08:26)
[2022-07-12 09:07] LABS: African American GFR (CKD) >90 (>60 ml/min/1.73 sqM); Anion Gap 6 mmol/L; Blood Urea Nitrogen 9 mg/dL (9-20); Calcium 7.2 mg/dL (8.4-10.2); Carbon Dioxide 25 mmol/L (22-30); Chloride 106 mmol/L (98-107); Glucose 166 mg/dL (74-99); Non-African American GFR(CKD) 88 (>60 ml/min/1.73 sqM); Potassium 3.9 mmol/L (3.5-5.1); Sodium 137 mmol/L (137-145)
[2022-07-12 11:57] LABS: Glucose,Whole Blood 143 mg/dL (70-110)
[2022-07-12 16:30] LABS: Glucose,Whole Blood 276 mg/dL (70-110)
[2022-07-12 20:22] LABS: Glucose,Whole Blood 238 mg/dL (70-110)
--- NOTE | 2022-07-13 00:50 | P.PN ---
Subjective Progress Note Date: 07/11/22 From records This is a 71-year-old patient, has not follows Dr. Walden for years. Per the EMS report. When they arrived they found the patient getting only a Urine soaked underwear. Bed is also soaked for dry urine and that is under the mattress. Patient stated that he has not been getting out of bed for last 2 days. Has not been eating. He has not seen a doctor since 2014 when he had a stroke and is noncompliant with his medications. She is the coding technician. Patient finally is agreed to go to the hospital. She also felt that patient's breathing is also change in the last 3 days. 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 She is able to converse with him. She is normally alert to place person and time but currently she is less responsive. No trauma. He does not feel like eating. In the ER found to have a blood glucose in the 500s. Positive for serum acetone. Patient himself is unable to give much of history. Attempted to speak some words. Does move his limbs. Lethargic. On insulin drip. Also on heparin drip. Admitted with acute diabetic ketoacidosis/severe hypernatremia/acute metabolic encephalopathy/delirium/pneumonia/. Started on IV heparin, IV fluids, IV Zosyn, insulin drip. 07/03/2022: ICU: Encephalopathic. Delirious. Moves it about sometimes. Does open eyes. Not really answering questions. On D5W IV fluids, IV heparin, insulin drip, IV Zosyn,. Blood cultures positive for what appears to be Staphylococcus epidermidis. Was started on vancomycin earlier. A. fib rate controlled. 07/04/2022: ICU. With more awake today.. Taken off insulin drip this morning. Started on Levemir 20 units. at the bedside. IV Zosyn. D5 W. Remains in A. fib, rate controlled. Patient is out of DKA. 07/05/2022 this is a pleasant 71 years old female who was initially admitted with diabetic ketoacidosis found to have possible pneumonia with atrial fibrillation. Also showing severe cardiomyopathy with ejection fraction 25%, hypernatremia with fluid deficit. Patient with no chest pain or dyspnea Patient has been monitored closely in the ICU with pulmonary/critical care team and cardiology following her closely Vitas looks stable, she is saturating 95% and 2 L, blood pressure 96/41, she is tachypneic 26 Showing high pro calcitonin and 0.25 and chest x-ray showing opacity throughout her life flank with right pleural effusion and atelectasis. She has severe cardiomyopathy with ejection fraction of 25-30%. Ultrasound of the leg is negative, VQ scan shows some probability for PE and patient also already on IV heparin for cardiac disease. CT of the abdomen and pelvis and chest showing right hilar masslike opacity with distended gallbladder CT of the brain and neck is negative for acute process. 07/06/2022 pt remains in the icu requring close monitoring , today patient felt thoracocentesis, therefore CAT scan of the chest is ordered with IV contrast showing left-sided pulmonary embolism, multiple with moderate right pleural effusion and mediastinal lymphadenopathy suspicious for cancer. Also patient with some evidence of hypoglycemia and hypotension. For lower the dose of Levemir 20 units down to 10 units and lisinopril down to 2.5 mg. patient is still on heparin drip and Zosyn and D5W at 50 mL per hour 07/07/2022 Patient is awake but lethargic and confused, he was admitted with multiple medical problems including cardiomyopathy with ejection fraction 25%, possible right lung mass and lymphadenopathy that could require PET scan and close pulmonary outpatient follow-up. Also with gallbladder disease and distended gallbladder. Patient also was covered with antibiotic with Zosyn. Patient also with history of A. fib on anticoagulation, currently he is on IV heparin He looks more stable today and to be transferred to the general medical floor. Other than that his vitals are stable and labs are stable as well Also he is on D5 W. Monitor sodium level 07/08/2022 Patient was transferred to [facility], he is awake and alert looks somewhat tired, still mildly tachypneic with a breathing rate around 20-22. His blood pressure is is improved after lowering the dose of lisinopril. Hemoglobin 10.8. Today his heparin drip is going to be switched to Eliquis. Cardiology recommended cardiac cath which can be done as an outpatient for cardiomyopathy. I told the patient today about his lung mass and the need for close follow-up outpatient with the possibility of cancer and he verbalized understanding and acceptance. He continued on Zosyn 07/09/2022 Patient was was slipped lethargic this morning, no chest pain or significant dyspnea at rest. Blood pressure 97/67 Saturation 94% on room air. Patient recommended to follow up for outpatient for possible right lung mass to rule out malignancy, patient informed. He will need to follow-up with Dr. Fajardo in 2 weeks. He is currently kept on Zosyn and D5W, also he is on therapeutic dose of Eliquis for left sided pulmonary embolism 07/11/2022 Patient is currently lying in the bed. Awake alert but seems to be weak and lethargic. No complaints of chest pain. No worsening shortness of breath. Blood pressure is 104/67 pulse ox 91% on 2 L oxygen nasal cannula. Patient is being continued on anticoagulants and liquids for left-sided pulmonar y embolism. Continue on IV hydration with D5 water and also on antibiotics no cough Zosyn. Blood pressure is controlled. Neck and patient is also on metoprolol and lisinopril and Aldactone. Patient will need follow-up patient with pulmonary for CAT scan and evaluation of right lung mass. Patient may need rehab transfer. Current medications reviewed. Objective - Vital Signs Vital signs: Vital Signs Temp 98.2 F 07/11/22 20:00 Pulse 84 07/11/22 20:00 Resp 16 07/11/22 20:00 BP 94/66 07/11/22 20:00 Pulse Ox 96 07/11/22 20:00 FiO2 21 07/07/22 19:19 Intake & Output 07/11/22 07/11/22 07/12/22 06:59 18:59 06:59 Intake Total 480 330 Output Total 950 1000 Balance -470 -670 Intake: Oral 480 330 Output: Urine 950 1000 Other: Voiding Method Diaper Diaper Diaper Incontinent Incontinent Incontinent External Catheter External Catheter External Catheter # Voids 2 # Bowel Movements 1 - Exam - Exam GENERAL: The patient is alert and oriented x3, not in any acute distress. Well developed, well nourished. HEENT: Pupils are round and equally reacting to light. EOMI. No scleral icterus. No conjunctival pallor. Normocephalic, atraumatic. No pharyngeal erythema. No thyromegaly. CARDIOVASCULAR: S1 and S2 present. No murmurs, rubs, or gallops. PULMONARY: Chest is clear to auscultation, no wheezing or crackles. ABDOMEN: Soft, nontender, nondistended, normoactive bowel sounds. No palpable organomegaly. MUSCULOSKELETAL: No joint swelling or deformity. EXTREMITIES: No cyanosis, clubbing, or pedal edema. NEUROLOGICAL: Gross neurological examination did not reveal any focal deficits. SKIN: No rashes. no petechiae. - Labs CBC & Chem 7: 07/13/22 04:55 07/13/22 04:55 Labs: Abnormal Lab Results - Last 24 Hours (Table) 07/11/22 07/11/22 07/11/22 Range/Units 01:57 05:52 11:25 POC Glucose (mg/dL) 124 H 151 H 153 H (70-110) mg/dL 07/11/22 07/11/22 Range/Units 16:26 19:50 POC Glucose (mg/dL) 246 H 138 H (70-110) mg/dL Assessment and Plan Assessment: Right lung atelectasis versus consolidation with Right hilar mass-like consolidation. Outpatient follow up with pulmonary recommended. Severe cardiomyopathy with ejection fraction 25% new Onset atrial fibrillation on IV heparin. Currently changing to ileus this. mediastinal lymphadenopathy rule out malignancy Moderate right pleural effusion Elevated troponin, most likely demand/supply mismatch Hypernatremia Positive blood culture with coagulase-negative staph and staph epidermidis, most likely contamination and patient is asymptomatic regarding this left sideFrom pulmonary emboli Plan: continue with anticoagulation where IV heparin, is changed to Eliquis Continue D5W Continue Zosyn Monitor hemoglobin Several consultants on the case including critical care team and cardiology consult DVT prophylaxis: Eliquis GI Prophylaxis: Protonix PT/OT: Pending Prognosis is guarded Time with Patient: Greater than 30
[2022-07-13 02:08] LABS: Glucose,Whole Blood 112 mg/dL (70-110)
[2022-07-13] MEDS: INSULIN ASPART (NovoLOG) 100 UNIT/ML VIAL SQ SCH ×5 (02:21→21:49)
[2022-07-13] MEDS: LOPERAMIDE 2 MG CAP PO PRN (03:13)
[2022-07-13 05:59] LABS: Basophils % (A) 1 %; Eosinophils # (A) 0.1 k/uL (0-0.7); Eosinophils % (A) 1 %; HCT 30.2 % (39.0-53.0); HGB 10.3 gm/dL (13.0-17.5); Lymphocytes % (A) 17 %; MCH 33.3 pg (25.0-35.0); MCHC 34.2 g/dL (31.0-37.0); MCV 97.3 fL (80.0-100.0); Mean Platelet Volume 7.9; Monocytes # (A) 0.2 k/uL (0-1.0); Monocytes % (A) 4 %; Neutrophils # (A) 4.5 k/uL (1.3-7.7); Neutrophils % (A) 76 %; Platelet Count 281 k/uL (150-450); RDW 13.9 % (11.5-15.5); WBC 5.9 k/uL (3.8-10.6)
[2022-07-13 06:07] LABS: African American GFR (CKD) >90 (>60 ml/min/1.73 sqM); Anion Gap 6 mmol/L; Blood Urea Nitrogen 11 mg/dL (9-20); Calcium 7.4 mg/dL (8.4-10.2); Carbon Dioxide 24 mmol/L (22-30); Chloride 107 mmol/L (98-107); Glucose 143 mg/dL (74-99); Non-African American GFR(CKD) 84 (>60 ml/min/1.73 sqM); Potassium 3.9 mmol/L (3.5-5.1); Sodium 137 mmol/L (137-145)
[2022-07-13 06:11] LABS: Glucose,Whole Blood 152 mg/dL (70-110)
[2022-07-13] MEDS: INSULIN DETEMIR (LEVEMIR) 100 UNIT/ML SYR SQ SCH (06:25)
[2022-07-13] MEDS: METOPROLOL TARTRATE 25 MG TAB PO SCH ×2 (08:17→21:49)
[2022-07-13] MEDS: ATORVASTATIN 40 MG TAB PO SCH (08:17)
[2022-07-13] MEDS: APIXABAN 5 MG TAB PO SCH ×2 (08:17→21:49)
[2022-07-13] MEDS: SPIRONOLACTONE 25 MG TAB PO SCH (08:17)
[2022-07-13] MEDS: HYDROPHILIC CREAM 180 GM TUBE TOPICAL SCH ×2 (08:18→21:49)
--- NOTE | 2022-07-13 11:34 | P.PN ---
Subjective Progress Note Date: 07/12/22 From records This is a 71-year-old patient, has not follows Dr. Walden for years. Per the EMS report. When they arrived they found the patient getting only a Urine soaked underwear. Bed is also soaked for dry urine and that is under the mattress. Patient stated that he has not been getting out of bed for last 2 days. Has not been eating. He has not seen a doctor since 2014 when he had a stroke and is noncompliant with his medications. She is the foreman/project manager. Patient finally is agreed to go to the hospital. She also felt that patient's breathing is also change in the last 3 days. 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 She is able to converse with him. She is normally alert to place person and time but currently she is less responsive. No trauma. He does not feel like eating. In the ER found to have a blood glucose in the 500s. Positive for serum acetone. Patient himself is unable to give much of history. Attempted to speak some words. Does move his limbs. Lethargic. On insulin drip. Also on heparin drip. Admitted with acute diabetic ketoacidosis/severe hypernatremia/acute metabolic encephalopathy/delirium/pneumonia/. Started on IV heparin, IV fluids, IV Zosyn, insulin drip. 07/03/2022: ICU: Encephalopathic. Delirious. Moves it about sometimes. Does open eyes. Not really answering questions. On D5W IV fluids, IV heparin, insulin drip, IV Zosyn,. Blood cultures positive for what appears to be Staphylococcus epidermidis. Was started on vancomycin earlier. A. fib rate controlled. 07/04/2022: ICU. With more awake today.. Taken off insulin drip this morning. Started on Levemir 20 units. at the bedside. IV Zosyn. D5 W. Remains in A. fib, rate controlled. Patient is out of DKA. 07/05/2022 this is a pleasant 71 years old female who was initially admitted with diabetic ketoacidosis found to have possible pneumonia with atrial fibrillation. Also showing severe cardiomyopathy with ejection fraction 25%, hypernatremia with fluid deficit. Patient with no chest pain or dyspnea Patient has been monitored closely in the ICU with pulmonary/critical care team and cardiology following her closely Vitas looks stable, she is saturating 95% and 2 L, blood pressure 96/41, she is tachypneic 26 Showing high pro calcitonin and 0.25 and chest x-ray showing opacity throughout her life flank with right pleural effusion and atelectasis. She has severe cardiomyopathy with ejection fraction of 25-30%. Ultrasound of the leg is negative, VQ scan shows some probability for PE and patient also already on IV heparin for cardiac disease. CT of the abdomen and pelvis and chest showing right hilar masslike opacity with distended gallbladder CT of the brain and neck is negative for acute process. 07/06/2022 pt remains in the icu requring close monitoring , today patient felt thoracocentesis, therefore CAT scan of the chest is ordered with IV contrast showing left-sided pulmonary embolism, multiple with moderate right pleural effusion and mediastinal lymphadenopathy suspicious for cancer. Also patient with some evidence of hypoglycemia and hypotension. For lower the dose of Levemir 20 units down to 10 units and lisinopril down to 2.5 mg. patient is still on heparin drip and Zosyn and D5W at 50 mL per hour 07/07/2022 Patient is awake but lethargic and confused, he was admitted with multiple medical problems including cardiomyopathy with ejection fraction 25%, possible right lung mass and lymphadenopathy that could require PET scan and close pulmonary outpatient follow-up. Also with gallbladder disease and distended gallbladder. Patient also was covered with antibiotic with Zosyn. Patient also with history of A. fib on anticoagulation, currently he is on IV heparin He looks more stable today and to be transferred to the general medical floor. Other than that his vitals are stable and labs are stable as well Also he is on D5 W. Monitor sodium level 07/08/2022 Patient was transferred to [facility], he is awake and alert looks somewhat tired, still mildly tachypneic with a breathing rate around 20-22. His blood pressure is is improved after lowering the dose of lisinopril. Hemoglobin 10.8. Today his heparin drip is going to be switched to Eliquis. Cardiology recommended cardiac cath which can be done as an outpatient for cardiomyopathy. I told the patient today about his lung mass and the need for close follow-up outpatient with the possibility of cancer and he verbalized understanding and acceptance. He continued on Zosyn 07/09/2022 Patient was was slipped lethargic this morning, no chest pain or significant dyspnea at rest. Blood pressure 97/67 Saturation 94% on room air. Patient recommended to follow up for outpatient for possible right lung mass to rule out malignancy, patient informed. He will need to follow-up with Dr. Fajardo in 2 weeks. He is currently kept on Zosyn and D5W, also he is on therapeutic dose of Eliquis for left sided pulmonary embolism 07/11/2022 Patient is currently lying in the bed. Awake alert but seems to be weak and lethargic. No complaints of chest pain. No worsening shortness of breath. Blood pressure is 104/67 pulse ox 91% on 2 L oxygen nasal cannula. Patient is being continued on anticoagulants and liquids for left-sided pulmonar y embolism. Continue on IV hydration with D5 water and also on antibiotics no cough Zosyn. Blood pressure is controlled. Neck and patient is also on metoprolol and lisinopril and Aldactone. Patient will need follow-up patient with pulmonary for CAT scan and evaluation of right lung mass. Patient may need rehab transfer. 07/12/2022 Patient is resting in the bed. Awake alert and seems to be lethargic. No compressive chest pain or worsening shortness of breath. Blood pressure is stable. Requiring 2 L oxygen via nasal cannula. Tachycardia with heart rate 10. Morning. Patient is being continued on metoprolol, lisinopril and Aldactone. Antibiotics have been discontinued. blood sugars controlled. Afebrile. On IV hydration with D5 water at 50 mL per hour. Laboratory data showed WBC 6.3 hemoglobin 10.9 and platelets 232, sodium 137 potassium 3.9 chloride 106 bicarb is 25 BUN 9 and creatinine 0.81 and calcium 7.2. Current medications reviewed. Objective - Vital Signs Vital signs: Vital Signs Temp 97.9 F 07/12/22 19:55 Pulse 87 07/12/22 19:55 Resp 18 07/12/22 19:55 BP 107/59 07/12/22 19:55 Pulse Ox 95 07/12/22 19:55 FiO2 21 07/07/22 19:19 Intake & Output 07/12/22 07/12/22 07/13/22 06:59 18:59 06:59 Intake Total 485 590 Output Total 400 Balance 485 190 Intake: Oral 485 590 Output: Urine 400 Other: Voiding Method Diaper Diaper Incontinent Incontinent External Catheter External Catheter # Voids 1 # Bowel Movements 1 - Exam - Exam GENERAL: The patient is alert and oriented x3, not in any acute distress. Well developed, well nourished. HEENT: Pupils are round and equally reacting to light. EOMI. No scleral icterus. No conjunctival pallor. Normocephalic, atraumatic. No pharyngeal erythema. No thyromegaly. CARDIOVASCULAR: S1 and S2 present. No murmurs, rubs, or gallops. PULMONARY: Chest is clear to auscultation, no wheezing or crackles. ABDOMEN: Soft, nontender, nondistended, normoactive bowel sounds. No palpable organomegaly. MUSCULOSKELETAL: No joint swelling or deformity. EXTREMITIES: No cyanosis, clubbing, or pedal edema. NEUROLOGICAL: Gross neurological examination did not reveal any focal deficits. SKIN: No rashes. no petechiae. - Labs CBC & Chem 7: 07/13/22 04:55 07/13/22 04:55 Labs: Abnormal Lab Results - Last 24 Hours (Table) 07/12/22 07/12/22 07/12/22 Range/Units 01:51 05:55 07:08 RBC 3.30 L (4.30-5.90) m/uL Hgb 10.9 L (13.0-17.5) gm/dL Hct 32.2 L (39.0-53.0) % Lymphocytes # 0.8 L (1.0-4.8) k/uL Glucose (74-99) mg/dL POC Glucose (mg/dL) 150 H 152 H (70-110) mg/dL Calcium (8.4-10.2) mg/dL 07/12/22 07/12/22 07/12/22 Range/Units 08:28 11:45 16:13 RBC (4.30-5.90) m/uL Hgb (13.0-17.5) gm/dL Hct (39.0-53.0) % Lymphocytes # (1.0-4.8) k/uL Glucose 166 H (74-99) mg/dL POC Glucose (mg/dL) 143 H 276 H (70-110) mg/dL Calcium 7.2 L (8.4-10.2) mg/dL 07/12/22 Range/Units 20:21 RBC (4.30-5.90) m/uL Hgb (13.0-17.5) gm/dL Hct (39.0-53.0) % Lymphocytes # (1.0-4.8) k/uL Glucose (74-99) mg/dL POC Glucose (mg/dL) 238 H (70-110) mg/dL Calcium (8.4-10.2) mg/dL Assessment and Plan Assessment: Right lung atelectasis versus consolidation with Right hilar mass-like consolidation. Outpatient follow up with pulmonary recommended. Will need workup including PET scan and repeat imaging. Severe cardiomyopathy with ejection fraction 25% new Onset atrial fibrillation on IV heparin. Currently changing to eliquis. mediastinal lymphadenopathy rule out malignancy Moderate right pleural effusion Elevated troponin, most likely demand/supply mismatch Hypernatremia Positive blood culture with coagulase-negative staph and staph epidermidis, most likely contamination and patient is asymptomatic regarding this left sideFrom pulmonary emboli Plan: continue with anticoagulation where IV heparin, is changed to Eliquis Continue D5W. Complete antibiotic course. Monitor hemoglobin Several consultants on the case including critical care team and cardiology consult DVT prophylaxis: Eliquis GI Prophylaxis: Protonix PT/OT: Pending Prognosis is guarded Possible discharge to rehab once bed is available. Time with Patient: Greater than 30
[2022-07-13 11:46] LABS: Glucose,Whole Blood 72 mg/dL (70-110)
[2022-07-13 16:50] LABS: Glucose,Whole Blood 170 mg/dL (70-110)
[2022-07-13 20:13] LABS: Glucose,Whole Blood 231 mg/dL (70-110)
[2022-07-13] MEDS: DEXTROSE 5% IN WATER 1,000 ML IV SCH (21:50)
[2022-07-14 02:06] LABS: Glucose,Whole Blood 110 mg/dL (70-110)
[2022-07-14] MEDS: INSULIN ASPART (NovoLOG) 100 UNIT/ML VIAL SQ SCH ×5 (02:19→20:21)
[2022-07-14 06:01] LABS: Glucose,Whole Blood 156 mg/dL (70-110)
[2022-07-14] MEDS: INSULIN DETEMIR (LEVEMIR) 100 UNIT/ML SYR SQ SCH (06:41)
[2022-07-14 11:40] LABS: Glucose,Whole Blood 92 mg/dL (70-110)
[2022-07-14] MEDS: APIXABAN 5 MG TAB PO SCH ×2 (12:00→20:21)
[2022-07-14] MEDS: METOPROLOL TARTRATE 25 MG TAB PO SCH ×2 (12:00→20:21)
[2022-07-14] MEDS: ATORVASTATIN 40 MG TAB PO SCH (12:00)
[2022-07-14] MEDS: SPIRONOLACTONE 25 MG TAB PO SCH (12:00)
[2022-07-14] MEDS: HYDROPHILIC CREAM 180 GM TUBE TOPICAL SCH ×2 (12:01→20:22)
[2022-07-14] MEDS: DEXTROSE 5% IN WATER 1,000 ML IV SCH (14:54)
[2022-07-14 16:16] LABS: Glucose,Whole Blood 239 mg/dL (70-110)
[2022-07-14 19:54] LABS: Glucose,Whole Blood 390 mg/dL (70-110)
[2022-07-15 02:13] LABS: Glucose,Whole Blood 71 mg/dL (70-110)
[2022-07-15] MEDS: INSULIN ASPART (NovoLOG) 100 UNIT/ML VIAL SQ SCH ×5 (02:16→20:22)
[2022-07-15 05:52] LABS: Glucose,Whole Blood 129 mg/dL (70-110)
[2022-07-15] MEDS: INSULIN DETEMIR (LEVEMIR) 100 UNIT/ML SYR SQ SCH (06:05)
[2022-07-15] MEDS: ATORVASTATIN 40 MG TAB PO SCH (09:38)
[2022-07-15] MEDS: SPIRONOLACTONE 25 MG TAB PO SCH (09:38)
[2022-07-15] MEDS: METOPROLOL TARTRATE 25 MG TAB PO SCH ×2 (09:38→20:22)
[2022-07-15] MEDS: HYDROPHILIC CREAM 180 GM TUBE TOPICAL SCH ×2 (09:38→20:23)
[2022-07-15 11:50] LABS: Glucose,Whole Blood 180 mg/dL (70-110)
[2022-07-15] MEDS: DEXTROSE 5% IN WATER 1,000 ML IV SCH (12:09)
[2022-07-15 16:26] LABS: Glucose,Whole Blood 168 mg/dL (70-110)
[2022-07-15 20:02] LABS: Glucose,Whole Blood 157 mg/dL (70-110)
[2022-07-16 01:59] LABS: Glucose,Whole Blood 114 mg/dL (70-110)
[2022-07-16] MEDS: INSULIN ASPART (NovoLOG) 100 UNIT/ML VIAL SQ SCH ×3 (03:02→12:10)
[2022-07-16 05:51] LABS: Glucose,Whole Blood 122 mg/dL (70-110)
[2022-07-16] MEDS: INSULIN DETEMIR (LEVEMIR) 100 UNIT/ML SYR SQ SCH (06:47)
[2022-07-16] MEDS: DEXTROSE 5% IN WATER 1,000 ML IV SCH (09:21)
[2022-07-16] MEDS: HYDROPHILIC CREAM 180 GM TUBE TOPICAL SCH (09:43)
[2022-07-16] MEDS: SPIRONOLACTONE 25 MG TAB PO SCH (09:43)
[2022-07-16] MEDS: ATORVASTATIN 40 MG TAB PO SCH (09:43)
[2022-07-16] MEDS: METOPROLOL TARTRATE 25 MG TAB PO SCH (09:43)
[2022-07-16 10:28] LABS: African American GFR (CKD) >90 (>60 ml/min/1.73 sqM); Anion Gap 8 mmol/L; Blood Urea Nitrogen 12 mg/dL (9-20); Calcium 7.6 mg/dL (8.4-10.2); Carbon Dioxide 24 mmol/L (22-30); Chloride 102 mmol/L (98-107); Glucose 175 mg/dL (74-99); Non-African American GFR(CKD) 86 (>60 ml/min/1.73 sqM); Potassium 4.9 mmol/L (3.5-5.1); Sodium 134 mmol/L (137-145)
[2022-07-16 10:41] LABS: HCT 31.5 % (39.0-53.0); HGB 10.9 gm/dL (13.0-17.5); Hypochromasia Slight; MCH 34.2 pg (25.0-35.0); MCHC 34.7 g/dL (31.0-37.0); MCV 98.6 fL (80.0-100.0); Mean Platelet Volume 8.7; Platelet Count 234 k/uL (150-450); Poikilocytosis Slight; RBC 3.19 m/uL (4.30-5.90); RDW 13.8 % (11.5-15.5); WBC 4.3 k/uL (3.8-10.6)
[2022-07-16 11:26] VITALS: TEMP 98.7
--- NOTE | 2022-07-16 11:49 | P.PN ---
Subjective Progress Note Date: 07/13/22 From records This is a 71-year-old patient, has not follows Dr. Walden for years. Per the EMS report. When they arrived they found the patient getting only a Urine soaked underwear. Bed is also soaked for dry urine and that is under the mattress. Patient stated that he has not been getting out of bed for last 2 days. Has not been eating. He has not seen a doctor since 2014 when he had a stroke and is noncompliant with his medications. She is the geospatial information technologist. Patient finally is agreed to go to the hospital. She also felt that patient's breathing is also change in the last 3 days. 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 She is able to converse with him. She is normally alert to place person and time but currently she is less responsive. No trauma. He does not feel like eating. In the ER found to have a blood glucose in the 500s. Positive for serum acetone. Patient himself is unable to give much of history. Attempted to speak some words. Does move his limbs. Lethargic. On insulin drip. Also on heparin drip. Admitted with acute diabetic ketoacidosis/severe hypernatremia/acute metabolic encephalopathy/delirium/pneumonia/. Started on IV heparin, IV fluids, IV Zosyn, insulin drip. 07/03/2022: ICU: Encephalopathic. Delirious. Moves it about sometimes. Does open eyes. Not really answering questions. On D5W IV fluids, IV heparin, insulin drip, IV Zosyn,. Blood cultures positive for what appears to be Staphylococcus epidermidis. Was started on vancomycin earlier. A. fib rate controlled. 07/04/2022: ICU. With more awake today.. Taken off insulin drip this morning. Started on Levemir 20 units. at the bedside. IV Zosyn. D5 W. Remains in A. fib, rate controlled. Patient is out of DKA. 07/05/2022 this is a pleasant 71 years old female who was initially admitted with diabetic ketoacidosis found to have possible pneumonia with atrial fibrillation. Also showing severe cardiomyopathy with ejection fraction 25%, hypernatremia with fluid deficit. Patient with no chest pain or dyspnea Patient has been monitored closely in the ICU with pulmonary/critical care team and cardiology following her closely Vitas looks stable, she is saturating 95% and 2 L, blood pressure 96/41, she is tachypneic 26 Showing high pro calcitonin and 0.25 and chest x-ray showing opacity throughout her life flank with right pleural effusion and atelectasis. She has severe cardiomyopathy with ejection fraction of 25-30%. Ultrasound of the leg is negative, VQ scan shows some probability for PE and patient also already on IV heparin for cardiac disease. CT of the abdomen and pelvis and chest showing right hilar masslike opacity with distended gallbladder CT of the brain and neck is negative for acute process. 07/06/2022 pt remains in the icu requring close monitoring , today patient felt thoracocentesis, therefore CAT scan of the chest is ordered with IV contrast showing left-sided pulmonary embolism, multiple with moderate right pleural effusion and mediastinal lymphadenopathy suspicious for cancer. Also patient with some evidence of hypoglycemia and hypotension. For lower the dose of Levemir 20 units down to 10 units and lisinopril down to 2.5 mg. patient is still on heparin drip and Zosyn and D5W at 50 mL per hour 07/07/2022 Patient is awake but lethargic and confused, he was admitted with multiple medical problems including cardiomyopathy with ejection fraction 25%, possible right lung mass and lymphadenopathy that could require PET scan and close pulmonary outpatient follow-up. Also with gallbladder disease and distended gallbladder. Patient also was covered with antibiotic with Zosyn. Patient also with history of A. fib on anticoagulation, currently he is on IV heparin He looks more stable today and to be transferred to the general medical floor. Other than that his vitals are stable and labs are stable as well Also he is on D5 W. Monitor sodium level 07/08/2022 Patient was transferred to [facility], he is awake and alert looks somewhat tired, still mildly tachypneic with a breathing rate around 20-22. His blood pressure is is improved after lowering the dose of lisinopril. Hemoglobin 10.8. Today his heparin drip is going to be switched to Eliquis. Cardiology recommended cardiac cath which can be done as an outpatient for cardiomyopathy. I told the patient today about his lung mass and the need for close follow-up outpatient with the possibility of cancer and he verbalized understanding and acceptance. He continued on Zosyn 07/09/2022 Patient was was slipped lethargic this morning, no chest pain or significant dyspnea at rest. Blood pressure 97/67 Saturation 94% on room air. Patient recommended to follow up for outpatient for possible right lung mass to rule out malignancy, patient informed. He will need to follow-up with Dr. Fajardo in 2 weeks. He is currently kept on Zosyn and D5W, also he is on therapeutic dose of Eliquis for left sided pulmonary embolism 07/11/2022 Patient is currently lying in the bed. Awake alert but seems to be weak and lethargic. No complaints of chest pain. No worsening shortness of breath. Blood pressure is 104/67 pulse ox 91% on 2 L oxygen nasal cannula. Patient is being continued on anticoagulants and liquids for left-sided pulmonar y embolism. Continue on IV hydration with D5 water and also on antibiotics no cough Zosyn. Blood pressure is controlled. Neck and patient is also on metoprolol and lisinopril and Aldactone. Patient will need follow-up patient with pulmonary for CAT scan and evaluation of right lung mass. Patient may need rehab transfer. 07/12/2022 Patient is resting in the bed. Awake alert and seems to be lethargic. No compressive chest pain or worsening shortness of breath. Blood pressure is stable. Requiring 2 L oxygen via nasal cannula. Tachycardia with heart rate 10. Morning. Patient is being continued on metoprolol, lisinopril and Aldactone. Antibiotics have been discontinued. blood sugars controlled. Afebrile. On IV hydration with D5 water at 50 mL per hour. Laboratory data showed WBC 6.3 hemoglobin 10.9 and platelets 232, sodium 137 potassium 3.9 chloride 106 bicarb is 25 BUN 9 and creatinine 0.81 and calcium 7.2. 07/13/22 Patient is lying in the bed. Awake alert and denied any complaints of chest pain or shortness of breath. Heart rate is at 100 today. Currently requiring 2 L oxygen with nasal cannula. Patient has been afebrile. Continued on metoprolol is no purulent and abducted. will start back on liquids. Pulmonary is not planning for any procedures at this time. Laboratory data showed WBC 5.9 hemoglobin 10.3 and platelets 281, sodium 137 potassium 3.9 chloride 107 bicarb is 24 BUN 11 and creatinine 0.9 and blood sugar is 143. Continue the insulin sliding scale and Levemir 10 units daily. Current medications reviewed. Objective - Vital Signs Vital signs: Vital Signs Temp 98 F 07/13/22 16:00 Pulse 97 07/13/22 16:00 Resp 18 07/13/22 16:00 BP 101/67 07/13/22 16:00 Pulse Ox 93 L 07/13/22 16:00 FiO2 21 07/07/22 19:19 Intake & Output 07/13/22 07/13/22 07/14/22 06:59 18:59 06:59 Output Total 150 Balance -150 Output: Urine 150 Other: Voiding Method Diaper Diaper Incontinent Incontinent External Catheter External Catheter # Voids 1 1 # Bowel Movements 1 1 - Exam - Exam GENERAL: The patient is alert and oriented x3, not in any acute distress. Well developed, well nourished. HEENT: Pupils are round and equally reacting to light. EOMI. No scleral icterus. No conjunctival pallor. Normocephalic, atraumatic. No pharyngeal erythema. No t hyromegaly. CARDIOVASCULAR: S1 and S2 present. No murmurs, rubs, or gallops. PULMONARY: Chest is clear to auscultation, no wheezing or crackles. ABDOMEN: Soft, nontender, nondistended, normoactive bowel sounds. No palpable organomegaly. MUSCULOSKELETAL: No joint swelling or deformity. EXTREMITIES: No cyanosis, clubbing, or pedal edema. NEUROLOGICAL: Gross neurological examination did not reveal any focal deficits. SKIN: No rashes. no petechiae. - Labs CBC & Chem 7: 07/16/22 09:27 07/16/22 09:27 Labs: Abnormal Lab Results - Last 24 Hours (Table) 07/13/22 07/13/22 07/13/22 Range/Units 02:06 04:55 04:55 RBC 3.10 L (4.30-5.90) m/uL Hgb 10.3 L (13.0-17.5) gm/dL Hct 30.2 L (39.0-53.0) % Glucose 143 H (74-99) mg/dL POC Glucose (mg/dL) 112 H (70-110) mg/dL Calcium 7.4 L (8.4-10.2) mg/dL 07/13/22 07/13/22 07/13/22 Range/Units 06:10 16:48 20:12 RBC (4.30-5.90) m/uL Hgb (13.0-17.5) gm/dL Hct (39.0-53.0) % Glucose (74-99) mg/dL POC Glucose (mg/dL) 152 H 170 H 231 H (70-110) mg/dL Calcium (8.4-10.2) mg/dL Assessment and Plan Assessment: Right lung atelectasis versus consolidation with Right hilar mass-like consolidation. Outpatient follow up with pulmonary recommended. Will need workup including PET scan and repeat imaging. Severe cardiomyopathy with ejection fraction 25% new Onset atrial fibrillation on IV heparin. Currently changing to eliquis. mediastinal lymphadenopathy rule out malignancy Moderate right pleural effusion Elevated troponin, most likely demand/supply mismatch Hypernatremia Positive blood culture with coagulase-negative staph and staph epidermidis, most likely contamination and patient is asymptomatic regarding this left sideFrom pulmonary emboli Plan: continue with anticoagulation where IV heparin, is changed to Eliquis Continue D5W. Complete antibiotic course. Monitor hemoglobin Several consultants on the case including critical care team and cardiology consult DVT prophylaxis: Eliquis GI Prophylaxis: Protonix PT/OT: Pending Prognosis is guarded Possible discharge to rehab once bed is available. Time with Patient: Greater than 30
--- NOTE | 2022-07-16 11:50 | P.PN ---
Subjective Progress Note Date: 07/14/22 From records This is a 71-year-old patient, has not follows Dr. Walden for years. Per the EMS report. When they arrived they found the patient getting only a Urine soaked underwear. Bed is also soaked for dry urine and that is under the mattress. Patient stated that he has not been getting out of bed for last 2 days. Has not been eating. He has not seen a doctor since 2014 when he had a stroke and is noncompliant with his medications. She is the roto mixer operator. Patient finally is agreed to go to the hospital. She also felt that patient's breathing is also change in the last 3 days. 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 She is able to converse with him. She is normally alert to place person and time but currently she is less responsive. No trauma. He does not feel like eating. In the ER found to have a blood glucose in the 500s. Positive for serum acetone. Patient himself is unable to give much of history. Attempted to speak some words. Does move his limbs. Lethargic. On insulin drip. Also on heparin drip. Admitted with acute diabetic ketoacidosis/severe hypernatremia/acute metabolic encephalopathy/delirium/pneumonia/. Started on IV heparin, IV fluids, IV Zosyn, insulin drip. 07/03/2022: ICU: Encephalopathic. Delirious. Moves it about sometimes. Does open eyes. Not really answering questions. On D5W IV fluids, IV heparin, insulin drip, IV Zosyn,. Blood cultures positive for what appears to be Staphylococcus epidermidis. Was started on vancomycin earlier. A. fib rate controlled. 07/04/2022: ICU. With more awake today.. Taken off insulin drip this morning. Started on Levemir 20 units. at the bedside. IV Zosyn. D5 W. Remains in A. fib, rate controlled. Patient is out of DKA. 07/05/2022 this is a pleasant 71 years old female who was initially admitted with diabetic ketoacidosis found to have possible pneumonia with atrial fibrillation. Also showing severe cardiomyopathy with ejection fraction 25%, hypernatremia with fluid deficit. Patient with no chest pain or dyspnea Patient has been monitored closely in the ICU with pulmonary/critical care team and cardiology following her closely Vitas looks stable, she is saturating 95% and 2 L, blood pressure 96/41, she is tachypneic 26 Showing high pro calcitonin and 0.25 and chest x-ray showing opacity throughout her life flank with right pleural effusion and atelectasis. She has severe cardiomyopathy with ejection fraction of 25-30%. Ultrasound of the leg is negative, VQ scan shows some probability for PE and patient also already on IV heparin for cardiac disease. CT of the abdomen and pelvis and chest showing right hilar masslike opacity with distended gallbladder CT of the brain and neck is negative for acute process. 07/06/2022 pt remains in the icu requring close monitoring , today patient felt thoracocentesis, therefore CAT scan of the chest is ordered with IV contrast showing left-sided pulmonary embolism, multiple with moderate right pleural effusion and mediastinal lymphadenopathy suspicious for cancer. Also patient with some evidence of hypoglycemia and hypotension. For lower the dose of Levemir 20 units down to 10 units and lisinopril down to 2.5 mg. patient is still on heparin drip and Zosyn and D5W at 50 mL per hour 07/07/2022 Patient is awake but lethargic and confused, he was admitted with multiple medical problems including cardiomyopathy with ejection fraction 25%, possible right lung mass and lymphadenopathy that could require PET scan and close pulmonary outpatient follow-up. Also with gallbladder disease and distended gallbladder. Patient also was covered with antibiotic with Zosyn. Patient also with history of A. fib on anticoagulation, currently he is on IV heparin He looks more stable today and to be transferred to the general medical floor. Other than that his vitals are stable and labs are stable as well Also he is on D5 W. Monitor sodium level 07/08/2022 Patient was transferred to [facility], he is awake and alert looks somewhat tired, still mildly tachypneic with a breathing rate around 20-22. His blood pressure is is improved after lowering the dose of lisinopril. Hemoglobin 10.8. Today his heparin drip is going to be switched to Eliquis. Cardiology recommended cardiac cath which can be done as an outpatient for cardiomyopathy. I told the patient today about his lung mass and the need for close follow-up outpatient with the possibility of cancer and he verbalized understanding and acceptance. He continued on Zosyn 07/09/2022 Patient was was slipped lethargic this morning, no chest pain or significant dyspnea at rest. Blood pressure 97/67 Saturation 94% on room air. Patient recommended to follow up for outpatient for possible right lung mass to rule out malignancy, patient informed. He will need to follow-up with Dr. Fajardo in 2 weeks. He is currently kept on Zosyn and D5W, also he is on therapeutic dose of Eliquis for left sided pulmonary embolism 07/11/2022 Patient is currently lying in the bed. Awake alert but seems to be weak and lethargic. No complaints of chest pain. No worsening shortness of breath. Blood pressure is 104/67 pulse ox 91% on 2 L oxygen nasal cannula. Patient is being continued on anticoagulants and liquids for left-sided pulmonar y embolism. Continue on IV hydration with D5 water and also on antibiotics no cough Zosyn. Blood pressure is controlled. Neck and patient is also on metoprolol and lisinopril and Aldactone. Patient will need follow-up patient with pulmonary for CAT scan and evaluation of right lung mass. Patient may need rehab transfer. 07/12/2022 Patient is resting in the bed. Awake alert and seems to be lethargic. No compressive chest pain or worsening shortness of breath. Blood pressure is stable. Requiring 2 L oxygen via nasal cannula. Tachycardia with heart rate 10. Morning. Patient is being continued on metoprolol, lisinopril and Aldactone. Antibiotics have been discontinued. blood sugars controlled. Afebrile. On IV hydration with D5 water at 50 mL per hour. Laboratory data showed WBC 6.3 hemoglobin 10.9 and platelets 232, sodium 137 potassium 3.9 chloride 106 bicarb is 25 BUN 9 and creatinine 0.81 and calcium 7.2. 07/13/22 Patient is lying in the bed. Awake alert and denied any complaints of chest pain or shortness of breath. Heart rate is at 100 today. Currently requiring 2 L oxygen with nasal cannula. Patient has been afebrile. Continued on metoprolol is no purulent and abducted. will start back on liquids. Pulmonary is not planning for any procedures at this time. Laboratory data showed WBC 5.9 hemoglobin 10.3 and platelets 281, sodium 137 potassium 3.9 chloride 107 bicarb is 24 BUN 11 and creatinine 0.9 and blood sugar is 143. Continue the insulin sliding scale and Levemir 10 units daily. 07/14/22 Patient denied any complaints of chest pain or shortness of breath. Awake alert and oriented. Tolerating oral diet. No nausea vomiting abdominal pain or diar rajni. Heart rate is better controlled. Continued on metoprolol. No other acute overnight issues. Awaiting transfer to [facility]. Current medications reviewed. Objective - Vital Signs Vital signs: Vital Signs Temp 99.0 F 07/14/22 20:00 Pulse 82 07/14/22 20:00 Resp 16 07/14/22 20:00 BP 104/54 07/14/22 20:00 Pulse Ox 93 L 07/14/22 20:00 FiO2 21 07/07/22 19:19 Intake & Output 07/14/22 07/14/22 07/15/22 06:59 18:59 06:59 Intake Total 540 480 Balance 540 480 Weight 93 kg Intake: Oral 540 480 Other: Voiding Method Diaper Diaper Diaper Incontinent Incontinent Incontinent # Voids 2 # Bowel Movements 1 - Exam - Exam GENERAL: The patient is alert and oriented x3, not in any acute distress. Well developed, well nourished. HEENT: Pupils are round and equally reacting to light. EOMI. No scleral icterus. No conjunctival pallor. Normocephalic, atraumatic. No pharyngeal erythema. No th yromegaly. CARDIOVASCULAR: S1 and S2 present. No murmurs, rubs, or gallops. PULMONARY: Chest is clear to auscultation, no wheezing or crackles. ABDOMEN: Soft, nontender, nondistended, normoactive bowel sounds. No palpable organomegaly. MUSCULOSKELETAL: No joint swelling or deformity. EXTREMITIES: No cyanosis, clubbing, or pedal edema. NEUROLOGICAL: Gross neurological examination did not reveal any focal deficits. SKIN: No rashes. no petechiae. - Labs CBC & Chem 7: 07/16/22 09:27 07/16/22 09:27 Labs: Abnormal Lab Results - Last 24 Hours (Table) 07/14/22 07/14/22 07/14/22 Range/Units 05:59 16:15 19:52 POC Glucose (mg/dL) 156 H 239 H 390 H (70-110) mg/dL Assessment and Plan Assessment: Right lung atelectasis versus consolidation with Right hilar mass-like consolidation. Outpatient follow up with pulmonary recommended. Will need workup including PET scan and repeat imaging. Severe cardiomyopathy with ejection fraction 25% new Onset atrial fibrillation on IV heparin. Currently changing to eliquis. mediastinal lymphadenopathy rule out malignancy Moderate right pleural effusion Elevated troponin, most likely demand/supply mismatch Hypernatremia Positive blood culture with coagulase-negative staph and staph epidermidis, most likely contamination and patient is asymptomatic regarding this left sideFrom pulmonary emboli Plan: continue with anticoagulation where IV heparin, is changed to Eliquis Will hold fluids and encourage oral intake. Monitor hemoglobin Several consultants on the case including critical care team and cardiology consult DVT prophylaxis: Eliquis GI Prophylaxis: Protonix PT/OT: Pending Prognosis is guarded Possible discharge to rehab once bed is available.
--- NOTE | 2022-07-16 11:51 | P.PN ---
Subjective Progress Note Date: 07/15/22 From records This is a 71-year-old patient, has not follows Dr. Walden for years. Per the EMS report. When they arrived they found the patient getting only a Urine soaked underwear. Bed is also soaked for dry urine and that is under the mattress. Patient stated that he has not been getting out of bed for last 2 days. Has not been eating. He has not seen a doctor since 2014 when he had a stroke and is noncompliant with his medications. 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 Patient finally is agreed to go to the hospital. She also felt that patient's breathing is also change in the last 3 days. 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 She is able to converse with him. She is normally alert to place person and time but currently she is less responsive. No trauma. He does not feel like eating. In the ER found to have a blood glucose in the 500s. Positive for serum acetone. Patient himself is unable to give much of history. Attempted to speak some words. Does move his limbs. Lethargic. On insulin drip. Also on heparin drip. Admitted with acute diabetic ketoacidosis/severe hypernatremia/acute metabolic encephalopathy/delirium/pneumonia/. Started on IV heparin, IV fluids, IV Zosyn, insulin drip. 07/03/2022: ICU: Encephalopathic. Delirious. Moves it about sometimes. Does open eyes. Not really answering questions. On D5W IV fluids, IV heparin, insulin drip, IV Zosyn,. Blood cultures positive for what appears to be Staphylococcus epidermidis. Was started on vancomycin earlier. A. fib rate controlled. 07/04/2022: ICU. With more awake today.. Taken off insulin drip this morning. Started on Levemir 20 units. at the bedside. IV Zosyn. D5 W. Remains in A. fib, rate controlled. Patient is out of DKA. 07/05/2022 this is a pleasant 71 years old female who was initially admitted with diabetic ketoacidosis found to have possible pneumonia with atrial fibrillation. Also showing severe cardiomyopathy with ejection fraction 25%, hypernatremia with fluid deficit. Patient with no chest pain or dyspnea Patient has been monitored closely in the ICU with pulmonary/critical care team and cardiology following her closely Vitas looks stable, she is saturating 95% and 2 L, blood pressure 96/41, she is tachypneic 26 Showing high pro calcitonin and 0.25 and chest x-ray showing opacity throughout her life flank with right pleural effusion and atelectasis. She has severe cardiomyopathy with ejection fraction of 25-30%. Ultrasound of the leg is negative, VQ scan shows some probability for PE and patient also already on IV heparin for cardiac disease. CT of the abdomen and pelvis and chest showing right hilar masslike opacity with distended gallbladder CT of the brain and neck is negative for acute process. 07/06/2022 pt remains in the icu requring close monitoring , today patient felt thoracocentesis, therefore CAT scan of the chest is ordered with IV contrast showing left-sided pulmonary embolism, multiple with moderate right pleural effusion and mediastinal lymphadenopathy suspicious for cancer. Also patient with some evidence of hypoglycemia and hypotension. For lower the dose of Levemir 20 units down to 10 units and lisinopril down to 2.5 mg. patient is still on heparin drip and Zosyn and D5W at 50 mL per hour 07/07/2022 Patient is awake but lethargic and confused, he was admitted with multiple medical problems including cardiomyopathy with ejection fraction 25%, possible right lung mass and lymphadenopathy that could require PET scan and close pulmonary outpatient follow-up. Also with gallbladder disease and distended gallbladder. Patient also was covered with antibiotic with Zosyn. Patient also with history of A. fib on anticoagulation, currently he is on IV heparin He looks more stable today and to be transferred to the general medical floor. Other than that his vitals are stable and labs are stable as well Also he is on D5 W. Monitor sodium level 07/08/2022 Patient was transferred to [facility], he is awake and alert looks somewhat tired, still mildly tachypneic with a breathing rate around 20-22. His blood pressure is is improved after lowering the dose of lisinopril. Hemoglobin 10.8. Today his heparin drip is going to be switched to Eliquis. Cardiology recommended cardiac cath which can be done as an outpatient for cardiomyopathy. I told the patient today about his lung mass and the need for close follow-up outpatient with the possibility of cancer and he verbalized understanding and acceptance. He continued on Zosyn 07/09/2022 Patient was was slipped lethargic this morning, no chest pain or significant dyspnea at rest. Blood pressure 97/67 Saturation 94% on room air. Patient recommended to follow up for outpatient for possible right lung mass to rule out malignancy, patient informed. He will need to follow-up with Dr. Fajardo in 2 weeks. He is currently kept on Zosyn and D5W, also he is on therapeutic dose of Eliquis for left sided pulmonary embolism 07/11/2022 Patient is currently lying in the bed. Awake alert but seems to be weak and lethargic. No complaints of chest pain. No worsening shortness of breath. Blood pressure is 104/67 pulse ox 91% on 2 L oxygen nasal cannula. Patient is being continued on anticoagulants and liquids for left-sided pulmonar y embolism. Continue on IV hydration with D5 water and also on antibiotics no cough Zosyn. Blood pressure is controlled. Neck and patient is also on metoprolol and lisinopril and Aldactone. Patient will need follow-up patient with pulmonary for CAT scan and evaluation of right lung mass. Patient may need rehab transfer. 07/12/2022 Patient is resting in the bed. Awake alert and seems to be lethargic. No compressive chest pain or worsening shortness of breath. Blood pressure is stable. Requiring 2 L oxygen via nasal cannula. Tachycardia with heart rate 10. Morning. Patient is being continued on metoprolol, lisinopril and Aldactone. Antibiotics have been discontinued. blood sugars controlled. Afebrile. On IV hydration with D5 water at 50 mL per hour. Laboratory data showed WBC 6.3 hemoglobin 10.9 and platelets 232, sodium 137 potassium 3.9 chloride 106 bicarb is 25 BUN 9 and creatinine 0.81 and calcium 7.2. 07/13/22 Patient is lying in the bed. Awake alert and denied any complaints of chest pain or shortness of breath. Heart rate is at 100 today. Currently requiring 2 L oxygen with nasal cannula. Patient has been afebrile. Continued on metoprolol is no purulent and abducted. will start back on liquids. Pulmonary is not planning for any procedures at this time. Laboratory data showed WBC 5.9 hemoglobin 10.3 and platelets 281, sodium 137 potassium 3.9 chloride 107 bicarb is 24 BUN 11 and creatinine 0.9 and blood sugar is 143. Continue the insulin sliding scale and Levemir 10 units daily. 07/14/22 Patient denied any complaints of chest pain or shortness of breath. Awake alert and oriented. Tolerating oral diet. No nausea vomiting abdominal pain or diar rajni. Heart rate is better controlled. Continued on metoprolol. No other acute overnight issues. Awaiting transfer to ECF. 07/15 Patient is resting in the bed. Awake alert and oriented. Tolerating oral diet. Continue on physical therapy and is awaiting transfer to ECF. Blood sugars controlled. Heart rate was 103 this morning. Down to 80 now Current medications reviewed. Objective - Vital Signs Vital signs: Vital Signs Temp 98.5 F 07/15/22 16:00 Pulse 89 07/15/22 16:00 Resp 17 07/15/22 16:00 BP 101/68 07/15/22 16:00 Pulse Ox 95 07/15/22 16:00 FiO2 21 07/07/22 19:19 Intake & Output 07/15/22 07/15/22 07/16/22 06:59 18:59 06:59 Intake Total 540 180 Balance 540 180 Intake: Oral 540 180 Other: Voiding Method Diaper Diaper Incontinent Incontinent # Voids 2 # Bowel Movements 1 - Exam - Exam GENERAL: The patient is alert and oriented x3, not in any acute distress. Well developed, well nourished. HEENT: Pupils are round and equally reacting to light. EOMI. No scleral icterus. No conjunctival pallor. Normocephalic, atraumatic. No pharyngeal erythema. No thyromegaly. CARDIOVASCULAR: S1 and S2 present. No murmurs, rubs, or gallops. PULMONARY: Chest is clear to auscultation, no wheezing or crackles. ABDOMEN: Soft, nontender, nondistended, normoactive bowel sounds. No palpable organomegaly. MUSCULOSKELETAL: No joint swelling or deformity. EXTREMITIES: No cyanosis, clubbing, or pedal edema. NEUROLOGICAL: Gross neurological examination did not reveal any focal deficits. SKIN: No rashes. no petechiae. - Labs CBC & Chem 7: 07/16/22 09:27 07/16/22 09:27 Labs: Abnormal Lab Results - Last 24 Hours (Table) 07/15/22 07/15/22 07/15/22 Range/Units 05:50 11:49 16:24 POC Glucose (mg/dL) 129 H 180 H 168 H (70-110) mg/dL 07/15/22 Range/Units 19:59 POC Glucose (mg/dL) 157 H (70-110) mg/dL Assessment and Plan Assessment: Right lung atelectasis versus consolidation with Right hilar mass-like consolidation. Outpatient follow up with pulmonary recommended. Will need workup including PET scan and repeat imaging. Severe cardiomyopathy with ejection fraction 25% new Onset atrial fibrillation on IV heparin. Currently changing to eliquis. mediastinal lymphadenopathy rule out malignancy Moderate right pleural effusion Elevated troponin, most likely demand/supply mismatch Hypernatremia Positive blood culture with coagulase-negative staph and staph epidermidis, most likely contamination and patient is asymptomatic regarding this left sideFrom pulmonary emboli Plan: continue with anticoagulation where IV heparin, is changed to Eliquis Will hold fluids and encourage oral intake. Monitor hemoglobin Several consultants on the case including critical care team and cardiology consult DVT prophylaxis: Eliquis GI Prophylaxis: Protonix PT/OT: Pending Prognosis is guarded Possible discharge to rehab once bed is available. Time with Patient: Greater than 30
[2022-07-16 11:53] LABS: Glucose,Whole Blood 146 mg/dL (70-110)
--- NOTE | 2022-07-16 11:59 | P.DS ---
Providers Date of admission: 07/02/22 11:00 Expected date of discharge: 07/16/22 Attending physician: Shilo Jean Consults: 07/02/22 09:44 Consult Physician Urgent Consulting Provider: Isabel Fajardo Consult Reason/Comments: dka, dehydration, hypernatremia Do you want consulting provider notified?: Already Contacted Primary care physician: Cm Walden [facility] Course: Discharge diagnosis Right lung atelectasis versus consolidation with Right hilar mass-like consolidation. Outpatient follow up with pulmonary recommended. Will need workup including PET scan and repeat imaging. Severe cardiomyopathy with ejection fraction 25% new Onset atrial fibrillation on IV heparin. Currently changing to eliquis. left sided pulmonary emboli mediastinal lymphadenopathy rule out malignancy Moderate right pleural effusion Elevated troponin, most likely demand/supply mismatch Hypernatremia Positive blood culture with coagulase-negative staph and staph epidermidis, most likely contamination and patient is asymptomatic regarding this History of CVA Hospital course This is a 71-year-old patient, has not follows Dr. Walden for years. Per the EMS report. When they arrived they found the patient getting only a Urine soaked underwear. Bed is also soaked for dry urine and that is under the mattress. Patient stated that he has not been getting out of bed for last 2 days. Has not been eating. He has not seen a doctor since 2014 when he had a stroke and is noncompliant with his medications. 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 Patient finally is agreed to go to the hospital. She also felt that patient's breathing is also change in the last 3 days. 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 She is able to converse with him. She is normally alert to p lace person and time but currently she is less responsive. No trauma. He does not feel like eating. In the ER found to have a blood glucose in the 500s. Positive for serum acetone. Patient himself is unable to give much of history. Attempted to speak some words. Does move his limbs. Lethargic. On insulin drip. Also on heparin drip. Admitted with acute diabetic ketoacidosis/severe hypernatremia/acute metabolic encephalopathy/delirium/pneumonia/. Started on IV heparin, IV fluids, IV Zosyn, insulin drip. 07/03/2022: ICU: Encephalopathic. Delirious. Moves it about sometimes. Does open eyes. Not really answering questions. On D5W IV fluids, IV heparin, insulin drip, IV Zosyn,. Blood cultures positive for what appears to be Staphylococcus epidermidis. Was started on vancomycin earlier. A. fib rate controlled. 07/04/2022: ICU. With more awake today.. Taken off insulin drip this morning. Started on Levemir 20 units. at the bedside. IV Zosyn. D5 W. Remains in A. fib, rate controlled. Patient is out of DKA. 07/05/2022 this is a pleasant 71 years old female who was initially admitted with diabetic ketoacidosis found to have possible pneumonia with atrial fibrillation. Also showing severe cardiomyopathy with ejection fraction 25%, hypernatremia with fluid deficit. Patient with no chest pain or dyspnea Patient has been monitored closely in the ICU with pulmonary/critical care team and cardiology following her closely Vitas looks stable, she is saturating 95% and 2 L, blood pressure 96/41, she is tachypneic 26 Showing high pro calcitonin and 0.25 and chest x-ray showing opacity throughout her life flank with right pleural effusion and atelectasis. She has severe cardiomyopathy with ejection fraction of 25-30%. Ultrasound of the leg is negative, VQ scan shows some probability for PE and patient also already on IV heparin for cardiac disease. CT of the abdomen and pelvis and chest showing right hilar masslike opacity with distended gallbladder CT of the brain and neck is negative for acute process. 07/06/2022 pt remains in the icu requring close monitoring , today patient felt thoracocentesis, therefore CAT scan of the chest is ordered with IV contrast showing left-sided pulmonary embolism, multiple with moderate right pleural effusion and mediastinal lymphadenopathy suspicious for cancer. Also patient with some evidence of hypoglycemia and hypotension. For lower the dose of Levemir 20 units down to 10 units and lisinopril down to 2.5 mg. patient is still on heparin drip and Zosyn and D5W at 50 mL per hour 07/07/2022 Patient is awake but lethargic and confused, he was admitted with multiple medical problems including cardiomyopathy with ejection fraction 25%, possible right lung mass and lymphadenopathy that could require PET scan and close pulmonary outpatient follow-up. Also with gallbladder disease and distended gallbladder. Patient also was covered with antibiotic with Zosyn. Patient also with history of A. fib on anticoagulation, currently he is on IV heparin He looks more stable today and to be transferred to the general medical floor. Other than that his vitals are stable and labs are stable as well Also he is on D5 W. Monitor sodium level 07/08/2022 Patient was transferred to [facility] units 350, he is awake and alert looks somewhat tired, still mildly tachypneic with a breathing rate around 20-22. His blood pressure is is improved after lowering the dose of lisinopril. Hemoglobin 10.8. Today his heparin drip is going to be switched to Eliquis. Cardiology recommended cardiac cath which can be done as an outpatient for cardiomyopathy. I told the patient today about his lung mass and the need for close follow-up outpatient with the possibility of cancer and he verbalized understanding and acceptance. He continued on Zosyn 07/09/2022 Patient was was slipped lethargic this morning, no chest pain or significant dyspnea at rest. Blood pressure 97/67 Saturation 94% on room air. Patient recommended to follow up for outpatient for possible right lung mass to rule out malignancy, patient informed. He will need to follow-up with Dr. Fajardo in 2 weeks. He is currently kept on Zosyn and D5W, also he is on therapeutic dose of Eliquis for left sided pulmonary embolism 07/11/2022 Patient is currently lying in the bed. Awake alert but seems to be weak and lethargic. No complaints of chest pain. No worsening shortness of breath. Blood pressure is 104/67 pulse ox 91% on 2 L oxygen nasal cannula. Patient is being continued on anticoagulants and liquids for left-sided pulmonary embolism. Continue on IV hydration with D5 water and also on antibiotics no cough Zosyn. Blood pressure is controlled. Neck and patient is also on metoprolol and lisinopril and Aldactone. Patient will need follow-up patient with pulmonary for CAT scan and evaluation of right lung mass. Patient may need rehab transfer. 07/12/2022 Patient is resting in the bed. Awake alert and seems to be lethargic. No compr essive chest pain or worsening shortness of breath. Blood pressure is stable. Requiring 2 L oxygen via nasal cannula. Tachycardia with heart rate 10. Morning. Patient is being continued on metoprolol, lisinopril and Aldactone. Antibiotics have been discontinued. blood sugars controlled. Afebrile. On IV hydration with D5 water at 50 mL per hour. Laboratory data showed WBC 6.3 hemoglobin 10.9 and platelets 232, sodium 137 potassium 3.9 chloride 106 bicarb is 25 BUN 9 and creatinine 0.81 and calcium 7.2. 07/13/22 Patient is lying in the bed. Awake alert and denied any complaints of chest pain or shortness of breath. Heart rate is at 100 today. Currently requiring 2 L oxygen with nasal cannula. Patient has been afebrile. Continued on metoprolol is no purulent and abducted. will start back on liquids. Pulmonary is not planning for any procedures at this time. Laboratory data showed WBC 5.9 hemoglobin 10.3 and platelets 281, sodium 137 potassium 3.9 chloride 107 bicarb is 24 BUN 11 and creatinine 0.9 and blood sugar is 143. Continue the insulin sliding scale and Levemir 10 units daily. 07/14/22 Patient denied any complaints of chest pain or shortness of breath. Awake alert and oriented. Tolerating oral diet. No nausea vomiting abdominal pain or diarrhea. Heart rate is better controlled. Continued on metoprolol. No other acute overnight issues. Awaiting transfer to [facility]. 07/15 Patient is resting in the bed. Awake alert and oriented. Tolerating oral diet. Continue on physical therapy and is awaiting transfer to [facility]. Blood sugars controlled. Heart rate was 103 this morning. Down to 80 now Dong 20 03/08/2022 Patient is currently resting in the bed. Awake alert and oriented. No complaints of chest pain or worsening shortness of breath. No pleuritic chest pain. Patient is able to tolerate oral diet. Blood pressure is stable. Currently heart rate is around 90. Saturating at 92% on room air. Laboratory data showed to 34 sodium 134 potassium 4.9 chloride 1-2 bicarb is 24 BUN 12 and creatinine 0.86 and calcium 7.6. Patient will be continued on anti-coagulation with a liquids. Patient is being discharged to [facility]. Follow up with pulmonary for repeat CT chest and also PET scan as an outpatient. - Exam GENERAL: The patient is alert and oriented x3, not in any acute distress. Well developed, well nourished. HEENT: Pupils are round and equally reacting to light. EOMI. No scleral icterus. No conjunctival pallor. Normocephalic, atraumatic. No pharyngeal erythema. No thyromegaly. CARDIOVASCULAR: S1 and S2 present. No murmurs, rubs, or gallops. PULMONARY: Chest is clear to auscultation, no wheezing or crackles. ABDOMEN: Soft, nontender, nondistended, normoactive bowel sounds. No palpable organomegaly. MUSCULOSKELETAL: No joint swelling or deformity. EXTREMITIES: No cyanosis, clubbing, or pedal edema. NEUROLOGICAL: Gross neurological examination did not reveal any focal deficits. SKIN: No rashes. no petechiae. Patient Condition at Discharge: Serious Plan - Discharge Summary Discharge Rx Participant: Yes New Discharge Prescriptions: New Insulin Detemir (Levemir) [Levemir] 10 unit SQ DAILY@0700 #1 each Atorvastatin [Lipitor] 40 mg PO DAILY #30 tab INSULIN ASPART (NovoLOG) [NovoLOG (formulary)] 0 unit SQ [id number] each lisinopriL [Zestril] 2.5 mg PO DAILY #30 tab Spironolactone [Aldactone] 25 mg PO DAILY #30 tab Metoprolol Tartrate [Lopressor] 25 mg PO BID #60 tab Apixaban [Eliquis] 5 mg PO BID #60 tab Discharge Medication List Apixaban [Eliquis] 5 mg PO BID #60 tab 07/16/22 [Rx] Atorvastatin [Lipitor] 40 mg PO DAILY #30 tab 07/16/22 [Rx] INSULIN ASPART (NovoLOG) [NovoLOG (formulary)] 0 unit SQ [id number] each 07/16/22 [Rx] Insulin Detemir (Levemir) [Levemir] 10 unit SQ DAILY@0700 #1 each 07/16/22 [Rx] Metoprolol Tartrate [Lopressor] 25 mg PO BID #60 tab 07/16/22 [Rx] Spironolactone [Aldactone] 25 mg PO DAILY #30 tab 07/16/22 [Rx] lisinopriL [Zestril] 2.5 mg PO DAILY #30 tab 07/16/22 [Rx] Follow up Appointment(s)/Referral(s): Cm Walden DO [Primary Care Provider] - 1-2 days Isabel Fajardo MD [STAFF PHYSICIAN] - 08/06/22 9:45 am (With Dr. Zamora. Scotty is out of town.) Activity/Diet/Wound Care/Special Instructions: Diet: Heart Health Chopped with thin liquids. Medications crushed with applesauce Wound Care: Sacral Wound: apply triad cream daily Bilater Heel Wounds: heel protector/offloading boots Discharge Disposition: TRANSFER TO SNF/ECF
[2022-07-16] MEDS ORDERED: APIXABAN 5 MG TAB PO SCH (12:00)
[2022-07-16 12:27] LABS: Band Neutrophils % 2 %; Eosinophils # (M) 0.13 k/uL (0-0.7); Monocytes # (M) 0.22 k/uL (0-1.0); Neutrophils % (M) 76 %; Nucleated Red Blood Cells 0 /100 WBC (0-0); Total Cells Counted 100
[2022-07-16 15:11] VITALS: BP 102/63; PULSE 91; RESP 16
== END 2022-07-16 14:10 | DRG 871 ==
LOC: EC 04:36 → 2SICU 11:00 → 3SCARD 07-07 13:23
PROVIDERS: ADMIT Hospitalist; ATTEND Hospitalist
DX: A41.50 Gram-negative sepsis, unspecified (principal); E11.10 Type 2 diabetes mellitus with ketoacidosis without coma; I26.99 Other pulmonary embolism without acute cor pulmonale; N17.0 Acute kidney failure with tubular necrosis; J15.6 Pneumonia due to other Gram-negative bacteria; G93.41 Metabolic encephalopathy; I21.A1 Myocardial infarction type 2; E87.0 Hyperosmolality and hypernatremia; F05 Delirium due to known physiological condition; I42.9 Cardiomyopathy, unspecified; I50.20 Unspecified systolic (congestive) heart failure; I69.351 Hemiplegia and hemiparesis following cerebral infarction affecting right dominant side; I48.19 Other persistent atrial fibrillation; J98.11 Atelectasis; E11.649 Type 2 diabetes mellitus with hypoglycemia without coma; E11.51 Type 2 diabetes mellitus with diabetic peripheral angiopathy without gangrene; I65.22 Occlusion and stenosis of left carotid artery; I07.1 Rheumatic tricuspid insufficiency; Z66 Do not resuscitate; L89.151 Pressure ulcer of sacral region, stage 1; K86.89 Other specified diseases of pancreas; D73.89 Other diseases of spleen; L89.621 Pressure ulcer of left heel, stage 1; L89.612 Pressure ulcer of right heel, stage 2; I95.9 Hypotension, unspecified; E87.8 Other disorders of electrolyte and fluid balance, not elsewhere classified; E86.0 Dehydration; R59.0 Localized enlarged lymph nodes; E78.5 Hyperlipidemia, unspecified; T50.916A Underdosing of multiple unspecified drugs, medicaments and biological substances, initial encounter; Z20.822 Contact with and (suspected) exposure to COVID-19; Z91.14 Patient's other noncompliance with medication regimen; I25.10 Atherosclerotic heart disease of native coronary artery without angina pectoris; K82.8 Other specified diseases of gallbladder; R13.10 Dysphagia, unspecified; Z91.199 Patient's noncompliance with other medical treatment and regimen due to unspecified reason; Z87.891 Personal history of nicotine dependence; Z89.022 Acquired absence of left finger(s)
CPT/HCPCS: 36415; 70450; 71045; 71250; 71275; 72125; 72170; 74176; 74230; 76604; 78580; 80048; 80051; 80053; 81001; 82009; 82140; 82272; 82550; 82565; 82803; 82947; 83605; 83735; 83880; 84100; 84132; 84145; 84443; 84484; 84520; 85025; 85027; 85379; 85610; 85730; 87040; 87324; 87636; 93005; 93306; 93970; 94760; 96361; 96365; 96366; 99291

== ENCOUNTER → 2022-08-08 | Outpatient (CLI) | payer MEDICARE ==
--- NOTE | 2022-08-08 11:51 | US ---
EXAMINATION TYPE: US chest DATE OF EXAM: 08/08/2022 COMPARISON: Ultrasound chest 07/06/2022. CLINICAL HISTORY: J90 Pleural effusion. Right chest with markings per order TECHNIQUE: Targeted ultrasound of the posterior lower left hemithorax EXAM MEASUREMENTS: Right Pleural Effusion pocket size: 7.8 cm Right skin surface to fluid distance: 2.9 cm Right side marked for possible thoracentesis outside the dept. Internal echoes visualized within the pleural. Pulmonologists are able to review the images in the patient?s EMR. IMPRESSIONS: Complex-appearing right pleural effusion.
--- NOTE | 2022-08-08 13:25 | OP ---
OPERATIVE REPORT PROCEDURE PERFORMED: Right-sided thoracentesis. PREOPERATIVE DIAGNOSIS: Mid right sided pleural effusion. POSTOPERATIVE DIAGNOSIS: Right-sided empyema. ANESTHESIA USED: 2 mL of 1% lidocaine. DESCRIPTION OF PROCEDURE: The patient was placed in a sitting upright position, the area below the right scapula, which is at the level of the 8th intercostal space and tip of the scapula was prepared in sterile fashion and drapes were applied. The area was locally anesthetized with lidocaine and again, this area was earlier localized by ultrasound guidance. After adequate anesthetic given, a 26-gauge needle was inserted into the pleural space, fluid was localized, and the fluid was grossly purulent and pus looking. Then a small tiny incision was made, and the thoracentesis catheter and needle were used, advanced at the same site into the pleural space, and as soon as the fluid was obtained, the catheter was advanced over the needle, and the needle was pulled out of the pleural space. Thick yellow purulent fluid was drained from the right pleural space, approximately 150 mL were drained, however, he did not continue to drain the fluid since the patient is requiring at this point, a pigtail catheter. No more fluid was drained, and I called Interventional Radiology for pigtail catheter placement. The patient will need to be admitted for empyema treatment, and he will require a pigtail catheter placement. He will require a long course of IV antibiotics. Procedure was well tolerated, and no complications, the fluid I drained which is roughly 150 mL was sent for different diagnostic studies. Again, the imaging position back [facility] was notified about this dictation, the intervention radiologist was also notified about this patient, and I discussed this patient with Dr. Jackson who will see the patient in consultation. MMODL / IJN: [id number] /
== END | disposition home or self-care (01) ==
LOC: RADUSWWP 11:23
PROVIDERS: ATTEND Internal Medicine
DX: J90 Pleural effusion, not elsewhere classified (principal)
CPT/HCPCS: 76604